=== PATIENT | male | born 1960 | race Caucasian/White ===

== ENCOUNTER 2020-04-22 16:09 | Outpatient (CLI) | payer MEDICAID, SELFPAY | END 2020-04-22 16:10 | disposition home or self-care (01) | LOC: LAB 03-06 10:17 | PROVIDERS: PCP Internal Medicine; Visit Provider Internal Medicine | DX: R63.4 Abnormal weight loss (principal) | CPT/HCPCS: 80053; 83036; 83550; 84443; 85025; 87635; G0103 ==

== ENCOUNTER 2020-04-26 07:43 | Day surgery (SDC) | payer MEDICAID, SELFPAY ==
[2020-04-26 08:06] VITALS: BP 145/94; PULSE 100; RESP 18; TEMP 36.4; O2SAT 100
[2020-04-26] MEDS: sodium chloride 0.9% 1,000 ML 30 ML IV (08:19)
--- NOTE | 2020-04-26 08:23 | P.ANESASSM_ITS ---
Pre-Anesthetic Assessment Pre-Anesthetic Assessment: Height/Weight: Height 1.7 m Weight 62.142 kg Temp Pulse Resp BP Pulse Ox 97.6 F 100 18 145/94 100 04/26/20 08:06 04/26/20 08:06 04/26/20 08:06 04/26/20 08:06 04/26/20 08:06 Preop Diagnosis: weight loss Proposed Procedure: Operation Date: 04/26/20 09:00 Proposed Procedures p EGD/Colon 82410 [id number] R63.4(Not Applicable) - Jesus Gonzalez MD s Colonoscopy(Not Applicable) - Jesus Gonzalez MD Familial anesthetic complications: None Was Beta Sabrina taken within 24 hours: N/A Last intake: Intake Last Liquid Date 04/25/20 Last Liquid Time 22:00 Last Solid Date 04/24/20 Last Solid Time 22:00 Social: Social History: No alcohol and No tobacco Exam: Pre-Anes Outpt Exam: alert, oriented x 3, clear to auscultation bilate rally and regular rate & rhythm Airway: Cervical ROM: WNL MP: 2 Dentition: Other (two lower teeth) Metabolic: Comments: rapid weight loss (40 lbs) patient appears thin, almost cachectic Anesthetic Plan: ASA status: 2 Anesthesia: MAC Risk of > 500 ml blood loss (7ml/kg in children): No Meds/Allergies Current Medications: Current Medications Generic Name Dose Route Start Last Admin Trade Name Freq PRN Reason Stop Dose Admin Sodium Chloride 1,000 mls @ 30 ml s/hr 04/26/20 08:15 04/26/20 08:19 Sodium Chloride 0.9% IV 04/27/20 08:14 30 mls/hr .Q24H GORGE Administration PFSH Anesthesia PFSH: Family History (Updated 04/22/20 @ 14:09 by HORTENSIA Iraheta) Father Cancer Grandfather Cancer Grandmother Cancer Social History (Updated 04/22/20 @ 14:09 by HORTENSIA Iraheta) Smoking and tobacco status: former smoker Alcohol intake: former History of recent travel: No Data Anesthesia Cardiac Studies: No Data to Display
--- NOTE | 2020-04-26 08:48 | W.PM.OPSUD ---
Surgery/Procedure H&P Update DATE OF PROCEDURE: April 26, 2020 DATE H&P PERFORMED: 04/22/20 PREOP DIAGNOSIS: weight loss PLANNED PROCEDURE: Operation Date: 04/26/20 09:00 Proposed Procedures p EGD/Colon 86223 [id number] R63.4(Not Applicable) - Jesus Gonzalez MD s Colonoscopy(Not Applicable) - Jesus Gonzalez MD
--- NOTE | 2020-04-26 08:56 | PC.NURSE ---
Angel Loo administered tap water enema as ordered by Dr. Gonzalez. About 500 mL was administered but patient was unable to hold the water in. Water ran out of patient seconds after administration. Dr. Gonzalez notified of poor results.
[2020-04-26 09:18] VITALS: BP 120/79; PULSE 90; RESP 18; TEMP 36.1; O2SAT 98
--- NOTE | 2020-04-26 09:20 | ANE.PACU2 ---
Inpatient post-anesthesia follow up: Airway intact: Yes Vital signs: Temperature 97 F Pulse Rate 64 Respiratory Rate 18 Blood Pressure 154/97 Pulse Oximetry 100 Oxygen Delivery Me thod Room Air Oxygen Flow Rate Fraction of Inspir ed Oxygen Hydration adequate: Yes Nausea and vomiting: No Pain level: 2 Mental status: Baseline
[2020-04-26 09:50] VITALS: BP 154/97; PULSE 64; RESP 18; O2SAT 100
--- NOTE | 2020-04-26 10:10 | PC.NURSE ---
Contrast given to patient at 1010. Instructed to drink slowly over the next hour. CT said the patient would probably be taken back for CT around 1200.;
--- NOTE | 2020-04-26 10:13 | CT_ITS ---
WS: [id number] CT CHEST, ABDOMEN, AND PELVIS TECHNIQUE: Contrast-enhanced CT of the chest, abdomen, and pelvis with coronal and sagittal reformatt ed images. CLINICAL INFORMATION: weight loss COMPARISON: None. DLP: 1096.[address] scans at [facility] use at least one of these dose optimization techniques: automat ed exposure control; mA and/or kV adjustment per patient size (includes targeted exams where dose is matched to clinical indication); or iterative reconstruction. CT CHEST: Lungs are well aerated. No acute pulmonary infiltrates. Hazy groundglass nodule in the right upper lo be measuring 9 mm. Additional noncalcified nodule right upper lobe measuring 3 mm. A few calcified gr anulomas. A few slightly prominent pretracheal lymph nodes largest measuring 8 mm nonspecific. No hil ar lymphadenopathy. A few small thyroid nodules bilaterally with the largest in the left measuring 14 mm. Normal caliber thoracic aorta. Proximal main pulmonary arteries are normal caliber. Normal GE ju nction. Normal thoracic spine. CT ABDOMEN AND PELVIS: Diffuse circumferential thickening involving the sigmoid colon extending to the rectosigmoid junction . Masslike polypoid thickening measures approximately 4.0 x 2.4 cm eccentric to the right. Additional lobulated soft tissue mass measuring 4.2 x 3.2 cm. Findings compatible with neoplasm. This extends o mukul a length of approximately 10 cm. Sigmoid thickening abuts the adjacent bladder with loss of fat p alfonso in a few locations although no abnormal bladder wall thickening. Additional lobulated sigmoid ou tpouching with low-attenuation measuring 17 mm. Multiple enlarged perirectal lymph nodes. Urine distended bladder. No inguinal lymphadenopathy. Mild left greater than right pelvocaliectasis with mild to moderate ureterectasis bilaterally left gr eater than right. Mild left hydronephrosis. Urine distended bladder may be due to bladder outlet obst ruction versus sequelae from sigmoid neoplasm. Slightly enlarged prostate measuring 4.7 CM. Recommend correlation PSA. Mild diffuse fatty infiltration the liver. No enhancing hepatic lesions. Normal gallbladder. Normal s pleen. Normal pancreas. Adrenal glands are normal. Slightly ectatic infrarenal abdominal aorta measur ing 1.8 x 1.9 CM. Aortic calcification. No periaortic lymphadenopathy. Moderate constipation with air -fluid levels in the colon. This is presumably due to partial obstruction at the rectosigmoid. Normal lumbar spine. IMPRESSION: 1. Diffuse long segment circumferential wall thickening involving the sigmoid colon extending to the rectosigmoid junction consistent with neoplasm described above. 2. Multiple prominent perirectal lymph nodes suspicious for metastatic disease 3. No periaortic or inguinal lymphadenopathy. 4. Urine distended bladder with left greater than right pelvocaliectasis and ureterectasis. Mild lef t hydronephrosis This may be due to bladder outlet obstruction versus sequelae from sigmoid neoplasm. 5. Prominent prostate measuring 4.7 cm.Correlation PSA. 6. Hazy ground glass opacity in right upper lobe nonspecific measuring 9 mm. Metastatic disease not excluded. Additional 3 mm noncalcified nodule right upper lobe. 7. A few prominent pretracheal lymph nodes largest measuring 8 mm. 8. Small bilateral thyroid nodules. This can be followed up with ultrasound.
[2020-04-26] MEDS: iohexol 300 mg/mL 50 mL Btl PO (10:39)
[2020-04-26 10:56] LABS: Carcinoembryonic Antigen 79.7 ng/mL (0.0-4.7)
[2020-04-26] MEDS: diphenhydrAMINE 50 mg/mL SDV 1mL IVP (11:50)
[2020-04-26] MEDS: hydrocortisone 100 mg/2 mL SDV IVP (11:50)
[2020-04-26] MEDS: iohexol 300 mg/mL 100 mL Btl IV (12:05)
--- NOTE | 2020-04-26 13:39 | PC.NURSE ---
Due to urine retention, Dr. Gonzalez asked for moeller to be placed, drained, and switched to leg bag for home discharge. Nurse successfully inserted moeller to patient with 1200mL immediate return. Once urine stopped draining, nurse switched normal moeller bag to leg bag, as requested by Dr. Gonzalez. Pt was given verbal and written instructions on how to care for moeller and how to switch between larger bag/leg bag -namely to sanitize the port with alcohol to prevent infections. Pt still needs to make appointment with Dr. Gaffney and Dr. Lopez. Nurse attempted to make appointments before patient left for home the day of procedure but was unable to do so by scheduling. Pt was given phone numbers to both offices and was instructed to follow up with both doctors' offices tomorrow AM if the offices do not contact him today.
== END 2020-04-26 13:29 | disposition home or self-care (01) ==
PROVIDERS: Family Provider Internal Medicine Endocrinology, Diabetes & Metabolism; Visit Provider Internal Medicine
PROC: 0DJ08ZZ Inspection of Upper Intestinal Tract, Via Natural or Artificial Opening Endoscopic (ICD-10-PCS; CPT 43235; principal; 2020-04-26 09:00)
PROC: 0DJD8ZZ Inspection of Lower Intestinal Tract, Via Natural or Artificial Opening Endoscopic (ICD-10-PCS; CPT 45378; 2020-04-26 09:00)
DX: R63.4 Abnormal weight loss (principal); Z68.21 Body mass index [BMI] 21.0-21.9, adult; D50.9 Iron deficiency anemia, unspecified; C20 Malignant neoplasm of rectum; Z87.891 Personal history of nicotine dependence
CPT/HCPCS: 12345; 36415; 43235; 45380; 51702; 71260; 74177; 82378; 88305; 96374; 96375; J1200; J1720; J2704; J3490; J7030; Q9967

== ENCOUNTER 2020-04-27 08:23 | Outpatient (CLI) | payer MEDICAID, SELFPAY ==
--- NOTE | 2020-04-28 09:56 | ONC CON_ITS ---
Dr. Singleton New Patient Note Patient: Larry Louis Unit #: [id number]: 1960 Dicatated By: Goldy Singleton M.D.Date of Visit: Apr 27, 2020 Onc MED New Patient/Consult Referring Physician: Dr. Naga Gonzalez M.D. History of Present Illness: Mr. Larry Louis, is a 59-year-old gentleman with a history of progressive constipation, and then eventually developed nausea vomiting with eating and has lost more than 40 pounds over the period of 6 months due to fear of nausea and abdominal discomfort/pain due to progressive constipation. Patient has history of off and on bleeding per rectum since childhood but recently became more regular. Patient has not seen any medical professional in the last 20 years eventually evaluated by Dr. Gonzalez and patient underwent EGD and colonoscopy on April 26, 2020 EGD was unremarkable but colonoscopy showed in the rectum a completely obstructed, large sized, fungating, friable, infiltrative and malignant appearing, circumferential mass and mass was actively bleeding, biopsy was obtained and which is pending patient underwent CT scan of chest abdomen pelvis on April 26, 2020 which showed diffuse circumferential thickening involving sigmoid colon extending to the rectosigmoid junction. Masslike polypoid thickening measuring approximately 4 x 2.4 cm eccentric to the right. Additional lobulated soft tissue mass measuring 4.2 x 3.2 cm and this extends over the length of approximately 10 cm. Sigmoid thickening abuts the adjacent bladder and with loss of fat plane in a few locations although no abnormal bladder wall thickening. Additional lobulated sigmoid outpouching with a low attenuation measuring 17 mm. Multiple enlarged perirectal lymph nodes. Urinary distended bladder. No inguinal lymphadenopathy. Mild diffuse fatty infiltration of the liver. No enhancing hepatic lesions seen. Hazy groundglass opacity in the right upper lobe nonspecific measuring 9 mm. Additional 3 mm noncalcified nodule right upper lobe. A few prominent pretracheal lymph nodes largest measuring 8 mm., Small bilateral thyroid nodules. Patient is a former smoker, and used to take moderate amount of alcohol. Patient denies any fever chills, denies any nausea or vomiting, denies any jaundice, denies any hemoptysis or hematemesis denies any shortness of breath or chest pain. Past Medical History: There is no documented medical history. Past Surgical History: Mr. Louis's surgical history is unremarkable. Medications: Tylenol 2 Tablet (of 325 mg) Oral q 8 hours PRN Allergies: Iodine Social History: Mr. Louis is single and he has no occupation specified. Mr. Louis has never smoked. He has no history of drinking. Family History: Mr. Louis's mother is alive. Mr. Louis's father at age 84: liver cancer. Mr. Louis has 3 brothers: 3 alive. He has 1 sister who is alive. Review Of Symptoms: Review of Systems is not available for this patient. Vital Signs: Performed on Apr 27, 2020 10:15: 8, 21.18, 1.71 sq.m, 67.00 in, 100 %, 83 /min, 20 /min, 148/91 mm(hg) (HIGH), 98.3 F (LOW), and 135.2 lbs (HIGH). Performance Status: 1 - No physically strenuous activity, but ambulatory and able to carry out light or sedentary work (e.g. office work, light house work). (ECOG) Physical Examination: ENMT - No mouth sores, no thrush, no jaundice, Respiratory - Lungs are clear to auscultation, Cardiovascular - Regular rate and rhythm of heart, Abdomen - Soft, bowel sounds present, Extremities - No visible edema. Lab/Imaging: Most recent lab results are not available for this patient. Impression: Near obstructive colorectal mass per colonoscopy done on April 26, 2020, biopsy pending CT scan of chest abdomen pelvis done on April 26, 2020 showed diffuse circumferential thickening involving sigmoid colon extending to the rectosigmoid junction. Masslike polypoid thickening measuring approximately 4 x 2.4 cm eccentric to the right. Additional lobulated soft tissue mass measuring 4.2 x 3.2 cm. Multiple enlarged perirectal lymph nodes. No enhancing lesion seen in the liver. Sigmoid thickening abuts adjacent bladder with loss of fat plane in a few location although no abnormal bladder wall thickening. Hazy groundglass opacity in the right upper lobe nonspecific measuring 9 mm. Additional 3 mmcalcified nodule right upper lobe. Small bilateral thyroid nodules. 40+ pound weight loss due to nausea and abdominal discomfort with eating due to near obstructive colorectal mass Plan: Discussed with patient regarding his colonoscopy report as well as CT scan of chest abdomen pelvis report, patient has large polypoid colorectal mass seen on the CT scan causing progressive constipation due to obstruction, at this point his biopsy report is pending but it would be appropriate if patient see surgeon immediately for evaluation regarding either resection of these masses or divergent colostomy and if biopsy confirms malignancy and tumor is not resectable upfront then may consider neoadjuvant therapy. Case was discussed with Dr. Reed, surgery and he suggested patient should see colorectal surgeon, then case was discussed with Dr. Hodge, in [place], who would see patient as soon as possible for evaluation. We will see him back after surgical evaluation with CBC CMP and plan accordingly. Patient was advised while he is waiting for evaluation by Dr. Hodge, in case he develops any severe abdominal pain or excessive rectal bleeding, he need to go to hospital immediately and also advised to avoid solid food. And maintain good hydration. Signed By: Goldy Singleton M.D. <<Signature on File>>
--- NOTE | 2020-04-29 11:30 | N.ONRAD NP_ITS ---
Radiation Oncology New Patient Visit Patient: Larry Louis MR#: [id number] : 1960> Age: 59> Sex: Male> Dictated by: Dr. Jay Brooke Date of Service: 04/27/2020 Referring Physician(s) : Dr. Naga Gonzalez Primary Site: Rectum Diagnosis: Adenocarcinoma of the proximal rectum. Staging work-up is pending. Purpose of Visit: Discuss the role of radiotherapy with curative intent. History of Present Illness: The patient is a 59-year-old male who presented with a history of hematochezia, a 43 pound unintended weight loss over the past 3 months, rectal incontinence for 1 year, constipation, nausea/vomiting, and bladder outlet obstruction requiring catheterization. The patient reports a chronic history of blood per rectum which began in childhood. On 04/26/[address] Gonzalez revealed a completely obstructing, large size, fungating, friable, infiltrative, malignant appearing, circumferential rectal mass. This mass was biopsied and pathology revealed moderately differentiated invasive adenocarcinoma (MMR studies pending). On 04/26/[address] of the chest abdomen and pelvis revealed: A 4 x 2.4 cm lesion in the sigmoid colon eccentric to the right and an additional lobulated soft tissue mass measuring 4.2 x 3.2 cm extending over a length of approximately 10 cm. Sigmoid thickening abuts the adjacent bladder with loss of fat plane and there was an additional lobulated sigmoid outpouching with low attenuation measuring 1.7 cm; Multiple enlarged perirectal lymph nodes; Enlarged prostate measuring 4.7 cm; Mild left hydronephrosis likely secondary to bladder outlet obstruction versus sequela from sigmoid neoplasm; a 9 mm nonspecific groundglass opacity in the right upper lobe of lung, and an additional 3 mm noncalcified nodule in the right upper lobe of lung; and, A few prominent pretracheal lymph nodes (largest measuring 8 mm). In consultation today, the patient reports bloody stools, weight loss, and bladder outlet obstruction symptoms. He reports that he has not seen a physician in over 20 years. The patient was also seen by Dr. Singleton today, who urgently facilitated the patient to be seen by Dr Olsen, a colorectal surgeon in [place], for a possible diverting colostomy. Current Medications: Tylenol. Allergies: Iodine. Medical History: No history of collagen vascular disease. No previous radiation therapy. Surgical History: Unremarkable Family History: The patient reports a positive family history of colon cancer in his grandfather, and liver cancer in his father Social History: The patient is seen today with his uncle, he reports that he is never smoked, and he has no history of illicit drug use or alcohol dependence. Review of Systems A thorough review of symptoms was completed which targeted constitutional, heme/lymph, HEENT, DRAFTING ENGINEER, pulmonary, cardiac, genitourinary, gastrointestinal, musculoskeletal, psychiatric and skin. Aside from that listed in the HPI, all others were negative. Vital Signs: Performed on 04/27/2020 10:15 AM Height - 67.00 in, Weight - 135.2 lbs (high), BSA - 1.71 sq.m, BMI - 21.18, Temperature - 98.3 f (low), Pulse - 83 /min, Respiration - 20 /min, O2 Sat - 100 %, Pain - 8 and BP - 148/ 91 mm(hg)(high). Physical Exam: GENERAL:??? The patient is alert, and in no acute distress. HEENT:??? Head is normocephalic. Face is symmetric. External ocular movements are intact. Sclera and conjunctivae are non erythematous. NECK:??? Trachea is midline.??? Thyroid is not enlarged by palpation.??? LYMPH NODES:??? There is no cervical or supraclavicular adenopathy bilaterally. LUNGS:??? Clear to auscultation bilaterally. Respiratory movement is unlabored. HEART:??? Regular rate and rhythm. EXTREMITIES:??? No deformities. NEUROLOGIC:??? Gait and station are normal.??? The patient is well coordinated and strength is equal bilaterally. DRAFTING ENGINEER:??? Cranial nerves II-XII are intact and without focal deficits.??? Psych: Affect is normal. Skin: Cursory review of the skin reveals no obvious lesions concerning for malignancy. Performance Status: 1 - No physically strenuous activity, but ambulatory and able to carry out light or sedentary work (e.g. office work, light house work). (ECOG) Imaging Review: I reviewed the radiographic images discussed above. 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 The mass is radiographically reported to span a distance of 10 cm and per colonoscopy, it was completely obstructing. Although staging is pending (i.e., MRI of the pelvis-rectal protocol, and PET/CT), I have personally have a high clinical suspicion for metastatic disease. Radiographic work-up completed thus far consisting of a CT of the chest abdomen pelvis (04/26/2020) reveals two contiguous colorectal masses likely originating in the sigmoid colon along with concern for invasion into the bladder, left hydronephrosis secondary to bladder outlet obstruction versus sequela from sigmoid neoplasm, a 9 mm nonspecific groundglass opacity in the right upper lobe of lung, an additional 3 mm noncalcified nodule in the right upper lobe of lung, and mediastinal adenopathy (largest measuring 8 mm). The patient is scheduled to see Dr. Olsen tomorrow, who is evaluating the patient for a possible diverting colostomy. Dr. Olsen will also make treatment recommendations pending further work-up/staging. Formal recommendations for radiation treatment will come after a consensus agreement has been reached between medical oncology, the colorectal surgeon, and radiation oncology. Plan: Follow-up in radiation oncology after seeing Dr. Olsen. Signed by Jay Brooke MD: 04/29/2020 11:28:44 AM <<Signature on File>> Time spent with patient: CPT Code: CPT Code:
== END 2020-04-27 08:24 | disposition home or self-care (01) ==
LOC: ONCMED 08:26
PROVIDERS: Absent Provider Radiology Radiation Oncology; Family Provider Internal Medicine Endocrinology, Diabetes & Metabolism; PCP Internal Medicine; Visit Provider Internal Medicine Hematology & Oncology
DX: C19 Malignant neoplasm of rectosigmoid junction (principal); C79.11 Secondary malignant neoplasm of bladder; K92.1 Melena; R63.4 Abnormal weight loss; N32.0 Bladder-neck obstruction; N13.30 Unspecified hydronephrosis; R91.1 Solitary pulmonary nodule; R59.1 Generalized enlarged lymph nodes
CPT/HCPCS: 99203; 99215

== ENCOUNTER → 2020-05-21 10:09 | Outpatient (BNVA) | payer MEDICAID, SELFPAY | PROVIDERS: Family Provider Internal Medicine Endocrinology, Diabetes & Metabolism; PCP Internal Medicine; Visit Provider Internal Medicine | DX: Z01.812 Encounter for preprocedural laboratory examination (principal); Z20.828 Contact with and (suspected) exposure to other viral communicable diseases | CPT/HCPCS: 87635 ==

== ENCOUNTER 2020-06-09 15:21 | Outpatient (CLI) | payer MEDICAID, SELFPAY ==
[2020-06-09 15:49] LABS: Basophils # 0.1 10^3/uL (0.0-0.1); Basophils % 0.8 %; Hemoglobin 8.4 g/dL (11.7-16.6); Lymphocytes # 1.5 10^3/uL (0.8-4.8); Lymphocytes % 20.1 %; Mean Corpuscular HGB Conc 26.3 g/dL (30.0-36.0); Mean Corpuscular Volume 68.7 fL (80-94); Mean Platelet Volume 8.5 fL (7.4-10.4); Monocytes # 0.5 10^3/uL (0.2-0.9); Monocytes % 7.2 %; Neutrophils # 5.39 10^3/uL (1.8-7.7); Neutrophils % 71.6 %; Nucleated Red Blood Cells % 0 %; Platelet Count 341 10^3/cmm (130-400); Red Blood Count 4.66 10^6/uL (4.1-5.3); Red Cell Distribution Width 19.5 % (12.1-15.1); White Blood Count 7.5 10^3/uL (4.0-10.0)
[2020-06-09 16:19] LABS: Alanine Aminotransferase 10 U/L (0-41); Albumin Level 4.2 g/dL (3.5-5.2); Alkaline Phosphatase 84 IU/L (40-130); Anion Gap 14.2 (5-19); Aspartate Amino Transferase 15 U/L (0-40); Blood Urea Nitrogen 8 mg/dL (8-23); Calcium 9.5 mg/dL (8.5-10.5); Carbon Dioxide 28 mmol/L (22-29); Chloride 100 mmol/L (98-107); Globulin 3.2 g/dL (1.3-4.6); Glomerular Filtration Rate 86.1 mL/min (90-130); Glucose 91 mg/dL (65-115); Osmolality Calculated 284 mOsm/kg (285-295); Potassium 4.2 mmol/L (3.5-5.1); Sodium 138 mmol/L (136-145); Total Bilirubin 0.2 mg/dL (0.15-1.2); Total Protein 7.4 g/dL (6.6-8.7)
== END 2020-06-09 15:22 | disposition home or self-care (01) ==
LOC: ONCMED 15:23
PROVIDERS: Family Provider Internal Medicine Endocrinology, Diabetes & Metabolism; PCP Internal Medicine; Visit Provider Internal Medicine Hematology & Oncology
DX: C20 Malignant neoplasm of rectum (principal); K62.89 Other specified diseases of anus and rectum; K63.89 Other specified diseases of intestine
CPT/HCPCS: 36415; 80053; 85025

== ENCOUNTER 2020-06-10 08:04 | Outpatient (CLI) | payer MEDICAID, SELFPAY ==
--- NOTE | 2020-06-10 09:16 | ONC FU_ITS ---
Dr. Singleton follow up note Patient: Larry Louis Unit #: [id number]: 1960 Dicatated By: Goldy Singleton M.D.Date of Visit:Jun 10, 2020 Onc Med Follow-up/Prog Note History of Present Illness: Mr. Larry Louis, is a 59-year-old gentleman with a history of progressive constipation, and then eventually developed nausea vomiting with eating and has lost more than 40 pounds over the period of 6 months due to fear of nausea and abdominal discomfort/pain due to progressive constipation. Patient has history of off and on bleeding per rectum since childhood but recently became more regular. Patient has not seen any medical professional in the last 20 years eventually evaluated by Dr. Gonzalez and patient underwent EGD and colonoscopy on April 26, 2020 EGD was unremarkable but colonoscopy showed in the rectum a completely obstructed, large sized, fungating, friable, infiltrative and malignant appearing, circumferential mass and mass was actively bleeding, biopsy was obtained and which is pending patient underwent CT scan of chest abdomen pelvis on April 26, 2020 which showed diffuse circumferential thickening involving sigmoid colon extending to the rectosigmoid junction. Masslike polypoid thickening measuring approximately 4 x 2.4 cm eccentric to the right. Additional lobulated soft tissue mass measuring 4.2 x 3.2 cm and this extends over the length of approximately 10 cm. Sigmoid thickening abuts the adjacent bladder and with loss of fat plane in a few locations although no abnormal bladder wall thickening. Additional lobulated sigmoid outpouching with a low attenuation measuring 17 mm. Multiple enlarged perirectal lymph nodes. Urinary distended bladder. No inguinal lymphadenopathy. Mild diffuse fatty infiltration of the liver. No enhancing hepatic lesions seen. Hazy groundglass opacity in the right upper lobe nonspecific measuring 9 mm. Additional 3 mm noncalcified nodule right upper lobe. A few prominent pretracheal lymph nodes largest measuring 8 mm., Small bilateral thyroid nodules. Patient was referred to Dr. Olsne because of progressive intestinal obstruction and on April 29, 2020 patient underwent lap loop sigmoid colostomy and Port-A-Cath placement followed by MRI scan of pelvis on May 06, 2020 which showed mid upper rectal tumor is noted in a circumferential appearance extending above the level of peritoneal reflection with prominent extension through muscularis into adjacent medial fat. There is also a large soft tissue nodular component extending superiorly into base of sigmoid mesentery above the peritoneal reflection. These findings are associated with enlarged presacral lymph node as well as obstructive uropathy with a moderate degree of left-sided hydronephrosis due to obstruction of distal left ureter Patient is a former smoker, and used to take moderate amount of alcohol. Patient denies any fever chills, denies any nausea or vomiting, denies any jaundice, denies any hemoptysis or hematemesis denies any shortness of breath or chest pain. Came for follow-up, denies any specific complaints, feeling much better with divergent colostomy no more abdominal pain no more frequent trips to the restroom. No nausea or vomiting. Appetite is good. Medications: Colace 1 Capsule Oral daily PRN, HYDROcodone-Acetaminophen 1 Tablet (of 5-325 mg) Oral q 6 hours PRN, Tylenol 2 Tablet (of 325 mg) Tablet Oral q 8 hours PRN Allergies: Iodine Review of Systems: Constitutional - Appetite is fair and weight is stable. No fever, night sweats, or hot flashes. Energy is poor, Allergic/Immunologic - , ENMT - No sinus congestion/drainage. No mouth sores. No sore throat or difficulty swallowing, Endocrine - , Hematologic/Lymphatic - No abnormal bruising, bleeding, Respiratory - No shortness of breath. No cough. No pleuritic pain or hemoptysis, Cardiovascular - No angina pain. No palpitations, Gastrointestinal - No nausea or vomiting. No heartburn or acid reflux. No diarrhea or constipation. Positive for bleeding from rectum, Genitourinary (M) - No dysuria or hematuria. No urinary frequency. No urgency or incontinence, Musculoskeletal - No joint or bone pain, Neurologic - No headache or dizziness. No numbness or tingling. No other focal neurologic symptoms, Psychiatric - No anxiety or depression. No insomnia. Vital Signs: Performed on Jun 10, 2020 08:09 Height - 67.00 in Weight - 138.6 lbs (HIGH) BSA - 1.73 sq.m BMI - 21.71 Temperature - 98.2 F (LOW) Pulse - 75 /min Respiration - 16 /min BP - 148/85 mm(hg) (HIGH) O2 Sat - 100 % Pain - 0 Performance Status: 1 - No physically strenuous activity, but ambulatory and able to carry out light or sedentary work (e.g. office work, light house work). (ECOG) Physical Examination: ENMT - No mouth sores, no thrush, no jaundice, Respiratory - Lungs are clear to auscultation, Cardiovascular - Regular rate and rhythm of heart, Abdomen - Soft, bowel sounds present ,colostomy bag functioning well with no discharge, Extremities - No edema or rash. Lab/Imaging: Most recent lab results are not available for this patient. Impression: Near obstructive colorectal mass per colonoscopy done on April 26, 2020, biopsy Confirmed invasive adenocarcinoma, moderately differentiated CT scan of chest abdomen pelvis done on April 26, 2020 showed diffuse circumferential thickening involving sigmoid colon extending to the rectosigmoid junction. Masslike polypoid thickening measuring approximately 4 x 2.4 cm eccentric to the right. Additional lobulated soft tissue mass measuring 4.2 x 3.2 cm. Multiple enlarged perirectal lymph nodes. No enhancing lesion seen in the liver. Sigmoid thickening abuts adjacent bladder with loss of fat plane in a few location although no abnormal bladder wall thickening. Hazy groundglass opacity in the right upper lobe nonspecific measuring 9 mm. Additional 3 mmcalcified nodule right upper lobe. Small bilateral thyroid nodules. Status post lap loop sigmoid colostomy done on April 29, 2020 MRI scan of the pelvis done on May 06, 2020 showed mid-upper rectal tumor is noted with a circumferential appearance extending above the level of the peritoneal reflection with a prominent extension to the muscularis into adjacent mesorectal fat. There is also a large soft tissue nodular component extending superiorly into the base of the sigmoid mesentery above the peritoneal reflection. These findings are associated with enlarged presacral lymph nodes as well as obstructive uropathy with a moderate degree of left-sided hydronephrosis due to obstruction of distal left ureter Clinical stage IIIb versus IV 40+ pound weight loss due to nausea and abdominal discomfort with eating due to near obstructive colorectal mass Microcytic hypochromic anemia due to iron deficiency anemia probably due to chronic GI bleeding Plan: Discussed with patient regarding his labs white blood count 7.5 hemoglobin 8.4 hematocrit 32 platelets 341,000 CMP within normal limits Clinically, patient is doing reasonably well, recently underwent urgent lap loop 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 Discussed with patient regarding further planning, his CT scan of chest abdomen pelvis done on April 26, 2020 showed locally advanced disease as well as hazy groundglass opacity in the right upper lobe of lung measuring 9 mm and 3 additional noncalcified nodule in the right upper lobe, inflammatory versus metastatic. We will consider staging CT PET scan to assess extent of the disease e.g. whether pulmonary mets and decide whether to proceed with systemic chemotherapy upfront followed by combined chemoradiation or upfront combined chemoradiation followed by surgical evaluation Microcytic/hypochromic anemia probably due to iron deficiency due to chronic GI bleeding, will check his iron stores and also start him on oral iron supplement. And monitoring his hemoglobin We will refer him to radiation oncology for evaluation and patient will return to clinic after CT PET scan for further discussion. Signed By: Goldy Singlteon M.D. <<Signature on File>>
[2020-06-10 15:47] LABS: Ferritin 11 ng/mL (30-400); Iron 10 ug/dL (59-158); Percent Saturation 2.6 % (20-50); Total Iron Binding Capacity 374 mcg/dl; Unsaturated Iron Binding 364 ug/dL (112-347)
== END 2020-06-10 08:05 | disposition home or self-care (01) ==
LOC: ONCMED 08:05
PROVIDERS: Family Provider Internal Medicine Endocrinology, Diabetes & Metabolism; PCP Internal Medicine; Visit Provider Internal Medicine Hematology & Oncology
DX: C20 Malignant neoplasm of rectum (principal); D50.0 Iron deficiency anemia secondary to blood loss (chronic); K62.89 Other specified diseases of anus and rectum; K63.89 Other specified diseases of intestine; E04.2 Nontoxic multinodular goiter; R63.4 Abnormal weight loss
CPT/HCPCS: 82728; 83540; 83550; 99215

== ENCOUNTER 2020-06-17 11:55 | Inpatient (IN) | payer MEDICAID, SELFPAY ==
[2020-06-17] VITALS (10 sets, daily range): BP systolic 89–112; BP diastolic 61–71; PULSE 83–123; RESP 16–18; TEMP 36.1–36.6; O2SAT 95–99; BMI 21.7
--- NOTE | 2020-06-17 12:57 | CT_ITS ---
WS: [id number] CT ABDOMEN AND PELVIS WITH CONTRAST HISTORY: abd pain TECHNIQUE: Imaging performed of the abdomen and pelvis with IV contrast. Single phase imaging of the abdomen. Coronal and sagittal reformats are submitted. All CT scans at [facility] use at least one of these dose optimization techniques: automated exposure control; mA and/or kV adjustment per patient size (includes targeted exams where dose is matched to clinical indication); or iterativ e reconstruction. IV CONTRAST: Visipaque 320; 95 mL IV. Oral contrast: No DLP: 292.64 mGy.cm COMPARISON: 04/26/2020 Lower thorax: 8 mm nodule in the anterior RIGHT lower lobe is unchanged. Benign granuloma at the RIGH T lung base. Heart is normal size. No hiatal hernia. Liver/biliary system: Normal size with no intrahepatic dilatation. Gallbladder: Normal. No gallstones or wall thickening. No pericholecystic fluid. Pancreas: Normal. Spleen: Normal. Adrenal glands: Normal size RIGHT adrenal gland. Mild thickening of the LEFT adrenal gland similar to the prior study. No discrete nodule. Right kidney: Normal. Left kidney: New perinephric stranding around the LEFT kidney. Abnormal enhancement throughout the ki dney. Areas of decreased attenuation involving the cortex in the parenchyma of the kidney involves th e upper and lower lobes. No residual hydronephrosis. LEFT double pigtail ureteral stent has been plac ed since the prior study. Hydronephrosis has resolved. Aorta: Ectasia and atherosclerosis aorta. Lymphadenopathy: Small lymph nodes in the presacral space are unchanged. The largest measures 10 mm. Free fluid: None. GI tract: Since the prior examination there is a colostomy in the LEFT lower quadrant. Again noted is the large infiltrating neoplasm involving the sigmoid colon with extension to the rectum. No signifi cant improvement in the infiltrate neoplastic process with diffuse wall thickening. Colon proximal to the colostomy site is dilated from constipation. No free air is appreciated. Abdominal wall: No hernia. Pelvis: Normal. Bones: Well-distended urinary bladder. Pigtails from the LEFT ureteral stent is coiled in the bladder . Prostate gland is slightly enlarged. CT/CT abdomen pelvis w con* [id number] IMPRESSION: 1. Status post LEFT lower quadrant colostomy since 04/26/2020. 2. Again noted is the large infiltrating neoplasm involving the sigmoid to the level of the rectum with a few presacral lymph nodes. 3. LEFT ureteral double pigtail stent catheter has been placed since the prior study. 4. New areas of abnormal enhancement involving the upper and lower poles of th e LEFT kidney, likely pyelonephritis. Additional perinephric stranding around t he LEFT kidney. 5. Ectatic thoracic aorta. Notified Dinesh Akhtar DO at 06/17/2020 1:54 PM.
--- NOTE | 2020-06-17 13:03 | W.ED.GENADLT ---
HPI - General Adult General: Chief complaint: General Medical Stated complaint: 102.5 fever, 140+HR Time Seen by Provider: 06/17/20 12:36 History of Present Illness: HPI narrative: 59-year-old male presents to the emergency room complaint of a temp of 102 this morning. He was tachycardic with a low blood pressure this morning. His temp has improved pretty much resolved. He has a history of recent diagnosis of colon cancer as well as needing a right ureteral stent due to impingement from his colon cancer. He has had an colostomy.. He is not noticed any change in output in his colostomy. Onset (ago): hour(s) Severity: moderate Pain Consistency: intermittent Relieving factors: rest Exacerbating factors: eating and movement Associated symptoms: Reports weakness; Deny chest pain, confusion, cough, diaphoresis, decreased appetite, dyspnea, fevers/chills, headache(s), malaise, nausea, rash, palpitations, seizures, short of breath, syncope or vomiting Treatments prior to arrival: none Review of Systems Const: Denies: malaise or diaphoresis ENMT: Denies: throat pain, ear or mastoid pain, nasal discharge or nasal congestion Card: Denies: chest pain, palpitations or syncope Resp: Denies: dyspnea GI: Denies: nausea or vomiting : Denies: flank pain, dysuria, urinary frequency or urinary urgency Skin/Breast: Denies: rash Neuro: Denies: headache(s) or confusion PFS ED PFSH: Surgical History History of colostomy Family History Father Cancer Grandfather Cancer Grandmother Cancer Social History Smoking and tobacco status: former smoker Alcohol intake: former History of recent travel: No Physical Exam Const: COMMON NORMALS: no acute distress GENERAL APPEARANCE: cooperative and comfortable NUTRITIONAL APPEARANCE: cachectic ORIENTATION/CONSCIOUSNESS: Yes awake, Yes oriented to person, Yes oriented to place and Yes oriented to time HENMT: COMMON NORMALS: normocephalic, atraumatic and hearing grossly normal bilaterally HEAD & SCALP: normocephalic and atraumatic Eye: COMMON NORMALS: Equal, round and reactive pupils present, EOMs intact bilaterally, conjunctivae normal and no scleral icterus CONJUNCTIVA: Yes conjunctivae normal PUPIL: Yes Equal, round and reactive pupils present Neck/C-Spine: COMMON NORMALS: full ROM, no lymphadenopathy, supple and no JVD Lymph: LYMPHATIC: no lymphadenopathy noted and no lymphedema noted Resp: COMMON NORMALS: normal respiratory effort, No retractions, No use of accessory muscles and clear to auscultation bilaterally AUSCULTATION: clear to auscultation bilaterally Cardio: COMMON NORMALS: no JVD, regular rate, regular rhythm and No murmurs present (Cardio) RATE: regular rate RHYTHM: regular rhythm GI: COMMON NORMALS: Soft to palpation and No hepatosplenomegaly present AUSCULTATION: Yes normoactive bowel sounds PALPATION: Yes Soft to palpation, No Tenderness to palpation present (GI), No Guarding due to palpation present (GI) and Yes No hepatosplenomegaly present OTHER: Colostomy left lower quadrant no melena. Moderate bilateral CVA tenderness Extremity: COMMON NORMALS: normal to inspection, capillary refill normal, no clubbing, cyanosis or edema, no calf tenderness and no pedal edema Neuro: SENSORIUM/ORIENTATION: Yes oriented to person, Yes oriented to place and Yes oriented to time Skin: COMMON NORMALS: no rashes or lesions noted GENERAL SKIN EXAM: no rashes or lesions noted Course Vital Signs: Vital signs: Vital Signs Temperature 97.9 F 06/17/20 11:57 Pulse Rate 98 06/17/20 15:14 Respiratory Rate 17 06/17/20 15:14 Blood Pressure 91/65 06/17/20 15:14 Pulse Oximetry 98 06/17/20 15:14 MDM - General Adult MDM Narrative: Medical decision making narrative: Reviewed findings with the patient including CT findings will admit for pyelonephritis discussed Dr. Valente Lab Data: Labs: Lab Results 06/17/20 06/17/20 06/17/20 Range/Units 12:10 12:10 12:10 WBC 29.5 H (4.0-10.0) 10^3/ uL RBC 5.09 (4.1-5.3) 10^6/u L Hgb 9.3 L (11.7-16.6) g/dL Hct 35.0 L (42.0-52.0) % MCV 68.8 L (80-94) fL MCH 18.3 L (28.0-34.0) pg MCHC 26.6 L (30.0-36.0) g/dL RDW 18.9 H (12.1-15.1) % Plt Count 319 (130-400) 10^3/c mm MPV 9.5 (7.4-10.4) fL Neut % (Auto) 85.8 % Lymph % (Auto) 4.0 % Merrick % (Auto) 9.2 % Eos % (Auto) 0.0 % Baso % (Auto) 0.3 % Neut # (Auto) 25.31 H (1.8-7.7) 10^3/u L Lymph # (Auto) 1.2 (0.8-4.8) 10^3/u L Merrick # (Auto) 2.7 H (0.2-0.9) 10^3/u L Eos # (Auto) 0.0 (0.0-0.8) 10^3/u L Baso # (Auto) 0.1 (0.0-0.1) 10^3/u L Nucleated RBC % (a uto) 0 % Nucleated RBCs # 0.0 /100WBC Sodium 134 L (136-145) mmol/L Potassium 3.7 (3.5-5.1) mmol/L Chloride 94 L (98-107) mmol/L Carbon Dioxide 25 (22-29) mmol/L Anion Gap 18.7 (5-19) BUN 29 H (8-23) mg/dL Creatinine 1.6 H (0.7-1.2) mg/dL GFR Calculation 44.3 L (90-130) mL/min Glucose 177 H (65-115) mg/dL Calculated Osmolal ity 288 (285-295) mOsm/k g Lactic Acid 3.7 H (0.5-2.2) mmol/L Calcium 9.7 (8.5-10.5) mg/dL Total Bilirubin 0.7 (0.15-1.2) mg/dL AST 19 (0-40) U/L ALT 14 (0-41) U/L Alkaline Phosphata se 97 (40-130) IU/L Total Protein 7.6 (6.6-8.7) g/dL Albumin 3.7 (3.5-5.2) g/dL Globulin 3.9 (1.3-4.6) g/dL Lipase 10 L (13-60) U/L Urine Color (Yellow) Urine Appearance (CLEAR) Urine pH (5-7) Ur Specific Gravit y (1.005-1.030) Urine Protein (Negative) Urine Glucose (UA) (Normal) Urine Ketones (Negative) Urine Blood (Negative) Urine Nitrate (Negative) Urine Bilirubin (Negative) Urine Urobilinogen (Negative) mg/dL Ur Leukocyte Peace ase (Negative) Urine RBC (0-2) /hpf Urine WBC (0-5) /hpf Ur Squamous Epith Cells (0-5) /hpf Amorphous Sediment /hpf Urine Bacteria (NONE) /hpf 06/17/20 Range/Units 14:28 WBC (4.0-10.0) 10^3/ uL RBC (4.1-5.3) 10^6/u L Hgb (11.7-16.6) g/dL Hct (42.0-52.0) % MCV (80-94) fL MCH (28.0-34.0) pg MCHC (30.0-36.0) g/dL RDW (12.1-15.1) % Plt Count (130-400) 10^3/c mm MPV (7.4-10.4) fL Neut % (Auto) % Lymph % (Auto) % Merrick % (Auto) % Eos % (Auto) % Baso % (Auto) % Neut # (Auto) (1.8-7.7) 10^3/u L Lymph # (Auto) (0.8-4.8) 10^3/u L Merrick # (Auto) (0.2-0.9) 10^3/u L Eos # (Auto) (0.0-0.8) 10^3/u L Baso # (Auto) (0.0-0.1) 10^3/u L Nucleated RBC % (a uto) % Nucleated RBCs # /100WBC Sodium (136-145) mmol/L Potassium (3.5-5.1) mmol/L Chloride (98-107) mmol/L Carbon Dioxide (22-29) mmol/L Anion Gap (5-19) BUN (8-23) mg/dL Creatinine (0.7-1.2) mg/dL GFR Calculation (90-130) mL/min Glucose (65-115) mg/dL Calculated Osmolal ity (285-295) mOsm/k g Lactic Acid (0.5-2.2) mmol/L Calcium (8.5-10.5) mg/dL Total Bilirubin (0.15-1.2) mg/dL AST (0-40) U/L ALT (0-41) U/L Alkaline Phosphata se (40-130) IU/L Total Protein (6.6-8.7) g/dL Albumin (3.5-5.2) g/dL Globulin (1.3-4.6) g/dL Lipase (13-60) U/L Urine Color Yellow (Yellow) Urine Appearance Hazy A (CLEAR) Urine pH 5 (5-7) Ur Specific Gravit y 1.025 (1.005-1.030) Urine Protein 2+ H (Negative) Urine Glucose (UA) Norm (Normal) Urine Ketones Negative (Negative) Urine Blood 2+ H (Negative) Urine Nitrate Positive H (Negative) Urine Bilirubin Neg (Negative) Urine Urobilinogen Norm (Negative) mg/dL Ur Leukocyte Peace ase Trace H (Negative) Urine RBC 0-4 H (0-2) /hpf Urine WBC 80-100 H (0-5) /hpf Ur Squamous Epith Cells 0-4 H (0-5) /hpf Amorphous Sediment 2+ /hpf Urine Bacteria 3+ H (NONE) /hpf Discharge Plan Discharge Patient Disposition: Admitted As Inpatient Clinical Impression: Pyelonephritis, Colon cancer Condition: Stable Coding Level of Care Code ED Behavioral Intervention Specialist for Yuriy Campo
[2020-06-17 13:15] LABS: Basophils # 0.1 10^3/uL (0.0-0.1); Basophils % 0.3 %; Hemoglobin 9.3 g/dL (11.7-16.6); Lymphocytes # 1.2 10^3/uL (0.8-4.8); Mean Corpuscular HGB Conc 26.6 g/dL (30.0-36.0); Mean Corpuscular Hemoglobin 18.3 pg (28.0-34.0); Mean Corpuscular Volume 68.8 fL (80-94); Mean Platelet Volume 9.5 fL (7.4-10.4); Monocytes # 2.7 10^3/uL (0.2-0.9); Monocytes % 9.2 %; Neutrophils # 25.31 10^3/uL (1.8-7.7); Neutrophils % 85.8 %; Nucleated Red Blood Cells % 0 %; Platelet Count 319 10^3/cmm (130-400); Red Blood Count 5.09 10^6/uL (4.1-5.3); Red Cell Distribution Width 18.9 % (12.1-15.1); White Blood Count 29.5 10^3/uL (4.0-10.0)
[2020-06-17 13:24] LABS: Alanine Aminotransferase 14 U/L (0-41); Albumin Level 3.7 g/dL (3.5-5.2); Alkaline Phosphatase 97 IU/L (40-130); Anion Gap 18.7 (5-19); Aspartate Amino Transferase 19 U/L (0-40); Blood Urea Nitrogen 29 mg/dL (8-23); Calcium 9.7 mg/dL (8.5-10.5); Carbon Dioxide 25 mmol/L (22-29); Chloride 94 mmol/L (98-107); Globulin 3.9 g/dL (1.3-4.6); Glomerular Filtration Rate 44.3 mL/min (90-130); Glucose 177 mg/dL (65-115); Lipase 10 U/L (13-60); Osmolality Calculated 288 mOsm/kg (285-295); Potassium 3.7 mmol/L (3.5-5.1); Sodium 134 mmol/L (136-145); Total Bilirubin 0.7 mg/dL (0.15-1.2); Total Protein 7.6 g/dL (6.6-8.7)
[2020-06-17] MEDS: ondansetron 2 mg/ML SDV 2 mL 4 MG IVP (13:25)
[2020-06-17] MEDS: diphenhydrAMINE 50 mg/mL SDV 1mL 25 MG IVP (13:25)
[2020-06-17] MEDS: hydrocortisone 100 mg/2 mL SDV IVP (13:25)
[2020-06-17] MEDS: sodium chloride 0.9% 1,000 ML 999 ML IV ×2 (13:28→15:09)
[2020-06-17 13:40] LABS: Lactic Sepsis W/Reflex 3.7 mmol/L (0.5-2.2)
[2020-06-17] MEDS: iodixanol 320 mg/mL 100mL Btl IV (13:45)
[2020-06-17 14:55] LABS: Specific Gravity, Urine 1.025 (1.005-1.030); Urine Appearance Hazy (CLEAR); Urine Color Yellow (Yellow); pH Urine 5 (5-7)
[2020-06-17 14:56] LABS: Add Urine Microscopic? YES; Bilirubin Urine Neg (Negative); Blood Urine 2+ (Negative); Glucose Urine UA Norm (Normal); Ketones Urine Negative (Negative); Leukocyte Esterase Urine Trace (Negative); Nitrate Urine Positive (Negative); Protein Urine 2+ (Negative); RBC Urine 0-4 /hpf (0-2); Squamous Epithelial Cell Urine 0-4 /hpf (0-5); Urobilinogen Urine Norm (Negative)
[2020-06-17 14:57] LABS: Add Urine Culture? Yes; Amorphous Sediment Urine 2+ /hpf; Bacteria Urine 3+ /hpf; WBC Urine 80-100 /hpf (0-5)
[2020-06-17 15:10] LABS: Reflex Lactate Order REFLEX LACTIC ORDERD
[2020-06-17] MEDS: cefTRIAXone 2,000 MG in sodium chloride 0.9% (plus) 50 ML 100 MG IV (15:10)
[2020-06-17] MEDS: morphine 4 mg/mL SDV 1 mL IVP (15:11)
--- NOTE | 2020-06-17 15:56 | PM.HP ---
Providers/Chief Complaint Primary Care Provider: Jesus Gonzalez MD Chief Complaint: 102.5 fever, 140+HR History of Present Illness Larry Louis JR is a 59 year old male with PMH of Ca colon ( EGD and colonoscopy on April 26, 2020 EGD was unremarkable but colonoscopy showed in the rectum a completely obstructed, large sized, fungating, friable, infiltrative and malignant appearing, circumferential mass and mass was actively bleeding, biopsy was obtained and which is pending patient underwent CT scan of chest abdomen pelvis on April 26, 2020 which showed diffuse circumferential thickening involving sigmoid colon extending to the rectosigmoid junction. Masslike polypoid thickening measuring approximately 4 x 2.4 cm eccentric to the right. Additional lobulated soft tissue mass measuring 4.2 x 3.2 cm and this extends over the length of approximately 10 cm. Sigmoid thickening abuts the adjacent bladder and with loss of fat plane in a few locations although no abnormal bladder wall thickening. Additional lobulated sigmoid outpouching with a low attenuation measuring 17 mm. Multiple enlarged perirectal lymph nodes. Urinary distended bladder ) s/p lap loop sigmoid colostomy and Port-A-Cath placement followed by MRI scan of pelvis on May 06, 2020 which showed mid upper rectal tumor is noted in a circumferential appearance extending above the level of peritoneal reflection with prominent extension through muscularis into adjacent medial fat. There is also a large soft tissue nodular component extending superiorly into base of sigmoid mesentery above the peritoneal reflection. These findings are associated with enlarged presacral lymph node as well as obstructive uropathy with a moderate degree of left-sided hydronephrosis due to obstruction of distal left ureter s/p lt uretreal stent placement. Due for CT PET scan to assess extent of the disease e.g. whether pulmonary mets and decide whether to proceed with systemic chemotherapy upfront followed by combined chemoradiation or upfront combined chemoradiation followed by surgical evaluation. Came in with c/o fever as well as palpitation and dizziness started this morning. Upon arrival in the ER he was worked up for fever as well as palpitation and dizziness. Imaging Study : CT abdomen pelvis w con: 1. Status post LEFT lower quadrant colostomy since 04/26/2020. 2. Again noted is the large infiltrating neoplasm involving the sigmoid to the level of the rectum with a few presacral lymph nodes. 3. LEFT ureteral double pigtail stent catheter has been placed since the prior study. 4. New areas of abnormal enhancement involving the upper and lower poles of the LEFT kidney, likely pyelonephritis. Additional perinephric stranding around the LEFT kidney. 5. Ectatic thoracic aorta. WBC: 29.5 ,Lactic acid: 3.5 , BUN/SCR: 29/1.6 , H/H: 9.3/35 U/A:Dirty. Medications: Cef 2 gm along with I.V Hydration. Review of Systems Const: Denies: body aches or change in appetite Card: Denies: edema, swelling of feet/ankles, dyspnea on exertion, orthopnea or leg pain with exertion Resp: Denies: dyspnea, productive cough, wheezing or pain on inspiration GI: Denies: abdominal pain, nausea, vomiting, diarrhea or constipation : Denies: difficulty urinating Musc: Denies: extremity pain or extremity swelling Neuro: Denies: headache(s), difficulty walking or confusion Medications/Allergies Home Medications Medication Instructions Recorded Confirmed Last Taken Type acetaminophen 650 mg 650 - 1,300 mg PO PRN tab 04/22/20 06/17/20 2 Days Ago History tablet,extended release ~04/24/20 magnesium hydroxide 400 mg/5 mL 5 ml PO DAILY@08 05/18/20 06/17/20 Unknown History oral suspension hydrocodone 5 mg-acetaminophen 325 2 tab PO Q6H PRN 30 Days #60 tab 06/14/20 06/17/20 06/17/20 08:00 Rx mg tablet 2 tabs docusate sodium [Colace] 100 mg PO DAILY 06/17/20 06/17/20 Unknown History iron 325 mg PO DAILY 06/17/20 06/17/20 06/15/20 History see pharmacy comment multivitamin 1 tab PO DAILY@06/17/20 06/17/20 Unknown History Allergies Allergy/AdvReac Type Severity Reaction Status Date / Time iodine Allergy Severe hives Verified 06/17/20 13:18 PFSH Acute PFSH: Surgical History History of colostomy Family History Father Cancer Grandfather Cancer Grandmother Cancer Social History Smoking and tobacco status: former smoker Alcohol intake: former History of recent travel: No Vitals/I&O/Wt Last Vital Signs Temp 97.9 F 06/17/20 11:57 Pulse 98 06/17/20 15:14 Resp 17 06/17/20 15:14 BP 91/65 06/17/20 15:14 Pulse Ox 98 06/17/20 15:14 Weight last 48 hrs Weight 63.049 kg Physical Exam Const: COMMON NORMALS: patient oriented x3 HENMT: COMMON NORMALS: normocephalic, atraumatic and external ears normal HEAD & SCALP: normocephalic and atraumatic EXTERNAL EAR: Yes external ears normal Eye: COMMON NORMALS: no scleral icterus GENERAL EYE: appearance normal, both eyes and all related structures Chest: COMMONS NORMALS: normal inspection of the chest and normal palpation of entire chest wall CHEST: Yes Symmetrical chest wall rise Resp: COMMON NORMALS: normal respiratory effort, No retractions, No use of accessory muscles and clear to auscultation bilaterally EFFORT & INSPECTION: Yes symmetric chest movement AUSCULTATION: clear to auscultation bilaterally Cardio: COMMON NORMALS: regular rate, regular rhythm, S1 normal heart sound present, S2 normal heart sound present, No gallops present (Cardio), No murmurs present (Cardio), No rub (Cardio) and Peripheral pulses 2+ throughout RATE: regular rate RHYTHM: regular rhythm HEART SOUNDS: S1 normal heart sound present and S2 normal heart sound present PERIPHERAL PULSES: Peripheral pulses 2+ throughout GI: COMMON NORMALS: Normal to inspection, nondistended, normoactive bowel sounds present, Soft to palpation, non-tender, No hepatosplenomegaly present and no masses AUSCULTATION: Yes normoactive bowel sounds PALPATION: Yes Soft to palpation and Yes No hepatosplenomegaly present RECTAL EXAM: Yes deferred : COMMON NORMALS: Yes no CVA tenderness BLADDER/KIDNEY EXAM: Yes no CVA tenderness Back/Pelvis: COMMON NORMALS: no CVA tenderness Extremity: COMMON NORMALS: no clubbing, cyanosis or edema and no pedal edema Neuro: COMMON NORMALS: patient oriented x3 Data : 06/17/20 12:10 06/17/20 12:10 Micro: Microbiology 06/17/20 12:10 Blood Culture - Preliminary Blood SPECIMEN COLLECTED 06/17/20 12:10 Blood Culture - Preliminary Blood SPECIMEN COLLECTED A&P Assessment and plan (1) Sepsis: Sepsis 2/2 UTI/Pyleonephritis. Continue Ceftriaxone for now. Repeat Lactic acid follow cultures Continue I.V Hydration Status: Acute (2) UTI (urinary tract infection): Plan #1 Status: Acute (3) Pyelonephritis: Status: Acute (4) Colon cancer: Status: Acute Attestations Medical Necessity Statement*: Patient needs to be in hospital for the managment of sepsis 2/2 to UTI/Pyleonephritis. 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
[2020-06-17] MEDS: enoxaparin 40 mg/0.4 mL Syringe SUBCUT (16:25)
[2020-06-17] MEDS: sodium chloride 0.9% 1,000 ML 75 ML IV (17:29)
[2020-06-17 20:58] LABS: Lactic Acid level (Lactate) 1.9 mmol/L (0.5-2.2)
[2020-06-17] MEDS: D5-NS 0.45% + KCL 20 mEq 20 MEQ/1,000 ML BAG 100 MEQ IV (23:07)
[2020-06-18] VITALS (9 sets, daily range): BP systolic 104–116; BP diastolic 60–71; PULSE 110–123; RESP 16–20; TEMP 36.6–37.7; O2SAT 93–98
[2020-06-18 01:57] LABS: Alanine Aminotransferase 12 U/L (0-41); Alkaline Phosphatase 77 IU/L (40-130); Anion Gap 13.2 (5-19); Aspartate Amino Transferase 20 U/L (0-40); Blood Urea Nitrogen 34 mg/dL (8-23); Calcium 8.5 mg/dL (8.5-10.5); Carbon Dioxide 25 mmol/L (22-29); Chloride 101 mmol/L (98-107); Globulin 3.2 g/dL (1.3-4.6); Glomerular Filtration Rate 47.7 mL/min (90-130); Glucose 132 mg/dL (65-115); Osmolality Calculated 289 mOsm/kg (285-295); Potassium 4.2 mmol/L (3.5-5.1); Sodium 135 mmol/L (136-145); Total Bilirubin 0.2 mg/dL (0.15-1.2); Total Protein 6.2 g/dL (6.6-8.7)
[2020-06-18 05:18] LABS: Basophils # 0.1 10^3/uL (0.0-0.1); Basophils % 0.3 %; Eosinophils % 0.1 %; Hematocrit 26.5 % (42.0-52.0); Hemoglobin 7.1 g/dL (11.7-16.6); Lymphocytes % 4.8 %; Mean Corpuscular HGB Conc 26.8 g/dL (30.0-36.0); Mean Corpuscular Hemoglobin 18.2 pg (28.0-34.0); Mean Corpuscular Volume 67.9 fL (80-94); Mean Platelet Volume 9.1 fL (7.4-10.4); Monocytes # 1.5 10^3/uL (0.2-0.9); Monocytes % 7.8 %; Neutrophils # 17.11 10^3/uL (1.8-7.7); Neutrophils % 86.3 %; Nucleated Red Blood Cells % 0 %; Platelet Count 258 10^3/cmm (130-400); Red Cell Distribution Width 18.8 % (12.1-15.1); White Blood Count 19.8 10^3/uL (4.0-10.0)
[2020-06-18 05:39] LABS: Lactic Sepsis W/Reflex 1.3 mmol/L (0.5-2.2)
[2020-06-18 05:53] LABS: Procalcitonin 14.45 ng/mL (0-0.5)
[2020-06-18 06:05] LABS: Alanine Aminotransferase 15 U/L (0-41); Albumin Level 2.8 g/dL (3.5-5.2); Alkaline Phosphatase 111 IU/L (40-130); Anion Gap 11.9 (5-19); Aspartate Amino Transferase 21 U/L (0-40); Blood Urea Nitrogen 33 mg/dL (8-23); Calcium 8.4 mg/dL (8.5-10.5); Carbon Dioxide 25 mmol/L (22-29); Chloride 101 mmol/L (98-107); Globulin 3.2 g/dL (1.3-4.6); Glomerular Filtration Rate 56.3 mL/min (90-130); Glucose 124 mg/dL (65-115); Osmolality Calculated 287 mOsm/kg (285-295); Potassium 3.9 mmol/L (3.5-5.1); Sodium 134 mmol/L (136-145); Total Bilirubin 0.2 mg/dL (0.15-1.2)
[2020-06-18] MEDS: docusate sodium 100 mg Capsule PO (09:12)
[2020-06-18] MEDS: cefTRIAXone 1,000 MG in sodium chloride 0.9% (plus) 50 ML 100 MG IV (09:12)
--- NOTE | 2020-06-18 09:32 | PC.CHAP ---
Pastoral Care Encounter/Spiritual Assessment Type of Contact [] Declined stock feeder visit [] Patient/Family/Request visit [] Outpatient visit [] Follow-up visit [] Physician referral [] Code/Alert [] Routine visit [] Staff referral [] Actively dying [] Patient sleeping [] Family support [] [] Out of room [] Palliative care [] [] Receiving care in room [] Pre-surgical visit [] Trauma [] Long length of stay [] ICU visit [] Other: Relational/Emotional Strength [] Patient feels connected with others/family/visitors/staff [] Distress [] Loneliness/isolation [] Abandonment Spirituality of Patient [] Person of Nancy [] Attends Mormon of their Nancy [] Believes in Prayer [] Reads Bible or Uatsdin materials [] There are Spiritual issues to be addressed Financial Services Technician Interventions [x] Prayer [x] Active listening [] Non-anxious presence [] Spiritual/emotional support [] Crisis/trauma care [] Spiritual counseling [] Bereavement support [] Provided bereavement packet [] Provided Bible/devotional materials [] Provided toy/stuffed animal, coloring book to patient or family member [] Provided Communion [] Anointing/[place] [] Salvation [] Completed spiritual assessment [] Other: Impact on Illness or Injury [] Angry [] Fearful [] Anxious [] Often cries [] Exhaustion [] Unable to work [] Unable to attend congregation [] Unable to walk/stand [] Unable to read [] Unable to drive [] Unable to eat/drink [] Unable to sleep [] Unable to be with family [] Patient intubated [] Other Time spent with patient 10 min
[2020-06-18] MEDS: D5-NS 0.45% + KCL 20 mEq 20 MEQ/1,000 ML BAG 100 MEQ IV (10:50)
--- NOTE | 2020-06-18 12:36 | P.PN_ITS ---
Subjective Subjective: Interval history: is doing fine. Had remained afebrile, deny any any shortness of breath chest pain nausea vomiting diarrhea. He is tolerating diet well. Other vitals and labs have been reviewed. Medications: Reviewed: Yes Vitals/I&O/Wt Last Vital Signs Temp 97.9 F 06/18/20 12:00 Pulse 110 H 06/18/20 12:00 Resp 18 06/18/20 12:00 BP 106/62 06/18/20 12:00 Pulse Ox 96 06/18/20 12:00 06/17/20 06/18/20 06/18/20 22:59 06:59 14:59 Intake Total 105 / 0 1240 / 1240 Balance [id number] 1240 / 1240 Weight last 48 hrs Weight 63.049 kg Physical Exam Const: COMMON NORMALS: patient oriented x3 HENMT: COMMON NORMALS: normocephalic, atraumatic, hearing grossly normal bilaterally and external ears normal HEAD & SCALP: normocephalic and atraumatic EXTERNAL EAR: Yes external ears normal Eye: COMMON NORMALS: no scleral icterus GENERAL EYE: appearance normal, both eyes and all related structures Chest: COMMONS NORMALS: normal inspection of the chest and normal palpation of entire chest wall CHEST: Yes Symmetrical chest wall rise Resp: COMMON NORMALS: normal respiratory effort, No retractions, No use of accessory muscles and clear to auscultation bilaterally EFFORT & INSPECTION: Yes symmetric chest movement AUSCULTATION: clear to auscultation bilaterally Cardio: COMMON NORMALS: regular rate, regular rhythm, S1 normal heart sound present, S2 normal heart sound present, No gallops present (Cardio), No murmurs present (Cardio), No rub (Cardio) and Peripheral pulses 2+ throughout RATE: regular rate RHYTHM: regular rhythm HEART SOUNDS: S1 normal heart sound present and S2 normal heart sound present PERIPHERAL PULSES: Peripheral pulses 2+ throughout GI: COMMON NORMALS: Normal to inspection, nondistended, normoactive bowel sounds present, Soft to palpation, non-tender, No hepatosplenomegaly present and no masses AUSCULTATION: Yes normoactive bowel sounds PALPATION: Yes Soft to palpation and Yes No hepatosplenomegaly present RECTAL EXAM: Yes deferred Extremity: COMMON NORMALS: no clubbing, cyanosis or edema and no pedal edema Neuro: COMMON NORMALS: patient oriented x3 Data : 06/18/20 04:54 06/18/20 04:54 Micro: Microbiology 06/17/20 14:28 Urine Culture - Preliminary Urine,Clean Catch Gram Negative Rods 06/17/20 12:10 Blood Culture - Preliminary Blood SPECIMEN COLLECTED 06/17/20 12:10 Blood Culture - Preliminary Blood SPECIMEN COLLECTED A&P Assessment and plan (1) Sepsis: Sepsis 2/2 UTI/Pyleonephritis. Continue Ceftriaxone for now. Repeat Lactic acid follow cultures Continue I.V Hydration Status: Acute (2) UTI (urinary tract infection): Plan #1 Status: Acute (3) Pyelonephritis: Status: Acute (4) Colon cancer: Status: Acute Attestations Medical Necessity Statement*: Patient needs to be in hospital for management of sepsis secondary to UTI. 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
[2020-06-18] MEDS: enoxaparin 40 mg/0.4 mL Syringe SUBCUT (15:06)
--- NOTE | 2020-06-18 18:28 | PC.NURSE ---
SHIFT SUMMARY Patient has been incredibly calm and cooperative during this shift. Patient does request to have his hydromorphone around the clock per oncologist's recommendations in order to keep pain under control. Otherwise, patient ambulates and provides care for himself.
--- NOTE | 2020-06-18 19:41 | PC.NURSE ---
PAIN MED Pt takes his po Dilaudid on schedule even if having no pain and this works very well for him.
[2020-06-19] VITALS (10 sets, daily range): BP systolic 104–129; BP diastolic 65–84; PULSE 114–130; RESP 16–23; TEMP 36.5–37.7; O2SAT 92–100
[2020-06-19 05:37] LABS: Basophils % 0.3 %; Hematocrit 27.1 % (42.0-52.0); Hemoglobin 7.2 g/dL (11.7-16.6); Lymphocytes # 0.8 10^3/uL (0.8-4.8); Lymphocytes % 5.5 %; Mean Corpuscular HGB Conc 26.6 g/dL (30.0-36.0); Mean Corpuscular Hemoglobin 17.9 pg (28.0-34.0); Mean Corpuscular Volume 67.2 fL (80-94); Mean Platelet Volume 9.7 fL (7.4-10.4); Monocytes # 1.2 10^3/uL (0.2-0.9); Monocytes % 8.5 %; Neutrophils # 11.78 10^3/uL (1.8-7.7); Neutrophils % 84.5 %; Nucleated Red Blood Cells % 0 %; Platelet Count 289 10^3/cmm (130-400); Red Blood Count 4.03 10^6/uL (4.1-5.3); Red Cell Distribution Width 18.7 % (12.1-15.1); White Blood Count 13.9 10^3/uL (4.0-10.0)
--- NOTE | 2020-06-19 05:37 | PC.NURSE ---
SHIFT SUMMARY Has not slept tonight but says this is not unusual for him. Has received po Dilaudid X2 per pts request. Denies pain and says is good as long as he keeps med on board. Has had good urine output per urinal and taking po well. Low grade fever with max 99.9. HR remains tachycardic in 120's most of the time. Very pleasant and says ready to get started with chemo
[2020-06-19 06:13] LABS: Alanine Aminotransferase 36 U/L (0-41); Albumin Level 2.8 g/dL (3.5-5.2); Alkaline Phosphatase 246 IU/L (40-130); Anion Gap 13.8 (5-19); Aspartate Amino Transferase 49 U/L (0-40); Blood Urea Nitrogen 23 mg/dL (8-23); Calcium 8.3 mg/dL (8.5-10.5); Carbon Dioxide 24 mmol/L (22-29); Chloride 101 mmol/L (98-107); Globulin 3.1 g/dL (1.3-4.6); Glomerular Filtration Rate 76.2 mL/min (90-130); Glucose 115 mg/dL (65-115); Osmolality Calculated 285 mOsm/kg (285-295); Potassium 3.8 mmol/L (3.5-5.1); Sodium 135 mmol/L (136-145); Total Bilirubin 0.2 mg/dL (0.15-1.2); Total Protein 5.9 g/dL (6.6-8.7)
[2020-06-19] MEDS: cefTRIAXone 1,000 MG in sodium chloride 0.9% (plus) 50 ML 100 MG IV (09:25)
[2020-06-19] MEDS: docusate sodium 100 mg Capsule PO (09:25)
--- NOTE | 2020-06-19 14:17 | P.PN_ITS ---
Subjective Subjective: Interval history: is felling good.No acute event overnight.Has remained afebrile.Other vitals have been reviewed. Labs have been reviewed. Medications: Reviewed: Yes Vitals/I&O/Wt Last Vital Signs Temp 98.8 F 06/19/20 12:00 Pulse 120 H 06/19/20 12:00 Resp 18 06/19/20 13:38 BP 129/80 06/19/20 12:00 Pulse Ox 97 06/19/20 12:00 06/18/20 06/19/20 06/19/20 22:59 06:59 14:59 Intake Total 360 / 1890 300 / 2190 Output Total 700 / 700 900 / 1600 905 / 905 Balance -340 / 1190 -600 / 590 -905 / -905 Physical Exam 2 Const: COMMON NORMALS: patient oriented x3 HENMT: COMMON NORMALS: normocephalic, atraumatic, hearing grossly normal bilaterally and external ears normal HEAD & SCALP: normocephalic and atraumatic EXTERNAL EAR: Yes external ears normal Eye: COMMON NORMALS: no scleral icterus GENERAL EYE: appearance normal, both eyes and all related structures Chest: COMMONS NORMALS: normal inspection of the chest and normal palpation of entire chest wall CHEST: Yes Symmetrical chest wall rise Resp: COMMON NORMALS: normal respiratory effort, No retractions, No use of accessory muscles and clear to auscultation bilaterally EFFORT & INSPECTION: Yes symmetric chest movement AUSCULTATION: clear to auscultation bilaterally Cardio: COMMON NORMALS: regular rate, regular rhythm, S1 normal heart sound present, S2 normal heart sound present, No gallops present (Cardio), No murmurs present (Cardio), No rub (Cardio) and Peripheral pulses 2+ throughout RATE: regular rate RHYTHM: regular rhythm HEART SOUNDS: S1 normal heart sound present and S2 normal heart sound present PERIPHERAL PULSES: Peripheral pulses 2+ throughout GI: COMMON NORMALS: Normal to inspection, nondistended, normoactive bowel s ounds present, Soft to palpation, non-tender, No hepatosplenomegaly present and no masses AUSCULTATION: Yes normoactive bowel sounds PALPATION: Yes Soft to palpation and Yes No hepatosplenomegaly present RECTAL EXAM: Yes deferred : COMMON NORMALS: Yes no CVA tenderness BLADDER/KIDNEY EXAM: Yes no CVA tenderness Back/Pelvis: COMMON NORMALS: no CVA tenderness Extremity: COMMON NORMALS: no clubbing, cyanosis or edema and no pedal edema Neuro: COMMON NORMALS: patient oriented x3 Data : 06/19/20 04:25 06/19/20 04:25 Micro: Microbiology 06/17/20 14:28 Urine Culture - Final Urine,Clean Catch Escherichia coli 06/17/20 12:10 Blood Culture - Preliminary Blood NEGATIVE TO DATE 06/17/20 12:10 Blood Culture - Preliminary Blood NEGATIVE TO DATE A&P Assessment and plan (1) Sepsis: Sepsis 2/2 UTI/Pyleonephritis. Continue Ceftriaxone for now. Urine Culture E.Coli :Sensitive to Cef Blood Cultures : Negative Repeat Procal in am follow cultures Continue I.V Hydration Status: Acute (2) UTI (urinary tract infection): Plan #1 Status: Acute (3) Pyelonephritis: Plan as #1 Status: Acute (4) Colon cancer: Status: Acute (5) Anemia: Status: Acute Additional A&P Information DVT PPX : lovenox 40 mg sc daily Code Status :Full code Disposition :Home Anticipated DC in 2 days Attestations Medical Necessity Statement*: Patient needs to be in hospital for the management of sepsis 2/2 UTI Coding Level of Care Code Acute Assistant Corporate Controller for [facility] Fwd Diagnoses Sepsis A41.9 UTI (urinary tract infection) N39.0 Pyelonephritis N12 Colon cancer C18.9 Anemia D64.9
[2020-06-19] MEDS: enoxaparin 40 mg/0.4 mL Syringe SUBCUT (16:27)
--- NOTE | 2020-06-19 18:20 | PC.NURSE ---
SHIFT SUMMARY Patient has been very calm and cooperative during this shift. Patient ambulates to and from the restroom and has very few requests other than for him to have his dilaudid at regular intervals in order to prevent pain per his oncologist's directions.
[2020-06-20] VITALS (8 sets, daily range): BP systolic 116–128; BP diastolic 73–79; PULSE 100–111; RESP 16–22; TEMP 36.8–37.4; O2SAT 94–97
[2020-06-20 04:46] LABS: Basophils # 0.1 10^3/uL (0.0-0.1); Basophils % 0.6 %; Hematocrit 26.4 % (42.0-52.0); Hemoglobin 7.2 g/dL (11.7-16.6); Lymphocytes # 0.9 10^3/uL (0.8-4.8); Lymphocytes % 8.6 %; Mean Corpuscular HGB Conc 27.3 g/dL (30.0-36.0); Mean Corpuscular Hemoglobin 18.4 pg (28.0-34.0); Mean Corpuscular Volume 67.3 fL (80-94); Mean Platelet Volume 9.7 fL (7.4-10.4); Monocytes # 0.9 10^3/uL (0.2-0.9); Monocytes % 7.9 %; Neutrophils # 8.91 10^3/uL (1.8-7.7); Neutrophils % 82.4 %; Nucleated Red Blood Cells % 0 %; Platelet Count 304 10^3/cmm (130-400); Red Blood Count 3.92 10^6/uL (4.1-5.3); Red Cell Distribution Width 18.6 % (12.1-15.1); White Blood Count 10.8 10^3/uL (4.0-10.0)
[2020-06-20 05:15] LABS: Procalcitonin 2.61 ng/mL (0-0.5)
[2020-06-20 05:26] LABS: Alanine Aminotransferase 29 U/L (0-41); Albumin Level 2.9 g/dL (3.5-5.2); Alkaline Phosphatase 162 IU/L (40-130); Anion Gap 12.6 (5-19); Aspartate Amino Transferase 29 U/L (0-40); Blood Urea Nitrogen 19 mg/dL (8-23); Calcium 8.4 mg/dL (8.5-10.5); Carbon Dioxide 27 mmol/L (22-29); Chloride 100 mmol/L (98-107); Globulin 3.4 g/dL (1.3-4.6); Glomerular Filtration Rate 76.2 mL/min (90-130); Glucose 89 mg/dL (65-115); Osmolality Calculated 284 mOsm/kg (285-295); Potassium 3.6 mmol/L (3.5-5.1); Sodium 136 mmol/L (136-145); Total Bilirubin 0.2 mg/dL (0.15-1.2); Total Protein 6.3 g/dL (6.6-8.7)
[2020-06-20] MEDS: cefTRIAXone 1,000 MG in sodium chloride 0.9% (plus) 50 ML 100 MG IV (08:33)
[2020-06-20] MEDS: docusate sodium 100 mg Capsule PO (08:34)
--- NOTE | 2020-06-20 13:11 | PM.PN ---
Subjective Subjective: Interval history: has improved a lot. Vitals have remained stable. Labs Reviewed. Medications: Reviewed: Yes Vitals/I&O/Wt Last Vital Signs Temp 98.2 F 06/20/20 07:29 Pulse 100 06/20/20 07:29 Resp 17 06/20/20 07:29 BP 118/74 06/20/20 07:29 Pulse Ox 96 06/20/20 07:29 06/19/20 06/20/20 06/20/20 22:59 06:59 14:59 Intake Total 740 / 790 240 / 240 Output Total 1099 / 2004 700 / 2705 Balance -1100 / -1955 40 / -1915 240 / 240 Physical Exam Const: COMMON NORMALS: patient oriented x3 HENMT: COMMON NORMALS: normocephalic and atraumatic HEAD & SCALP: normocephalic and atraumatic Chest: COMMONS NORMALS: normal inspection of the chest CHEST: Yes Symmetrical chest wall rise Resp: COMMON NORMALS: normal respiratory effort, No retractions, No use of accessory muscles and clear to auscultation bilaterally EFFORT & INSPECTION: Yes symmetric chest movement AUSCULTATION: clear to auscultation bilaterally Cardio: COMMON NORMALS: regular rate, regular rhythm, S1 normal heart sound present, S2 normal heart sound present, No gallops present (Cardio), No murmurs present (Cardio), No rub (Cardio) and Peripheral pulses 2+ throughout RATE: regular rate RHYTHM: regular rhythm HEART SOUNDS: S1 normal heart sound present and S2 normal heart sound present PERIPHERAL PULSES: Peripheral pulses 2+ throughout GI: COMMON NORMALS: Normal to inspection, nondistended, normoactive bowel sounds present, Soft to palpation, non-tender, No hepatosplenomegaly present and no masses AUSCULTATION: Yes normoactive bowel sounds PALPATION: Yes Soft to palpation and Yes No hepatosplenomegaly present RECTAL EXAM: Yes deferred Extremity: COMMON NORMALS: no clubbing, cyanosis or edema and no pedal edema Neuro: COMMON NORMALS: patient oriented x3 Data : 06/20/20 04:14 06/20/20 04:14 Micro: Microbiology 06/17/20 14:28 Urine Culture - Final Urine,Clean Catch Escherichia coli A&P Assessment and plan (1) Sepsis: Sepsis 2/2 UTI/Pyleonephritis. Urine Culture E.Coli :Sensitive to Cef Blood Cultures : Negative Repeat Procal : 2.61, Initial procal :14.45 Lactic acid : 1.3 Continue Ceftriaxone for now. Status: Acute (2) UTI (urinary tract infection): Plan #1 Status: Acute (3) Pyelonephritis: Plan as #1 Status: Acute (4) Colon cancer: Status: Acute (5) Anemia: Microcytic Anemia liley 2/2 to Anemia of inflammatory disease. Transfuse 1 U PRBC Today Status: Acute Additional A&P Information DVT PPX : lovenox 40 mg sc daily Code Status :Full code Disposition :Home Anticipated DC in am Attestations Medical Necessity Statement*: Patient needs to be in hospital for the management of Sepsis 2/2 to UTI Coding Level of Care Code Acute Corporate Safety Director for [facility] Fwd Diagnoses Sepsis A41.9 UTI (urinary tract infection) N39.0 Pyelonephritis N12 Colon cancer C18.9 Anemia D64.9
[2020-06-20] MEDS: enoxaparin 40 mg/0.4 mL Syringe SUBCUT (15:07)
--- NOTE | 2020-06-20 18:56 | PC.NURSE ---
SHIFT SUMMARY PT PAIN HAS BEEN UNDER CONTROL, APPETITE HAS BEEN GOOD, NO OTHER CHANGES THIS SHIFT.
[2020-06-21] VITALS (12 sets, daily range): BP systolic 122–139; BP diastolic 72–84; PULSE 87–106; RESP 16–20; TEMP 36.6–37.2; O2SAT 96–99
[2020-06-21] MEDS: sodium chloride 0.9% (100 ml) 100 ML (00:16)
[2020-06-21] MEDS: docusate sodium 100 mg Capsule PO (09:00)
[2020-06-21] MEDS: cefTRIAXone 1,000 MG in sodium chloride 0.9% (plus) 50 ML 100 MG IV (09:00)
[2020-06-21 10:24] LABS: Basophils # 0.1 10^3/uL (0.0-0.1); Basophils % 0.5 %; Hematocrit 31.8 % (42.0-52.0); Hemoglobin 8.9 g/dL (11.7-16.6); Lymphocytes # 0.7 10^3/uL (0.8-4.8); Lymphocytes % 6.6 %; Mean Corpuscular Hemoglobin 19.2 pg (28.0-34.0); Mean Corpuscular Volume 68.5 fL (80-94); Mean Platelet Volume 9.4 fL (7.4-10.4); Monocytes # 0.6 10^3/uL (0.2-0.9); Monocytes % 6.4 %; Neutrophils # 8.65 10^3/uL (1.8-7.7); Neutrophils % 85.8 %; Nucleated Red Blood Cells % 0 %; Platelet Count 356 10^3/cmm (130-400); Red Blood Count 4.64 10^6/uL (4.1-5.3); White Blood Count 10.1 10^3/uL (4.0-10.0)
[2020-06-21 10:54] LABS: Anion Gap 14.1 (5-19); Blood Urea Nitrogen 13 mg/dL (8-23); Calcium 8.7 mg/dL (8.5-10.5); Carbon Dioxide 29 mmol/L (22-29); Chloride 101 mmol/L (98-107); Glomerular Filtration Rate 86.1 mL/min (90-130); Glucose 144 mg/dL (65-115); Osmolality Calculated 295 mOsm/kg (285-295); Potassium 3.1 mmol/L (3.5-5.1); Sodium 141 mmol/L (136-145)
--- NOTE | 2020-06-21 12:46 | P.DS_ITS ---
Discharge Providers Date of Admission: 06/17/20 15:14 Date of Discharge: June 21, 2020 Attending Provider at Admission: Dharmesh Valente MD Attending Provider at Discharge: Dharmesh Valente MD Primary Care Provider: Jesus Gonzalez MD Diagnoses at Discharge Discharge Diagnosis (1) Sepsis: Permanent problem details: Resolved (2) UTI (urinary tract infection): Permanent problem details: Resolved (3) Pyelonephritis: Permanent problem details: Resolved (4) Colon cancer: (5) Anemia: Reason for Visit Reason for Visit: 102.5 fever, 140+HR Hospital Course Hospital Course Larry Louis JR is a 59 year old male with PMH of Ca colon ( EGD and colonoscopy on April 26, 2020 EGD was unremarkable but colonoscopy showed in the rectum a completely obstructed, large sized, fungating, friable, infiltrative and malignant appearing, circumferential mass and mass was actively bleeding, biopsy was obtained and which is pending patient underwent CT scan of chest abdomen pelvis on April 26, 2020 which showed diffuse circumferential thickening involving sigmoid colon extending to the rectosigmoid junction. Masslike polypoid thickening measuring approximately 4 x 2.4 cm eccentric to the right. Additional lobulated soft tissue mass measuring 4.2 x 3.2 cm and this extends over the length of approximately 10 cm. Sigmoid thickening abuts the adjacent bladder and with loss of fat plane in a few locations although no abnormal bladder wall thickening. Additional lobulated sigmoid outpouching with a low attenuation measuring 17 mm. Multiple enlarged perirectal lymph nodes. Urinary distended bladder ) s/p lap loop sigmoid colostomy and Port-A-Cath placement followed by MRI scan of pelvis on May 06, 2020 which showed mid upper rectal tumor is noted in a circumferential appearance extending above the level of peritoneal reflection with prominent extension through muscularis into adjacent medial fat. There is also a large soft tissue nodular component extending superiorly into base of sigmoid mesentery above the peritoneal reflection. These findings are associated with enlarged presacral lymph node as well as obstructive uropathy with a moderate degree of left-sided hydronephrosis due to obstruction of distal left ureter s/p lt uretreal stent placement. Due for CT PET scan to assess extent of the disease e.g. whether pulmonary mets and decide whether to proceed with systemic chemotherapy upfront followed by combined chemoradiation or upfront combined chemoradiation followed by surgical evaluation. Came in with c/o fever as well as palpitation and dizziness started this morning. Upon arrival in the ER he was worked up for fever as well as palpitation and dizziness. Imaging Study : CT abdomen pelvis w con: 1. Status post LEFT lower quadrant colostomy since 04/26/2020. 2. Again noted is the large infiltrating neoplasm involving the sigmoid to the level of the rectum with a few presacral lymph nodes. 3. LEFT ureteral double pigtail stent catheter has been placed since the prior study. 4. New areas of abnormal enhancement involving the upper and lower poles of the LEFT kidney, likely pyelonephritis. Additional perinephric stranding around the LEFT kidney. 5. Ectatic thoracic aorta. WBC: 29.5 ,Lactic acid: 3.5 , BUN/SCR: 29/1.6 , H/H: 9.3/35 U/A:Dirty. He was started on ceftriaxone on admission for Sepsis 2/2 UTI/ Pyleonephritis as Urine Culture grew E.Coli :Sensitive to Cef. Blood Cultures : Negative Repeat Procal : 2.61, Initial procal :14.45 Lactic acid : 1.3. He responded well to the medical management and was discahrged in stable condition on Po Levofloxacin 500 mg q daily for additional 10 days course. As well as on macrobid suppressive regimen 100 mg oral daily due to presence of ur eteral stent in place after completing the levofloxacin course.He will continue to follow his oncologist, urologist as well as his pcp as outpatient. Patient was discharged in stable condition. Physical Exam Const: COMMON NORMALS: patient oriented x3 HENMT: COMMON NORMALS: normocephalic and atraumatic HEAD & SCALP: normocephalic and atraumatic Resp: COMMON NORMALS: clear to auscultation bilaterally AUSCULTATION: clear to auscultation bilaterally Cardio: COMMON NORMALS: regular rate, regular rhythm, S1 normal heart sound present, S2 normal heart sound present, No gallops present (Cardio), No murmurs present (Cardio), No rub (Cardio) and Peripheral pulses 2+ throughout RATE: regular rate RHYTHM: regular rhythm HEART SOUNDS: S1 normal heart sound present and S2 normal heart sound present PERIPHERAL PULSES: Peripheral pulses 2+ throughout GI: COMMON NORMALS: Normal to inspection, nondistended, normoactive bowel sounds present, Soft to palpation, non-tender, No hepatosplenomegaly present and no masses AUSCULTATION: Yes normoactive bowel sounds PALPATION: Yes Soft to palpation and Yes No hepatosplenomegaly present RECTAL EXAM: Yes deferred : COMMON NORMALS: Yes no CVA tenderness BLADDER/KIDNEY EXAM: Yes no CVA tenderness Back/Pelvis: COMMON NORMALS: no CVA tenderness Extremity: COMMON NORMALS: no clubbing, cyanosis or edema and no pedal edema Neuro: COMMON NORMALS: patient oriented x3 Discharge Data Data Completed and Pending: Completed Studies During Hospitalization Category Date Time Status CT abdomen pelvis w con* [id number] Stat Cat Scan 06/17/20 12:57 Completed Pending at discharge Category Date Time Status Blood Culture Sta t Lab 06/17/20 12:10 Results Labs from last 24 hours 06/21/20 06/21/20 06/20/20 09:41 09:41 19:01 WBC 10.1 H RBC 4.64 Hgb 8.9 L Hct 31.8 L MCV 68.5 L MCH 19.2 L MCHC 28.0 L RDW 19.0 H Plt Count 356 MPV 9.4 Neut % (Auto) 85.8 Lymph % (Auto) 6.6 King % (Auto) 6.4 Eos % (Auto) 0.0 Baso % (Auto) 0.5 Neut # (Auto) 8.65 H Lymph # (Auto) 0.7 L King # (Auto) 0.6 Eos # (Auto) 0.0 Baso # (Auto) 0.1 Nucleated RBC % (a uto) 0 Nucleated RBCs # 0.0 Sodium 141 Potassium 3.1 L Chloride 101 Carbon Dioxide 29 Anion Gap 14.1 BUN 13 Creatinine 0.9 GFR Calculation 86.1 L Glucose 144 H Calculated Osmolal ity 295 Calcium 8.7 Blood Type O Positive Rho(D) Type Positive Antibody Screen Negative Crossmatch See Detail Vitals: Last Vital Signs Temp 98.1 F 06/21/20 12:00 Pulse 106 H 06/21/20 12:00 Resp 16 06/21/20 12:00 BP 134/82 06/21/20 12:00 Pulse Ox 97 06/21/20 12:00 Discharge Plan Discharge Patient Disposition: Home Condition: Stable Prescriptions: New levofloxacin 500 mg tablet 500 mg PO DAILY 10 Days RF: 0 Macrobid 100 mg capsule 100 mg PO DAILY Qty: 30 RF: 1 Continued acetaminophen [Tylenol Arthritis Pain] 650 mg tablet extended release 650 - 1,300 mg PO PRN RF: 0 magnesium hydroxide [Milk of Magnesia] 400 mg/5 mL suspension 5 ml PO DAILY@08 RF: 0 hydrocodone-acetaminophen [[place]] 5-325 mg tablet 2 tab PO Q6H PRN (Reason: pain) 30 Days Qty: 60 RF: 0 multivitamin Tablet 1 tab PO DAILY@08 RF: 0 iron 325 mg (65 mg iron) Tablet 325 mg PO DAILY RF: 0 Colace 100 mg Capsule 100 mg PO DAILY RF: 0 Discharge Orders: Discharge Order (Routine); Ordered 06/21/20 Ordered By: Dharmesh Valente Referrals: Jesus Gonzalez MD [Primary Care Provider] - 07/22/20 10:15 am Jose Miguel Gaffney MD [Physician] - 07/20/20 7:30 am Discharge Diet: Usual diet Discharge Activity: Resume usual activity Patient Instructions: Levofloxacin (By mouth), Nitrofurantoin Combination (By mouth), Urinary Tract Infection in Men (DC), Colorectal Cancer (DC), Acute Pyelonephritis (DC), Sepsis (DC), Anemia (DC) Activity Restrictions/Additional Instructions: Patient will continue to follow oncology as outpatient ( Has recent appointment in Jun 2020, he will also follow as outpatient ) Discharge Attestations Time Spent in Discharge Care*: less than 30 min Specific Discharge Activities: educating patient, educating and/or supporting family/caregiver, discussing with pcp/other providers, discussing with shelter case manager/social workers/dc planners, documenting/other paperwork and evaluating patient/reviewing data Status at Discharge: Cognitive status at discharge: cognitively intact , Behavioral status at discharge: cooperative , Functional status at discharge: independent ambulation Overall status at discharge: patient is back to baseline Quality Metrics Clinical Quality Measures During this hospital stay, did patient experience: None Coding Level of Care Code Acute Product Line Manager for g Fwd Diagnoses Sepsis A41.9 UTI (urinary tract infection) N39.0 Pyelonephritis N12 Colon cancer C18.9 Anemia D64.9
== END 2020-06-21 15:00 | disposition home or self-care (01) | DRG 872 ==
LOC: ER 18:50 → MEDSURG 18:54 → CSU 06-19 22:02 → MEDSURG 06-19 22:02
PROVIDERS: Admitting Provider Internal Medicine; Emergency Provider Family Medicine; PCP Internal Medicine; Visit Provider Internal Medicine
DX: A41.9 Sepsis, unspecified organism (principal); C19 Malignant neoplasm of rectosigmoid junction; N12 Tubulo-interstitial nephritis, not specified as acute or chronic; N39.0 Urinary tract infection, site not specified; Z90.49 Acquired absence of other specified parts of digestive tract; Z93.3 Colostomy status; Z96.0 Presence of urogenital implants; Z87.891 Personal history of nicotine dependence; B96.20 Unspecified Escherichia coli [E. coli] as the cause of diseases classified elsewhere; D64.9 Anemia, unspecified
CPT/HCPCS: 12345; 36415; 36430; 51701; 74177; 80048; 80053; 81001; 83605; 83690; 84145; 85025; 86850; 86900; 86920; 87040; 87077; 87086; 87186; 96372; 99282; J0696; J1200; J1650; J1720; J2270; J2405; J7030; P9016; Q9967

== ENCOUNTER 2020-07-19 05:38 | Outpatient (RCR) | payer MEDICAID, SELFPAY ==
[2020-06-29 14:50] LABS: Basophils # 0.1 10^3/uL (0.0-0.1); Hematocrit 34.3 % (42.0-52.0); Hemoglobin 9.4 g/dL (11.7-16.6); Lymphocytes # 1.4 10^3/uL (0.8-4.8); Lymphocytes % 14.4 %; Mean Corpuscular HGB Conc 27.4 g/dL (30.0-36.0); Mean Corpuscular Hemoglobin 19.6 pg (28.0-34.0); Mean Corpuscular Volume 71.6 fL (80-94); Mean Platelet Volume 8.8 fL (7.4-10.4); Monocytes # 0.5 10^3/uL (0.2-0.9); Monocytes % 5.1 %; Neutrophils # 7.69 10^3/uL (1.8-7.7); Nucleated Red Blood Cells % 0 %; Platelet Count 595 10^3/cmm (130-400); Red Blood Count 4.79 10^6/uL (4.1-5.3); Red Cell Distribution Width 20.8 % (12.1-15.1); White Blood Count 9.7 10^3/uL (4.0-10.0)
[2020-06-29 15:47] LABS: Carcinoembryonic Antigen 114.9 ng/mL (0.0-4.7)
[2020-06-29 15:58] LABS: Alanine Aminotransferase 11 U/L (0-41); Albumin Level 3.6 g/dL (3.5-5.2); Alkaline Phosphatase 97 IU/L (40-130); Anion Gap 13.3 (5-19); Aspartate Amino Transferase 16 U/L (0-40); Blood Urea Nitrogen 11 mg/dL (8-23); Calcium 9.5 mg/dL (8.5-10.5); Carbon Dioxide 28 mmol/L (22-29); Chloride 97 mmol/L (98-107); Globulin 3.9 g/dL (1.3-4.6); Glomerular Filtration Rate 98.6 mL/min (90-130); Glucose 100 mg/dL (65-115); Osmolality Calculated 277 mOsm/kg (285-295); Potassium 4.3 mmol/L (3.5-5.1); Sodium 134 mmol/L (136-145); Total Bilirubin 0.2 mg/dL (0.15-1.2); Total Protein 7.5 g/dL (6.6-8.7)
--- NOTE | 2020-06-29 16:22 | ONC FU_ITS ---
Dr. Singleton follow up note Patient: Larry Louis Unit #: [id number]: 1960 Dicatated By: Goldy Singleton M.D.Date of Visit:Jun 29, 2020 Onc Med Follow-up/Prog Note History of Present Illness: Mr. Larry Louis, is a 59-year-old gentleman with a history of progressive constipation, and then eventually developed nausea vomiting with eating and has lost more than 40 pounds over the period of 6 months due to fear of nausea and abdominal discomfort/pain due to progressive constipation. Patient has history of off and on bleeding per rectum since childhood but recently became more regular. Patient has not seen any medical professional in the last 20 years eventually evaluated by Dr. Gonzalez and patient underwent EGD and colonoscopy on April 26, 2020 EGD was unremarkable but colonoscopy showed in the rectum a completely obstructed, large sized, fungating, friable, infiltrative and malignant appearing, circumferential mass and mass was actively bleeding, biopsy was obtained and which is pending patient underwent CT scan of chest abdomen pelvis on April 26, 2020 which showed diffuse circumferential thickening involving sigmoid colon extending to the rectosigmoid junction. Masslike polypoid thickening measuring approximately 4 x 2.4 cm eccentric to the right. Additional lobulated soft tissue mass measuring 4.2 x 3.2 cm and this extends over the length of approximately 10 cm. Sigmoid thickening abuts the adjacent bladder and with loss of fat plane in a few locations although no abnormal bladder wall thickening. Additional lobulated sigmoid outpouching with a low attenuation measuring 17 mm. Multiple enlarged perirectal lymph nodes. Urinary distended bladder. No inguinal lymphadenopathy. Mild diffuse fatty infiltration of the liver. No enhancing hepatic lesions seen. Hazy groundglass opacity in the right upper lobe nonspecific measuring 9 mm. Additional 3 mm noncalcified nodule right upper lobe. A few prominent pretracheal lymph nodes largest measuring 8 mm., Small bilateral thyroid nodules. Patient was referred to Dr. Olsen because of progressive intestinal obstruction and on April 29, 2020 patient underwent lap loop sigmoid colostomy and Port-A-Cath placement followed by MRI scan of pelvis on May 06, 2020 which showed mid upper rectal tumor is noted in a circumferential appearance extending above the level of peritoneal reflection with prominent extension through muscularis into adjacent medial fat. There is also a large soft tissue nodular component extending superiorly into base of sigmoid mesentery above the peritoneal reflection. These findings are associated with enlarged presacral lymph node as well as obstructive uropathy with a moderate degree of left-sided hydronephrosis due to obstruction of distal left ureter, Underwent divergent colostomy Follow-up CT PET scan done on June 26, 2020 showed hypermetabolic rectal mass, perirectal nodes and fascial thickening consistent with local metastatic disease. Negative for metastatic disease outside the pelvis. An 8 mm right middle lobe nodule consistent with granuloma Came for follow-up, denies any specific complaint except generalized weakness and fatigue, patient has iron deficiency anemia for which he was given oral iron as per patient he could not tolerate as it was causing excessive gas abdominal pain and nausea vomiting so he quit taking it. also complaining of lower pelvic pain in the rectal area but being controlled with current pain medication. Colostomy bag is functioning fine, no fever chills, no nausea or vomiting, no melena or hematochezia. Medications: Colace 1 Capsule Oral daily PRN, HYDROcodone-Acetaminophen 1 Tablet (of 5-325 mg) Oral q 6 hours PRN, Nitrofurantoin Monohyd Macro 1 Capsule (of 100 mg) Oral daily, Tylenol 2 Tablet (of 325 mg) Tablet Oral q 8 hours PRN Allergies: Iodine Review of Systems: Review of Systems is not available for this patient. Vital Signs: Performed on Jun 29, 2020 15:48 Height - 67.00 in Weight - 134.2 lbs (LOW) BSA - 1.71 sq.m BMI - 21.02 Temperature - 99.3 F (HIGH) Pulse - 91 /min Respiration - 16 /min BP - 141/80 mm(hg) (HIGH) O2 Sat - 99 % Pain - 8 Performance Status: 1 - No physically strenuous activity, but ambulatory and able to carry out light or sedentary work (e.g. office work, light house work). (ECOG) Physical Examination: ENMT - No mouth sores, no thrush, no jaundice, Respiratory - Lungs are clear to auscultation, Cardiovascular - Regular rate and rhythm of heart, Abdomen - Soft, bowel sounds present, divergent colostomy site is clean, Extremities - No visible edema. Lab/Imaging: Test performed on Jun 09, 2020 15:40 Ferritin 11 ng/mL Iron 10 mcg/dL Sodium 138 mmol/L Iron Binding Capacity (TIBC) 374 mcg/dl Potassium 4.2 mmol/L % Iron Saturation 2.6 % Chloride 100 mmol/L CO2 28 mmol/L UIBC 364 mcg/dL Anion Gap 14.2 BUN 8 mg/dL Creatinine 0.9 mg/dL Cr Clearance (Est) 77.62 mL/min eGFR 86.1 mL/min Glucose 91 mg/dL Osmolality - Calculated 284 mOsm/kg Calcium 9.5 mg/dL Protein, Total 7.4 g/dL Albumin 4.2 g/dL Globulin 3.2 g/dL Bilirubin, Total 0.2 mg/dL ALT (SGPT) 10 U/L AST (SGOT) 15 U/L Alkaline Phosphatase 84 IU/L WBC 7.5 10 3/uL RBC 4.66 10 6/uL HGB 8.4 g/dL HCT 32.0 % MCV 68.7 fL MCH 18.0 pg MCHC 26.3 g/dL RDW 19.5 % Platelet Count 341 10 3/cmm MPV 8.5 fL Neutrophils 5.39 10 3/uL Lymphocytes 1.5 10 3/uL Monocytes 0.5 10 3/uL Eosinophils 0.0 10 3/uL Basophils 0.1 10 3/uL Neutrophil % 71.6 % Lymphocyte % 20.1 % Monocyte % 7.2 % Eosinophil % 0.0 % Basophils % 0.8 % NRBC % 0 % Impression: Near obstructive colorectal mass per colonoscopy done on April 26, 2020, biopsy Confirmed invasive adenocarcinoma, moderately differentiated CT scan of chest abdomen pelvis done on April 26, 2020 showed diffuse circumferential thickening involving sigmoid colon extending to the rectosigmoid junction. Masslike polypoid thickening measuring approximately 4 x 2.4 cm eccentric to the right. Additional lobulated soft tissue mass measuring 4.2 x 3.2 cm. Multiple enlarged perirectal lymph nodes. No enhancing lesion seen in the liver. Sigmoid thickening abuts adjacent bladder with loss of fat plane in a few location although no abnormal bladder wall thickening. Hazy groundglass opacity in the right upper lobe nonspecific measuring 9 mm. Additional 3 mmcalcified nodule right upper lobe. Small bilateral thyroid nodules. Status post lap loop sigmoid colostomy done on April 29, 2020 MRI scan of the pelvis done on May 06, 2020 showed mid-upper rectal tumor is noted with a circumferential appearance extending above the level of the peritoneal reflection with a prominent extension to the muscularis into adjacent mesorectal fat. There is also a large soft tissue nodular component extending superiorly into the base of the sigmoid mesentery above the peritoneal reflection. These findings are associated with enlarged presacral lymph nodes as well as obstructive uropathy with a moderate degree of left-sided hydronephrosis due to obstruction of distal left ureter CT PET scan done on June 26, 2020 showed 2.6 x 1.9 cm left rectal mass with SUV of 11.8 and multiple perirectal lymph nodes with a minimum FDG uptake thickening of perirectal fascia consistent with involvement with malignancy. No other abnormality seen and 8 mm right middle lobe lung nodule is FDG negative probably benign, granuloma. Clinical stage T3, N2a 40+ pound weight loss due to nausea and abdominal discomfort with eating due to near obstructive colorectal mass Microcytic hypochromic anemia due to iron deficiency anemia probably due to chronic GI bleeding Plan: Discussed with patient regarding his labs white blood count 9.7 hemoglobin 9.4 hematocrit 34.3 platelets 595,000 MCV 71.6 and anemia work-up done recently showed iron saturation 2.6%, ferritin 11, iron 10, TIBC [address] PET scan showed no evidence of pulmonary metastatic disease but hypermetabolic rectal mass with perirectal nodes and fascial thickening. Discussed with patient regarding his CT PET scan finding which showed local regional disease no evidence of pulmonary mets which was a concern based on previous CT scan and case was discussed with radiation oncology Dr. Pepe and now decided to proceed with neoadjuvant combined chemoradiation therapy with oral Xeloda 825 mg per metered square twice daily concurrent with radiation therapy. All the side effects possible benefits associated with Xeloda including but not limited to, nausea vomiting diarrhea, mouth sores, jaundice, hepatic toxicity, hand-foot syndrome, bone marrow suppression, hair loss were mentioned, further teaching will be done by chemotherapy nurse. We will obtain approval from his insurance prior to the treatment in the meantime we will arrange follow-up with radiation oncology. As far as iron deficiency anemia is concerned patient was started on oral iron but due to intolerance he discontinued so we will consider parenteral iron Injectafer 750 mg IV weekly x2 followed by CBC and iron studies. As far as low rectal/pelvic pain is concerned, patient was advised to continue with pain medication as directed and use stool softener to avoid narcotic related constipation. Patient will return to clinic 1 week after combined chemotherapy radiation is initiated with CBC and CMP. Signed By: Goldy Singleton M.D. <<Signature on File>>
--- NOTE | 2020-06-30 | CT_ITS ---
Radiation Therapy Planning CT images; total exam DLP: 486.76 mGy-cm MTDD
--- NOTE | 2020-07-01 16:26 | ONC FU_ITS ---
Dr. Singleton follow up note Patient: Larry Louis Unit #: [id number]: [id number] Dicatated By: Goldy Singleton M.D.Date of Visit:Jul 01, 2020 Onc Med Follow-up/Prog Note History of Present Illness: Mr. Larry Louis, is a 59-year-old gentleman with a history of progressive constipation, and then eventually developed nausea vomiting with eating and has lost more than 40 pounds over the period of 6 months due to fear of nausea and abdominal discomfort/pain due to progressive constipation. Patient has history of off and on bleeding per rectum since childhood but recently became more regular. Patient has not seen any medical professional in the last 20 years eventually evaluated by Dr. Gonzalez and patient underwent EGD and colonoscopy on April 26, 2020 EGD was unremarkable but colonoscopy showed in the rectum a completely obstructed, large sized, fungating, friable, infiltrative and malignant appearing, circumferential mass and mass was actively bleeding, biopsy was obtained and which is pending patient underwent CT scan of chest abdomen pelvis on April 26, 2020 which showed diffuse circumferential thickening involving sigmoid colon extending to the rectosigmoid junction. Masslike polypoid thickening measuring approximately 4 x 2.4 cm eccentric to the right. Additional lobulated soft tissue mass measuring 4.2 x 3.2 cm and this extends over the length of approximately 10 cm. Sigmoid thickening abuts the adjacent bladder and with loss of fat plane in a few locations although no abnormal bladder wall thickening. Additional lobulated sigmoid outpouching with a low attenuation measuring 17 mm. Multiple enlarged perirectal lymph nodes. Urinary distended bladder. No inguinal lymphadenopathy. Mild diffuse fatty infiltration of the liver. No enhancing hepatic lesions seen. Hazy groundglass opacity in the right upper lobe nonspecific measuring 9 mm. Additional 3 mm noncalcified nodule right upper lobe. A few prominent pretracheal lymph nodes largest measuring 8 mm., Small bilateral thyroid nodules. Patient was referred to Dr. Olsen because of progressive intestinal obstruction and on April 29, 2020 patient underwent lap loop sigmoid colostomy and Port-A-Cath placement followed by MRI scan of pelvis on May 06, 2020 which showed mid upper rectal tumor is noted in a circumferential appearance extending above the level of peritoneal reflection with prominent extension through muscularis into adjacent medial fat. There is also a large soft tissue nodular component extending superiorly into base of sigmoid mesentery above the peritoneal reflection. These findings are associated with enlarged presacral lymph node as well as obstructive uropathy with a moderate degree of left-sided hydronephrosis due to obstruction of distal left ureter, Underwent divergent colostomy Follow-up CT PET scan done on June 26, 2020 showed hypermetabolic rectal mass, perirectal nodes and fascial thickening consistent with local metastatic disease. Negative for metastatic disease outside the pelvis. An 8 mm right middle lobe nodule consistent with granuloma Came for follow-up, denies any specific complaint except generalized weakness and fatigue and patient is not taking oral iron because of intolerance due to GI disturbance and abdominal pain and we are awaiting his insurance approval for parenteral iron for iron deficiency anemia. His case was discussed with radiation oncology yesterday and reviewed his CT scan which shows bulky disease and at that time it was decided to consider neoadjuvant systemic chemotherapy upfront rather than combined chemoradiation, patient was called in for discussion . Medications: Colace 1 Capsule Oral daily PRN, HYDROcodone-Acetaminophen 1 Tablet (of 5-325 mg) Oral q 6 hours PRN, Nitrofurantoin Monohyd Macro 1 Capsule (of 100 mg) Oral daily, Tylenol 2 Tablet (of 325 mg) Tablet Oral q 8 hours PRN Allergies: Iodine Review of Systems: Constitutional - Appetite is fair and weight is stable. No fever, night sweats, or hot flashes. Energy is poor, ENMT - No sinus congestion/drainage. No mouth sores. No sore throat or difficulty swallowing, Hematologic/Lymphatic - No abnormal bruising, bleeding, Respiratory - No shortness of breath. No cough. No pleuritic pain or hemoptysis, Cardiovascular - No angina pain. No palpitations, Gastrointestinal - No nausea or vomiting. No heartburn or acid reflux. No diarrhea or constipation. Positive for bleeding from rectum, Genitourinary (M) - No dysuria or hematuria. No urinary frequency. No urgency or incontinence, Musculoskeletal - No joint or bone pain, Neurologic - No headache or dizziness. No numbness or tingling. No other focal neurologic symptoms, Psychiatric - No anxiety or depression. No insomnia. Vital Signs: Performed on Jul 01, 2020 15:04 Height - 67.00 in Weight - 134.0 lbs (LOW) BSA - 1.71 sq.m BMI - 20.99 Temperature - 99.8 F (HIGH) Pulse - 84 /min Respiration - 16 /min BP - 128/77 mm(hg) O2 Sat - 99 % Pain - 0 Performance Status: 1 - No physically strenuous activity, but ambulatory and able to carry out light or sedentary work (e.g. office work, light house work). (ECOG) Physical Examination: ENMT - No mouth sores, no thrush, no jaundice, Respiratory - Lungs are clear to auscultation, Cardiovascular - Regular rate and rhythm of heart, Abdomen - Soft, bowel sounds present, colostomy bag working fine, Extremities - No visible edema. Lab/Imaging: Test performed on Jun 09, 2020 15:40 Ferritin 11 ng/mL Iron 10 mcg/dL Sodium 138 mmol/L Iron Binding Capacity (TIBC) 374 mcg/dl Potassium 4.2 mmol/L % Iron Saturation 2.6 % Chloride 100 mmol/L CO2 28 mmol/L UIBC 364 mcg/dL Anion Gap 14.2 BUN 8 mg/dL Creatinine 0.9 mg/dL Cr Clearance (Est) 77.62 mL/min eGFR 86.1 mL/min Glucose 91 mg/dL Osmolality - Calculated 284 mOsm/kg Calcium 9.5 mg/dL Protein, Total 7.4 g/dL Albumin 4.2 g/dL Globulin 3.2 g/dL Bilirubin, Total 0.2 mg/dL ALT (SGPT) 10 U/L AST (SGOT) 15 U/L Alkaline Phosphatase 84 IU/L WBC 7.5 10 3/uL RBC 4.66 10 6/uL HGB 8.4 g/dL HCT 32.0 % MCV 68.7 fL MCH 18.0 pg MCHC 26.3 g/dL RDW 19.5 % Platelet Count 341 10 3/cmm MPV 8.5 fL Neutrophils 5.39 10 3/uL Lymphocytes 1.5 10 3/uL Monocytes 0.5 10 3/uL Eosinophils 0.0 10 3/uL Basophils 0.1 10 3/uL Neutrophil % 71.6 % Lymphocyte % 20.1 % Monocyte % 7.2 % Eosinophil % 0.0 % Basophils % 0.8 % NRBC % 0 % Impression: Near obstructive colorectal mass per colonoscopy done on April 26, 2020, biopsy Confirmed invasive adenocarcinoma, moderately differentiated CT scan of chest abdomen pelvis done on April 26, 2020 showed diffuse circumferential thickening involving sigmoid colon extending to the rectosigmoid junction. Masslike polypoid thickening measuring approximately 4 x 2.4 cm eccentric to the right. Additional lobulated soft tissue mass measuring 4.2 x 3.2 cm. Multiple enlarged perirectal lymph nodes. No enhancing lesion seen in the liver. Sigmoid thickening abuts adjacent bladder with loss of fat plane in a few location although no abnormal bladder wall thickening. Hazy groundglass opacity in the right upper lobe nonspecific measuring 9 mm. Additional 3 mmcalcified nodule right upper lobe. Small bilateral thyroid nodules. Status post lap loop sigmoid colostomy done on April 29, 2020 MRI scan of the pelvis done on May 06, 2020 showed mid-upper rectal tumor is noted with a circumferential appearance extending above the level of the peritoneal reflection with a prominent extension to the muscularis into adjacent mesorectal fat. There is also a large soft tissue nodular component extending superiorly into the base of the sigmoid mesentery above the peritoneal reflection. These findings are associated with enlarged presacral lymph nodes as well as obstructive uropathy with a moderate degree of left-sided hydronephrosis due to obstruction of distal left ureter CT PET scan done on June 26, 2020 showed 2.6 x 1.9 cm left rectal mass with SUV of 11.8 and multiple perirectal lymph nodes with a minimum FDG uptake thickening of perirectal fascia consistent with involvement with malignancy. No other abnormality seen and 8 mm right middle lobe lung nodule is FDG negative probably benign, granuloma. Clinical stage T3, N2a 40+ pound weight loss due to nausea and abdominal discomfort with eating due to near obstructive colorectal mass Microcytic hypochromic anemia due to iron deficiency anemia probably due to chronic GI bleeding Plan: Discussed with patient regarding his disease status and case was discussed with radiation oncology Dr. Pepe yesterday and pelvic scans were reviewed and it was concluded as patient has bulky disease and it was decided to proceed with neoadjuvant chemotherapy with FOLFOX and start of combined chemoradiation and repeat MRI scan of the pelvis after 6 doses to assess the response and then plan accordingly. The purpose of considering neoadjuvant chemotherapy with FOLFOX was to downsize the tumor which may improve radiation field and also may clear up the microscopic metastatic disease although CT PET scan was normal but earlier concern was lung mets which did not light up on CT PET scan and also systemic chemotherapy may sensitize tumor for radiation therapy in case considered, and if patient has excellent response to systemic chemotherapy, it may improve chances of not having permanent colostomy. All the side effects possible benefits associate with FOLFOX including but not limited to bone marrow suppression, nausea vomiting, diarrhea, peripheral neuropathy, intolerance to ice beverages, skin rash, jaundice, hepatic toxicity, mouth sores, hand-foot syndrome. Patient expressed full understanding and accepted treatment, we will obtain approval from his insurance prior to treatment and then he will return to clinic 1 week after chemotherapy is initiated with CBC CMP Signed By: Goldy Singleton M.D. <<Signature on File>>
[2020-07-12] MEDS: ferric carboxy (IVPB) 750 MG in sodium chloride 0.9% (100 ml) 100 ML 345 MG IV (09:05)
[2020-07-12] MEDS: sodium chloride 0.9% 250 ML IV (09:05)
[2020-07-12 09:18] LABS: Basophils # 0.1 10^3/uL (0.0-0.1); Eosinophils % 0.1 %; Hematocrit 33.6 % (42.0-52.0); Hemoglobin 9.1 g/dL (11.7-16.6); Lymphocytes # 1.5 10^3/uL (0.8-4.8); Lymphocytes % 20.4 %; Mean Corpuscular HGB Conc 27.1 g/dL (30.0-36.0); Mean Corpuscular Hemoglobin 19.7 pg (28.0-34.0); Mean Corpuscular Volume 72.9 fL (80-94); Mean Platelet Volume 9.1 fL (7.4-10.4); Monocytes # 0.6 10^3/uL (0.2-0.9); Monocytes % 8.2 %; Neutrophils # 5.08 10^3/uL (1.8-7.7); Neutrophils % 69.6 %; Nucleated Red Blood Cells % 0 %; Platelet Count 228 10^3/cmm (130-400); Red Blood Count 4.61 10^6/uL (4.1-5.3); Red Cell Distribution Width 21.2 % (12.1-15.1); White Blood Count 7.3 10^3/uL (4.0-10.0)
[2020-07-12 10:07] LABS: Alanine Aminotransferase 6 U/L (0-41); Albumin Level 3.6 g/dL (3.5-5.2); Alkaline Phosphatase 87 IU/L (40-130); Aspartate Amino Transferase 12 U/L (0-40); Blood Urea Nitrogen 12 mg/dL (8-23); Calcium 9.3 mg/dL (8.5-10.5); Carbon Dioxide 29 mmol/L (22-29); Chloride 100 mmol/L (98-107); Globulin 3.7 g/dL (1.3-4.6); Glomerular Filtration Rate 86.1 mL/min (90-130); Glucose 105 mg/dL (65-115); Osmolality Calculated 286 mOsm/kg (285-295); Sodium 138 mmol/L (136-145); Total Bilirubin 0.2 mg/dL (0.15-1.2); Total Protein 7.3 g/dL (6.6-8.7)
[2020-07-12] MEDS: dextrose 5% 250 ML 75 ML IV (11:20)
[2020-07-12] MEDS: famotidine 20 mg/2 mL INJ IVP (11:20)
[2020-07-12] MEDS: dextrose 5% 250 ML 75 ML (11:20)
[2020-07-12] MEDS: palonosetron 0.25 mg/5 mL SDV IVP (11:23)
--- NOTE | 2020-07-13 20:07 | ONC FU_ITS ---
[facility] Patient Note Patient: Larry Louis Unit #: [id number]: 1960 Dictated By: Ghassan BeasleyDate of Visit: Jul 12, 2020 Onc MED Follow-Up/Prog Note Chief Complaint: Sigmoid colon cancer History of Present Illness: Mr. Louis is a 59-year-old gentleman who presented to his primary care with a history of hematochezia, 45+ pound unintended weight loss over a period of 3 to 4 months, rectal incontinence for over a year, constipation, nausea vomiting, and bladder outlet obstruction requiring catheterization. He states he has had a chronic history of blood per rectum which began in childhood. He had not followed regularly with primary care. He was seen by Dr. Gonzalez at [facility]. He underwent colonoscopy on 04/26/2020. This revealed a completely obstructing, large size, fungating, friable, infiltrative, malignant appearing, circumferential rectal mass. The mass was biopsied and pathology revealed moderately differentiated invasive adenocarcinoma. His mismatch repair proteins???IHC were all intact to include MLH1, MSH2, MSH6, and PMS2. A CT of the chest abdomen pelvis from 04/26/2020 reported a 4 x 2.4 cm lesion in the sigmoid colon extending to the right and an additional lobulated soft tissue mass measuring 4.2 x 3.2 cm extending over a length of approximately 10 cm. Sigmoid thickening abuts the adjacent bladder with loss of fat plane in a few locations although no abnormal bladder wall thickening. There was an additional lobulated sigmoid outpouching with low attenuation measuring 1.7 cm. There were multiple enlarged perirectal lymph nodes; enlarged prostate measuring 4.7 cm; mild left hydronephrosis likely secondary to bladder outlet obstruction versus sequela from sigmoid neoplasm; a 9 mm nonspecific groundglass opacity in the right upper lobe of the lung and additional 3 mm noncalcified nodule in the right upper lobe and a few prominent pretracheal lymph nodes largest measuring 8 mm; small bilateral thyroid nodules. There was mild diffuse fatty infiltration of the liver but no enhancing hepatic lesions were noted. Mr. Louis was seen by Dr. Olsen in [place] because of the progressive intestinal obstruction. On April 29, 2020 he underwent lap loop sigmoid colonoscopy and Port-A-Cath placement. He then had follow-up MRI of the pelvis on 05/06/2020 which showed mild upper rectal tumor is noted in a circumferential appearance extending above the level of the peritoneal reflection with prominent extension through the muscularis into adjacent mesorectal fat. There was also a large soft tissue nodular component extending superiorly into the base of the sigmoid mesentery above the peritoneal reflection. These findings are associated with enlarged presacral lymph nodes as well as obstructive uropathy with a mild degree of left-sided hydronephrosis due to obstruction of the distal left ureter. Mr. Louis was admitted to [facility] on 06/17/2020 with sepsis secondary to UTI/polynephritis. Follow-up PET/CT from June 26, 2019 showed hypermetabolic rectal mass, perirectal nodes in fascial thickening consistent with local metastatic disease. There was no report of metastatic disease outside the pelvis. An 8 mm right middle lobe nodule consistent with granuloma. Mr. Louis was seen by medical and radiation oncology and offered treatment with neoadjuvant systemic chemotherapy rather than chemoradiation due to CT follow-up indicating bulky disease. He was also found to be iron deficient and was approved for parenteral iron replacement. Mr. Louis is here today for his first dose of Injectafer for his iron replacement as well as his first cycle of chemotherapy with FOLFOX. He has no new concerns today. He states overall he feels good. He is lost a total of 51 pounds in total since prior to diagnosis. He does have some anal drainage but states this has been normal for him. He denies any new pain. He states he is eating good. His remains as active as he can. He states he does not lay around or sit around very much. He denies any fever or chills. He has had no mouth sores, sore throat or difficulty swallowing. He denies any nausea or vomiting. He states his bowels for his colostomy are normal for him. He does admit to having some anxiety off and on but thinks that that is much better at the time of our visit. He has no new concerns today ECOG is 1. Past Medical History: Past Surgical History: Lap loop sigmoid colostomy???Dr. Olsen in 2019 Right internal jugular Port-A-Cath placement???Dr. Olsen in 2019 Allergies: Iodine Medications: Colace 1 Capsule Oral daily PRN Daily Vitamin 1 Tablet Oral daily HYDROcodone-Acetaminophen 1 Tablet (of 5-325 mg) Oral q 6 hours PRN Nitrofurantoin Monohyd Macro 1 Capsule (of 100 mg) Oral daily Tylenol 2 Tablet (of 325 mg) Tablet Oral q 8 hours PRN Family History: Mr. Louis's mother is alive. Mr. Louis's father at age 84: liver cancer. Mr. Louis has 3 brothers: 3 alive. He has 1 sister who is alive. Social History: Mr. Louis is single and he has no occupation specified. Mr. Louis has never smoked. He has no history of drinking. Review Of Symptoms: Constitutional Denies fevers, chills, night sweats, excessive fatigue or weight loss. Allergic/Immunologic No reactions. Eyes Denies significant visual changes. No diplopia. No amaurosis. ENMT Denies changes in hearing, sore throat, mouth sores, difficulty or changes in swallowing ability, and/or sinus drainage. Endocrine No diabetes, thyroid disease or hormone replacement. Denies hot flashes or night sweats. Hematologic/Lymphatic Denies easy bruising or bleeding. The patient denies any tender or palpable lymph nodes. Respiratory Denies dyspnea on exertion, chest pain, cough or hemoptysis. Denies orthopnea. Cardiovascular Denies anginal chest pain, palpitations or orthopnea. Gastrointestinal Denies nausea, vomiting, diarrhea, GI bleeding, or constipation. Denies change in bowel habits and/or stool color, no heartburn or early satiety. Genitourinary (M) Denies hematuria, dysuria, increased frequency, urgency, hesitancy or incontinence. Musculoskeletal Denies joint pain, swelling or redness. No decreased range of motion. Integumentary Denies chronic rashes, inflammation, ulcerations or skin changes. Neurologic Denies headache, blurred vision, and no areas of focal weakness or numbness. Normal gait. No sensory problems. Psychiatric Denies insomnia, depression, pawan or mood swings. Vital Signs: Performed on Jul 12, 2020 09:57 Height - 67.00 in Weight - 137.8 lbs (HIGH) BSA - 1.73 sq.m BMI - 21.58 Temperature - 96.7 F (LOW) Pulse - 72 /min Respiration - 18 /min BP - 150/86 mm(hg) (HIGH) O2 Sat - 96 % Pain - 0,1 - No physically strenuous activity, but ambulatory and able to carry out light or sedentary work (e.g. office work, light house work). (ECOG) Physical Examination: Constitutional Alert, oriented, no acute distress. Skin pink, warm and dry. Head Normocephalic; atraumatic. Eyes Conjunctivae and sclerae are clear and without icterus. Pupils are reactive and equal. ENMT No oral exudates, ulcers, masses, thrush or mucositis. Oropharynx clear. Tongue normal. Poor dentation. Neck Supple without masses or thyromegaly. No jugular venous distension. Hematologic/Lymphatic No petechiae or purpura. No tender or palpable lymph nodes in the cervical or supraclavicular areas. Respiratory Lungs are clear to auscultation without rhonchi or wheezing. Cardiovascular Regular rate and rhythm of heart without murmurs,clicks, gallops or rubs. Chest Chest is symmetric without chest wall deformities. Port a cath insertion site is unremarkable. Breasts Abdomen Non-tender, non-distended, no masses or ascites. Good bowel sounds noted in all quads. No guarding or rebound tenderness. Back/Spine Non-tender to palpation. Musculoskeletal No tenderness or swelling, normal range of motion without obvious weakness. Integumentary No rashes or lesions. Neurologic No sensory or motor deficits, normal cerebellar function, normal gait. Psychiatric Alert and oriented times three. Coherent speech. Verbalizes understanding of our discussions today. Laboratory:Test performed on Jul 12, 2020 09:00 Sodium 138 mmol/L Potassium 4.0 mmol/L Chloride 100 mmol/L CO2 29 mmol/L Anion Gap 13.0 BUN 12 mg/dL Creatinine 0.9 mg/dL Cr Clearance (Est) 75.0400 mL/min eGFR 86.1 mL/min Glucose 105 mg/dL Osmolality - Calculated 286 mOsm/kg Calcium 9.3 mg/dL Protein, Total 7.3 g/dL Albumin 3.6 g/dL Globulin 3.7 g/dL Bilirubin, Total 0.2 mg/dL ALT (SGPT) 6 U/L AST (SGOT) 12 U/L Alkaline Phosphatase 87 IU/L WBC 7.3 10 3/uL RBC 4.61 10 6/uL HGB 9.1 g/dL HCT 33.6 % MCV 72.9 fL MCH 19.7 pg MCHC 27.1 g/dL RDW 21.2 % Platelet Count 228 10 3/cmm MPV 9.1 fL Neutrophils 5.08 10 3/uL Lymphocytes 1.5 10 3/uL Monocytes 0.6 10 3/uL Eosinophils 0.0 10 3/uL Basophils 0.1 10 3/uL Neutrophil % 69.6 % Lymphocyte % 20.4 % Monocyte % 8.2 % Eosinophil % 0.1 % Basophils % 1.0 % NRBC % 0 % Test performed on Jun 29, 2020 14:35 CEA 114.9 ng/mL Test performed on Jun 09, 2020 15:40 Ferritin 11 ng/mL Iron 10 mcg/dL Iron Binding Capacity (TIBC) 374 mcg/dl % Iron Saturation 2.6 % UIBC 364 mcg/dL Impression: Near obstructive colorectal mass per colonoscopy done on April 26, 2020, biopsy Confirmed invasive adenocarcinoma, moderately differentiated CT scan of chest abdomen pelvis done on April 26, 2020 showed diffuse circumferential thickening involving sigmoid colon extending to the rectosigmoid junction. Masslike polypoid thickening measuring approximately 4 x 2.4 cm eccentric to the right. Additional lobulated soft tissue mass measuring 4.2 x 3.2 cm. Multiple enlarged perirectal lymph nodes. No enhancing lesion seen in the liver. Sigmoid thickening abuts adjacent bladder with loss of fat plane in a few location although no abnormal bladder wall thickening. Hazy groundglass opacity in the right upper lobe nonspecific measuring 9 mm. Additional 3 mm calcified nodule right upper lobe. Small bilateral thyroid nodules. Status post lap loop sigmoid colostomy done on April 29, 2020 MRI scan of the pelvis done on May 06, 2020 showed mid-upper rectal tumor is noted with a circumferential appearance extending above the level of the peritoneal reflection with a prominent extension to the muscularis into adjacent mesorectal fat. There is also a large soft tissue nodular component extending superiorly into the base of the sigmoid mesentery above the peritoneal reflection. These findings are associated with enlarged presacral lymph nodes as well as obstructive uropathy with a moderate degree of left-sided hydronephrosis due to obstruction of distal left ureter CT PET scan done on June 26, 2020 showed 2.6 x 1.9 cm left rectal mass with SUV of 11.8 and multiple perirectal lymph nodes with a minimum FDG uptake thickening of perirectal fascia consistent with involvement with malignancy. No other abnormality seen and 8 mm right middle lobe lung nodule is FDG negative probably benign, granuloma. Clinical stage T3, N2a 40+ pound weight loss due to nausea and abdominal discomfort with eating due to near obstructive colorectal mass Microcytic hypochromic anemia due to iron deficiency anemia probably due to chronic GI bleeding Plan: PROBLEMS ADDRESSED TODAY: 1. Colon cancer: A. Proceed with cycle 1 FOLFOX at normal dosing. B. He will have aggressive antiemetics due to moderate to high risk nausea. C. Today's labs reviewed in detail and discussed with Mr. Louis and a copy was given to him. WBC 7.3, hemoglobin 9.1, platelets 228,000. Potassium 4.0, creatinine 0.9 LFTs are normal it is noted that his CEA on June 29, 2020 was 115. D. We will have weekly interim counts for monitoring of the chemotherapy; he will also need port maintenance with his lab draws. E. The patient was informed of chemotherapy plan and specific drugs were discussed. We also discussed how chemotherapy works and identified common side effects including alopecia; myelosuppression-including neutropenia, anemia, thrombocytopenia; peripheral neuropathy; fatigue; nausea; diarrhea; constipation; bleeding or bruising; skin changes; mouth sores; drug hypersensitivity/allergic reactions or anaphylaxis and extravasation. They have also been informed how to contact the clinic with side effects or symptoms, including but not limited to fever greater than 100.4???, chills, sore throat, bleeding or bruising that is not explained or mouth sores, cough, nasal discharge, diarrhea, constipation, nausea and/or vomiting not relieved with medications on hand at home, as well as any other concern or question they may have. Our hours are 8:00 a. m. to 4:30 p. m. on Sunday through and 8-12:00 on Sunday. 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 We have also discussed potential long-term side effects of chemotherapy including secondary cancers, infertility, pulmonary complications, cardiac complications, and again peripheral neuropathy. We have discussed that they certainly need to let us know before taking any antioxidants or herbal or further dietary supplements, as we are unsure of how these agents react with chemotherapy and we request that they avoid these products for now. They were informed that it is okay to take multivitamins at normal doses. They verbally state that they understand to take all medications as directed by their healthcare provider unless otherwise indicated. They also verbalized understanding to leave the pressure dressing on the intravenous administration site for at least two hours after treatment. Instructions for oral care with baking soda and salt water rinses as well as a guide for use of [id number] medication were provided with the treatment plan. They have been given a written patient treatment plan, of which a copy is in the chart, as well as specific drug information. They have no questions and verbalized understanding and are willing to proceed with chemotherapy at this time. The majority of this visit was spent in face to face communication with this patient in regards to the plan of care, side effect identification and management. 2. Iron deficiency anemia. A. Hemoglobin today on July 12, 2020 is 9.1. His iron saturation on 06/09/2020 was 2.6% ferritin was 11 and total iron was 10. His TIBC was 374. We did obtain insurance approval for parenteral iron replacement with Injectafer. He will begin his first dose today. We will plan for his second dose next week. B. We reviewed Injectafer specific teaching including but not limited to hypersensitivity reactions, including anaphylactic-type reactions, including life threatening and fatal reactions have been reported in patients receiving Injectafer. Rash, urticaria, wheezing, pruritus, hypotension amongst others have been reported. Nausea, hypertension, hot flushes, dizziness and decreased blood phosphorus levels have been reported. Most common adverse reactions reported include urticaria, dyspnea, pruritus, tachycardia, erythema, pyrexia, chest discomfort, chills, angioedema, back pain, arthralgia, and syncope. They have also been informed how to contact the clinic with side effects or symptoms, including but not limited to those discussed above, as well as any other concern or question they may have. Our hours are 8:00 a.m. to 4:30 p.m. on Sunday through and 8-12:00 on Sunday. 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 3. Follow-up plan A. We will plan to see him back in 1 week with CBC CMP. At that time he will be due for his second dose of Injectafer???parenteral iron replacement. B. He will be due back for cycle 2 FOLFOX in 2 weeks at which time we will plan to recheck his labs as well. C. Mr. Louis was instructed to contact us in interim should questions or problems arise. D. Greater than 60 minutes was dedicated to this patient for review of chart prior to visit; review of plan of care, side effect identification and management; lab review, answering questions and post visit documentation. Signed By: Ghassan Beasley-, CNDiane Singleton MD <<Signature on File>>
[2020-07-19 09:49] LABS: Basophils % 0.5 %; Hematocrit 33.7 % (42.0-52.0); Hemoglobin 9.4 g/dL (11.7-16.6); Lymphocytes # 1.4 10^3/uL (0.8-4.8); Lymphocytes % 16.8 %; Mean Corpuscular HGB Conc 27.9 g/dL (30.0-36.0); Mean Corpuscular Hemoglobin 20.5 pg (28.0-34.0); Mean Corpuscular Volume 73.6 fL (80-94); Mean Platelet Volume 8.6 fL (7.4-10.4); Monocytes # 0.3 10^3/uL (0.2-0.9); Monocytes % 3.9 %; Neutrophils # 6.29 10^3/uL (1.8-7.7); Neutrophils % 78.4 %; Nucleated Red Blood Cells % 0 %; Platelet Count 280 10^3/cmm (130-400); Red Blood Count 4.58 10^6/uL (4.1-5.3); Red Cell Distribution Width 21.4 % (12.1-15.1)
[2020-07-19 10:16] LABS: Alanine Aminotransferase 7 U/L (0-41); Albumin Level 3.8 g/dL (3.5-5.2); Alkaline Phosphatase 80 IU/L (40-130); Anion Gap 12.7 (5-19); Aspartate Amino Transferase 14 U/L (0-40); Blood Urea Nitrogen 12 mg/dL (8-23); Carbon Dioxide 29 mmol/L (22-29); Chloride 102 mmol/L (98-107); Globulin 5.9 g/dL (1.3-4.6); Glomerular Filtration Rate 98.6 mL/min (90-130); Glucose 92 mg/dL (65-115); Osmolality Calculated 289 mOsm/kg (285-295); Potassium 3.7 mmol/L (3.5-5.1); Sodium 140 mmol/L (136-145); Total Bilirubin 0.2 mg/dL (0.15-1.2); Total Protein 9.7 g/dL (6.6-8.7)
[2020-07-19] MEDS: ferric carboxy (IVPB) 750 MG in sodium chloride 0.9% (100 ml) 100 ML 460 MG IV (10:30)
--- NOTE | 2020-07-20 12:52 | ONC FU_ITS ---
[facility] Patient Note Patient: Larry Louis Unit #: [id number]: 1960 Dictated By: Ghassan BeasleyDate of Visit: Jul 19, 2020 Onc MED Follow-Up/Prog Note Chief Complaint: Sigmoid colon cancer History of Present Illness: Mr. Louis is a 59-year-old gentleman who presented to his primary care with a history of hematochezia, 45+ pound unintended weight loss over a period of 3 to 4 months, rectal incontinence for over a year, constipation, nausea vomiting, and bladder outlet obstruction requiring catheterization. He states he has had a chronic history of blood per rectum which began in childhood. He had not followed regularly with primary care. He was seen by Dr. Gonzalez at [facility]. He underwent colonoscopy on 04/26/2020. This revealed a completely obstructing, large size, fungating, friable, infiltrative, malignant appearing, circumferential rectal mass. The mass was biopsied and pathology revealed moderately differentiated invasive adenocarcinoma. His mismatch repair proteins???IHC were all intact to include MLH1, MSH2, MSH6, and PMS2. A CT of the chest abdomen pelvis from 04/26/2020 reported a 4 x 2.4 cm lesion in the sigmoid colon extending to the right and an additional lobulated soft tissue mass measuring 4.2 x 3.2 cm extending over a length of approximately 10 cm. Sigmoid thickening abuts the adjacent bladder with loss of fat plane in a few locations although no abnormal bladder wall thickening. There was an additional lobulated sigmoid outpouching with low attenuation measuring 1.7 cm. There were multiple enlarged perirectal lymph nodes; enlarged prostate measuring 4.7 cm; mild left hydronephrosis likely secondary to bladder outlet obstruction versus sequela from sigmoid neoplasm; a 9 mm nonspecific groundglass opacity in the right upper lobe of the lung and additional 3 mm noncalcified nodule in the right upper lobe and a few prominent pretracheal lymph nodes largest measuring 8 mm; small bilateral thyroid nodules. There was mild diffuse fatty infiltration of the liver but no enhancing hepatic lesions were noted. Mr. Louis was seen by Dr. Olsen in [place] because of the progressive intestinal obstruction. On April 29, 2020 he underwent lap loop sigmoid colonoscopy and Port-A-Cath placement. He then had follow-up MRI of the pelvis on 05/06/2020 which showed mild upper rectal tumor is noted in a circumferential appearance extending above the level of the peritoneal reflection with prominent extension through the muscularis into adjacent mesorectal fat. There was also a large soft tissue nodular component extending superiorly into the base of the sigmoid mesentery above the peritoneal reflection. These findings are associated with enlarged presacral lymph nodes as well as obstructive uropathy with a mild degree of left-sided hydronephrosis due to obstruction of the distal left ureter. Mr. Louis was admitted to [facility] on 06/17/2020 with sepsis secondary to UTI/polynephritis. Follow-up PET/CT from June 26, 2019 showed hypermetabolic rectal mass, perirectal nodes in fascial thickening consistent with local metastatic disease. There was no report of metastatic disease outside the pelvis. An 8 mm right middle lobe nodule consistent with granuloma. Mr. Louis was seen by medical and radiation oncology and offered treatment with neoadjuvant systemic chemotherapy rather than chemoradiation due to CT follow-up indicating bulky disease. He was also found to be iron deficient and was approved for parenteral iron replacement. Mr. Louis is here today for followup after his first dose of FOLOX and his second dose of Injectafter is due today as well. He tolerated his first cycle of FOLFOX with some mild nausea on the day his 5 FU pump was removed but that resolved with 1 or 2 doses of Compazine . He has had no further nausea and denies any emesis. He states his rectal drainage color has improved and maybe the drainage has gotten a little less over the last week. He denies any fever or chills. He is eating good and his energy is ok . He is able to do his ADLs without assistance and tolerates this well. He does get tired but states he recovers well with rest. He denies any changes with his bowel or bladder function. He denies any neuropathy at this time. His ECOG is 1. Past Medical History: Past Surgical History: Lap loop sigmoid colostomy???Dr. Olsen in 2019 Right internal jugular Port-A-Cath placement???Dr. Olsen in 2019 Allergies: Iodine Medications: Colace 1 Capsule Oral daily PRN Daily Vitamin 1 Tablet Oral daily HYDROcodone-Acetaminophen 1 Tablet (of 5-325 mg) Oral q 6 hours PRN Nitrofurantoin Monohyd Macro 1 Capsule (of 100 mg) Oral daily Tylenol 2 Tablet (of 325 mg) Tablet Oral q 8 hours PRN Family History: Mr. Louis's mother is alive. Mr. Louis's father at age 84: liver cancer. Mr. Louis has 3 brothers: 3 alive. He has 1 sister who is alive. Social History: Mr. Louis is single and he has no occupation specified. Mr. Louis has never smoked. He has no history of drinking. Review Of Symptoms: Constitutional Denies fevers, chills, night sweats, excessive fatigue or weight loss. Allergic/Immunologic No reactions. Eyes Denies significant visual changes. No diplopia. No amaurosis. ENMT Denies changes in hearing, sore throat, mouth sores, difficulty or changes in swallowing ability, and/or sinus drainage. Endocrine No diabetes, thyroid disease or hormone replacement. Denies hot flashes or night sweats. Hematologic/Lymphatic Denies easy bruising or bleeding. The patient denies any tender or palpable lymph nodes. Respiratory Denies dyspnea on exertion, chest pain, cough or hemoptysis. Denies orthopnea. Cardiovascular Denies anginal chest pain, palpitations or orthopnea. Gastrointestinal Denies nausea, vomiting, diarrhea, GI bleeding, or constipation. Denies change in bowel habits and/or stool color, no heartburn or early satiety. Genitourinary (M) Denies hematuria, dysuria, increased frequency, urgency, hesitancy or incontinence. Musculoskeletal Denies joint pain, swelling or redness. No decreased range of motion. Integumentary Denies chronic rashes, inflammation, ulcerations or skin changes. Neurologic Denies headache, blurred vision, and no areas of focal weakness or numbness. Normal gait. No sensory problems. Psychiatric Denies insomnia, depression, pawan or mood swings. Vital Signs: Performed on Jul 19, 2020 11:42 Height - 67.00 in Weight - 130.2 lbs (LOW) BSA - 1.68 sq.m BMI - 20.39 Temperature - 98.3 F (LOW) Pulse - 87 /min Respiration - 18 /min BP - 128/76 mm(hg) O2 Sat - 99 % Pain - 0,1 - No physically strenuous activity, but ambulatory and able to carry out light or sedentary work (e.g. office work, light house work). (ECOG) Physical Examination: Constitutional Alert, oriented, no acute distress. Skin pink, warm and dry. Head Normocephalic; atraumatic. Eyes Conjunctivae and sclerae are clear and without icterus. Pupils are reactive and equal. Neck Supple without masses or thyromegaly. No jugular venous distension. Hematologic/Lymphatic No petechiae or purpura. No tender or palpable lymph nodes in the cervical or supraclavicular areas. Respiratory Lungs are clear to auscultation without rhonchi or wheezing. Cardiovascular Regular rate and rhythm of heart without murmurs,clicks, gallops or rubs. Chest Chest is symmetric without chest wall deformities. Port a cath insertion site is unremarkable. Breasts Abdomen Non-tender, non-distended, no masses or ascites. Good bowel sounds noted in all quads. No guarding or rebound tenderness. Back/Spine Non-tender to palpation. Musculoskeletal No tenderness or swelling, normal range of motion without obvious weakness. Integumentary No rashes or lesions. Neurologic No sensory or motor deficits, normal cerebellar function, normal gait. Psychiatric Alert and oriented times three. Coherent speech. Verbalizes understanding of our discussions today. Laboratory:Test performed on Jul 19, 2020 09:35 Sodium 140 mmol/L Potassium 3.7 mmol/L Chloride 102 mmol/L CO2 29 mmol/L Anion Gap 12.7 BUN 12 mg/dL Creatinine 0.8 mg/dL Cr Clearance (Est) 84.4200 mL/min eGFR 98.6 mL/min Glucose 92 mg/dL Osmolality - Calculated 289 mOsm/kg Calcium 9.0 mg/dL Protein, Total 9.7 g/dL Albumin 3.8 g/dL Globulin 5.9 g/dL Bilirubin, Total 0.2 mg/dL ALT (SGPT) 7 U/L AST (SGOT) 14 U/L Alkaline Phosphatase 80 IU/L WBC 8.0 10 3/uL RBC 4.58 10 6/uL HGB 9.4 g/dL HCT 33.7 % MCV 73.6 fL MCH 20.5 pg MCHC 27.9 g/dL RDW 21.4 % Platelet Count 280 10 3/cmm MPV 8.6 fL Neutrophils 6.29 10 3/uL Lymphocytes 1.4 10 3/uL Monocytes 0.3 10 3/uL Eosinophils 0.0 10 3/uL Basophils 0.0 10 3/uL Neutrophil % 78.4 % Lymphocyte % 16.8 % Monocyte % 3.9 % Eosinophil % 0.0 % Basophils % 0.5 % NRBC % 0 % Test performed on Jun 29, 2020 14:35 CEA 114.9 ng/mL Test performed on Jun 09, 2020 15:40 Ferritin 11 ng/mL Iron 10 mcg/dL Iron Binding Capacity (TIBC) 374 mcg/dl % Iron Saturation 2.6 % UIBC 364 mcg/dL Impression: Near obstructive colorectal mass per colonoscopy done on April 26, 2020, biopsy Confirmed invasive adenocarcinoma, moderately differentiated CT scan of chest abdomen pelvis done on April 26, 2020 showed diffuse circumferential thickening involving sigmoid colon extending to the rectosigmoid junction. Masslike polypoid thickening measuring approximately 4 x 2.4 cm eccentric to the right. Additional lobulated soft tissue mass measuring 4.2 x 3.2 cm. Multiple enlarged perirectal lymph nodes. No enhancing lesion seen in the liver. Sigmoid thickening abuts adjacent bladder with loss of fat plane in a few location although no abnormal bladder wall thickening. Hazy groundglass opacity in the right upper lobe nonspecific measuring 9 mm. Additional 3 mm calcified nodule right upper lobe. Small bilateral thyroid nodules. Status post lap loop sigmoid colostomy done on April 29, 2020 MRI scan of the pelvis done on May 06, 2020 showed mid-upper rectal tumor is noted with a circumferential appearance extending above the level of the peritoneal reflection with a prominent extension to the muscularis into adjacent mesorectal fat. There is also a large soft tissue nodular component extending superiorly into the base of the sigmoid mesentery above the peritoneal reflection. These findings are associated with enlarged presacral lymph nodes as well as obstructive uropathy with a moderate degree of left-sided hydronephrosis due to obstruction of distal left ureter CT PET scan done on June 26, 2020 showed 2.6 x 1.9 cm left rectal mass with SUV of 11.8 and multiple perirectal lymph nodes with a minimum FDG uptake thickening of perirectal fascia consistent with involvement with malignancy. No other abnormality seen and 8 mm right middle lobe lung nodule is FDG negative probably benign, granuloma. Clinical stage T3, N2a 40+ pound weight loss due to nausea and abdominal discomfort with eating due to near obstructive colorectal mass Microcytic hypochromic anemia due to iron deficiency anemia probably due to chronic GI bleeding Plan: PROBLEMS ADDRESSED TODAY: 1. Colon cancer: A. Proceed with cycle 1 FOLFOX-this is day 8. B. He will have aggressive antiemetics due to moderate to high risk nausea. If he has nausea with cycle 2 pump removal, he may have supportive care with hydration and antiemetics while he is here for the pump removal. C. Today's labs reviewed in detail and discussed with Mr. Louis and a copy was given to him. WBC 8.0, hemoglobin 9.4, platelets 1 80,000 ANC is 6300. Potassium 3.7, creatinine 0.8 random glucose is 92 and LFTs are normal. D. We will have weekly interim counts for monitoring of the chemotherapy; he will also need port maintenance with his lab draws. 2. Iron deficiency anemia. A. Hemoglobin on July 12, 2020 was 9.1. The Hgb is 9.4 today. His iron saturation on 06/09/2020 was 2.6%, ferritin was 11 and total iron was 10. His TIBC was 374. We did obtain insurance approval for parenteral iron replacement with Injectafer and he began his first dose on 07/12/2020. He is due for his second dose today. 3. Followup plan: A. He will be due back for cycle 2 FOLFOX in 1 week at which time we will plan to recheck his labs as well. B. Mr. Louis was instructed to contact us in interim should questions or problems arise. Signed By: Ghassan Beasley-, AOMEGAN Singleton MD <<Signature on File>>
== END 2020-07-25 23:59 | disposition home or self-care (01) ==
LOC: ONCMED 05:38
PROVIDERS: Internal Medicine Hematology & Oncology; PCP Internal Medicine; Visit Provider Nurse Practitioner
DX: Z51.11 Encounter for antineoplastic chemotherapy (principal); C20 Malignant neoplasm of rectum; D50.9 Iron deficiency anemia, unspecified; K62.89 Other specified diseases of anus and rectum; K63.89 Other specified diseases of intestine; E04.2 Nontoxic multinodular goiter; R91.1 Solitary pulmonary nodule; Z79.899 Other long term (current) drug therapy
CPT/HCPCS: 36591; 80053; 82378; 85025; 96365; 96367; 96368; 96375; 96411; 96413; 96415; 96416; 96523; 99214; 99215; J0640; J1100; J1439; J2469; J3490; J7050; J9190; J9263

== ENCOUNTER → 2020-07-20 07:53 | Outpatient (BNVA) | payer MEDICAID, SELFPAY | PROVIDERS: PCP Internal Medicine; Visit Provider Urology | DX: N39.0 Urinary tract infection, site not specified (principal); N20.1 Calculus of ureter; R33.9 Retention of urine, unspecified; N40.1 Benign prostatic hyperplasia with lower urinary tract symptoms; N13.5 Crossing vessel and stricture of ureter without hydronephrosis | CPT/HCPCS: 81003 ==

== ENCOUNTER 2020-08-18 05:29 | Outpatient (RCR) | payer MEDICAID, SELFPAY ==
[2020-07-26 09:08] LABS: Basophils % 0.9 %; Hematocrit 34.5 % (42.0-52.0); Hemoglobin 9.9 g/dL (11.7-16.6); Lymphocytes # 0.8 10^3/uL (0.8-4.8); Lymphocytes % 17.9 %; Mean Corpuscular HGB Conc 28.7 g/dL (30.0-36.0); Mean Corpuscular Hemoglobin 21.5 pg (28.0-34.0); Mean Platelet Volume 8.6 fL (7.4-10.4); Monocytes # 0.5 10^3/uL (0.2-0.9); Monocytes % 10.2 %; Neutrophils # 3.33 10^3/uL (1.8-7.7); Neutrophils % 70.8 %; Nucleated Red Blood Cells % 0 %; Platelet Count 303 10^3/cmm (130-400); Red Cell Distribution Width 25.2 % (12.1-15.1); White Blood Count 4.7 10^3/uL (4.0-10.0)
[2020-07-26 09:33] LABS: Alanine Aminotransferase 7 U/L (0-41); Albumin Level 3.8 g/dL (3.5-5.2); Alkaline Phosphatase 88 IU/L (40-130); Anion Gap 10.5 (5-19); Aspartate Amino Transferase 13 U/L (0-40); Blood Urea Nitrogen 7 mg/dL (8-23); Carbon Dioxide 27 mmol/L (22-29); Chloride 105 mmol/L (98-107); Globulin 3.5 g/dL (1.3-4.6); Glucose 88 mg/dL (65-115); Osmolality Calculated 285 mOsm/kg (285-295); Potassium 3.5 mmol/L (3.5-5.1); Sodium 139 mmol/L (136-145); Total Bilirubin 0.2 mg/dL (0.15-1.2); Total Protein 7.3 g/dL (6.6-8.7)
--- NOTE | 2020-07-26 10:58 | ONC FU_ITS ---
Dr. Singleton follow up note Patient: Larry Louis Unit #: [id number]: [id number] Dicatated By: Goldy Singleton M.D.Date of Visit:Jul 26, 2020 Onc Med Follow-up/Prog Note History of Present Illness: Mr. Louis is a 59-year-old gentleman who presented to his primary care with a history of hematochezia, 45+ pound unintended weight loss over a period of 3 to 4 months, rectal incontinence for over a year, constipation, nausea vomiting, and bladder outlet obstruction requiring catheterization. He states he has had a chronic history of blood per rectum which began in childhood. He had not followed regularly with primary care. He was seen by Dr. Gonzalez at [facility]. He underwent colonoscopy on 04/26/2020. This revealed a completely obstructing, large size, fungating, friable, infiltrative, malignant appearing, circumferential rectal mass. The mass was biopsied and pathology revealed moderately differentiated invasive adenocarcinoma. His mismatch repair proteins???IHC were all intact to include MLH1, MSH2, MSH6, and PMS2. A CT of the chest abdomen pelvis from 04/26/2020 reported a 4 x 2.4 cm lesion in the sigmoid colon extending to the right and an additional lobulated soft tissue mass measuring 4.2 x 3.2 cm extending over a length of approximately 10 cm. Sigmoid thickening abuts the adjacent bladder with loss of fat plane in a few locations although no abnormal bladder wall thickening. There was an additional lobulated sigmoid outpouching with low attenuation measuring 1.7 cm. There were multiple enlarged perirectal lymph nodes; enlarged prostate measuring 4.7 cm; mild left hydronephrosis likely secondary to bladder outlet obstruction versus sequela from sigmoid neoplasm; a 9 mm nonspecific groundglass opacity in the right upper lobe of the lung and additional 3 mm noncalcified nodule in the right upper lobe and a few prominent pretracheal lymph nodes largest measuring 8 mm; small bilateral thyroid nodules. There was mild diffuse fatty infiltration of the liver but no enhancing hepatic lesions were noted. Mr. Louis was seen by Dr. Olsen in [place] because of the progressive intestinal obstruction. On April 29, 2020 he underwent lap loop sigmoid colonoscopy and Port-A-Cath placement. He then had follow-up MRI of the pelvis on 05/06/2020 which showed mild upper rectal tumor is noted in a circumferential appearance extending above the level of the peritoneal reflection with prominent extension through the muscularis into adjacent mesorectal fat. There was also a large soft tissue nodular component extending superiorly into the base of the sigmoid mesentery above the peritoneal reflection. These findings are associated with enlarged presacral lymph nodes as well as obstructive uropathy with a mild degree of left-sided hydronephrosis due to obstruction of the distal left ureter. Mr. Louis was admitted to [facility] on 06/17/2020 with sepsis secondary to UTI/polynephritis. Follow-up PET/CT from June 26, 2019 showed hypermetabolic rectal mass, perirectal nodes in fascial thickening consistent with local metastatic disease. There was no report of metastatic disease outside the pelvis. An 8 mm right middle lobe nodule consistent with granuloma. Mr. Louis was seen by medical and radiation oncology and offered treatment with neoadjuvant systemic chemotherapy rather than chemoradiation due to CT follow-up indicating bulky disease. started on neoadjuvant chemotherapy with FOLFOX on July 12, 2020 For iron deficiency anemia Injectafer 750 mg IV x2 done on July 12, 2020 and July 19, 2020 Came for follow-up, denies any specific complaints, tolerated first cycle of chemotherapy with FOLFOX well except mild nausea which improved with antiemetics. No fever chills, no nausea or vomiting, no diarrhea constipation, no mouth sores, no abdominal pain, pelvic pain is under control with current pain medication. Tolerated parenteral iron well, now more energetic. Medications: Colace 1 Capsule Oral daily PRN, Daily Vitamin 1 Tablet Oral daily, HYDROcodone-Acetaminophen 1 Tablet (of 5-325 mg) Oral q 6 hours PRN, Nitrofurantoin Monohyd Macro 1 Capsule (of 100 mg) Oral daily, Tamsulosin HCl 1 Tablet (of 0.4 mg) Capsule Oral daily, Tylenol 2 Tablet (of 325 mg) Tablet Oral q 8 hours PRN Allergies: Iodine Review of Systems: Constitutional - Appetite is fair and weight is stable. No fever, night sweats, or hot flashes. Energy is poor, ENMT - No sinus congestion/drainage. No mouth sores. No sore throat or difficulty swallowing, Hematologic/Lymphatic - No abnormal bruising, bleeding, Respiratory - No shortness of breath. No cough. No pleuritic pain or hemoptysis, Cardiovascular - No angina pain. No palpitations, Gastrointestinal - No nausea or vomiting. No heartburn or acid reflux. No diarrhea or constipation. Positive for bleeding from rectum, Genitourinary (M) - No dysuria or hematuria. No urinary frequency. No urgency or incontinence, Musculoskeletal - No joint or bone pain, Neurologic - No headache or dizziness. No numbness or tingling. No other focal neurologic symptoms, Psychiatric - No anxiety or depression. No insomnia. Vital Signs: Performed on Jul 26, 2020 10:23 Height - 67.00 in Weight - 131 lbs (HIGH) BSA - 1.69 sq.m BMI - 20.52 Temperature - 98.5 F Pulse - 99 /min Respiration - 18 /min BP - 121/73 mm(hg) O2 Sat - 97 % Pain - 0 Fatigue - 8 Performance Status: 1 - No physically strenuous activity, but ambulatory and able to carry out light or sedentary work (e.g. office work, light house work). (ECOG) Physical Examination: ENMT - No mouth sores, no thrush, no jaundice, Respiratory - Lungs are clear to auscultation, Cardiovascular - Regular rate and rhythm of heart, Abdomen - Soft, bowel sounds present, Colostomy bag functioning fine, Extremities - No visible edema. Lab/Imaging: Test performed on Jul 19, 2020 09:35 Sodium 140 mmol/L Potassium 3.7 mmol/L Chloride 102 mmol/L CO2 29 mmol/L Anion Gap 12.7 BUN 12 mg/dL Creatinine 0.8 mg/dL Cr Clearance (Est) 84.4200 mL/min eGFR 98.6 mL/min Glucose 92 mg/dL Osmolality - Calculated 289 mOsm/kg Calcium 9.0 mg/dL Protein, Total 9.7 g/dL Albumin 3.8 g/dL Globulin 5.9 g/dL Bilirubin, Total 0.2 mg/dL ALT (SGPT) 7 U/L AST (SGOT) 14 U/L Alkaline Phosphatase 80 IU/L WBC 8.0 10 3/uL RBC 4.58 10 6/uL HGB 9.4 g/dL HCT 33.7 % MCV 73.6 fL MCH 20.5 pg MCHC 27.9 g/dL RDW 21.4 % Platelet Count 280 10 3/cmm MPV 8.6 fL Neutrophils 6.29 10 3/uL Lymphocytes 1.4 10 3/uL Monocytes 0.3 10 3/uL Eosinophils 0.0 10 3/uL Basophils 0.0 10 3/uL Neutrophil % 78.4 % Lymphocyte % 16.8 % Monocyte % 3.9 % Eosinophil % 0.0 % Basophils % 0.5 % NRBC % 0 % Test performed on Jun 29, 2020 14:35 CEA 114.9 ng/mL Test performed on Jun 09, 2020 15:40 Ferritin 11 ng/mL Iron 10 mcg/dL Iron Binding Capacity (TIBC) 374 mcg/dl % Iron Saturation 2.6 % UIBC 364 mcg/dL Impression: Near obstructive colorectal mass per colonoscopy done on April 26, 2020, biopsy Confirmed invasive adenocarcinoma, moderately differentiated CT scan of chest abdomen pelvis done on April 26, 2020 showed diffuse circumferential thickening involving sigmoid colon extending to the rectosigmoid junction. Masslike polypoid thickening measuring approximately 4 x 2.4 cm eccentric to the right. Additional lobulated soft tissue mass measuring 4.2 x 3.2 cm. Multiple enlarged perirectal lymph nodes. No enhancing lesion seen in the liver. Sigmoid thickening abuts adjacent bladder with loss of fat plane in a few location although no abnormal bladder wall thickening. Hazy groundglass opacity in the right upper lobe nonspecific measuring 9 mm. Additional 3 mm calcified nodule right upper lobe. Small bilateral thyroid nodules. Status post lap loop sigmoid colostomy done on April 29, 2020 MRI scan of the pelvis done on May 06, 2020 showed mid-upper rectal tumor is noted with a circumferential appearance extending above the level of the peritoneal reflection with a prominent extension to the muscularis into adjacent mesorectal fat. There is also a large soft tissue nodular component extending superiorly into the base of the sigmoid mesentery above the peritoneal reflection. These findings are associated with enlarged presacral lymph nodes as well as obstructive uropathy with a moderate degree of left-sided hydronephrosis due to obstruction of distal left ureter CT PET scan done on June 26, 2020 showed 2.6 x 1.9 cm left rectal mass with SUV of 11.8 and multiple perirectal lymph nodes with a minimum FDG uptake thickening of perirectal fascia consistent with involvement with malignancy. No other abnormality seen and 8 mm right middle lobe lung nodule is FDG negative probably benign, granuloma. Clinical stage T3, N2a Started on neoadjuvant chemotherapy with FOLFOX on July 12, 2020 40+ pound weight loss due to nausea and abdominal discomfort with eating due to near obstructive colorectal mass Microcytic hypochromic anemia due to iron deficiency anemia probably due to chronic GI bleeding Status post Injectafer x2 in June 2020 Plan: Discussed with patient regarding his labs white blood count 4.7 hemoglobin 9.9 compared to 9.1 on July 12, 2020, hematocrit 34.5 MCV 75, platelets 303,000 CMP within normal limits Clinically, patient doing well with no new complaints, tolerated first cycle of chemotherapy with FOLFOX well, will proceed with next cycle today and then he will return to clinic in 2 weeks with CBC CMP As far as iron deficiency anemia is concerned, patient was given 2 doses of parenteral iron, now responding well, hemoglobin has improved to 9.9 g compared to 9.1 g prior to iron infusion., Will continue to follow hemoglobin and also repeat iron studies on next visit in 2 weeks Signed By: Goldy Singleton M.D. <<Signature on File>>
[2020-07-26] MEDS: dextrose 5% 250 ML 75 ML IV (11:10)
[2020-07-26] MEDS: famotidine 20 mg/2 mL INJ IVP (11:10)
[2020-07-26] MEDS: palonosetron 0.25 mg/5 mL SDV IVP (11:15)
[2020-08-18 09:01] LABS: Basophils # 0.1 10^3/uL (0.0-0.1); Basophils % 0.3 %; Hematocrit 39.5 % (42.0-52.0); Hemoglobin 11.6 g/dL (11.7-16.6); Lymphocytes # 1.8 10^3/uL (0.8-4.8); Lymphocytes % 6.7 %; Mean Corpuscular HGB Conc 29.4 g/dL (30.0-36.0); Mean Corpuscular Hemoglobin 23.2 pg (28.0-34.0); Mean Corpuscular Volume 78.8 fL (80-94); Mean Platelet Volume 8.2 fL (7.4-10.4); Monocytes # 1.6 10^3/uL (0.2-0.9); Monocytes % 5.9 %; Neutrophils # 23.08 10^3/uL (1.8-7.7); Neutrophils % 85.6 %; Nucleated Red Blood Cells % 0 %; Platelet Count 449 10^3/cmm (130-400); Red Blood Count 5.01 10^6/uL (4.1-5.3)
[2020-08-18 09:19] LABS: Alanine Aminotransferase < 5 U/L (0-41); Albumin Level 3.3 g/dL (3.5-5.2); Alkaline Phosphatase 117 IU/L (40-130); Anion Gap 15.1 (5-19); Aspartate Amino Transferase 9 U/L (0-40); Blood Urea Nitrogen 18 mg/dL (8-23); Calcium 9.2 mg/dL (8.5-10.5); Carbon Dioxide 29 mmol/L (22-29); Chloride 96 mmol/L (98-107); Glomerular Filtration Rate 61.8 mL/min (90-130); Glucose 105 mg/dL (65-115); Iron 12 ug/dL (59-158); Osmolality Calculated 284 mOsm/kg (285-295); Percent Saturation 8.8 % (20-50); Potassium 4.1 mmol/L (3.5-5.1); Sodium 136 mmol/L (136-145); Total Bilirubin 0.3 mg/dL (0.15-1.2); Total Iron Binding Capacity 135 mcg/dl; Total Protein 8.3 g/dL (6.6-8.7); Unsaturated Iron Binding 123 ug/dL (112-347)
[2020-08-18 09:48] LABS: Ferritin 1540 ng/mL (30-400)
[2020-08-18] MEDS: sodium chloride 0.9% 500 ML 999 ML IV (12:20)
[2020-08-18 12:23] LABS: Glucose Urine UA Norm (Normal); Protein Urine 1+ (Negative); Specific Gravity, Urine 1.025 (1.005-1.030); Urine Appearance Cloudy (CLEAR); Urine Color Brown (Yellow); pH Urine 5 (5-7)
[2020-08-18 12:24] LABS: Add Urine Microscopic? YES; Bilirubin Urine 1+ (Negative); Blood Urine 3+ (Negative); Ketones Urine 1+ (Negative); Leukocyte Esterase Urine 2+ (Negative); Nitrate Urine Positive (Negative); Urobilinogen Urine 1 mg/dL (Negative)
[2020-08-18 12:26] LABS: Add Urine Culture? Yes; Bacteria Urine 2+ /hpf; Squamous Epithelial Cell Urine 0-4 /hpf (0-5); WBC Urine 25-40 /hpf (0-5)
--- NOTE | 2020-08-18 16:51 | ONC FU_ITS ---
Dr. Singleton follow up note Patient: Larry Louis Unit #: [id number]: 1960 Dicatated By: Goldy Singleton M.D.Date of Visit:Aug 18, 2020 Onc Med Follow-up/Prog Note History of Present Illness: Mr. Louis is a 59-year-old gentleman who presented to his primary care with a history of hematochezia, 45+ pound unintended weight loss over a period of 3 to 4 months, rectal incontinence for over a year, constipation, nausea vomiting, and bladder outlet obstruction requiring catheterization. He states he has had a chronic history of blood per rectum which began in childhood. He had not followed regularly with primary care. He was seen by Dr. Gonzalez at [facility]. He underwent colonoscopy on 04/26/2020. This revealed a completely obstructing, large size, fungating, friable, infiltrative, malignant appearing, circumferential rectal mass. The mass was biopsied and pathology revealed moderately differentiated invasive adenocarcinoma. His mismatch repair proteins???IHC were all intact to include MLH1, MSH2, MSH6, and PMS2. A CT of the chest abdomen pelvis from 04/26/2020 reported a 4 x 2.4 cm lesion in the sigmoid colon extending to the right and an additional lobulated soft tissue mass measuring 4.2 x 3.2 cm extending over a length of approximately 10 cm. Sigmoid thickening abuts the adjacent bladder with loss of fat plane in a few locations although no abnormal bladder wall thickening. There was an additional lobulated sigmoid outpouching with low attenuation measuring 1.7 cm. There were multiple enlarged perirectal lymph nodes; enlarged prostate measuring 4.7 cm; mild left hydronephrosis likely secondary to bladder outlet obstruction versus sequela from sigmoid neoplasm; a 9 mm nonspecific groundglass opacity in the right upper lobe of the lung and additional 3 mm noncalcified nodule in the right upper lobe and a few prominent pretracheal lymph nodes largest measuring 8 mm; small bilateral thyroid nodules. There was mild diffuse fatty infiltration of the liver but no enhancing hepatic lesions were noted. Mr. Louis was seen by Dr. Olsen in [place] because of the progressive intestinal obstruction. On April 29, 2020 he underwent lap loop sigmoid colonoscopy and Port-A-Cath placement. He then had follow-up MRI of the pelvis on 05/06/2020 which showed mild upper rectal tumor is noted in a circumferential appearance extending above the level of the peritoneal reflection with prominent extension through the muscularis into adjacent mesorectal fat. There was also a large soft tissue nodular component extending superiorly into the base of the sigmoid mesentery above the peritoneal reflection. These findings are associated with enlarged presacral lymph nodes as well as obstructive uropathy with a mild degree of left-sided hydronephrosis due to obstruction of the distal left ureter. Mr. Louis was admitted to [facility] on 06/17/2020 with sepsis secondary to UTI/polynephritis. Follow-up PET/CT from June 26, 2019 showed hypermetabolic rectal mass, perirectal nodes in fascial thickening consistent with local metastatic disease. There was no report of metastatic disease outside the pelvis. An 8 mm right middle lobe nodule consistent with granuloma. Mr. Louis was seen by medical and radiation oncology and offered treatment with neoadjuvant systemic chemotherapy rather than chemoradiation due to CT follow-up indicating bulky disease. started on neoadjuvant chemotherapy with FOLFOX on July 12, 2020 For iron deficiency anemia Injectafer 750 mg IV x2 done on July 12, 2020 and July 19, 2020 Came for follow-up, complaining of generalized weakness and fatigue, patient missed his appointment earlier because of snow. Denies any fever chills denies any hematuria, as per patient he was started on new medication by Dr. Gaffney and is helping his urine flow or dysuria denies any cough or sore throat denies any abdominal pain denies any sinus tenderness denies any chest pain. Denies any mouth sores denies any jaundice denies any skin rash. Tolerating neoadjuvant chemotherapy with FOLFOX well otherwise. Medications: Colace 1 Capsule Oral daily PRN, Daily Vitamin 1 Tablet Oral daily, HYDROcodone-Acetaminophen 1 Tablet (of 5-325 mg) Oral q 6 hours PRN, Nitrofurantoin Monohyd Macro 1 Capsule (of 100 mg) Oral daily, Tamsulosin HCl 1 Tablet (of 0.4 mg) Capsule Oral daily, Tylenol 2 Tablet (of 325 mg) Tablet Oral q 8 hours PRN Allergies: Iodine Review of Systems: Review of Systems is not available for this patient. Vital Signs: Performed on Aug 18, 2020 11:11 Height - 67.00 in Weight - 121.2 lbs (LOW) BSA - 1.63 sq.m BMI - 18.98 Temperature - 95.6 F (LOW) Pulse - 127 /min (HIGH) Respiration - 19 /min BP - 113/79 mm(hg) O2 Sat - 97 % Pain - 0 Performance Status: 2 - Ambulatory/capable of all self-care, unable to perform any work activities. Up and about more than 50% of waking hours. (ECOG) Physical Examination: ENMT - No mouth sores, no thrush, no jaundice, Respiratory - Lungs are clear to auscultation, Cardiovascular - Regular rate and rhythm of heart, Abdomen - Soft, bowel sounds present, Extremities - No visible edema. Lab/Imaging: Test performed on Jul 26, 2020 08:45 Sodium 139 mmol/L Potassium 3.5 mmol/L Chloride 105 mmol/L CO2 27 mmol/L Anion Gap 10.5 BUN 7 mg/dL Creatinine 0.7 mg/dL Cr Clearance (Est) 96.4800 mL/min eGFR 115.0 mL/min Glucose 88 mg/dL Osmolality - Calculated 285 mOsm/kg Calcium 9.0 mg/dL Protein, Total 7.3 g/dL Albumin 3.8 g/dL Globulin 3.5 g/dL Bilirubin, Total 0.2 mg/dL ALT (SGPT) 7 U/L AST (SGOT) 13 U/L Alkaline Phosphatase 88 IU/L WBC 4.7 10 3/uL RBC 4.60 10 6/uL HGB 9.9 g/dL HCT 34.5 % MCV 75.0 fL MCH 21.5 pg MCHC 28.7 g/dL RDW 25.2 % Platelet Count 303 10 3/cmm MPV 8.6 fL Neutrophils 3.33 10 3/uL Lymphocytes 0.8 10 3/uL Monocytes 0.5 10 3/uL Eosinophils 0.0 10 3/uL Basophils 0.0 10 3/uL Neutrophil % 70.8 % Lymphocyte % 17.9 % Monocyte % 10.2 % Eosinophil % 0.0 % Basophils % 0.9 % NRBC % 0 % Test performed on Jun 29, 2020 14:35 CEA 114.9 ng/mL Test performed on Jun 09, 2020 15:40 Ferritin 11 ng/mL Iron 10 mcg/dL Iron Binding Capacity (TIBC) 374 mcg/dl % Iron Saturation 2.6 % UIBC 364 mcg/dL Impression: Near obstructive colorectal mass per colonoscopy done on April 26, 2020, biopsy Confirmed invasive adenocarcinoma, moderately differentiated CT scan of chest abdomen pelvis done on April 26, 2020 showed diffuse circumferential thickening involving sigmoid colon extending to the rectosigmoid junction. Masslike polypoid thickening measuring approximately 4 x 2.4 cm eccentric to the right. Additional lobulated soft tissue mass measuring 4.2 x 3.2 cm. Multiple enlarged perirectal lymph nodes. No enhancing lesion seen in the liver. Sigmoid thickening abuts adjacent bladder with loss of fat plane in a few location although no abnormal bladder wall thickening. Hazy groundglass opacity in the right upper lobe nonspecific measuring 9 mm. Additional 3 mm calcified nodule right upper lobe. Small bilateral thyroid nodules. Status post lap loop sigmoid colostomy done on April 29, 2020 MRI scan of the pelvis done on May 06, 2020 showed mid-upper rectal tumor is noted with a circumferential appearance extending above the level of the peritoneal reflection with a prominent extension to the muscularis into adjacent mesorectal fat. There is also a large soft tissue nodular component extending superiorly into the base of the sigmoid mesentery above the peritoneal reflection. These findings are associated with enlarged presacral lymph nodes as well as obstructive uropathy with a moderate degree of left-sided hydronephrosis due to obstruction of distal left ureter CT PET scan done on June 26, 2020 showed 2.6 x 1.9 cm left rectal mass with SUV of 11.8 and multiple perirectal lymph nodes with a minimum FDG uptake thickening of perirectal fascia consistent with involvement with malignancy. No other abnormality seen and 8 mm right middle lobe lung nodule is FDG negative probably benign, granuloma. Clinical stage T3, N2a Started on neoadjuvant chemotherapy with FOLFOX on July 12, 2020 40+ pound weight loss due to nausea and abdominal discomfort with eating due to near obstructive colorectal mass Microcytic hypochromic anemia due to iron deficiency anemia probably due to chronic GI bleeding Status post Injectafer x2 in June 2020 Plan: Discussed with patient regarding his labs white blood count 27 hemoglobin 11.6 hematocrit 39.5 platelets 449,000 CMP within normal limits except creatinine 1.2 Clinically, patient is doing reasonably well, tolerating systemic chemotherapy with FOLFOX well but with expected side effects but today complaining of generalized weakness and fatigue and his labs shows leukocytosis with a concern for occult infection, will check a urinalysis as on exam chest sounds clear, and we will hold his chemotherapy Urinalysis shows evidence of UTI, will start him on Macrobid twice a day for 1 week and also send urine for culture and sensitivity and adjust antibiotics if needed Patient was advised in case there is a worsening of symptoms he need to go to hospital otherwise return to clinic in 1 week with CBC CMP and urinalysis if UTI resolves and patient feels better, will consider resuming his neoadjuvant chemotherapy with modified dose FOLFOX Signed By: Goldy Singleton M.D. <<Signature on File>>
== END 2020-08-22 23:59 | disposition home or self-care (01) ==
LOC: ONCMED 05:29
PROVIDERS: PCP Internal Medicine; Visit Provider Internal Medicine Hematology & Oncology
DX: Z51.11 Encounter for antineoplastic chemotherapy (principal); C20 Malignant neoplasm of rectum; K62.89 Other specified diseases of anus and rectum; K63.89 Other specified diseases of intestine; E04.2 Nontoxic multinodular goiter; R63.4 Abnormal weight loss; D50.9 Iron deficiency anemia, unspecified; Z79.899 Other long term (current) drug therapy
CPT/HCPCS: 80053; 81001; 82728; 83540; 83550; 85025; 87077; 87086; 87186; 96360; 96367; 96368; 96375; 96411; 96413; 96415; 96416; 96523; 99214; 99215; J0640; J1100; J2469; J3490; J7040; J9190; J9263

== ENCOUNTER 2020-08-24 05:44 | Outpatient (RCR) | payer MEDICAID, SELFPAY ==
[2020-08-24] MEDS: alteplase 1 mg/mL SDV 2 mL 2 MG IV (09:18)
[2020-08-24 09:33] LABS: Basophils # 0.1 10^3/uL (0.0-0.1); Basophils % 0.3 %; Eosinophils % 0.1 %; Hematocrit 36.8 % (42.0-52.0); Hemoglobin 10.6 g/dL (11.7-16.6); Lymphocytes # 1.2 10^3/uL (0.8-4.8); Lymphocytes % 7.2 %; Mean Corpuscular HGB Conc 28.8 g/dL (30.0-36.0); Mean Corpuscular Hemoglobin 22.8 pg (28.0-34.0); Mean Corpuscular Volume 79.1 fL (80-94); Mean Platelet Volume 8.5 fL (7.4-10.4); Monocytes # 1.3 10^3/uL (0.2-0.9); Monocytes % 7.4 %; Neutrophils # 14.36 10^3/uL (1.8-7.7); Neutrophils % 84.4 %; Nucleated Red Blood Cells % 0 %; Platelet Count 485 10^3/cmm (130-400); Red Blood Count 4.65 10^6/uL (4.1-5.3); Red Cell Distribution Width 26.2 % (12.1-15.1)
[2020-08-24 09:47] LABS: Add Urine Microscopic? NO
[2020-08-24 10:09] LABS: Bilirubin Urine Neg (Negative); Blood Urine Neg (Negative); Glucose Urine UA Norm (Normal); Ketones Urine 1+ (Negative); Leukocyte Esterase Urine Negative (Negative); Nitrate Urine Negative (Negative); Protein Urine Neg (Negative); Urine Appearance Clear (CLEAR); Urine Color Yellow (Yellow); Urobilinogen Urine Norm (Negative)
[2020-08-24 10:11] LABS: Alanine Aminotransferase < 5 U/L (0-41); Alkaline Phosphatase 93 IU/L (40-130); Anion Gap 15.9 (5-19); Aspartate Amino Transferase 10 U/L (0-40); Blood Urea Nitrogen 12 mg/dL (8-23); Calcium 9.3 mg/dL (8.5-10.5); Carbon Dioxide 25 mmol/L (22-29); Chloride 95 mmol/L (98-107); Globulin 4.8 g/dL (1.3-4.6); Glomerular Filtration Rate 76.2 mL/min (90-130); Glucose 119 mg/dL (65-115); Osmolality Calculated 275 mOsm/kg (285-295); Potassium 3.9 mmol/L (3.5-5.1); Sodium 132 mmol/L (136-145); Total Bilirubin 0.4 mg/dL (0.15-1.2); Total Protein 7.8 g/dL (6.6-8.7)
[2020-08-24] MEDS: famotidine 20 mg/2 mL INJ IVP (11:58)
[2020-08-24] MEDS: palonosetron 0.25 mg/5 mL SDV IVP (12:00)
[2020-08-24] MEDS: dextrose 5% 250 ML 75 ML IV (12:00)
[2020-08-24 15:04] LABS: Carcinoembryonic Antigen 17.9 ng/mL (0.0-4.7)
--- NOTE | 2020-08-30 13:23 | ONC FU_ITS ---
[facility] Patient Note Patient: Larry Louis Unit #: [id number]: 1960 Dictated By: Ghassan BeasleyDate of Visit: Aug 24, 2020 Onc MED Follow-Up/Prog Note Chief Complaint: Sigmoid colon cancer History of Present Illness: Mr. Luois is a 59-year-old gentleman who presented to his primary care with a history of hematochezia, 45+ pound unintended weight loss over a period of 3 to 4 months, rectal incontinence for over a year, constipation, nausea vomiting, and bladder outlet obstruction requiring catheterization. He states he has had a chronic history of blood per rectum which began in childhood. He had not followed regularly with primary care. He was seen by Dr. Gonzalez at [facility]. He underwent colonoscopy on 04/26/2020. This revealed a completely obstructing, large size, fungating, friable, infiltrative, malignant appearing, circumferential rectal mass. The mass was biopsied and pathology revealed moderately differentiated invasive adenocarcinoma. His mismatch repair proteins???IHC were all intact to include MLH1, MSH2, MSH6, and PMS2. A CT of the chest abdomen pelvis from 04/26/2020 reported a 4 x 2.4 cm lesion in the sigmoid colon extending to the right and an additional lobulated soft tissue mass measuring 4.2 x 3.2 cm extending over a length of approximately 10 cm. Sigmoid thickening abuts the adjacent bladder with loss of fat plane in a few locations although no abnormal bladder wall thickening. There was an additional lobulated sigmoid outpouching with low attenuation measuring 1.7 cm. There were multiple enlarged perirectal lymph nodes; enlarged prostate measuring 4.7 cm; mild left hydronephrosis likely secondary to bladder outlet obstruction versus sequela from sigmoid neoplasm; a 9 mm nonspecific groundglass opacity in the right upper lobe of the lung and additional 3 mm noncalcified nodule in the right upper lobe and a few prominent pretracheal lymph nodes largest measuring 8 mm; small bilateral thyroid nodules. There was mild diffuse fatty infiltration of the liver but no enhancing hepatic lesions were noted. Mr. Louis was seen by Dr. Olsen in [place] because of the progressive intestinal obstruction. On April 29, 2020 he underwent lap loop sigmoid colonoscopy and Port-A-Cath placement. He then had follow-up MRI of the pelvis on 05/06/2020 which showed mild upper rectal tumor is noted in a circumferential appearance extending above the level of the peritoneal reflection with prominent extension through the muscularis into adjacent mesorectal fat. There was also a large soft tissue nodular component extending superiorly into the base of the sigmoid mesentery above the peritoneal reflection. These findings are associated with enlarged presacral lymph nodes as well as obstructive uropathy with a mild degree of left-sided hydronephrosis due to obstruction of the distal left ureter. Mr. Louis was admitted to [facility] on 06/17/2020 with sepsis secondary to UTI/polynephritis. Follow-up PET/CT from June 26, 2019 showed hypermetabolic rectal mass, perirectal nodes in fascial thickening consistent with local metastatic disease. There was no report of metastatic disease outside the pelvis. An 8 mm right middle lobe nodule consistent with granuloma. Mr. Louis was seen by medical and radiation oncology and offered treatment with neoadjuvant systemic chemotherapy rather than chemoradiation due to CT follow-up indicating bulky disease. He started on neoadjuvant chemotherapy with FOLFOX on July 12, 2020. For the iron deficiency anemia, he was given Injectafer 750 mg IV x2 done on July 12, 2020 and July 19, 2020. Mr. Louis is here today for follow-up. He is due for cycle 3 FOLFOX. He states overall he is doing well. He states he is still struggling with his appetite but is trying to eat. He states that he is due for a new stent this with Dr. Gaffney. He denies any new concerns. He has had no fever or chills. He denies any mouth sores, sore throat or difficulty swallowing. He denies any cold-induced neuropathy at this time. He states he noticed a little after last treatment but it was not anything significant and is completely resolved. He states he had a loose stools a little bit here and there but is controlled with Imodium. He denies any lower extremity edema. He denies any shortness of breath orthopnea. He denies any hemoptysis. He tries remain active around the house. He denies any nausea or vomiting at present. He denies headaches or vision changes. His ECOG is 1. Past Medical History: Past Surgical History: Lap loop sigmoid colostomy???Dr. Olsen in 2019 Right internal jugular Port-A-Cath placement???Dr. Olsen in 2019 Allergies: Iodine Medications: Colace 1 Capsule Oral daily PRN Daily Vitamin 1 Tablet Oral daily HYDROcodone-Acetaminophen 1 Tablet (of 5-325 mg) Oral q 6 hours PRN Nitrofurantoin Monohyd Macro 1 Capsule (of 100 mg) Oral daily Tamsulosin HCl 1 Tablet (of 0.4 mg) Capsule Oral daily Tylenol 2 Tablet (of 325 mg) Tablet Oral q 8 hours PRN Family History: Mr. Louis's mother is alive. Mr. Louis's father at age 84: liver cancer. Mr. Louis has 3 brothers: 3 alive. He has 1 sister who is alive. Social History: Mr. Louis is single and he has no occupation specified. Mr. Louis has never smoked. He has no history of drinking. Review Of Symptoms: Constitutional Denies fevers, chills, night sweats. He has fatigue and persistent weight loss. Allergic/Immunologic No reactions. Eyes Denies significant visual changes. No diplopia. No amaurosis. ENMT Denies changes in hearing, sore throat, mouth sores, difficulty or changes in swallowing ability, and/or sinus drainage. Hematologic/Lymphatic Denies easy bruising or bleeding. The patient denies any tender or palpable lymph nodes. Respiratory Denies dyspnea on exertion, chest pain, cough or hemoptysis. Denies orthopnea. Cardiovascular Denies anginal chest pain, palpitations or orthopnea. Gastrointestinal Denies nausea, vomiting, diarrhea, GI bleeding, or constipation. Denies change in bowel habits and/or stool color, no heartburn or early satiety. Genitourinary (M) Denies hematuria, dysuria, increased frequency, urgency, hesitancy or incontinence. Musculoskeletal Denies joint pain, swelling or redness. No decreased range of motion. Integumentary Denies chronic rashes, inflammation, ulcerations or skin changes. Neurologic Denies headache, blurred vision, and no areas of focal weakness or numbness. Normal gait. No sensory problems. Psychiatric Denies insomnia, depression, pawan or mood swings. Vital Signs: Performed on Aug 24, 2020 11:17 Height - 67.00 in Weight - 121.4 lbs (HIGH) BSA - 1.64 sq.m BMI - 19.01 Temperature - 97.8 F (LOW) Pulse - 102 /min (HIGH) Respiration - 18 /min BP - 123/83 mm(hg) O2 Sat - 96 % Pain - 0 Fatigue - 8,1 - No physically strenuous activity, but ambulatory and able to carry out light or sedentary work (e.g. office work, light house work). (ECOG) Physical Examination: Constitutional Alert, oriented, no acute distress. Skin pink, warm and dry. Head Normocephalic; atraumatic. Eyes Conjunctivae and sclerae are clear and without icterus. Pupils are reactive and equal. ENMT No oral exudates, ulcers, masses, thrush or mucositis. Oropharynx clear. Tongue normal. Poor dentation. Neck Supple without masses or thyromegaly. No jugular venous distension. Hematologic/Lymphatic No petechiae or purpura. No tender or palpable lymph nodes in the cervical or supraclavicular areas. Respiratory Lungs are clear to auscultation without rhonchi or wheezing. Cardiovascular Regular rate and rhythm of heart without murmurs,clicks, gallops or rubs. Chest Chest is symmetric without chest wall deformities. Port a cath insertion site is unremarkable. Abdomen Non-tender, non-distended, no masses or ascites. Good bowel sounds noted in all quads. No guarding or rebound tenderness. Back/Spine Non-tender to palpation. Musculoskeletal No tenderness or swelling, normal range of motion without obvious weakness. Integumentary No rashes or lesions. Neurologic No sensory or motor deficits, normal cerebellar function, normal gait. Psychiatric Alert and oriented times three. Coherent speech. Verbalizes understanding of our discussions today. Laboratory:Test performed on Aug 24, 2020 09:23 Ua Color Yellow Ua Appearance Clear Ua Glucose Norm Ua Bilirubin Neg Ua Ketones 1+ Ua Specific [place] 1.020 Ua Blood Neg Ua pH 5.0 Ua Protein Neg Ua Nitrites Negative Ua Leukocyte Esterase Negative Test performed on Aug 24, 2020 09:13 Sodium 132 mmol/L Potassium 3.9 mmol/L Chloride 95 mmol/L CO2 25 mmol/L Anion Gap 15.9 BUN 12 mg/dL Creatinine 1.0 mg/dL Cr Clearance (Est) 67.5400 mL/min eGFR 76.2 mL/min Glucose 119 mg/dL Osmolality - Calculated 275 mOsm/kg Calcium 9.3 mg/dL Protein, Total 7.8 g/dL Albumin 3.0 g/dL Globulin 4.8 g/dL Bilirubin, Total 0.4 mg/dL ALT (SGPT) < 5 U/L AST (SGOT) 10 U/L Alkaline Phosphatase 93 IU/L WBC 17.0 10 3/uL RBC 4.65 10 6/uL HGB 10.6 g/dL HCT 36.8 % MCV 79.1 fL MCH 22.8 pg MCHC 28.8 g/dL RDW 26.2 % Platelet Count 485 10 3/cmm MPV 8.5 fL Neutrophils 14.36 10 3/uL Lymphocytes 1.2 10 3/uL Monocytes 1.3 10 3/uL Eosinophils 0.0 10 3/uL Basophils 0.1 10 3/uL Neutrophil % 84.4 % Lymphocyte % 7.2 % Monocyte % 7.4 % Eosinophil % 0.1 % Basophils % 0.3 % NRBC % 0 % CEA 17.9 ng/mL Impression: Near obstructive colorectal mass per colonoscopy done on April 26, 2020, biopsy Confirmed invasive adenocarcinoma, moderately differentiated CT scan of chest abdomen pelvis done on April 26, 2020 showed diffuse circumferential thickening involving sigmoid colon extending to the rectosigmoid junction. Masslike polypoid thickening measuring approximately 4 x 2.4 cm eccentric to the right. Additional lobulated soft tissue mass measuring 4.2 x 3.2 cm. Multiple enlarged perirectal lymph nodes. No enhancing lesion seen in the liver. Sigmoid thickening abuts adjacent bladder with loss of fat plane in a few location although no abnormal bladder wall thickening. Hazy groundglass opacity in the right upper lobe nonspecific measuring 9 mm. Additional 3 mm calcified nodule right upper lobe. Small bilateral thyroid nodules. Status post lap loop sigmoid colostomy done on April 29, 2020 MRI scan of the pelvis done on May 06, 2020 showed mid-upper rectal tumor is noted with a circumferential appearance extending above the level of the peritoneal reflection with a prominent extension to the muscularis into adjacent mesorectal fat. There is also a large soft tissue nodular component extending superiorly into the base of the sigmoid mesentery above the peritoneal reflection. These findings are associated with enlarged presacral lymph nodes as well as obstructive uropathy with a moderate degree of left-sided hydronephrosis due to obstruction of distal left ureter CT PET scan done on June 26, 2020 showed 2.6 x 1.9 cm left rectal mass with SUV of 11.8 and multiple perirectal lymph nodes with a minimum FDG uptake thickening of perirectal fascia consistent with involvement with malignancy. No other abnormality seen and 8 mm right middle lobe lung nodule is FDG negative probably benign, granuloma. Clinical stage T3, N2a Started on neoadjuvant chemotherapy with FOLFOX on July 12, 2020 40+ pound weight loss due to nausea and abdominal discomfort with eating due to near obstructive colorectal mass Microcytic hypochromic anemia due to iron deficiency anemia probably due to chronic GI bleeding Status post Injectafer x2 in June 2020 Plan: PROBLEMS ADDRESSED TODAY: 1. Colon cancer: A. Proceed with cycle 3 FOLFOX-this is day 1 . Delayed last week due to UTI. B. He will have aggressive antiemetics due to moderate to high risk nausea. He may have supportive care with hydration and antiemetics while he is here for the pump removal and as needed in the interim between treatments. C. Today's labs reviewed in detail and discussed with Mr. Louis and a copy was given to him. WBC 17,000, hemoglobin 10.6 platelets 4 96,000 ANC is 14,360. Potassium 3.9 random glucose 119 creatinine 1.0 LFTs are normal. His iron saturation on August 18 was 8.8 and iron level was 12. This is improved as his iron saturation on June 09, 2020 was 2.6% and his iron level was 10. I have asked to repeat his iron studies today for further assessment. He may need repeat Injectafer. It is noted that his hemoglobin did drop from 11.6 on August 18, 2020 210.6 today. His CEA is down from 114.9 on 06/29/2020 to 17.9 today. D. We will have weekly interim counts for monitoring of the chemotherapy; he will also need port maintenance with his lab draws. 2. Iron deficiency anemia. A. Hemoglobin on July 12, 2020 was 9.1. The Hgb is 10.6today. His iron saturation on 06/09/2020 was 2.6%, ferritin was 11 and total iron was 10. His TIBC was 374. We did obtain insurance approval for parenteral iron replacement with Injectafer and he completed on 07/19/2020. His hemoglobin is 10.6 as noted above. His iron saturation from August 18, 2020 was 8.8 and his iron level was 12. His ferritin was 1540. B. We will recheck his iron studies with his next follow-up to determine if he needs further Injectafer at that time. 3. Weight loss/poor appetite A. His weight today is 121.4 which is down 10 pounds from his weight on July 26, 2020 and 17 pounds since June 05, 2020. B. Requested authorization for Marinol 2.5 mg 1 or 2 twice daily with meals for chemo induced nausea/anorexia and persistent weight loss/poor nutrition. This was sent to [facility]. C. Mr. Louis was encouraged that there on about restrictions at this point and we wanting him eating what ever sounds good to him at this time. 4. Followup plan: A. He will be due back for cycle 4 FOLFOX in 2 week at which time we will plan to recheck his CBC, CMP, iron studies and CEA. B. Mr. Louis was instructed to contact us in interim should questions or problems arise. C. He does plan to proceed with his Covid vaccine between visits. Signed By: Ghassan Beasley-, [facility] Goldy Singleton MD <<Signature on File>>
== END 2020-08-26 06:00 | disposition home or self-care (01) ==
LOC: ONCMED 05:44
PROVIDERS: Internal Medicine Hematology & Oncology; PCP Internal Medicine; Visit Provider Nurse Practitioner
DX: Z51.11 Encounter for antineoplastic chemotherapy (principal); C19 Malignant neoplasm of rectosigmoid junction; D50.9 Iron deficiency anemia, unspecified; R11.0 Nausea; R63.4 Abnormal weight loss; R63.0 Anorexia; T45.1X5A Adverse effect of antineoplastic and immunosuppressive drugs, initial encounter; Z68.1 Body mass index [BMI] 19.9 or less, adult; Z51.81 Encounter for therapeutic drug level monitoring; Z79.899 Other long term (current) drug therapy
CPT/HCPCS: 36593; 80053; 81003; 82378; 85025; 87086; 87635; 96367; 96368; 96375; 96411; 96413; 96415; 96416; 99215; J0640; J1100; J2469; J2997; J3490; J9190; J9263

== ENCOUNTER 2020-08-26 12:03 | Day surgery (SDC) | payer MEDICAID, SELFPAY ==
[2020-08-25 15:07] VITALS: BMI 20.3
--- NOTE | 2020-08-26 | SCC_ITS ---
Procedure Done: Cystoscopy, left ureteral stent change (7 Japanese by 26 cm double-pigtail without string) 26.5 seconds of fluoroscopic guidance, for a cumulative dose of 3.13 mGy, was provided to Dr. Gaffney by the radiology department. C-arm images of the abdomen were saved for the patient's permanent record. [facility]
--- NOTE | 2020-08-26 12:07 | SC_ITS ---
WS: [id number] C-arm fluoroscopy of the left abdomen for ureteral stent, 08/26/2020 Clinical Data: Ureteral stent Comparison: None. Findings: There is a ureteral stent which appears to curve within the left renal pelvis. SC/C-arm FL for Urology Impression: Satisfactory placement of left ureteral stent.
[2020-08-26 12:28] VITALS: BP 130/97; PULSE 123; RESP 16; TEMP 36.8; O2SAT 97
[2020-08-26] MEDS: sodium chloride 0.9% 1,000 ML 30 ML IV (12:37)
--- NOTE | 2020-08-26 12:54 | ANES.PREANE2 ---
Pre-Anesthetic Assessment Pre-Anesthetic Assessment: Height/Weight: Height 1.7 m Weight 58.967 kg Temp Pulse Resp BP Pulse Ox 98.3 F 123 H 16 130/97 97 08/26/20 12:28 08/26/20 12:28 08/26/20 12:28 08/26/20 12:28 08/26/20 12:28 Preop Diagnosis: Ureteral obstruction Proposed Procedure: Operation Date: 08/26/20 13:50 Proposed Procedures p Cystoscopy 06028 N13.5(Not Applicable) - Jose Miguel Gaffney MD s Ureteral Stent Exchange(Left) - Jose Miguel Gaffney MD Familial anesthetic complications: None Was Beta Sabrina taken within 24 hours: N/A Last intake: Intake Last Liquid Date 08/26/20 Last Liquid Time 09:00 Last Solid Date 08/24/20 Last Solid Time 17:00 Social: Social History: No alcohol and No tobacco Exam: Pre-Anes Outpt Exam: alert, oriented x 3, clear to auscultation bilaterally and regular rate & rhythm Airway: Cervical ROM: WNL MP: 2 Dentition: Other (two lower teeth) GI: Comments: colon cancer Anesthetic Plan: ASA status: 3 Anesthesia: General Risk of > 500 ml blood loss (7ml/kg in children): No Meds/Allergies Current Medications: Current Medications Generic Name Dose Route Start Last Admin Trade Name Freq PRN Reason Stop Dose Admin Sodium Chloride 1,000 mls @ 30 ml s/hr 08/26/20 12:15 08/26/20 12:37 Sodium Chloride 0.9% IV 08/27/20 12:14 30 mls/hr .Q24H GORGE Administration PFSH Anesthesia PFSH: Medical History Anemia BPH loc w urin obs/LUTS Colon cancer Pyelonephritis Pyelonephritis Resolved Sepsis Resolved Urinary retention UTI (urinary tract infection) Resolved Surgical History History of colostomy Family History Father Cancer Grandfather Cancer Grandmother Cancer Social History Smoking and tobacco status: former smoker Alcohol intake: former History of recent travel: No Data Anesthesia Cardiac Studies: No Data to Display
[2020-08-26 13:51] VITALS: RESP 16; O2SAT 97
[2020-08-26] MEDS: fentaNYL 50 mcg/mL INJ 2mL IVP (13:51)
--- NOTE | 2020-08-26 13:58 | SUR.PREOP ---
1350 Dilcia oncology nurse here and port to right chest wall flushed and chemo removed per DilciaRN
--- NOTE | 2020-08-26 14:33 | W.PM.OPSUD ---
Surgery/Procedure H&P Update DATE OF PROCEDURE: August 26, 2020 DATE H&P PERFORMED: 08/23/20 H&P UPDATE INFORMATION: I have reviewed H&P completed within last 30 days, I have examined patient prior to procedure, No changes to prior documentation and H&P is in [facility] EMR on date indicated PREOP DIAGNOSIS: Ureteral obstruction, extrinsic PLANNED PROCEDURE: Operation Date: 08/26/20 13:50 Proposed Procedures p Cystoscopy 38471 N13.5(Not Applicable) - Jose Miguel Gafnfey MD s Ureteral Stent Exchange(Left) - Jose Miguel Gaffney MD
--- NOTE | 2020-08-26 14:33 | PM.OP ---
Operative Report Date of procedure: August 26, 2020 Pre-op Diagnosis: Ureteral obstruction, extrinsic Post-op diagnosis: same Procedure Done: Cystoscopy, left ureteral stent change (7 [place] by 26 cm double-pigtail without string) Pathology: none sent Surgeon: Yeimy Estimated blood loss: Minimal Complications: None Findings: Stent change without difficulty. Condition: stable Disposition: PACU Brief History: 59-year-old white male with metastatic colon cancer pelvic lymphadenopathy and left ureteral obstruction and status post stent placement by Dr. Hayden in [place] 05/24/2020. He is back now for stent exchange. Imaging since that time showed a CT scan without any evidence of encrustation and will late May 2020. Plan is to change the stent today under anesthesia. If there is evidence of significant encrustation then abort procedure and schedule for ESWL to the proximal aspect of the stent all of the above is reviewed with the patient and his [id number]. Procedure: After routine preoperative evaluation examination and obtaining of informed consent he was taken to the operating suite on 08/26/2020 where general anesthesia was administered without difficulty after appropriate timeout was performed, SCDs confirmed to be functioning, preoperative antibiotics administered, beta-humera protocol confirmed. Prepped and draped in usual sterile fashion in dorsolithotomy position paying careful attention to avoiding pressure points. 21 [place] cystoscope with 30 degree lens was introduced into the urethral meatus and advanced into the bladder under videoscopy. Bladder was systematically examined. Stent was in the expected position. Fluoroscopy was utilized to assess for any obvious encrustation and none was seen. State of encrustation: Guidewire was advanced next to the stent of the left ureter curling in the area of the upper pole calyx. Grasping forceps were then utilized to secure the stent and slowly remove it under fluoroscopic guidance with good uncurling of the proximal end. The stent was removed without difficulty. The cystoscope was then backloaded over the guidewire into appropriate position as confirmed via fluoroscopy and cystoscopy. Stent was replaced as above. Good function was noted. Bladder was drained and the procedure completed. He tolerated procedure well without complications and was awakened in the operating room and returned to recovery in stable condition. PLANS: 1. Follow-up in 3 -3.5 months with KUB and scheduling for next stent change in roughly 4 months
[2020-08-26] MEDS: levofloxacin-dextrose 5 % 500 MG/100 ML PREMIX 100 MG IV (14:36)
[2020-08-26 15:13] VITALS: BP 112/76; PULSE 80; RESP 16; TEMP 37.6; O2SAT 99
[2020-08-26 15:15] VITALS: BP 115/76; PULSE 82; RESP 18; O2SAT 99
[2020-08-26 15:29] VITALS: BP 128/88; PULSE 76; RESP 18; TEMP 36.6; O2SAT 97
[2020-08-26 15:44] VITALS: BP 140/95; PULSE 80; RESP 18; TEMP 36.6; O2SAT 98
--- NOTE | 2020-08-26 16:45 | ANE.PACU2 ---
Inpatient post-anesthesia follow up: Airway intact: Yes Vital signs: Temperature 98 F Pulse Rate 80 Respiratory Rate 18 Blood Pressure 140/95 Pulse Oximetry 98 Oxygen Delivery Me thod Room Air Oxygen Flow Rate Fraction of Inspir ed Oxygen Hydration adequate: Yes Nausea and vomiting: No Pain level: 2 Mental status: Baseline
== END 2020-08-26 16:05 | disposition home or self-care (01) ==
PROVIDERS: PCP Internal Medicine; Visit Provider Urology
PROC: 0TJB8ZZ Inspection of Bladder, Via Natural or Artificial Opening Endoscopic (ICD-10-PCS; CPT 52000; principal; 2020-08-26 13:30)
PROC: (CPT 52332; 2020-08-26 13:30)
DX: N40.1 Benign prostatic hyperplasia with lower urinary tract symptoms (principal); N13.8 Other obstructive and reflux uropathy; Z87.891 Personal history of nicotine dependence
CPT/HCPCS: 52332; 76000; 96374; C2625; J1956; J2704; J3010; J7030

== ENCOUNTER 2020-09-20 11:20 | Outpatient (CLI) | payer MEDICAID, SELFPAY ==
[2020-09-20 11:34] LABS: Basophils # 0.1 10^3/uL (0.0-0.1); Basophils % 1.1 %; Eosinophils % 0.4 %; Hemoglobin 11.4 g/dL (11.7-16.6); Lymphocytes # 1.4 10^3/uL (0.8-4.8); Lymphocytes % 15.2 %; Mean Corpuscular Volume 86.8 fL (80-94); Mean Platelet Volume 9.2 fL (7.4-10.4); Monocytes # 0.6 10^3/uL (0.2-0.9); Monocytes % 6.8 %; Neutrophils # 7.05 10^3/uL (1.8-7.7); Neutrophils % 75.7 %; Nucleated Red Blood Cells % 0 %; Platelet Count 300 10^3/cmm (130-400); Red Blood Count 4.38 10^6/uL (4.1-5.3); Red Cell Distribution Width 25.7 % (12.1-15.1); White Blood Count 9.3 10^3/uL (4.0-10.0)
== END 2020-09-20 11:21 | disposition home or self-care (01) ==
LOC: LAB 11:24
PROVIDERS: Nurse Practitioner; PCP Internal Medicine; Visit Provider Internal Medicine Hematology & Oncology
DX: C20 Malignant neoplasm of rectum (principal); D50.9 Iron deficiency anemia, unspecified
CPT/HCPCS: 85025

== ENCOUNTER 2020-09-21 05:33 | Outpatient (RCR) | payer MEDICAID, SELFPAY ==
[2020-09-07 10:41] LABS: Basophils % 1.3 %; Eosinophils # 0.1 10^3/uL (0.0-0.8); Eosinophils % 2.6 %; Hemoglobin 10.8 g/dL (11.7-16.6); Lymphocytes # 1.3 10^3/uL (0.8-4.8); Lymphocytes % 40.2 %; Mean Corpuscular HGB Conc 29.2 g/dL (30.0-36.0); Mean Corpuscular Hemoglobin 24.1 pg (28.0-34.0); Mean Corpuscular Volume 82.4 fL (80-94); Monocytes # 0.3 10^3/uL (0.2-0.9); Monocytes % 10.3 %; Neutrophils # 1.42 10^3/uL (1.8-7.7); Neutrophils % 45.6 %; Nucleated Red Blood Cells % 0 %; Platelet Count 186 10^3/cmm (130-400); Red Blood Count 4.49 10^6/uL (4.1-5.3); White Blood Count 3.1 10^3/uL (4.0-10.0)
[2020-09-07 11:20] LABS: Alanine Aminotransferase 9 U/L (0-41); Albumin Level 3.3 g/dL (3.5-5.2); Alkaline Phosphatase 87 IU/L (40-130); Anion Gap 14.7 (5-19); Aspartate Amino Transferase 19 U/L (0-40); Blood Urea Nitrogen 10 mg/dL (8-23); Calcium 9.3 mg/dL (8.5-10.5); Carbon Dioxide 27 mmol/L (22-29); Chloride 100 mmol/L (98-107); Glomerular Filtration Rate 85.8 mL/min (90-130); Glucose 87 mg/dL (65-115); Iron 55 ug/dL (59-158); Osmolality Calculated 284 mOsm/kg (285-295); Percent Saturation 22.5 % (20-50); Potassium 3.7 mmol/L (3.5-5.1); Sodium 138 mmol/L (136-145); Total Bilirubin 0.2 mg/dL (0.15-1.2); Total Iron Binding Capacity 244 mcg/dl; Total Protein 7.3 g/dL (6.6-8.7); Unsaturated Iron Binding 189 ug/dL (112-347)
[2020-09-07 11:35] LABS: Carcinoembryonic Antigen 33.8 ng/mL (0.0-4.7); Ferritin 1572 ng/mL (30-400)
--- NOTE | 2020-09-07 16:31 | ONC FU_ITS ---
Dr. Singleton follow up note Patient: Larry Louis Unit #: [id number]: 1960 Dicatated By: Goldy Singleton M.D.Date of Visit:Sep 07, 2020 Onc Med Follow-up/Prog Note History of Present Illness: Mr. Louis is a 59-year-old gentleman who presented to his primary care with a history of hematochezia, 45+ pound unintended weight loss over a period of 3 to 4 months, rectal incontinence for over a year, constipation, nausea vomiting, and bladder outlet obstruction requiring catheterization. He states he has had a chronic history of blood per rectum which began in childhood. He had not followed regularly with primary care. He was seen by Dr. Gonzalez at [facility]. He underwent colonoscopy on 04/26/2020. This revealed a completely obstructing, large size, fungating, friable, infiltrative, malignant appearing, circumferential rectal mass. The mass was biopsied and pathology revealed moderately differentiated invasive adenocarcinoma. His mismatch repair proteins???IHC were all intact to include MLH1, MSH2, MSH6, and PMS2. A CT of the chest abdomen pelvis from 04/26/2020 reported a 4 x 2.4 cm lesion in the sigmoid colon extending to the right and an additional lobulated soft tissue mass measuring 4.2 x 3.2 cm extending over a length of approximately 10 cm. Sigmoid thickening abuts the adjacent bladder with loss of fat plane in a few locations although no abnormal bladder wall thickening. There was an additional lobulated sigmoid outpouching with low attenuation measuring 1.7 cm. There were multiple enlarged perirectal lymph nodes; enlarged prostate measuring 4.7 cm; mild left hydronephrosis likely secondary to bladder outlet obstruction versus sequela from sigmoid neoplasm; a 9 mm nonspecific groundglass opacity in the right upper lobe of the lung and additional 3 mm noncalcified nodule in the right upper lobe and a few prominent pretracheal lymph nodes largest measuring 8 mm; small bilateral thyroid nodules. There was mild diffuse fatty infiltration of the liver but no enhancing hepatic lesions were noted. Mr. Louis was seen by Dr. Olsne in [place] because of the progressive intestinal obstruction. On April 29, 2020 he underwent lap loop sigmoid colonoscopy and Port-A-Cath placement. He then had follow-up MRI of the pelvis on 05/06/2020 which showed mild upper rectal tumor is noted in a circumferential appearance extending above the level of the peritoneal reflection with prominent extension through the muscularis into adjacent mesorectal fat. There was also a large soft tissue nodular component extending superiorly into the base of the sigmoid mesentery above the peritoneal reflection. These findings are associated with enlarged presacral lymph nodes as well as obstructive uropathy with a mild degree of left-sided hydronephrosis due to obstruction of the distal left ureter. Mr. Louis was admitted to [facility] on 06/17/2020 with sepsis secondary to UTI/polynephritis. Follow-up PET/CT from June 26, 2019 showed hypermetabolic rectal mass, perirectal nodes in fascial thickening consistent with local metastatic disease. There was no report of metastatic disease outside the pelvis. An 8 mm right middle lobe nodule consistent with granuloma. Mr. Louis was seen by medical and radiation oncology and offered treatment with neoadjuvant systemic chemotherapy rather than chemoradiation due to CT follow-up indicating bulky disease. He started on neoadjuvant chemotherapy with FOLFOX on July 12, 2020. For the iron deficiency anemia, he was given Injectafer 750 mg IV x2 done on July 12, 2020 and July 19, 2020. Came for follow-up, denies any specific complaints except generalized weakness and fatigue but no nausea or vomiting, no diarrhea or constipation, no dysuria, no melena or hematochezia, no hemoptysis hematemesis, no jaundice, no peripheral neuropathy. Tolerating neoadjuvant chemotherapy with FOLFOX well. Medications: Colace 1 Capsule Oral daily PRN, Daily Vitamin 1 Tablet Oral daily, HYDROcodone-Acetaminophen 1 Tablet (of 5-325 mg) Oral q 6 hours PRN, Nitrofurantoin Monohyd Macro 1 Capsule (of 100 mg) Oral daily, Tamsulosin HCl 1 Tablet (of 0.4 mg) Capsule Oral daily, Tylenol 2 Tablet (of 325 mg) Tablet Oral q 8 hours PRN Allergies: Iodine Review of Systems: Review of Systems is not available for this patient. Vital Signs: Performed on Sep 07, 2020 10:30 Height - 67.00 in Temperature - 98.9 F (HIGH) Pulse - 64 /min Respiration - 16 /min BP - 109/73 mm(hg) O2 Sat - 98 % Pain - 0 Fatigue - 0 Performance Status: 2 - Ambulatory/capable of all self-care, unable to perform any work activities. Up and about more than 50% of waking hours. (ECOG) Physical Examination: ENMT - No mouth sores, no thrush, no jaundice, Respiratory - Lungs are clear to auscultation, Cardiovascular - Regular rate and rhythm of heart, Abdomen - Soft, bowel sounds present, Extremities - No visible edema. Lab/Imaging: Test performed on Aug 24, 2020 09:23 Ua Color Yellow Ua Appearance Clear Ua Glucose Norm Ua Bilirubin Neg Ua Ketones 1+ Ua Specific [place] 1.020 Ua Blood Neg Ua pH 5.0 Ua Protein Neg Ua Nitrites Negative Ua Leukocyte Esterase Negative Test performed on Aug 24, 2020 09:13 Sodium 132 mmol/L Potassium 3.9 mmol/L Chloride 95 mmol/L CO2 25 mmol/L Anion Gap 15.9 BUN 12 mg/dL Creatinine 1.0 mg/dL Cr Clearance (Est) 67.5400 mL/min eGFR 76.2 mL/min Glucose 119 mg/dL Osmolality - Calculated 275 mOsm/kg Calcium 9.3 mg/dL Protein, Total 7.8 g/dL Albumin 3.0 g/dL Globulin 4.8 g/dL Bilirubin, Total 0.4 mg/dL ALT (SGPT) < 5 U/L AST (SGOT) 10 U/L Alkaline Phosphatase 93 IU/L WBC 17.0 10 3/uL RBC 4.65 10 6/uL HGB 10.6 g/dL HCT 36.8 % MCV 79.1 fL MCH 22.8 pg MCHC 28.8 g/dL RDW 26.2 % Platelet Count 485 10 3/cmm MPV 8.5 fL Neutrophils 14.36 10 3/uL Lymphocytes 1.2 10 3/uL Monocytes 1.3 10 3/uL Eosinophils 0.0 10 3/uL Basophils 0.1 10 3/uL Neutrophil % 84.4 % Lymphocyte % 7.2 % Monocyte % 7.4 % Eosinophil % 0.1 % Basophils % 0.3 % NRBC % 0 % CEA 17.9 ng/mL Test performed on Jun 09, 2020 15:40 Ferritin 11 ng/mL Iron 10 mcg/dL Iron Binding Capacity (TIBC) 374 mcg/dl % Iron Saturation 2.6 % UIBC 364 mcg/dL Impression: Near obstructive colorectal mass per colonoscopy done on April 26, 2020, biopsy Confirmed invasive adenocarcinoma, moderately differentiated CT scan of chest abdomen pelvis done on April 26, 2020 showed diffuse circumferential thickening involving sigmoid colon extending to the rectosigmoid junction. Masslike polypoid thickening measuring approximately 4 x 2.4 cm eccentric to the right. Additional lobulated soft tissue mass measuring 4.2 x 3.2 cm. Multiple enlarged perirectal lymph nodes. No enhancing lesion seen in the liver. Sigmoid thickening abuts adjacent bladder with loss of fat plane in a few location although no abnormal bladder wall thickening. Hazy groundglass opacity in the right upper lobe nonspecific measuring 9 mm. Additional 3 mm calcified nodule right upper lobe. Small bilateral thyroid nodules. Status post lap loop sigmoid colostomy done on April 29, 2020 MRI scan of the pelvis done on May 06, 2020 showed mid-upper rectal tumor is noted with a circumferential appearance extending above the level of the peritoneal reflection with a prominent extension to the muscularis into adjacent mesorectal fat. There is also a large soft tissue nodular component extending superiorly into the base of the sigmoid mesentery above the peritoneal reflection. These findings are associated with enlarged presacral lymph nodes as well as obstructive uropathy with a moderate degree of left-sided hydronephrosis due to obstruction of distal left ureter CT PET scan done on June 26, 2020 showed 2.6 x 1.9 cm left rectal mass with SUV of 11.8 and multiple perirectal lymph nodes with a minimum FDG uptake thickening of perirectal fascia consistent with involvement with malignancy. No other abnormality seen and 8 mm right middle lobe lung nodule is FDG negative probably benign, granuloma. Clinical stage T3, N2a Started on neoadjuvant chemotherapy with FOLFOX on July 12, 2020 40+ pound weight loss due to nausea and abdominal discomfort with eating due to near obstructive colorectal mass Microcytic hypochromic anemia due to iron deficiency anemia probably due to chronic GI bleeding Status post Injectafer x2 in June 2020 Plan: Discussed with patient regarding his labs white blood count 3.1 hemoglobin 10.8 hematocrit 37 platelets 186,000 ANC 1420, CMP within normal limits iron saturation 22.5% Clinically, patient is doing well, tolerating neoadjuvant chemotherapy with modified dose FOLFOX well, his tumor marker checked on August 24, 2020 shows CEA is down to 17.9 compared to 114.9 on June 29, 2020, patient is due for next cycle of chemotherapy today but his CBC shows neutropenia/leukopenia, will hold his chemotherapy for 1 week, he will return to clinic in 1 week with CBC if it shows recovery, will proceed with cycle #4 with modified dose FOLFOX and also consider Neupogen 300 mcg subcu daily for 3 days after next cycle of chemotherapy to prevent chemotherapy-induced neutropenia and to maintain chemotherapy schedule. Signed By: Goldy Singleton M.D. <<Signature on File>>
[2020-09-14 09:12] LABS: Basophils # 0.1 10^3/uL (0.0-0.1); Basophils % 1.8 %; Eosinophils # 0.1 10^3/uL (0.0-0.8); Eosinophils % 3.1 %; Hematocrit 39.7 % (42.0-52.0); Hemoglobin 11.8 g/dL (11.7-16.6); Lymphocytes # 1.7 10^3/uL (0.8-4.8); Lymphocytes % 36.3 %; Mean Corpuscular HGB Conc 29.7 g/dL (30.0-36.0); Mean Corpuscular Hemoglobin 25.1 pg (28.0-34.0); Mean Corpuscular Volume 84.5 fL (80-94); Mean Platelet Volume 8.9 fL (7.4-10.4); Monocytes # 1.2 10^3/uL (0.2-0.9); Monocytes % 25.3 %; Neutrophils # 1.49 10^3/uL (1.8-7.7); Neutrophils % 32.6 %; Nucleated Red Blood Cells % 0 %; Platelet Count 298 10^3/cmm (130-400); Red Cell Distribution Width 26.4 % (12.1-15.1); White Blood Count 4.6 10^3/uL (4.0-10.0)
[2020-09-14 09:37] LABS: Alanine Aminotransferase 8 U/L (0-41); Albumin Level 3.3 g/dL (3.5-5.2); Alkaline Phosphatase 99 IU/L (40-130); Anion Gap 13.1 (5-19); Aspartate Amino Transferase 15 U/L (0-40); Blood Urea Nitrogen 12 mg/dL (8-23); Calcium 8.9 mg/dL (8.5-10.5); Carbon Dioxide 27 mmol/L (22-29); Chloride 100 mmol/L (98-107); Globulin 3.9 g/dL (1.3-4.6); Glomerular Filtration Rate 85.8 mL/min (90-130); Glucose 80 mg/dL (65-115); Osmolality Calculated 281 mOsm/kg (285-295); Potassium 4.1 mmol/L (3.5-5.1); Sodium 136 mmol/L (136-145); Total Bilirubin 0.2 mg/dL (0.15-1.2); Total Protein 7.2 g/dL (6.6-8.7)
[2020-09-21] MEDS: alteplase 1 mg/mL SDV 2 mL 2 MG INTRACATH (12:10)
[2020-09-21] MEDS: famotidine 20 mg/2 mL INJ IVP (12:20)
[2020-09-21] MEDS: dextrose 5% 250 ML 75 ML IV (12:23)
[2020-09-21] MEDS: palonosetron 0.25 mg/5 mL SDV IVP (12:23)
--- NOTE | 2020-10-03 18:05 | ONC FU_ITS ---
[facility] Patient Note Patient: Larry Louis Unit #: [id number]: 1960 Dictated By: Ghassan BeasleyDate of Visit: Sep 21, 2020 Onc MED Follow-Up/Prog Note Chief Complaint: Sigmoid colon cancer History of Present Illness: Mr. Louis is a 59-year-old gentleman who presented to his primary care with a history of hematochezia, 45+ pound unintended weight loss over a period of 3 to 4 months, rectal incontinence for over a year, constipation, nausea vomiting, and bladder outlet obstruction requiring catheterization. He states he has had a chronic history of blood per rectum which began in childhood. He had not followed regularly with primary care. He was seen by Dr. Gonzalez at [facility]. He underwent colonoscopy on 04/26/2020. This revealed a completely obstructing, large size, fungating, friable, infiltrative, malignant appearing, circumferential rectal mass. The mass was biopsied and pathology revealed moderately differentiated invasive adenocarcinoma. His mismatch repair proteins???IHC were all intact to include MLH1, MSH2, MSH6, and PMS2. A CT of the chest abdomen pelvis from 04/26/2020 reported a 4 x 2.4 cm lesion in the sigmoid colon extending to the right and an additional lobulated soft tissue mass measuring 4.2 x 3.2 cm extending over a length of approximately 10 cm. Sigmoid thickening abuts the adjacent bladder with loss of fat plane in a few locations although no abnormal bladder wall thickening. There was an additional lobulated sigmoid outpouching with low attenuation measuring 1.7 cm. There were multiple enlarged perirectal lymph nodes; enlarged prostate measuring 4.7 cm; mild left hydronephrosis likely secondary to bladder outlet obstruction versus sequela from sigmoid neoplasm; a 9 mm nonspecific groundglass opacity in the right upper lobe of the lung and additional 3 mm noncalcified nodule in the right upper lobe and a few prominent pretracheal lymph nodes largest measuring 8 mm; small bilateral thyroid nodules. There was mild diffuse fatty infiltration of the liver but no enhancing hepatic lesions were noted. Mr. Louis was seen by Dr. Olsen in [place] because of the progressive intestinal obstruction. On April 29, 2020 he underwent lap loop sigmoid colonoscopy and Port-A-Cath placement. He then had follow-up MRI of the pelvis on 05/06/2020 which showed mild upper rectal tumor is noted in a circumferential appearance extending above the level of the peritoneal reflection with prominent extension through the muscularis into adjacent mesorectal fat. There was also a large soft tissue nodular component extending superiorly into the base of the sigmoid mesentery above the peritoneal reflection. These findings are associated with enlarged presacral lymph nodes as well as obstructive uropathy with a mild degree of left-sided hydronephrosis due to obstruction of the distal left ureter. Mr. Louis was admitted to [facility] on 06/17/2020 with sepsis secondary to UTI/polynephritis. Follow-up PET/CT from June 26, 2019 showed hypermetabolic rectal mass, perirectal nodes in fascial thickening consistent with local metastatic disease. There was no report of metastatic disease outside the pelvis. An 8 mm right middle lobe nodule consistent with granuloma. Mr. Louis was seen by medical and radiation oncology and offered treatment with neoadjuvant systemic chemotherapy rather than chemoradiation due to CT follow-up indicating bulky disease. He started on neoadjuvant chemotherapy with FOLFOX on July 12, 2020. For the iron deficiency anemia, he was given Injectafer 750 mg IV x2 done on July 12, 2020 and July 19, 2020. Mr. Louis is here today for follow-up. He was seen last week for possible FOLFOX chemotherapy that would have been his fourth cycle. However he was held due to neutropenia ANC of 1490. He had no fever or chills. He had no signs of infection. He denied any nausea or vomiting. He states overall he felt good. He was just a little tired but overall that is normal for him. He states he is eating better. He states he can eat [place] food really well right now because that is what he can taste. He states it does not bother his stomach and he eats it 4 to 5 days a week. He has no new concerns. He denies any new pain. He states overall he is doing well in his opinion. His ECOG is 1. Past Medical History: Past Surgical History: Lap loop sigmoid colostomy???Dr. Olsen in 2019 Right internal jugular Port-A-Cath placement???Dr. Olsen in 2019 Allergies: Iodine Medications: Colace 1 Capsule Oral daily PRN Daily Vitamin 1 Tablet Oral daily HYDROcodone-Acetaminophen 1 Tablet (of 5-325 mg) Oral q 6 hours PRN Nitrofurantoin Monohyd Macro 1 Capsule (of 100 mg) Oral daily Tamsulosin HCl 1 Tablet (of 0.4 mg) Capsule Oral daily Tylenol 2 Tablet (of 325 mg) Tablet Oral q 8 hours PRN Family History: Mr. Louis's mother is alive. Mr. Louis's father at age 84: liver cancer. Mr. Louis has 3 brothers: 3 alive. He has 1 sister who is alive. Social History: Mr. Louis is single and he has no occupation specified. Mr. Louis has never smoked. He has no history of drinking. Review Of Symptoms: Vital Signs: Performed on Sep 21, 2020 11:13 Height - 67.00 in Weight - 121.4 lbs BSA - 1.64 sq.m BMI - 19.01 Temperature - 98.1 F (LOW) Pulse - 102 /min (HIGH) Respiration - 17 /min BP - 118/75 mm(hg) O2 Sat - 97 % Pain - 0,1 - No physically strenuous activity, but ambulatory and able to carry out light or sedentary work (e.g. office work, light house work). (ECOG) Physical Examination: Constitutional Alert, oriented, no acute distress. Skin pink, warm and dry. Head Normocephalic; atraumatic. Eyes Conjunctivae and sclerae are clear and without icterus. Pupils are reactive and equal. ENMT No oral exudates, ulcers, masses, thrush or mucositis. Oropharynx clear. Tongue normal. Poor dentation. Neck Supple without masses or thyromegaly. No jugular venous distension. Hematologic/Lymphatic No petechiae or purpura. No tender or palpable lymph nodes in the cervical or supraclavicular areas. Respiratory Lungs are clear to auscultation without rhonchi or wheezing. Cardiovascular Regular rate and rhythm of heart without murmurs,clicks, gallops or rubs. Chest Chest is symmetric without chest wall deformities. Port a cath insertion site is unremarkable. Abdomen Non-tender, non-distended, no masses or ascites. Good bowel sounds noted in all quads. No guarding or rebound tenderness. Back/Spine Non-tender to palpation. Musculoskeletal No tenderness or swelling, normal range of motion without obvious weakness. Integumentary No rashes or lesions. Neurologic No sensory or motor deficits, normal cerebellar function, normal gait. Psychiatric Alert and oriented times three. Coherent speech. Verbalizes understanding of our discussions today. Laboratory:Test performed on Sep 29, 2020 12:25 Sodium 141 mmol/L Potassium 3.8 mmol/L Chloride 102 mmol/L CO2 28 mmol/L Anion Gap 14.8 BUN 10 mg/dL Creatinine 1.0 mg/dL Cr Clearance (Est) 58.33 mL/min eGFR 76.0 mL/min Glucose 89 mg/dL Osmolality - Calculated 291 mOsm/kg Calcium 9.9 mg/dL Protein, Total 7.3 g/dL Albumin 3.9 g/dL Globulin 3.4 g/dL Bilirubin, Total 0.4 mg/dL ALT (SGPT) 7 U/L AST (SGOT) 16 U/L Alkaline Phosphatase 145 IU/L WBC 10.7 10 3/uL RBC 4.56 10 6/uL HGB 11.9 g/dL HCT 39.5 % MCV 86.6 fL MCH 26.1 pg MCHC 30.1 g/dL RDW 22.7 % Platelet Count 159 10 3/cmm MPV 9.1 fL Neutrophils 8.04 10 3/uL Lymphocytes 1.3 10 3/uL Monocytes 1.1 10 3/uL Eosinophils 0.1 10 3/uL Basophils 0.0 10 3/uL Neutrophil % 74.8 % Lymphocyte % 11.9 % Monocyte % 10.1 % Eosinophil % 0.5 % Basophils % 0.3 % NRBC % 0 % CBC Slide Review Slide Review Perform SLIDE REVIEW AGREES WITH AUTOMATED RESULTS Test performed on Sep 20, 2020 11:16 Manual Lymphocytes 15.2 % Manual Monocytes 6.8 % Manual Eosinophils 0.4 % Manual Basophils 1.1 % Test performed on Aug 24, 2020 09:23 Ua Color Yellow Ua Appearance Clear Ua Glucose Norm Ua Bilirubin Neg Ua Ketones 1+ Ua Specific Provencal 1.020 Ua Blood Neg Ua pH 5.0 Ua Protein Neg Ua Nitrites Negative Ua Leukocyte Esterase Negative Test performed on Aug 24, 2020 09:13 CEA 17.9 ng/mL Test performed on Jun 09, 2020 15:40 Ferritin 11 ng/mL Iron 10 mcg/dL Iron Binding Capacity (TIBC) 374 mcg/dl % Iron Saturation 2.6 % UIBC 364 mcg/dL Impression: Near obstructive colorectal mass per colonoscopy done on April 26, 2020, biopsy Confirmed invasive adenocarcinoma, moderately differentiated CT scan of chest abdomen pelvis done on April 26, 2020 showed diffuse circumferential thickening involving sigmoid colon extending to the rectosigmoid junction. Masslike polypoid thickening measuring approximately 4 x 2.4 cm eccentric to the right. Additional lobulated soft tissue mass measuring 4.2 x 3.2 cm. Multiple enlarged perirectal lymph nodes. No enhancing lesion seen in the liver. Sigmoid thickening abuts adjacent bladder with loss of fat plane in a few location although no abnormal bladder wall thickening. Hazy groundglass opacity in the right upper lobe nonspecific measuring 9 mm. Additional 3 mm calcified nodule right upper lobe. Small bilateral thyroid nodules. Status post lap loop sigmoid colostomy done on April 29, 2020 MRI scan of the pelvis done on May 06, 2020 showed mid-upper rectal tumor is noted with a circumferential appearance extending above the level of the peritoneal reflection with a prominent extension to the muscularis into adjacent mesorectal fat. There is also a large soft tissue nodular component extending superiorly into the base of the sigmoid mesentery above the peritoneal reflection. These findings are associated with enlarged presacral lymph nodes as well as obstructive uropathy with a moderate degree of left-sided hydronephrosis due to obstruction of distal left ureter CT PET scan done on June 26, 2020 showed 2.6 x 1.9 cm left rectal mass with SUV of 11.8 and multiple perirectal lymph nodes with a minimum FDG uptake thickening of perirectal fascia consistent with involvement with malignancy. No other abnormality seen and 8 mm right middle lobe lung nodule is FDG negative probably benign, granuloma. Clinical stage T3, N2a Started on neoadjuvant chemotherapy with FOLFOX on July 12, 2020 40+ pound weight loss due to nausea and abdominal discomfort with eating due to near obstructive colorectal mass Microcytic hypochromic anemia due to iron deficiency anemia probably due to chronic GI bleeding Status post Injectafer x2 in June 2020 Plan: PROBLEMS ADDRESSED TODAY: 1. Colon cancer: A. Proceed with cycle FOLFOX-this is day 1 . Delayed last week due to neutropenia-ANC 1490. B. He will have aggressive antiemetics due to moderate to high risk nausea. He may have supportive care with hydration and antiemetics while he is here for the pump removal and as needed in the interim between treatments. C. Today's labs reviewed in detail and discussed with Mr. Louis and a copy was given to him. WBC 9.3, hemoglobin 11.4, platelets 300,000, ANC 7050. D. We will have weekly interim counts for monitoring of the chemotherapy; he will also need port maintenance with his lab draws. 2. Iron deficiency anemia. A. Hemoglobin on July 12, 2020 was 9.1. The Hgb is 11.4 today. His iron saturation on 06/09/2020 was 2.6%, ferritin was 11 and total iron was 10. His TIBC was 374. We did obtain insurance approval for parenteral iron replacement with Injectafer and he completed on 07/19/2020. B. We will recheck his iron studies with his next follow-up. 3. Weight loss/poor appetite A. His weight today is 121.4 which is stable. B. Continue Marinol 2.5 mg 1 or 2 twice daily with meals for chemo induced nausea/anorexia and persistent weight loss/poor nutrition. C. Mr. Louis was encouraged that there on about restrictions at this point and we wanting him eating what ever sounds good to him at this time. 4. Followup plan: A. He will be due back for cycle 5 FOLFOX in 2 weeks at which time we will plan to recheck his CBC, CMP, iron studies and CEA. He will return in 1 week for CBC, CMP and followup. B. Mr. Louis was instructed to contact us in interim should questions or problems arise. C. He does plan to proceed with his Covid vaccine between visits. Signed By: Ghassan Beasley-, AOMEGAN Singleton MD <<Signature on File>>
== END 2020-09-22 23:59 | disposition home or self-care (01) ==
LOC: ONCMED 05:33
PROVIDERS: Internal Medicine Hematology & Oncology; PCP Internal Medicine; Visit Provider Nurse Practitioner
DX: Z51.11 Encounter for antineoplastic chemotherapy (principal); C20 Malignant neoplasm of rectum; D50.0 Iron deficiency anemia secondary to blood loss (chronic); K62.89 Other specified diseases of anus and rectum; K63.89 Other specified diseases of intestine; E04.2 Nontoxic multinodular goiter; R63.4 Abnormal weight loss; Z79.899 Other long term (current) drug therapy
CPT/HCPCS: 36591; 80053; 82378; 82728; 83540; 83550; 85025; 96367; 96368; 96375; 96411; 96413; 96415; 96416; 99214; 99215; J0640; J1100; J2469; J2997; J3490; J9190; J9263

== ENCOUNTER 2020-09-27 10:31 | Outpatient (CLI) | payer MEDICAID, SELFPAY ==
[2020-09-27 10:57] LABS: Basophils # 0.1 10^3/uL (0.0-0.1); Basophils % 0.3 %; Eosinophils # 0.1 10^3/uL (0.0-0.8); Eosinophils % 0.7 %; Hematocrit 39.5 % (42.0-52.0); Hemoglobin 11.7 g/dL (11.7-16.6); Lymphocytes # 1.8 10^3/uL (0.8-4.8); Lymphocytes % 12.4 %; Mean Corpuscular HGB Conc 29.6 g/dL (30.0-36.0); Mean Corpuscular Hemoglobin 26.6 pg (28.0-34.0); Mean Corpuscular Volume 89.8 fL (80-94); Mean Platelet Volume 9.7 fL (7.4-10.4); Monocytes # 0.5 10^3/uL (0.2-0.9); Monocytes % 3.2 %; Neutrophils # 12.27 10^3/uL (1.8-7.7); Neutrophils % 82.9 %; Nucleated Red Blood Cells % 0 %; Platelet Count 217 10^3/cmm (130-400); Red Cell Distribution Width 24.4 % (12.1-15.1); White Blood Count 14.8 10^3/uL (4.0-10.0)
[2020-09-27 12:22] LABS: Slide Review Slide Review Perform
== END 2020-09-27 10:32 | disposition home or self-care (01) ==
PROVIDERS: PCP Internal Medicine; Visit Provider Internal Medicine Hematology & Oncology
DX: C80.1 Malignant (primary) neoplasm, unspecified (principal)
CPT/HCPCS: 85025

== ENCOUNTER 2020-10-04 10:46 | Outpatient (CLI) | payer MEDICAID, SELFPAY ==
[2020-10-04 11:31] LABS: Basophils # 0.2 10^3/uL (0.0-0.1); Eosinophils # 0.1 10^3/uL (0.0-0.8); Eosinophils % 0.9 %; Hematocrit 39.4 % (42.0-52.0); Lymphocytes # 2.5 10^3/uL (0.8-4.8); Mean Corpuscular HGB Conc 30.5 g/dL (30.0-36.0); Mean Corpuscular Hemoglobin 26.9 pg (28.0-34.0); Mean Corpuscular Volume 88.3 fL (80-94); Mean Platelet Volume 9.8 fL (7.4-10.4); Monocytes # 0.9 10^3/uL (0.2-0.9); Monocytes % 5.5 %; Neutrophils # 10.71 10^3/uL (1.8-7.7); Nucleated Red Blood Cells % 0.3 %; Platelet Count 166 10^3/cmm (130-400); Red Blood Count 4.46 10^6/uL (4.1-5.3); Red Cell Distribution Width 22.8 % (12.1-15.1); White Blood Count 15.9 10^3/uL (4.0-10.0)
[2020-10-04 11:34] LABS: Alanine Aminotransferase 7 U/L (0-41); Albumin Level 3.3 g/dL (3.5-5.2); Alkaline Phosphatase 155 IU/L (40-130); Anion Gap 13.6 (5-19); Aspartate Amino Transferase 19 U/L (0-40); Blood Urea Nitrogen 10 mg/dL (8-23); Calcium 8.5 mg/dL (8.5-10.5); Carbon Dioxide 26 mmol/L (22-29); Chloride 103 mmol/L (98-107); Globulin 3.1 g/dL (1.3-4.6); Glomerular Filtration Rate 85.8 mL/min (90-130); Glucose 98 mg/dL (65-115); Osmolality Calculated 287 mOsm/kg (285-295); Potassium 3.6 mmol/L (3.5-5.1); Sodium 139 mmol/L (136-145); Total Bilirubin 0.2 mg/dL (0.15-1.2); Total Protein 6.4 g/dL (6.6-8.7)
[2020-10-04 12:13] LABS: Neutrophils % 76.6 %; Slide Review Slide Review Perform
== END 2020-10-04 10:47 | disposition home or self-care (01) ==
LOC: LAB 10:51
PROVIDERS: PCP Internal Medicine; Visit Provider Internal Medicine Hematology & Oncology
DX: C80.1 Malignant (primary) neoplasm, unspecified (principal)
CPT/HCPCS: 80053; 85025

== ENCOUNTER 2020-10-07 05:48 | Outpatient (RCR) | payer MEDICAID, SELFPAY ==
[2020-09-29 12:51] LABS: Basophils % 0.3 %; Eosinophils # 0.1 10^3/uL (0.0-0.8); Eosinophils % 0.5 %; Hematocrit 39.5 % (42.0-52.0); Hemoglobin 11.9 g/dL (11.7-16.6); Lymphocytes # 1.3 10^3/uL (0.8-4.8); Lymphocytes % 11.9 %; Mean Corpuscular HGB Conc 30.1 g/dL (30.0-36.0); Mean Corpuscular Hemoglobin 26.1 pg (28.0-34.0); Mean Corpuscular Volume 86.6 fL (80-94); Mean Platelet Volume 9.1 fL (7.4-10.4); Monocytes # 1.1 10^3/uL (0.2-0.9); Monocytes % 10.1 %; Neutrophils # 8.04 10^3/uL (1.8-7.7); Neutrophils % 74.8 %; Nucleated Red Blood Cells % 0 %; Platelet Count 159 10^3/cmm (130-400); Red Blood Count 4.56 10^6/uL (4.1-5.3); Red Cell Distribution Width 22.7 % (12.1-15.1); White Blood Count 10.7 10^3/uL (4.0-10.0)
[2020-09-29 13:04] LABS: Alanine Aminotransferase 7 U/L (0-41); Albumin Level 3.9 g/dL (3.5-5.2); Alkaline Phosphatase 145 IU/L (40-130); Anion Gap 14.8 (5-19); Aspartate Amino Transferase 16 U/L (0-40); Blood Urea Nitrogen 10 mg/dL (8-23); Calcium 9.9 mg/dL (8.5-10.5); Carbon Dioxide 28 mmol/L (22-29); Chloride 102 mmol/L (98-107); Globulin 3.4 g/dL (1.3-4.6); Glucose 89 mg/dL (65-115); Osmolality Calculated 291 mOsm/kg (285-295); Potassium 3.8 mmol/L (3.5-5.1); Sodium 141 mmol/L (136-145); Total Bilirubin 0.4 mg/dL (0.15-1.2); Total Protein 7.3 g/dL (6.6-8.7)
[2020-09-29 14:15] LABS: Slide Review Slide Review Perform
[2020-10-05 09:41] LABS: Carcinoembryonic Antigen 53.9 ng/mL (0.0-4.7)
[2020-10-05] MEDS: famotidine 20 mg/2 mL INJ IVP (11:50)
[2020-10-05] MEDS: dextrose 5% 250 ML 75 ML IV (11:50)
[2020-10-05] MEDS: palonosetron 0.25 mg/5 mL SDV IVP (11:53)
--- NOTE | 2020-10-05 13:29 | ONC FU_ITS ---
[facility] Patient Note Patient: Larry Louis Unit #: [id number]: 1960 Dictated By: Ghassan BeasleyDate of Visit: Sep 29, 2020 Onc MED Follow-Up/Prog Note Chief Complaint: Sigmoid colon cancer History of Present Illness: Mr. Louis is a 59-year-old gentleman who presented to his primary care with a history of hematochezia, 45+ pound unintended weight loss over a period of 3 to 4 months, rectal incontinence for over a year, constipation, nausea vomiting, and bladder outlet obstruction requiring catheterization. He states he has had a chronic history of blood per rectum which began in childhood. He had not followed regularly with primary care. He was seen by Dr. Gonzalez at [facility]. He underwent colonoscopy on 04/26/2020. This revealed a completely obstructing, large size, fungating, friable, infiltrative, malignant appearing, circumferential rectal mass. The mass was biopsied and pathology revealed moderately differentiated invasive adenocarcinoma. His mismatch repair proteins???IHC were all intact to include MLH1, MSH2, MSH6, and PMS2. A CT of the chest abdomen pelvis from 04/26/2020 reported a 4 x 2.4 cm lesion in the sigmoid colon extending to the right and an additional lobulated soft tissue mass measuring 4.2 x 3.2 cm extending over a length of approximately 10 cm. Sigmoid thickening abuts the adjacent bladder with loss of fat plane in a few locations although no abnormal bladder wall thickening. There was an additional lobulated sigmoid outpouching with low attenuation measuring 1.7 cm. There were multiple enlarged perirectal lymph nodes; enlarged prostate measuring 4.7 cm; mild left hydronephrosis likely secondary to bladder outlet obstruction versus sequela from sigmoid neoplasm; a 9 mm nonspecific groundglass opacity in the right upper lobe of the lung and additional 3 mm noncalcified nodule in the right upper lobe and a few prominent pretracheal lymph nodes largest measuring 8 mm; small bilateral thyroid nodules. There was mild diffuse fatty infiltration of the liver but no enhancing hepatic lesions were noted. Mr. Louis was seen by Dr. Olsen in [place] because of the progressive intestinal obstruction. On April 29, 2020 he underwent lap loop sigmoid colonoscopy and Port-A-Cath placement. He then had follow-up MRI of the pelvis on 05/06/2020 which showed mild upper rectal tumor is noted in a circumferential appearance extending above the level of the peritoneal reflection with prominent extension through the muscularis into adjacent mesorectal fat. There was also a large soft tissue nodular component extending superiorly into the base of the sigmoid mesentery above the peritoneal reflection. These findings are associated with enlarged presacral lymph nodes as well as obstructive uropathy with a mild degree of left-sided hydronephrosis due to obstruction of the distal left ureter. Mr. Louis was admitted to [facility] on 06/17/2020 with sepsis secondary to UTI/polynephritis. Follow-up PET/CT from June 26, 2019 showed hypermetabolic rectal mass, perirectal nodes in fascial thickening consistent with local metastatic disease. There was no report of metastatic disease outside the pelvis. An 8 mm right middle lobe nodule consistent with granuloma. Mr. Louis was seen by medical and radiation oncology and offered treatment with neoadjuvant systemic chemotherapy rather than chemoradiation due to CT follow-up indicating bulky disease. He started on neoadjuvant chemotherapy with FOLFOX on July 12, 2020. For the iron deficiency anemia, he was given Injectafer 750 mg IV x2 done on July 12, 2020 and July 19, 2020. Mr. Louis is here today for follow-up. His last chemotherapy with FOLFOX was on September 21, 2020. He was received Neulasta for growth factor support on September 23, 2020. He is here today for 1 week follow-up. He states overall he is doing well. He has had some fatigue but states is no worse than what has been his normal. He has had no sickness . He states that after the chemotherapy he did have some evans red drainage in his ostomy bag but that has now cleared . He is having a hard time finding supplies of his ostomy bag and adhesive squares. He is trying to obtain these to [facility]. We will call and check with them to see what is the delay. If he needs orders will be happy to help with that. He states that his appetite has been marginal but he plans on doing some medicinal marijuana drops and candy bars. To see if his appetite is better. He denies any current neuropathy. He states that he has had the cold-induced but that is better already. He states it is no worse. He denies any constipation. He has had increased stool output but that has resolved at this point. He denies any urinary symptoms. He denies any fever or chills. He denies mouth sores, sore throat or difficulty swallowing. He denies any skin changes. He denies any bone pain with the Neulasta but states he does take the Claritin. His ECOG is 1. Past Medical History: Past Surgical History: Lap loop sigmoid colostomy???Dr. Olsen in 2019 Right internal jugular Port-A-Cath placement???Dr. Olsen in 2019 Allergies: Iodine Medications: Colace 1 Capsule Oral daily PRN Daily Vitamin 1 Tablet Oral daily HYDROcodone-Acetaminophen 1 Tablet (of 5-325 mg) Oral q 6 hours PRN Nitrofurantoin Monohyd Macro 1 Capsule (of 100 mg) Oral daily Tamsulosin HCl 1 Tablet (of 0.4 mg) Capsule Oral daily Tylenol 2 Tablet (of 325 mg) Tablet Oral q 8 hours PRN Family History: Mr. Louis's mother is alive. Mr. Louis's father at age 84: liver cancer. Mr. Louis has 3 brothers: 3 alive. He has 1 sister who is alive. Social History: Mr. Louis is single and he has no occupation specified. Mr. Louis has never smoked. He has no history of drinking. Review Of Symptoms: Vital Signs: Performed on Sep 29, 2020 13:50 Height - 67.00 in Weight - 117.2 lbs (LOW) BSA - 1.61 sq.m BMI - 18.36 Temperature - 99.9 F (HIGH) Pulse - 110 /min (HIGH) Respiration - 18 /min BP - 109/72 mm(hg) O2 Sat - 98 % Pain - 8 Fatigue - 8,1 - No physically strenuous activity, but ambulatory and able to carry out light or sedentary work (e.g. office work, light house work). (ECOG) Physical Examination: Constitutional Alert, oriented, no acute distress. Skin pink, warm and dry. Head Normocephalic; atraumatic. Eyes Conjunctivae and sclerae are clear and without icterus. Pupils are reactive and equal. ENMT No oral exudates, ulcers, masses, thrush or mucositis. Oropharynx clear. Tongue normal. Poor dentation. Neck Supple without masses or thyromegaly. No jugular venous distension. Hematologic/Lymphatic No petechiae or purpura. No tender or palpable lymph nodes in the cervical or supraclavicular areas. Respiratory Lungs are clear to auscultation without rhonchi or wheezing. Cardiovascular Regular rate and rhythm of heart without murmurs,clicks, gallops or rubs. Chest Chest is symmetric without chest wall deformities. Port a cath insertion site is unremarkable. Abdomen Non-tender, non-distended, no masses or ascites. Good bowel sounds noted in all quads. No guarding or rebound tenderness. Back/Spine Non-tender to palpation. Musculoskeletal No tenderness or swelling, normal range of motion without obvious weakness. Integumentary No rashes or lesions. Neurologic No sensory or motor deficits, normal cerebellar function, normal gait. Psychiatric Alert and oriented times three. Coherent speech. Verbalizes understanding of our discussions today. Laboratory:Test performed on Oct 04, 2020 08:20 Sodium 139 mmol/L Potassium 3.6 mmol/L Chloride 103 mmol/L CO2 26 mmol/L Anion Gap 13.6 BUN 10 mg/dL Creatinine 0.9 mg/dL Cr Clearance (Est) 66.03 mL/min eGFR 85.8 mL/min Glucose 98 mg/dL Osmolality - Calculated 287 mOsm/kg Calcium 8.5 mg/dL Protein, Total 6.4 g/dL Albumin 3.3 g/dL Globulin 3.1 g/dL Bilirubin, Total 0.2 mg/dL ALT (SGPT) 17 Units/L AST (SGOT) 19 Units/L Alkaline Phosphatase 155 IU/L WBC 15.9 10^3/uL RBC 4.46 10^6/uL HGB 12.0 g/dL HCT 39.4 % MCV 88.3 fl MCH 26.9 pg MCHC 30.5 g/dL RDW 22.8 % Platelet Count 166 10^3/uL MPV 9.8 fl Neutrophils 10.71 10^3/uL Lymphocytes 2.5 10^3/uL Monocytes 0.9 10^3/uL Eosinophils 0.1 10^3/uL Basophils 0.2 10^3/uL Neutrophil % 76.6 % Lymphocyte % 16.0 % Monocyte % 5.5 % Eosinophil % 0.9 % Basophils % 1.0 % NRBC 0.0 /100 WBC NRBC % 0.3 % CEA 53.9 ng/mL Test performed on Sep 29, 2020 12:25 CBC Slide Review Slide Review Perform SLIDE REVIEW AGREES WITH AUTOMATED RESULTS Test performed on Sep 20, 2020 11:16 Manual Lymphocytes 15.2 % Manual Monocytes 6.8 % Manual Eosinophils 0.4 % Manual Basophils 1.1 % Test performed on Aug 24, 2020 09:23 Ua Color Yellow Ua Appearance Clear Ua Glucose Norm Ua Bilirubin Neg Ua Ketones 1+ Ua Specific [place] 1.020 Ua Blood Neg Ua pH 5.0 Ua Protein Neg Ua Nitrites Negative Ua Leukocyte Esterase Negative Test performed on Jun 09, 2020 15:40 Ferritin 11 ng/mL Iron 10 mcg/dL Iron Binding Capacity (TIBC) 374 mcg/dl % Iron Saturation 2.6 % UIBC 364 mcg/dL Impression: Near obstructive colorectal mass per colonoscopy done on April 26, 2020, biopsy Confirmed invasive adenocarcinoma, moderately differentiated CT scan of chest abdomen pelvis done on April 26, 2020 showed diffuse circumferential thickening involving sigmoid colon extending to the rectosigmoid junction. Masslike polypoid thickening measuring approximately 4 x 2.4 cm eccentric to the right. Additional lobulated soft tissue mass measuring 4.2 x 3.2 cm. Multiple enlarged perirectal lymph nodes. No enhancing lesion seen in the liver. Sigmoid thickening abuts adjacent bladder with loss of fat plane in a few location although no abnormal bladder wall thickening. Hazy groundglass opacity in the right upper lobe nonspecific measuring 9 mm. Additional 3 mm calcified nodule right upper lobe. Small bilateral thyroid nodules. Status post lap loop sigmoid colostomy done on April 29, 2020 MRI scan of the pelvis done on May 06, 2020 showed mid-upper rectal tumor is noted with a circumferential appearance extending above the level of the peritoneal reflection with a prominent extension to the muscularis into adjacent mesorectal fat. There is also a large soft tissue nodular component extending superiorly into the base of the sigmoid mesentery above the peritoneal reflection. These findings are associated with enlarged presacral lymph nodes as well as obstructive uropathy with a moderate degree of left-sided hydronephrosis due to obstruction of distal left ureter CT PET scan done on June 26, 2020 showed 2.6 x 1.9 cm left rectal mass with SUV of 11.8 and multiple perirectal lymph nodes with a minimum FDG uptake thickening of perirectal fascia consistent with involvement with malignancy. No other abnormality seen and 8 mm right middle lobe lung nodule is FDG negative probably benign, granuloma. Clinical stage T3, N2a Started on neoadjuvant chemotherapy with FOLFOX on July 12, 2020 40+ pound weight loss due to nausea and abdominal discomfort with eating due to near obstructive colorectal mass Microcytic hypochromic anemia due to iron deficiency anemia probably due to chronic GI bleeding Status post Injectafer x2 in June 2020 Plan: PROBLEMS ADDRESSED TODAY: 1. Colon cancer: A. Proceed with cycle 4 FOLFOX-this is day 8. He was treated with cycle 4 last week. B. He will have aggressive antiemetics due to moderate to high risk nausea. He may have supportive care with hydration and antiemetics while he is here for the pump removal and as needed in the interim between treatments. C. Today's labs reviewed in detail and discussed with Mr. Louis and a copy was given to him. CBC 10.7, hemoglobin 11.9, platelets 159,000 ANC with Neulasta support is 8000. Potassium 3.8 random glucose 89 creatinine 1.0 LFTs are normal. His last CEA was 33.8 on 09/07/2020. D. We will have weekly interim counts for monitoring of the chemotherapy; he will also need port maintenance with his lab draws. 2. Iron deficiency anemia. A. Hemoglobin on July 12, 2020 was 9.1. The Hgb is 11.9 today. His iron saturation on 06/09/2020 was 2.6%, ferritin was 11 and total iron was 10. His TIBC was 374. We did obtain insurance approval for parenteral iron replacement with Injectafer and he completed on 07/19/2020. His iron saturation on September 07, 2020 was 22.5%, ferritin was 1572 and iron was 55. 3. Weight loss/poor appetite A. His weight today is 117.2 which is down 4 pounds from his weight on September 21, 2020 and 21.4 pounds since June 10 (138.6 LBS). B. Requested authorization for Marinol 2.5 mg 1 or 2 twice daily with meals for chemo induced nausea/anorexia and persistent weight loss/poor nutrition. This was sent to [facility]. C. Mr. Louis was encouraged that there NO DIETARY restrictions at this point and we wanting him eating what ever sounds good to him at this time. D. He does plan to proceed with medicinal marijuana as he is able to obtain it. He states that he thinks he will be able to get a candy bar and possibly a drops . He will attempt a trial of small doses of these options and let us know how that works for him. 4. Followup plan: A. He will be due back for cycle 5 FOLFOX in 1 week at which time we will plan to recheck his CBC, CMP and CEA. B. Mr. Louis was instructed to contact us in interim should questions or problems arise. C. It is noted that his CEA on August 24, 2020 was 17.9, September 07, 2020 it was 33.8. D. His last restaging imaging was a CT of the chest abdomen pelvis with contrast on 04/26/2020 at [facility]. His last PET CT imaging was June 26, 2020 with [facility] radiology. He did have pelvic MRI with Dr. Olsen's office at [facility] on 05/04/2020. Signed By: Ghassan Beasley-, AOCNP Goldy Singleton MD <<Signature on File>>
--- NOTE | 2020-10-11 22:18 | ONC FU_ITS ---
[facility] Patient Note Patient: Larry Louis Unit #: [id number]: 1960 Dictated By: Ghassan BeasleyDate of Visit: Oct 05, 2020 Onc MED Follow-Up/Prog Note Chief Complaint: Sigmoid colon cancer History of Present Illness: Mr. Louis is a 59-year-old gentleman who presented to his primary care with a history of hematochezia, 45+ pound unintended weight loss over a period of 3 to 4 months, rectal incontinence for over a year, constipation, nausea vomiting, and bladder outlet obstruction requiring catheterization. He states he has had a chronic history of blood per rectum which began in childhood. He had not followed regularly with primary care. He was seen by Dr. Gonzalez at [facility]. He underwent colonoscopy on 04/26/2020. This revealed a completely obstructing, large size, fungating, friable, infiltrative, malignant appearing, circumferential rectal mass. The mass was biopsied and pathology revealed moderately differentiated invasive adenocarcinoma. His mismatch repair proteins???IHC were all intact to include MLH1, MSH2, MSH6, and PMS2. A CT of the chest abdomen pelvis from 04/26/2020 reported a 4 x 2.4 cm lesion in the sigmoid colon extending to the right and an additional lobulated soft tissue mass measuring 4.2 x 3.2 cm extending over a length of approximately 10 cm. Sigmoid thickening abuts the adjacent bladder with loss of fat plane in a few locations although no abnormal bladder wall thickening. There was an additional lobulated sigmoid outpouching with low attenuation measuring 1.7 cm. There were multiple enlarged perirectal lymph nodes; enlarged prostate measuring 4.7 cm; mild left hydronephrosis likely secondary to bladder outlet obstruction versus sequela from sigmoid neoplasm; a 9 mm nonspecific groundglass opacity in the right upper lobe of the lung and additional 3 mm noncalcified nodule in the right upper lobe and a few prominent pretracheal lymph nodes largest measuring 8 mm; small bilateral thyroid nodules. There was mild diffuse fatty infiltration of the liver but no enhancing hepatic lesions were noted. Mr. Louis was seen by Dr. Olsen in [place] because of the progressive intestinal obstruction. On April 29, 2020 he underwent lap loop sigmoid colonoscopy and Port-A-Cath placement. He then had follow-up MRI of the pelvis on 05/06/2020 which showed mild upper rectal tumor is noted in a circumferential appearance extending above the level of the peritoneal reflection with prominent extension through the muscularis into adjacent mesorectal fat. There was also a large soft tissue nodular component extending superiorly into the base of the sigmoid mesentery above the peritoneal reflection. These findings are associated with enlarged presacral lymph nodes as well as obstructive uropathy with a mild degree of left-sided hydronephrosis due to obstruction of the distal left ureter. Mr. Louis was admitted to [facility] on 06/17/2020 with sepsis secondary to UTI/polynephritis. Follow-up PET/CT from June 26, 2019 showed hypermetabolic rectal mass, perirectal nodes in fascial thickening consistent with local metastatic disease. There was no report of metastatic disease outside the pelvis. An 8 mm right middle lobe nodule consistent with granuloma. Mr. Louis was seen by medical and radiation oncology and offered treatment with neoadjuvant systemic chemotherapy rather than chemoradiation due to CT follow-up indicating bulky disease. He started on neoadjuvant chemotherapy with FOLFOX on July 12, 2020. For the iron deficiency anemia, he was given Injectafer 750 mg IV x2 done on July 12, 2020 and July 19, 2020. Mr. Louis is here today for follow-up. His last chemotherapy with FOLFOX was on September 21, 2020. He was received Neulasta for growth factor support on September 23, 2020. He is here today for follow-up for consideration of cycle 5 FOLFOX. He reports that overall he is feeling some better. He did start taking some medicinal marijuana via drops and a candy bar . He has also refilled my stomach medicine and he states he is eating better overall and feels much better. 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 He states he notices it after each treatment but is not getting any worse. He states he has been having some difficulty money but has noticed that that has actually gotten easier. He states his nausea is much better. He states that he has had no cold-induced problems with his mouth or throat. He denies any mouth sores. He states overall his stools are better. He states now they are grayish-black and not just bloody black/red . He has ostomy and states that right after chemo he does have increased output but that has resolved. He states that he actually has gained a couple pounds because he is eating much better. He is able to tolerate [place] food and anything that I want . It is noted that his CEA is elevated and we did discuss that today. He states he feels better overall. He states that his abdominal and rectal area is not as tight as it has been before. He states I can sit up now without having pain. He states that can lay down without having the pain in the rectal area that he was having previously. He denies any nausea or vomiting. He has had no fever or chills. His ECOG is 1. Past Medical History: Past Surgical History: Lap loop sigmoid colostomy???Dr. Olsen in 2019 Right internal jugular Port-A-Cath placement???Dr. Olsen in 2019 Allergies: Iodine Medications: Colace 1 Capsule Oral daily PRN Daily Vitamin 1 Tablet Oral daily HYDROcodone-Acetaminophen 1 Tablet (of 5-325 mg) Oral q 6 hours PRN Nitrofurantoin Monohyd Macro 1 Capsule (of 100 mg) Oral daily Tamsulosin HCl 1 Tablet (of 0.4 mg) Capsule Oral daily Tylenol 2 Tablet (of 325 mg) Tablet Oral q 8 hours PRN Family History: Mr. Louis's mother is alive. Mr. Louis's father at age 84: liver cancer. Mr. Louis has 3 brothers: 3 alive. He has 1 sister who is alive. Social History: Mr. Louis is single and he has no occupation specified. Mr. Louis has never smoked. He has no history of drinking. Review Of Symptoms: see above Vital Signs: Performed on Oct 05, 2020 15:30 Height - 67.00 in Temperature - 98.5 F Pulse - 80 /min Respiration - 18 /min BP - 136/68 mm(hg) O2 Sat - 95 % (LOW) Performed on Oct 05, 2020 10:32 Height - 67.00 in Weight - 119.4 lbs (HIGH) BSA - 1.62 sq.m BMI - 18.70 Temperature - 98.3 F (LOW) Pulse - 77 /min Respiration - 18 /min BP - 110/70 mm(hg) O2 Sat - 97 % Pain - 0,1 - No physically strenuous activity, but ambulatory and able to carry out light or sedentary work (e.g. office work, light house work). (ECOG) Physical Examination: Constitutional Alert, oriented, no acute distress. Skin pink, warm and dry. Head Normocephalic; atraumatic. Eyes Conjunctivae and sclerae are clear and without icterus. Pupils are reactive and equal. ENMT No oral exudates, ulcers, masses, thrush or mucositis. Oropharynx clear. Tongue normal. Poor dentation. Neck Supple without masses or thyromegaly. No jugular venous distension. Hematologic/Lymphatic No petechiae or purpura. No tender or palpable lymph nodes in the cervical or supraclavicular areas. Respiratory Lungs are clear to auscultation without rhonchi or wheezing. Cardiovascular Regular rate and rhythm of heart without murmurs,clicks, gallops or rubs. Chest Chest is symmetric without chest wall deformities. Port a cath insertion site is unremarkable. Abdomen Non-tender, non-distended, no masses or ascites. Good bowel sounds noted in all quads. No guarding or rebound tenderness. Back/Spine Non-tender to palpation. Musculoskeletal No tenderness or swelling, normal range of motion without obvious weakness. Integumentary No rashes or lesions. Neurologic No sensory or motor deficits, normal cerebellar function, normal gait. Psychiatric Alert and oriented times three. Coherent speech. Verbalizes understanding of our discussions today. Laboratory:Test performed on Oct 04, 2020 08:20 Sodium 139 mmol/L Potassium 3.6 mmol/L Chloride 103 mmol/L CO2 26 mmol/L Anion Gap 13.6 BUN 10 mg/dL Creatinine 0.9 mg/dL Cr Clearance (Est) 66.03 mL/min eGFR 85.8 mL/min Glucose 98 mg/dL Osmolality - Calculated 287 mOsm/kg Calcium 8.5 mg/dL Protein, Total 6.4 g/dL Albumin 3.3 g/dL Globulin 3.1 g/dL Bilirubin, Total 0.2 mg/dL ALT (SGPT) 17 Units/L AST (SGOT) 19 Units/L Alkaline Phosphatase 155 IU/L WBC 15.9 10^3/uL RBC 4.46 10^6/uL HGB 12.0 g/dL HCT 39.4 % MCV 88.3 fl MCH 26.9 pg MCHC 30.5 g/dL RDW 22.8 % Platelet Count 166 10^3/uL MPV 9.8 fl Neutrophils 10.71 10^3/uL Lymphocytes 2.5 10^3/uL Monocytes 0.9 10^3/uL Eosinophils 0.1 10^3/uL Basophils 0.2 10^3/uL Neutrophil % 76.6 % Lymphocyte % 16.0 % Monocyte % 5.5 % Eosinophil % 0.9 % Basophils % 1.0 % NRBC 0.0 /100 WBC NRBC % 0.3 % CEA 53.9 ng/mL Impression: Near obstructive colorectal mass per colonoscopy done on April 26, 2020, biopsy Confirmed invasive adenocarcinoma, moderately differentiated CT scan of chest abdomen pelvis done on April 26, 2020 showed diffuse circumferential thickening involving sigmoid colon extending to the rectosigmoid junction. Masslike polypoid thickening measuring approximately 4 x 2.4 cm eccentric to the right. Additional lobulated soft tissue mass measuring 4.2 x 3.2 cm. Multiple enlarged perirectal lymph nodes. No enhancing lesion seen in the liver. Sigmoid thickening abuts adjacent bladder with loss of fat plane in a few location although no abnormal bladder wall thickening. Hazy groundglass opacity in the right upper lobe nonspecific measuring 9 mm. Additional 3 mm calcified nodule right upper lobe. Small bilateral thyroid nodules. Status post lap loop sigmoid colostomy done on April 29, 2020 MRI scan of the pelvis done on May 06, 2020 showed mid-upper rectal tumor is noted with a circumferential appearance extending above the level of the peritoneal reflection with a prominent extension to the muscularis into adjacent mesorectal fat. There is also a large soft tissue nodular component extending superiorly into the base of the sigmoid mesentery above the peritoneal reflection. These findings are associated with enlarged presacral lymph nodes as well as obstructive uropathy with a moderate degree of left-sided hydronephrosis due to obstruction of distal left ureter CT PET scan done on June 26, 2020 showed 2.6 x 1.9 cm left rectal mass with SUV of 11.8 and multiple perirectal lymph nodes with a minimum FDG uptake thickening of perirectal fascia consistent with involvement with malignancy. No other abnormality seen and 8 mm right middle lobe lung nodule is FDG negative probably benign, granuloma. Clinical stage T3, N2a Started on neoadjuvant chemotherapy with FOLFOX on July 12, 2020 40+ pound weight loss due to nausea and abdominal discomfort with eating due to near obstructive colorectal mass Microcytic hypochromic anemia due to iron deficiency anemia probably due to chronic GI bleeding Status post Injectafer x2 in June 2020 Plan: PROBLEMS ADDRESSED TODAY: 1. Colon cancer: A. Proceed with cycle 4 FOLFOX-this is day 1 . B. He will have aggressive antiemetics due to moderate to high risk nausea. He may have supportive care with hydration and antiemetics while he is here for the pump removal and as needed in the interim between treatments. C. Yesterday's labs were reviewed in detail and discussed with Mr. Louis and a copy was given to him. CBC 15.9 (due to Neulasta), hemoglobin 12.0, platelets 266,000, ANC is 10,710. Potassium 3.6, random glucose 98, creatinine 0.9 LFTs are normal. CEA is 53.9. It was 33.8 on September 07, 2020 and 17.9 on August 24, 2020. D. We will have weekly interim counts for monitoring of the chemotherapy; he will also need port maintenance with his lab draws. 2. Iron deficiency anemia. A. Hemoglobin on July 12, 2020 was 9.1. The Hgb is 12.0 today. His iron saturation on September 07, 2020 was 22.5, ferritin was 1572 and iron was 55. 3. Weight loss/poor appetite A. His weight today is 119.4 which is up 2 pounds from last week. B. He has elected to use medicinal marijuana and is eating much better. 4. Followup plan: A. He will be due back for cycle 5 FOLFOX in 2 week at which time we will plan to recheck his CBC, CMP and CEA. B. I am planning on requesting followup PET/CT due to his rapidly rising CEA and his last PET/CT was on 06/26/2020. C. I am also planning to order next generation sequencing for him. His pathology from 04/26/2020 reports that his mismatch repair proteins, MLH1, MSH2, MSH6 and PMS2 were all intact. I do not find any evidence that we done [employer] ration sequencing on him at this point. His last CT imaging of the chest abdomen pelvis with contrast was on 04/26/2020. He did have MRI of the pelvis with and without contrast per Dr. Olsen on 05/06/2020. D. Mr. Louis was instructed to contact us in interim should questions or problems arise. We will plan to obtain his follow-up imaging prior to his next appointment. If you are unable to obtain it within the 2-week treatment window, we will delay his treatment until the imaging is obtained. Signed By: Ghassan Beasley-, AOCNP Martinez Lopez MD <<Signature on File>>
== END 2020-10-11 10:00 | disposition home or self-care (01) ==
LOC: ONCMED 05:48
PROVIDERS: Nurse Practitioner; PCP Internal Medicine; Visit Provider Internal Medicine Hematology & Oncology
DX: Z51.11 Encounter for antineoplastic chemotherapy (principal); C20 Malignant neoplasm of rectum; D50.9 Iron deficiency anemia, unspecified; E04.2 Nontoxic multinodular goiter; K92.1 Melena; Z79.899 Other long term (current) drug therapy
CPT/HCPCS: 36415; 80053; 82378; 85025; 96367; 96368; 96372; 96375; 96411; 96413; 96415; 96523; 99214; J0640; J1100; J2469; J2505; J3490; J9190; J9263

== ENCOUNTER 2020-10-11 10:26 | Outpatient (CLI) | payer MEDICAID, SELFPAY ==
[2020-10-11 10:55] LABS: Basophils % 0.3 %; Eosinophils # 0.1 10^3/uL (0.0-0.8); Hematocrit 37.8 % (42.0-52.0); Hemoglobin 11.5 g/dL (11.7-16.6); Lymphocytes # 1.6 10^3/uL (0.8-4.8); Lymphocytes % 11.6 %; Mean Corpuscular HGB Conc 30.4 g/dL (30.0-36.0); Mean Corpuscular Hemoglobin 27.5 pg (28.0-34.0); Mean Corpuscular Volume 90.4 fL (80-94); Mean Platelet Volume 9.6 fL (7.4-10.4); Monocytes # 0.4 10^3/uL (0.2-0.9); Monocytes % 2.6 %; Neutrophils # 11.81 10^3/uL (1.8-7.7); Neutrophils % 83.3 %; Nucleated Red Blood Cells % 0.2 %; Platelet Count 106 10^3/cmm (130-400); Red Blood Count 4.18 10^6/uL (4.1-5.3); Red Cell Distribution Width 21.7 % (12.1-15.1); White Blood Count 14.2 10^3/uL (4.0-10.0)
[2020-10-11 11:01] LABS: Alanine Aminotransferase 8 U/L (0-41); Albumin Level 3.5 g/dL (3.5-5.2); Alkaline Phosphatase 231 IU/L (40-130); Anion Gap 13.5 (5-19); Aspartate Amino Transferase 21 U/L (0-40); Blood Urea Nitrogen 16 mg/dL (8-23); Calcium 8.5 mg/dL (8.5-10.5); Carbon Dioxide 28 mmol/L (22-29); Chloride 102 mmol/L (98-107); Globulin 2.9 g/dL (1.3-4.6); Glomerular Filtration Rate 114.6 mL/min (90-130); Glucose 105 mg/dL (65-115); Osmolality Calculated 290 mOsm/kg (285-295); Potassium 4.5 mmol/L (3.5-5.1); Sodium 139 mmol/L (136-145); Total Bilirubin 0.2 mg/dL (0.15-1.2); Total Protein 6.4 g/dL (6.6-8.7)
[2020-10-11 12:58] LABS: Slide Review Slide Review Perform
== END 2020-10-11 10:27 | disposition home or self-care (01) ==
LOC: LAB 10:27
PROVIDERS: PCP Internal Medicine; Visit Provider Internal Medicine Hematology & Oncology
DX: C80.1 Malignant (primary) neoplasm, unspecified (principal)
CPT/HCPCS: 80053; 85025

== ENCOUNTER 2020-10-18 10:56 | Outpatient (CLI) | payer MEDICAID, SELFPAY ==
[2020-10-18 12:03] LABS: Basophils # 0.2 10^3/uL (0.0-0.1); Basophils % 1.3 %; Eosinophils # 0.1 10^3/uL (0.0-0.8); Eosinophils % 0.5 %; Hematocrit 38.8 % (42.0-52.0); Hemoglobin 11.5 g/dL (11.7-16.6); Lymphocytes # 2.9 10^3/uL (0.8-4.8); Lymphocytes % 15.4 %; Mean Corpuscular HGB Conc 29.6 g/dL (30.0-36.0); Mean Corpuscular Hemoglobin 27.8 pg (28.0-34.0); Mean Corpuscular Volume 93.7 fL (80-94); Mean Platelet Volume 9.8 fL (7.4-10.4); Monocytes # 1.3 10^3/uL (0.2-0.9); Neutrophils # 12.14 10^3/uL (1.8-7.7); Nucleated Red Blood Cells # 0.1 /100WBC; Nucleated Red Blood Cells % 0.3 %; Platelet Count 149 10^3/cmm (130-400); Red Blood Count 4.14 10^6/uL (4.1-5.3); Red Cell Distribution Width 21.3 % (12.1-15.1); White Blood Count 19.1 10^3/uL (4.0-10.0)
[2020-10-18 12:25] LABS: Alanine Aminotransferase 11 U/L (0-41); Albumin Level 3.7 g/dL (3.5-5.2); Alkaline Phosphatase 192 IU/L (40-130); Anion Gap 15.9 (5-19); Aspartate Amino Transferase 25 U/L (0-40); Blood Urea Nitrogen 12 mg/dL (8-23); Calcium 8.9 mg/dL (8.5-10.5); Carbon Dioxide 27 mmol/L (22-29); Chloride 103 mmol/L (98-107); Globulin 3.1 g/dL (1.3-4.6); Glomerular Filtration Rate 85.8 mL/min (90-130); Glucose 56 mg/dL (65-115); Osmolality Calculated 291 mOsm/kg (285-295); Potassium 3.9 mmol/L (3.5-5.1); Sodium 142 mmol/L (136-145); Total Bilirubin 0.2 mg/dL (0.15-1.2); Total Protein 6.8 g/dL (6.6-8.7)
[2020-10-18 13:20] LABS: Slide Review Slide Review Perform
[2020-10-18 13:21] LABS: Neutrophils % 76.7 %
== END 2020-10-18 10:57 | disposition home or self-care (01) ==
PROVIDERS: PCP Internal Medicine; Visit Provider Internal Medicine Hematology & Oncology
DX: C80.1 Malignant (primary) neoplasm, unspecified (principal)
CPT/HCPCS: 80053; 85025

== ENCOUNTER 2020-10-21 05:41 | Outpatient (RCR) | payer MEDICAID, SELFPAY ==
[2020-10-19] MEDS: famotidine 20 mg/2 mL INJ IVP (10:20)
[2020-10-19] MEDS: dextrose 5% 250 ML 75 ML IV (10:20)
[2020-10-19] MEDS: palonosetron 0.25 mg/5 mL SDV IV (10:23)
--- NOTE | 2020-10-19 17:28 | ONC FU_ITS ---
Dr. Singleton follow up note Patient: Larry Louis Unit #: [id number]: [id number] Dicatated By: Goldy Singleton M.D.Date of Visit:Oct 19, 2020 Onc Med Follow-up/Prog Note History of Present Illness: Mr. Louis is a 59-year-old gentleman who presented to his primary care with a history of hematochezia, 45+ pound unintended weight loss over a period of 3 to 4 months, rectal incontinence for over a year, constipation, nausea vomiting, and bladder outlet obstruction requiring catheterization. He states he has had a chronic history of blood per rectum which began in childhood. He had not followed regularly with primary care. He was seen by Dr. Gonzalez at [facility]. He underwent colonoscopy on 04/26/2020. This revealed a completely obstructing, large size, fungating, friable, infiltrative, malignant appearing, circumferential rectal mass. The mass was biopsied and pathology revealed moderately differentiated invasive adenocarcinoma. His mismatch repair proteins???IHC were all intact to include MLH1, MSH2, MSH6, and PMS2. A CT of the chest abdomen pelvis from 04/26/2020 reported a 4 x 2.4 cm lesion in the sigmoid colon extending to the right and an additional lobulated soft tissue mass measuring 4.2 x 3.2 cm extending over a length of approximately 10 cm. Sigmoid thickening abuts the adjacent bladder with loss of fat plane in a few locations although no abnormal bladder wall thickening. There was an additional lobulated sigmoid outpouching with low attenuation measuring 1.7 cm. There were multiple enlarged perirectal lymph nodes; enlarged prostate measuring 4.7 cm; mild left hydronephrosis likely secondary to bladder outlet obstruction versus sequela from sigmoid neoplasm; a 9 mm nonspecific groundglass opacity in the right upper lobe of the lung and additional 3 mm noncalcified nodule in the right upper lobe and a few prominent pretracheal lymph nodes largest measuring 8 mm; small bilateral thyroid nodules. There was mild diffuse fatty infiltration of the liver but no enhancing hepatic lesions were noted. Mr. Louis was seen by Dr. Olsen in [place] because of the progressive intestinal obstruction. On April 29, 2020 he underwent lap loop sigmoid colonoscopy and Port-A-Cath placement. He then had follow-up MRI of the pelvis on 05/06/2020 which showed mild upper rectal tumor is noted in a circumferential appearance extending above the level of the peritoneal reflection with prominent extension through the muscularis into adjacent mesorectal fat. There was also a large soft tissue nodular component extending superiorly into the base of the sigmoid mesentery above the peritoneal reflection. These findings are associated with enlarged presacral lymph nodes as well as obstructive uropathy with a mild degree of left-sided hydronephrosis due to obstruction of the distal left ureter. Mr. Louis was admitted to [facility] on 06/17/2020 with sepsis secondary to UTI/polynephritis. Follow-up PET/CT from June 26, 2019 showed hypermetabolic rectal mass, perirectal nodes in fascial thickening consistent with local metastatic disease. There was no report of metastatic disease outside the pelvis. An 8 mm right middle lobe nodule consistent with granuloma. Mr. Louis was seen by medical and radiation oncology and offered treatment with neoadjuvant systemic chemotherapy rather than chemoradiation due to CT follow-up indicating bulky disease. He started on neoadjuvant chemotherapy with FOLFOX on July 12, 2020. PET scan done after 5 doses of FOLFOX on October 09, 2020 showed interval improvement in the rectal primary mass which has SUV 12.8 compared to 21.8 previously representing partial response to therapy. Left-sided soft tissue lesion has no SUV of 6.3 again partial response to therapy. Perirectal stranding and perirectal lymph nodes are unchanged and do not demonstrate significant FDG activity, no other abnormality seen For the iron deficiency anemia, he was given Injectafer 750 mg IV x2 done on July 12, 2020 and July 19, 2020. Came for follow-up, denies any specific complaints, no fever chills, no nausea or vomiting, no diarrhea or constipation, overall feeling much better more energetic, tolerating systemic neoadjuvant chemotherapy with FOLFOX, well and his follow-up CT PET scan shows good response Medications: Colace 1 Capsule Oral daily PRN, Daily Vitamin 1 Tablet Oral daily, HYDROcodone-Acetaminophen 1 Tablet (of 5-325 mg) Oral q 6 hours PRN, Nitrofurantoin Monohyd Macro 1 Capsule (of 100 mg) Oral daily, Tamsulosin HCl 1 Tablet (of 0.4 mg) Capsule Oral daily, Tylenol 2 Tablet (of 325 mg) Tablet Oral q 8 hours PRN Allergies: Iodine Review of Systems: Review of Systems is not available for this patient. Vital Signs: Performed on Oct 19, 2020 14:20 Height - 67.00 in Temperature - 98.9 F (HIGH) Pulse - 62 /min Respiration - 18 /min BP - 110/62 mm(hg) O2 Sat - 98 % Performed on Oct 19, 2020 09:08 Height - 67.00 in Weight - 125.8 lbs (HIGH) BSA - 1.66 sq.m BMI - 19.70 Temperature - 98.09 F (LOW) Pulse - 74 /min Respiration - 18 /min BP - 113/64 mm(hg) O2 Sat - 97 % Pain - 0 Fatigue - 8 Performance Status: 1 - No physically strenuous activity, but ambulatory and able to carry out light or sedentary work (e.g. office work, light house work). (ECOG) Physical Examination: ENMT - No mouth Sores, no thrush, no jaundice, Respiratory - Lungs are clear to auscultation, Cardiovascular - Regular rate and rhythm of heart, Abdomen - Soft, bowel sounds present, Extremities - No visible edema. Lab/Imaging: Test performed on Oct 18, 2020 08:45 Sodium 142 mmol/L Potassium 3.9 mmol/L Chloride 103 mmol/L CO2 27 mmol/L Anion Gap 15.9 BUN 12 mg/dL Creatinine 0.9 mg/dL Cr Clearance (Est) 66.03 mL/min eGFR 85.8 mL/min Glucose 56 mg/dL Osmolality - Calculated 291 mOsm/kg Calcium 8.9 mg/dL Protein, Total 6.8 g/dL Albumin 3.7 g/dL Globulin 3.1 g/dL Bilirubin, Total 0.2 mg/dL ALT (SGPT) 11 Units/L AST (SGOT) 25 Units/L Alkaline Phosphatase 192 IU/L WBC 19.1 10^3/uL RBC 4.14 10^6/uL HGB 11.5 g/dL HCT 38.8 % MCV 93.7 fl MCH 27.8 pg MCHC 29.6 g/dL RDW 21.3 % Platelet Count 149 10^3/uL MPV 9.8 fl Neutrophils 12.14 10^3/uL Lymphocytes 2.9 10^3/uL Monocytes 1.3 10^3/uL Eosinophils 0.1 10^3/uL Basophils 0.2 10^3/uL Neutrophil % 76.7 % Lymphocyte % 15.4 % Monocyte % 7.0 % Eosinophil % 0.5 % Basophils % 1.3 % NRBC 0.1 /100 WBC NRBC % 0.3 % Test performed on Oct 04, 2020 08:20 CEA 53.9 ng/mL Test performed on Sep 29, 2020 12:25 CBC Slide Review Slide Review Perform SLIDE REVIEW AGREES WITH AUTOMATED RESULTS Test performed on Sep 20, 2020 11:16 Manual Lymphocytes 15.2 % Manual Monocytes 6.8 % Manual Eosinophils 0.4 % Manual Basophils 1.1 % Test performed on Aug 24, 2020 09:23 Ua Color Yellow Ua Appearance Clear Ua Glucose Norm Ua Bilirubin Neg Ua Ketones 1+ Ua Specific [place] 1.020 Ua Blood Neg Ua pH 5.0 Ua Protein Neg Ua Nitrites Negative Ua Leukocyte Esterase Negative Test performed on Jun 09, 2020 15:40 Ferritin 11 ng/mL Iron 10 mcg/dL Iron Binding Capacity (TIBC) 374 mcg/dl % Iron Saturation 2.6 % UIBC 364 mcg/dL Impression: Near obstructive colorectal mass per colonoscopy done on April 26, 2020, biopsy Confirmed invasive adenocarcinoma, moderately differentiated CT scan of chest abdomen pelvis done on April 26, 2020 showed diffuse circumferential thickening involving sigmoid colon extending to the rectosigmoid junction. Masslike polypoid thickening measuring approximately 4 x 2.4 cm eccentric to the right. Additional lobulated soft tissue mass measuring 4.2 x 3.2 cm. Multiple enlarged perirectal lymph nodes. No enhancing lesion seen in the liver. Sigmoid thickening abuts adjacent bladder with loss of fat plane in a few location although no abnormal bladder wall thickening. Hazy groundglass opacity in the right upper lobe nonspecific measuring 9 mm. Additional 3 mm calcified nodule right upper lobe. Small bilateral thyroid nodules. Status post lap loop sigmoid colostomy done on April 29, 2020 MRI scan of the pelvis done on May 06, 2020 showed mid-upper rectal tumor is noted with a circumferential appearance extending above the level of the peritoneal reflection with a prominent extension to the muscularis into adjacent mesorectal fat. There is also a large soft tissue nodular component extending superiorly into the base of the sigmoid mesentery above the peritoneal reflection. These findings are associated with enlarged presacral lymph nodes as well as obstructive uropathy with a moderate degree of left-sided hydronephrosis due to obstruction of distal left ureter CT PET scan done on June 26, 2020 showed 2.6 x 1.9 cm left rectal mass with SUV of 11.8 and multiple perirectal lymph nodes with a minimum FDG uptake thickening of perirectal fascia consistent with involvement with malignancy. No other abnormality seen and 8 mm right middle lobe lung nodule is FDG negative probably benign, granuloma. Clinical stage T3, N2a Started on neoadjuvant chemotherapy with FOLFOX on July 12, 2020 40+ pound weight loss due to nausea and abdominal discomfort with eating due to near obstructive colorectal mass Microcytic hypochromic anemia due to iron deficiency anemia probably due to chronic GI bleeding Status post Injectafer x2 in June 2020 Plan: Discussed with patient regarding his labs white blood count 19.1 hemoglobin 11.5 hematocrit 38.8 platelets 149,000 CMP within normal limits and CT PET scan findings which showed partial response to therapy of rectal primary carcinoma and left pelvic lesion and no disease seen outside the pelvis Clinically, patient is doing well with no new signs symptoms suggestive of disease progression, tolerating neoadjuvant chemotherapy with FOLFOX well, his follow-up CT PET scan done after 5 doses showed good response, will proceed with final dose of FOLFOX and then will refer him to radiation oncology for combined chemoradiation with oral Xeloda, patient will return to clinic in 1 week with CBC CMP and to discuss regarding Xeloda as well as combined chemoradiation. Signed By: Goldy Singleton M.D. <<Signature on File>>
== END 2020-10-22 23:59 | disposition home or self-care (01) ==
LOC: ONCMED 05:41
PROVIDERS: PCP Internal Medicine; Visit Provider Radiology Radiation Oncology
DX: Z51.11 Encounter for antineoplastic chemotherapy (principal); C20 Malignant neoplasm of rectum; D50.9 Iron deficiency anemia, unspecified; E04.2 Nontoxic multinodular goiter; R63.4 Abnormal weight loss; Z79.899 Other long term (current) drug therapy
CPT/HCPCS: 96367; 96375; 96411; 96413; 96415; 96416; 96417; 96523; 99215; J0640; J1100; J2469; J3490; J9190; J9263

== ENCOUNTER 2020-10-25 10:49 | Outpatient (CLI) | payer MEDICAID, SELFPAY ==
[2020-10-25 11:18] LABS: Basophils % 0.6 %; Eosinophils # 0.1 10^3/uL (0.0-0.8); Hematocrit 36.9 % (42.0-52.0); Hemoglobin 11.4 g/dL (11.7-16.6); Lymphocytes # 1.3 10^3/uL (0.8-4.8); Lymphocytes % 24.6 %; Mean Corpuscular HGB Conc 30.9 g/dL (30.0-36.0); Mean Corpuscular Hemoglobin 29.1 pg (28.0-34.0); Mean Corpuscular Volume 94.1 fL (80-94); Monocytes # 0.1 10^3/uL (0.2-0.9); Monocytes % 1.7 %; Neutrophils # 3.76 10^3/uL (1.8-7.7); Neutrophils % 71.7 %; Nucleated Red Blood Cells % 0 %; Platelet Count 90 10^3/cmm (130-400); Red Blood Count 3.92 10^6/uL (4.1-5.3); White Blood Count 5.2 10^3/uL (4.0-10.0)
[2020-10-25 11:37] LABS: Alanine Aminotransferase 12 U/L (0-41); Albumin Level 3.6 g/dL (3.5-5.2); Alkaline Phosphatase 109 IU/L (40-130); Anion Gap 13.3 (5-19); Aspartate Amino Transferase 22 U/L (0-40); Blood Urea Nitrogen 21 mg/dL (8-23); Calcium 8.7 mg/dL (8.5-10.5); Carbon Dioxide 27 mmol/L (22-29); Chloride 103 mmol/L (98-107); Globulin 2.7 g/dL (1.3-4.6); Glomerular Filtration Rate 68.1 mL/min (90-130); Glucose 97 mg/dL (65-115); Osmolality Calculated 291 mOsm/kg (285-295); Potassium 4.3 mmol/L (3.5-5.1); Sodium 139 mmol/L (136-145); Total Bilirubin 0.2 mg/dL (0.15-1.2); Total Protein 6.3 g/dL (6.6-8.7)
== END 2020-10-25 10:50 | disposition home or self-care (01) ==
LOC: LAB 10:53
PROVIDERS: PCP Internal Medicine; Visit Provider Internal Medicine Hematology & Oncology
DX: C80.1 Malignant (primary) neoplasm, unspecified (principal)
CPT/HCPCS: 80053; 85025

== ENCOUNTER 2020-10-28 06:43 | Outpatient (RCR) | payer MEDICAID, SELFPAY ==
--- NOTE | 2020-10-28 | CT_ITS ---
Radiation Therapy Planning CT images; total exam DLP: 690.96 mGy-cm MTDD
== END 2020-10-31 17:00 | disposition home or self-care (01) ==
LOC: ONCMED 06:43
PROVIDERS: PCP Internal Medicine; Visit Provider Radiology Radiation Oncology
DX: Z51.0 Encounter for antineoplastic radiation therapy (principal); C20 Malignant neoplasm of rectum; D50.9 Iron deficiency anemia, unspecified
CPT/HCPCS: 77334; 77470

== ENCOUNTER 2020-10-31 17:54 | Outpatient (CLI) | payer MEDICAID, SELFPAY ==
[2020-10-31 18:10] LABS: Basophils % 1.1 %; Eosinophils % 0.5 %; Hematocrit 34.9 % (42.0-52.0); Lymphocytes # 1.1 10^3/uL (0.8-4.8); Mean Corpuscular HGB Conc 31.5 g/dL (30.0-36.0); Mean Corpuscular Hemoglobin 30.1 pg (28.0-34.0); Mean Corpuscular Volume 95.4 fL (80-94); Mean Platelet Volume 10.4 fL (7.4-10.4); Monocytes # 0.5 10^3/uL (0.2-0.9); Monocytes % 13.2 %; Neutrophils # 1.96 10^3/uL (1.8-7.7); Neutrophils % 53.9 %; Nucleated Red Blood Cells % 0 %; Platelet Count 121 10^3/cmm (130-400); Red Blood Count 3.66 10^6/uL (4.1-5.3); Red Cell Distribution Width 18.5 % (12.1-15.1); White Blood Count 3.6 10^3/uL (4.0-10.0)
[2020-10-31 18:33] LABS: Alanine Aminotransferase 12 U/L (0-41); Albumin Level 3.7 g/dL (3.5-5.2); Alkaline Phosphatase 123 IU/L (40-130); Anion Gap 13.8 (5-19); Aspartate Amino Transferase 25 U/L (0-40); Blood Urea Nitrogen 9 mg/dL (8-23); Carbon Dioxide 27 mmol/L (22-29); Chloride 106 mmol/L (98-107); Glomerular Filtration Rate 98.3 mL/min (90-130); Glucose 94 mg/dL (65-115); Osmolality Calculated 294 mOsm/kg (285-295); Potassium 3.8 mmol/L (3.5-5.1); Sodium 143 mmol/L (136-145); Total Bilirubin 0.2 mg/dL (0.15-1.2); Total Protein 6.7 g/dL (6.6-8.7)
== END 2020-10-31 17:55 | disposition home or self-care (01) ==
LOC: LAB 18:00
PROVIDERS: PCP Internal Medicine; Visit Provider Internal Medicine Hematology & Oncology
DX: C80.1 Malignant (primary) neoplasm, unspecified (principal)
CPT/HCPCS: 80053; 85025

== ENCOUNTER 2020-11-05 05:49 | Outpatient (RCR) | payer MEDICAID, SELFPAY ==
--- NOTE | 2020-11-02 13:53 | ONCRAD TMN_ITS ---
Radiation Oncology Treatment Management Note Patient Name: Larry Louis Date of : 1960 Date of Service: 11/02/2020 Attending Physician: Genaro Pepe M.D. 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 He was prescribed 5 cycles of FOLFOX (July 12 through October 09, 2020). The patient has received 2 Gy of a prescribed 50 Valverde with an intensity modulated radiotherapy plan utilizing a step and shoot treatment technique. He has been prescribed daily oral chemotherapy consisting of Capecitabine (850 mg/m2). Upon review of systems, he denied any gastrointestinal complaints related to radiotherapy. On physical examination, the patient weighed 130 lbs. His temperature was 96.7 ???F with a blood pressure of 116/74 mmHg. His pulse was 84 bpm and the respiratory rate was 18. No erythema within the treatment cagle. Continue pelvic radiotherapy as planned. Signed by: Dr. Genaro Pepe 11/02/2020 1:53:09 PM
== END 2020-11-07 06:00 | disposition home or self-care (01) ==
LOC: ONCMED 05:49
PROVIDERS: Absent Provider Radiology Radiation Oncology; PCP Internal Medicine; Visit Provider Radiology Radiation Oncology
DX: Z51.0 Encounter for antineoplastic radiation therapy (principal); C20 Malignant neoplasm of rectum; D50.9 Iron deficiency anemia, unspecified; Z79.899 Other long term (current) drug therapy
CPT/HCPCS: 77300; 77301; 77338; 77386

== ENCOUNTER 2020-11-07 12:29 | Outpatient (CLI) | payer MEDICAID, SELFPAY ==
[2020-11-07 12:45] LABS: Basophils % 0.8 %; Eosinophils # 0.1 10^3/uL (0.0-0.8); Eosinophils % 2.4 %; Hematocrit 41.3 % (42.0-52.0); Hemoglobin 12.8 g/dL (11.7-16.6); Lymphocytes # 0.9 10^3/uL (0.8-4.8); Lymphocytes % 38.1 %; Mean Corpuscular Volume 96.9 fL (80-94); Mean Platelet Volume 9.7 fL (7.4-10.4); Monocytes # 0.4 10^3/uL (0.2-0.9); Monocytes % 14.2 %; Neutrophils # 1.09 10^3/uL (1.8-7.7); Neutrophils % 44.1 %; Nucleated Red Blood Cells % 0 %; Platelet Count 207 10^3/cmm (130-400); Red Blood Count 4.26 10^6/uL (4.1-5.3); Red Cell Distribution Width 17.8 % (12.1-15.1); White Blood Count 2.5 10^3/uL (4.0-10.0)
[2020-11-07 13:06] LABS: Alanine Aminotransferase 12 U/L (0-41); Albumin Level 3.7 g/dL (3.5-5.2); Alkaline Phosphatase 95 IU/L (40-130); Anion Gap 14.1 (5-19); Aspartate Amino Transferase 25 U/L (0-40); Blood Urea Nitrogen 11 mg/dL (8-23); Calcium 9.1 mg/dL (8.5-10.5); Carbon Dioxide 25 mmol/L (22-29); Chloride 106 mmol/L (98-107); Globulin 3.1 g/dL (1.3-4.6); Glomerular Filtration Rate 98.3 mL/min (90-130); Glucose 84 mg/dL (65-115); Osmolality Calculated 291 mOsm/kg (285-295); Potassium 4.1 mmol/L (3.5-5.1); Sodium 141 mmol/L (136-145); Total Bilirubin 0.4 mg/dL (0.15-1.2); Total Protein 6.8 g/dL (6.6-8.7)
== END 2020-11-07 12:30 | disposition home or self-care (01) ==
LOC: LAB 12:30
PROVIDERS: PCP Internal Medicine; Visit Provider Internal Medicine Hematology & Oncology
DX: C80.1 Malignant (primary) neoplasm, unspecified (principal)
CPT/HCPCS: 80053; 85025

== ENCOUNTER 2020-11-22 12:10 | Outpatient (RCR) | payer MEDICAID, SELFPAY ==
--- NOTE | 2020-11-08 13:09 | ONCRAD TMN_ITS ---
Radiation Oncology Treatment Management Note Patient Name: Larry Louis Date of : 1960 Date of Service: 11/08/2020 Attending Physician: Genaro Pepe M.D. 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 He was prescribed 5 cycles of FOLFOX (July 12 through October 09, 2020). The patient has received 10 Gy of a prescribed 50 Valverde with an intensity modulated radiotherapy plan utilizing a step and shoot treatment technique. He has been prescribed daily oral chemotherapy consisting of Capecitabine (825 mg/m2). Upon review of systems, he denied any gastrointestinal complaints related to radiotherapy. On physical examination, the patient weighed 134 lbs. His temperature was 97.9 ???F with a blood pressure of 113/74 mmHg. His pulse was 71 bpm and the respiratory rate was 18. No erythema within the treatment cagle. Continue pelvic radiotherapy as prescribed. Labs were reviewed. ANC 1100. Signed by: Dr. Genaro Pepe 11/08/2020 1:07:36 PM
[2020-11-15 11:03] LABS: Basophils % 0.9 %; Eosinophils # 0.2 10^3/uL (0.0-0.8); Eosinophils % 3.6 %; Hematocrit 38.1 % (42.0-52.0); Lymphocytes # 0.6 10^3/uL (0.8-4.8); Lymphocytes % 13.9 %; Mean Corpuscular HGB Conc 31.5 g/dL (30.0-36.0); Mean Corpuscular Hemoglobin 30.8 pg (28.0-34.0); Mean Corpuscular Volume 97.9 fL (80-94); Mean Platelet Volume 9.2 fL (7.4-10.4); Monocytes # 0.4 10^3/uL (0.2-0.9); Monocytes % 8.9 %; Neutrophils # 3.16 10^3/uL (1.8-7.7); Neutrophils % 71.8 %; Nucleated Red Blood Cells % 0 %; Platelet Count 150 10^3/cmm (130-400); Red Blood Count 3.89 10^6/uL (4.1-5.3); Red Cell Distribution Width 17.2 % (12.1-15.1); White Blood Count 4.4 10^3/uL (4.0-10.0)
[2020-11-15 11:20] LABS: Alanine Aminotransferase 8 U/L (0-41); Albumin Level 3.6 g/dL (3.5-5.2); Alkaline Phosphatase 84 IU/L (40-130); Anion Gap 15.7 (5-19); Aspartate Amino Transferase 21 U/L (0-40); Blood Urea Nitrogen 10 mg/dL (8-23); Calcium 8.5 mg/dL (8.5-10.5); Carbon Dioxide 24 mmol/L (22-29); Chloride 104 mmol/L (98-107); Glomerular Filtration Rate 98.3 mL/min (90-130); Glucose 85 mg/dL (65-115); Osmolality Calculated 288 mOsm/kg (285-295); Potassium 3.7 mmol/L (3.5-5.1); Sodium 140 mmol/L (136-145); Total Bilirubin 0.3 mg/dL (0.15-1.2); Total Protein 6.6 g/dL (6.6-8.7)
--- NOTE | 2020-11-15 13:23 | ONCRAD TMN_ITS ---
Radiation Oncology Weekly Treatment Management Patient: Heriberto Juarez> MR#: [id number] : 1960> Attending Physician: Dr. Raoul Milner Date of Service: 11/15/2020 Referring Physician(s) : Dr. Naga Gonzalez Diagnosis: C20 - Malignant neoplasm of rectum, Diagnosed 06/10/2020 (Active) Stage IIIB, T3, N2a, M0 K62.89 - Other specified diseases of anus and rectum, Diagnosed 04/27/2020 (Active) K63.89 - Other specified diseases of intestine, Diagnosed 04/27/2020 (Active) Radiotherapy to date: Course: Rectal 2020, Treatment Site: Rectal Ca, Ref. ID: [id number], Energy: 6X, Dose/Fx (cGy): 200, #Fx: , Dose Correction (cGy): 0, Total Dose (cGy): 2,000, Start Date: 11/02/2020, Elapsed Days: 13 Reason for visit: The patient is being seen today as part of their regularly scheduled weekly on treatment visits to assess for acute toxicities from radiotherapy. Review of Systems: Eating well and gaining some weight. No diarrhea via colostomy. Some rectal mucous discharge. Moderate fatigue. Minimal nausea. Active outside. Vital Signs: Performed on 11/15/2020 12:11 PM BMI - 21.395 kg/m2, Height - 67.00 in, Weight - 136.6 lbs, Temperature - 98.2 f, Pulse - 74, Respiration - 18, O2 Sat - 98 %, Pain - 0 and BP - 118/ 73 mm(hg). Physical Exam: omitted Imaging: Radiation therapy imaging related to accurate target localization (i.e. KV, MV and CBCT) was reviewed. Appropriate changes, if any, were made to ensure treatment accuracy. Plan: Good tolerance of RT. Continue as planned. Signed by: Dr. Raoul Milner 11/15/2020 1:21:49 PM
[2020-11-22 13:18] LABS: Basophils % 0.9 %; Eosinophils # 0.1 10^3/uL (0.0-0.8); Hematocrit 39.6 % (42.0-52.0); Hemoglobin 12.3 g/dL (11.7-16.6); Lymphocytes # 0.5 10^3/uL (0.8-4.8); Lymphocytes % 12.9 %; Mean Corpuscular HGB Conc 31.1 g/dL (30.0-36.0); Mean Corpuscular Hemoglobin 31.6 pg (28.0-34.0); Mean Corpuscular Volume 101.8 fL (80-94); Mean Platelet Volume 9.6 fL (7.4-10.4); Monocytes # 0.3 10^3/uL (0.2-0.9); Monocytes % 8.9 %; Neutrophils # 2.55 10^3/uL (1.8-7.7); Nucleated Red Blood Cells % 0 %; Platelet Count 135 10^3/cmm (130-400); Red Blood Count 3.89 10^6/uL (4.1-5.3); Red Cell Distribution Width 17.2 % (12.1-15.1); White Blood Count 3.5 10^3/uL (4.0-10.0)
[2020-11-22 13:37] LABS: Alanine Aminotransferase 8 U/L (0-41); Albumin Level 3.7 g/dL (3.5-5.2); Alkaline Phosphatase 84 IU/L (40-130); Anion Gap 12.8 (5-19); Aspartate Amino Transferase 17 U/L (0-40); Blood Urea Nitrogen 12 mg/dL (8-23); Carbon Dioxide 28 mmol/L (22-29); Chloride 104 mmol/L (98-107); Globulin 2.8 g/dL (1.3-4.6); Glucose 90 mg/dL (65-115); Osmolality Calculated 291 mOsm/kg (285-295); Potassium 3.8 mmol/L (3.5-5.1); Sodium 141 mmol/L (136-145); Total Bilirubin 0.3 mg/dL (0.15-1.2); Total Protein 6.5 g/dL (6.6-8.7)
== END 2020-11-22 23:59 | disposition home or self-care (01) ==
LOC: ONCMED 12:10
PROVIDERS: Absent Provider Radiology Radiation Oncology; PCP Internal Medicine; Visit Provider Internal Medicine Hematology & Oncology
DX: Z51.0 Encounter for antineoplastic radiation therapy (principal); C20 Malignant neoplasm of rectum; D50.9 Iron deficiency anemia, unspecified; Z79.899 Other long term (current) drug therapy
CPT/HCPCS: 77336; 77386; 80053; 85025

== ENCOUNTER 2020-12-07 05:52 | Outpatient (RCR) | payer MEDICAID, SELFPAY ==
--- NOTE | 2020-11-23 12:01 | ONCRAD TMN_ITS ---
Radiation Oncology Treatment Management Note Patient Name: Larry Louis Date of : 1960 Date of Service: 11/23/2020 Attending Physician: Genaro Pepe M.D. 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 He was prescribed 5 cycles of FOLFOX (July 12 through October 09, 2020). The patient has received 30 Gy of a prescribed 50 Valverde with an intensity modulated radiotherapy plan utilizing a step and shoot treatment technique. He has been prescribed daily oral chemotherapy consisting of Capecitabine (825 mg/m2). Upon review of systems, he denied any gastrointestinal complaints related to radiotherapy. On physical examination, the patient weighed 137 lbs. His temperature was 98.5 ???F with a blood pressure of 125/82 mmHg. His pulse was 76 bpm and the respiratory rate was 18. No erythema within the treatment cagle. Continue pelvic radiotherapy as planned. Labs were reviewed. Signed by: Dr. Genaro Pepe 11/23/2020 11:59:01 AM
--- NOTE | 2020-11-29 12:50 | ONCRAD TMN_ITS ---
Radiation Oncology Treatment Management Note Patient Name: Larry Louis Date of : 1960 Date of Service: 11/29/2020 Attending Physician: Genaro Pepe M.D. 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 He was prescribed 5 cycles of FOLFOX (July 12 through October 09, 2020). The patient has received 38 Gy of a prescribed 50 Valverde with an intensity modulated radiotherapy plan utilizing a step and shoot treatment technique. He has been prescribed daily oral chemotherapy consisting of Capecitabine (825 mg/m2). Upon review of systems, he denied any gastrointestinal complaints related to radiotherapy. On physical examination, the patient weighed 139 lbs. His temperature was 97.1 ???F with a blood pressure of 119/74 mmHg. His pulse was 75 bpm and the respiratory rate was 18. No erythema within the treatment cagle. Continue pelvic radiotherapy as prescribed. Signed by: Dr. Genaro Pepe 11/29/2020 12:48:38 PM
[2020-11-30 11:51] LABS: Basophils # 0.1 10^3/uL (0.0-0.1); Basophils % 1.2 %; Eosinophils # 0.2 10^3/uL (0.0-0.8); Eosinophils % 5.3 %; Hematocrit 38.2 % (42.0-52.0); Hemoglobin 12.4 g/dL (11.7-16.6); Lymphocytes # 0.5 10^3/uL (0.8-4.8); Lymphocytes % 11.9 %; Mean Corpuscular HGB Conc 32.5 g/dL (30.0-36.0); Mean Corpuscular Hemoglobin 32.5 pg (28.0-34.0); Mean Platelet Volume 8.5 fL (7.4-10.4); Monocytes # 0.5 10^3/uL (0.2-0.9); Monocytes % 11.2 %; Neutrophils # 2.89 10^3/uL (1.8-7.7); Neutrophils % 70.2 %; Nucleated Red Blood Cells % 0 %; Platelet Count 151 10^3/cmm (130-400); Red Blood Count 3.82 10^6/uL (4.1-5.3); Red Cell Distribution Width 16.6 % (12.1-15.1); White Blood Count 4.1 10^3/uL (4.0-10.0)
[2020-11-30 12:42] LABS: Alanine Aminotransferase 6 U/L (0-41); Albumin Level 4.1 g/dL (3.5-5.2); Alkaline Phosphatase 84 IU/L (40-130); Anion Gap 16.1 (5-19); Aspartate Amino Transferase 16 U/L (0-40); Blood Urea Nitrogen 10 mg/dL (8-23); Calcium 8.6 mg/dL (8.5-10.5); Carbon Dioxide 24 mmol/L (22-29); Chloride 102 mmol/L (98-107); Globulin 2.6 g/dL (1.3-4.6); Glomerular Filtration Rate 98.3 mL/min (90-130); Glucose 85 mg/dL (65-115); Osmolality Calculated 284 mOsm/kg (285-295); Potassium 4.1 mmol/L (3.5-5.1); Sodium 138 mmol/L (136-145); Total Bilirubin 0.3 mg/dL (0.15-1.2); Total Protein 6.7 g/dL (6.6-8.7)
--- NOTE | 2020-12-23 13:26 | ONC FU_ITS ---
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 Louis is a 59-year-old gentleman who presented to his primary care with a history of hematochezia, 45+ pound unintended weight loss over a period of 3 to 4 months, rectal incontinence for over a year, constipation, nausea vomiting, and bladder outlet obstruction requiring catheterization. He states he has had a chronic history of blood per rectum which began in childhood. He had not followed regularly with primary care. He was seen by Dr. Gonzalez at [facility]. He underwent colonoscopy on 04/26/2020. This revealed a completely obstructing, large size, fungating, friable, infiltrative, malignant appearing, circumferential rectal mass. The mass was biopsied and pathology revealed moderately differentiated invasive adenocarcinoma. His mismatch repair proteins???IHC were all intact to include MLH1, MSH2, MSH6, and PMS2. A CT of the chest abdomen pelvis from 04/26/2020 reported a 4 x 2.4 cm lesion in the sigmoid colon extending to the right and an additional lobulated soft tissue mass measuring 4.2 x 3.2 cm extending over a length of approximately 10 cm. Sigmoid thickening abuts the adjacent bladder with loss of fat plane in a few locations although no abnormal bladder wall thickening. There was an additional lobulated sigmoid outpouching with low attenuation measuring 1.7 cm. There were multiple enlarged perirectal lymph nodes; enlarged prostate measuring 4.7 cm; mild left hydronephrosis likely secondary to bladder outlet obstruction versus sequela from sigmoid neoplasm; a 9 mm nonspecific groundglass opacity in the right upper lobe of the lung and additional 3 mm noncalcified nodule in the right upper lobe and a few prominent pretracheal lymph nodes largest measuring 8 mm; small bilateral thyroid nodules. There was mild diffuse fatty infiltration of the liver but no enhancing hepatic lesions were noted. Mr. Louis was seen by Dr. Olsen in [place] because of the progressive intestinal obstruction. On April 29, 2020 he underwent lap loop sigmoid colonoscopy and Port-A-Cath placement. He then had follow-up MRI of the pelvis on 05/06/2020 which showed mild upper rectal tumor is noted in a circumferential appearance extending above the level of the peritoneal reflection with prominent extension through the muscularis into adjacent mesorectal fat. There was also a large soft tissue nodular component extending superiorly into the base of the sigmoid mesentery above the peritoneal reflection. These findings are associated with enlarged presacral lymph nodes as well as obstructive uropathy with a mild degree of left-sided hydronephrosis due to obstruction of the distal left ureter. Mr. Louis was admitted to [facility] on 06/17/2020 with sepsis secondary to UTI/polynephritis. Follow-up PET/CT from June 26, 2019 showed hypermetabolic rectal mass, perirectal nodes in fascial thickening consistent with local metastatic disease. There was no report of metastatic disease outside the pelvis. An 8 mm right middle lobe nodule consistent with granuloma. Mr. Louis was seen by medical and radiation oncology and offered treatment with neoadjuvant systemic chemotherapy rather than chemoradiation due to CT follow-up indicating bulky disease. He started on neoadjuvant chemotherapy with FOLFOX on July 12, 2020. PET scan done after 5 doses of FOLFOX on October 09, 2020 showed interval improvement in the rectal primary mass which has SUV 12.8 compared to 21.8 previously representing partial response to therapy. Left-sided soft tissue lesion has no SUV of 6.3 again partial response to therapy. Perirectal stranding and perirectal lymph nodes are unchanged and do not demonstrate significant FDG activity, no other abnormality seen. Mr Louis continued treatment with the FOLFOX with his 6th cycle completed on 10/19/2020. For the iron deficiency anemia, he was given Injectafer 750 mg IV x2 done on July 12, 2020 and July 19, 2020. His hemoglobin has corrected and was noted to be 12.4 on November 30, 2020. Mr. Louis began chemoradiation with chemo sensitizing agent capecitabine 825 mg/m2 on November 02, 2020. His Xeloda dosing is 1300 mg twice daily on the days of radiation only. Mr. Louis is here today for follow-up. He is tolerating the capecitabine well overall. He denies any fever or chills. He denies any mouth sores, sore throat or difficulty swallowing. He denies any skin changes. He has had no evidence of hand-foot syndrome. He states he is eating good. He denies any diarrhea or constipation. His activity is good he states he is tired overall but for the most part feels good. He is able to do all his ADLs without any assistance. His ECOG is 1. He denies any residual neuropathy. Past Medical History: Past Surgical History: Lap loop sigmoid colostomy???Dr. Olsen in 2019 Right internal jugular Port-A-Cath placement???Dr. Olsen in 2019 Allergies: Iodine Medications: Colace 1 Capsule Oral daily PRN Daily Vitamin 1 Tablet Oral daily HYDROcodone-Acetaminophen 1 Tablet (of 5-325 mg) Oral q 6 hours PRN Nitrofurantoin Monohyd Macro 1 Capsule (of 100 mg) Oral daily Tamsulosin HCl 1 Tablet (of 0.4 mg) Capsule Oral daily Tylenol 2 Tablet (of 325 mg) Tablet Oral q 8 hours PRN Family History: Mr. Louis's mother is alive. Mr. Louis's father at age 84: liver cancer. Mr. Louis has 3 brothers: 3 alive. He has 1 sister who is alive. Social History: Mr. Louis is single and he has no occupation specified. Mr. Louis has never smoked. He has no history of drinking. Review Of Symptoms: <See Above> Vital Signs: Performed on Dec 02, 2020 09:04 Height - 67.00 in Weight - 139.2 lbs (HIGH) BSA - 1.73 sq.m BMI - 21.80 Temperature - 97.4 F (LOW) Pulse - 81 /min Respiration - 18 /min BP - 125/73 mm(hg) O2 Sat - 98 % Pain - 0 Fatigue - 6,1 - No physically strenuous activity, but ambulatory and able to carry out light or sedentary work (e.g. office work, light house work). (ECOG) Physical Examination: Constitutional Alert, oriented, no acute distress. Skin pink, warm and dry. Head Normocephalic; atraumatic. Eyes Conjunctivae and sclerae are clear and without icterus. Pupils are reactive and equal. ENMT No oral exudates, ulcers, masses, thrush or mucositis. Oropharynx clear. Tongue normal. Poor dentation. Neck Supple without masses or thyromegaly. No jugular venous distension. Hematologic/Lymphatic No petechiae or purpura. No tender or palpable lymph nodes in the cervical or supraclavicular areas. Respiratory Lungs are clear to auscultation without rhonchi or wheezing. Cardiovascular Regular rate and rhythm of heart without murmurs,clicks, gallops or rubs. Back/Spine Non-tender to palpation. Musculoskeletal No tenderness or swelling, normal range of motion without obvious weakness. Integumentary No rashes or lesions. Neurologic No sensory or motor deficits, normal cerebellar function, normal gait. Psychiatric Alert and oriented times three. Coherent speech. Verbalizes understanding of our discussions today. Laboratory:Test performed on Oct 18, 2020 08:45 Sodium 142 mmol/L Potassium 3.9 mmol/L Chloride 103 mmol/L CO2 27 mmol/L Anion Gap 15.9 BUN 12 mg/dL Creatinine 0.9 mg/dL Cr Clearance (Est) 66.03 mL/min eGFR 85.8 mL/min Glucose 56 mg/dL Osmolality - Calculated 291 mOsm/kg Calcium 8.9 mg/dL Protein, Total 6.8 g/dL Albumin 3.7 g/dL Globulin 3.1 g/dL Bilirubin, Total 0.2 mg/dL ALT (SGPT) 11 Units/L AST (SGOT) 25 Units/L Alkaline Phosphatase 192 IU/L WBC 19.1 10^3/uL RBC 4.14 10^6/uL HGB 11.5 g/dL HCT 38.8 % MCV 93.7 fl MCH 27.8 pg MCHC 29.6 g/dL RDW 21.3 % Platelet Count 149 10^3/uL MPV 9.8 fl Neutrophils 12.14 10^3/uL Lymphocytes 2.9 10^3/uL Monocytes 1.3 10^3/uL Eosinophils 0.1 10^3/uL Basophils 0.2 10^3/uL Neutrophil % 76.7 % Lymphocyte % 15.4 % Monocyte % 7.0 % Eosinophil % 0.5 % Basophils % 1.3 % NRBC 0.1 /100 WBC NRBC % 0.3 % Test performed on Oct 04, 2020 08:20 CEA 53.9 ng/mL Test performed on Sep 29, 2020 12:25 CBC Slide Review Slide Review Perform SLIDE REVIEW AGREES WITH AUTOMATED RESULTS Test performed on Sep 20, 2020 11:16 Manual Lymphocytes 15.2 % Manual Monocytes 6.8 % Manual Eosinophils 0.4 % Manual Basophils 1.1 % Test performed on Aug 24, 2020 09:23 Ua Color Yellow Ua Appearance Clear Ua Glucose Norm Ua Bilirubin Neg Ua Ketones 1+ Ua Specific [place] 1.020 Ua Blood Neg Ua pH 5.0 Ua Protein Neg Ua Nitrites Negative Ua Leukocyte Esterase Negative Test performed on Jun 09, 2020 15:40 Ferritin 11 ng/mL Iron 10 mcg/dL Iron Binding Capacity (TIBC) 374 mcg/dl % Iron Saturation 2.6 % UIBC 364 mcg/dL Impression: Near obstructive colorectal mass per colonoscopy done on April 26, 2020, biopsy Confirmed invasive adenocarcinoma, moderately differentiated CT scan of chest abdomen pelvis done on April 26, 2020 showed diffuse circumferential thickening involving sigmoid colon extending to the rectosigmoid junction. Masslike polypoid thickening measuring approximately 4 x 2.4 cm eccentric to the right. Additional lobulated soft tissue mass measuring 4.2 x 3.2 cm. Multiple enlarged perirectal lymph nodes. No enhancing lesion seen in the liver. Sigmoid thickening abuts adjacent bladder with loss of fat plane in a few location although no abnormal bladder wall thickening. Hazy groundglass opacity in the right upper lobe nonspecific measuring 9 mm. Additional 3 mm calcified nodule right upper lobe. Small bilateral thyroid nodules. Status post lap loop sigmoid colostomy done on April 29, 2020 MRI scan of the pelvis done on May 06, 2020 showed mid-upper rectal tumor is noted with a circumferential appearance extending above the level of the peritoneal reflection with a prominent extension to the muscularis into adjacent mesorectal fat. There is also a large soft tissue nodular component extending superiorly into the base of the sigmoid mesentery above the peritoneal reflection. These findings are associated with enlarged presacral lymph nodes as well as obstructive uropathy with a moderate degree of left-sided hydronephrosis due to obstruction of distal left ureter CT PET scan done on June 26, 2020 showed 2.6 x 1.9 cm left rectal mass with SUV of 11.8 and multiple perirectal lymph nodes with a minimum FDG uptake thickening of perirectal fascia consistent with involvement with malignancy. No other abnormality seen and 8 mm right middle lobe lung nodule is FDG negative probably benign, granuloma. Clinical stage T3, N2a Started on neoadjuvant chemotherapy with FOLFOX on July 12, 2020 40+ pound weight loss due to nausea and abdominal discomfort with eating due to near obstructive colorectal mass. He has started to regain his weight after completing the FOLFOX chemotherapy regimen. Microcytic hypochromic anemia due to iron deficiency anemia probably due to chronic GI bleeding. Status post Injectafer x2 in June 2020. As of August 2020 his iron studies have corrected. Plan/Problems Addressed at this Visit: PROBLEMS ADDRESSED TODAY: 1. Colon cancer: He has completed 6 cycle of FOLFOX as of 10/19/2020. He began chemoradiation with capecitabine on 11/02/2020. A. Proceed capecitabine 1300 mg twice daily on the days of radiation only. B. He may utilize Compazine, Zofran and lorazepam as needed at home. He has also been reminded that he could utilize Imodium or prescription Lomotil as needed for diarrhea if he has problems with that. C. Labs from November 30, 2020 were reviewed in detail and discussed with Mr. Louis and a copy was given to him. WBC 4.1, hemoglobin 12.4, platelets 1 51,000 ANC is 2890. Potassium 4.1 creatinine 0.8 random glucose 85 LFTs are normal. His CEA is 9.0. It is noted that on June 29, 2020 it was 114.9. D. We will have weekly interim counts for monitoring of the chemotherapy; he will also need port maintenance with his lab draws. 2. Iron deficiency anemia. A. Hemoglobin on July 12, 2020 was 9.1. The Hgb is 12.4 on November 30, 2020. His iron saturation on September 07, 2020 was 22.5, ferritin was 1572 and iron was 55. 3. Weight loss/poor appetite A. His weight today is 139.2 which is improved overall from his weight with his FOLFOX regimen. His weight on October 19, 2020 was 125.8. That was his last cycle of FOLFOX B. He has elected to use medicinal marijuana and is eating much better. 4. Followup plan: A. He will be due back for followuo in 2-3 weeks at which time we will plan to recheck his CBC, CMP. B. He has completed 38 Valverde of prescribed 50 Valverde as of November 30, 2019 one of his IMRT. C Mr. Louis was instructed to contact us in interim should questions or problems arise. Signed By: Ghassan Beasley-, [facility] Goldy Singleton MD <<Signature on File>>
== END 2020-12-22 23:59 | disposition home or self-care (01) ==
LOC: ONCMED 05:52
PROVIDERS: Internal Medicine Hematology & Oncology; Absent Provider Radiology Radiation Oncology; PCP Internal Medicine; Visit Provider Radiology Radiation Oncology
DX: Z51.0 Encounter for antineoplastic radiation therapy (principal); C18.7 Malignant neoplasm of sigmoid colon; C79.89 Secondary malignant neoplasm of other specified sites; R63.4 Abnormal weight loss; D50.0 Iron deficiency anemia secondary to blood loss (chronic); Z79.899 Other long term (current) drug therapy
CPT/HCPCS: 36591; 77336; 77386; 80053; 82378; 85025; 99214

== ENCOUNTER 2020-12-08 06:47 | Outpatient (CLI) | payer MEDICAID, SELFPAY ==
--- NOTE | 2020-12-08 07:15 | XR_ITS ---
WS: [id number] Exam: XR KUB [id number] Date/Time of Exam: 12/08/2020 6:52 AM Reason For Exam: N13.5 - Crossing vessel and stricture of ureter without h... Compared to the C-arm images performed 08/26/2020. A left-sided ureteral stent is noted appearing to be in appropriate location. No calcifications are s een in the region of the kidneys. Left lower quadrant colostomy. Moderate amount of stool in the colo n. No bowel obstruction or free air. Visualized organ margins appear normal. XR/XR KUB [id number] IMPRESSION: 1. No calcifications noted in the region of the kidneys. A left-sided ureteral stent is in place and appears to be in satisfactory position. 2. Left lower quadrant colostomy. Moderate amount stool in the right colon. No acute finding.
== END 2020-12-08 06:48 | disposition home or self-care (01) ==
PROVIDERS: PCP Internal Medicine; Visit Provider Urology
DX: N13.5 Crossing vessel and stricture of ureter without hydronephrosis (principal)
CPT/HCPCS: 74018; 81003

== ENCOUNTER → 2020-12-13 09:05 | Outpatient (BNVA) | payer MEDICAID, SELFPAY | PROVIDERS: PCP Internal Medicine; Visit Provider Urology | DX: N13.5 Crossing vessel and stricture of ureter without hydronephrosis (principal); Z20.822 Contact with and (suspected) exposure to COVID-19 | CPT/HCPCS: 87635 ==

== ENCOUNTER 2020-12-16 10:26 | Day surgery (SDC) | payer MEDICAID, SELFPAY ==
[2020-12-15 16:57] VITALS: BMI 21.6
--- NOTE | 2020-12-16 | SCC_ITS ---
Procedure Done: 1. Cystoscopy exchange left ureteral stent 8.9 seconds of fluoroscopic guidance, for a cumulative dose of 1.68 mGy, was provided to Dr. Gaffney by the radiology department. C-arm images of the abdomen were saved for the patient's permanent record. [facility]
--- NOTE | 2020-12-16 10:28 | SC_ITS ---
WS: [id number] C-arm Fluoroscopy of left renal stent exchange, 12/16/2020 Clinical Data: Left ureteral stent exchange Comparison: None. Findings: The left ureteral stent appears to end in the left renal pelvis. SC/C-arm FL for Urology Impression: Replacement of left ureteral stent.
[2020-12-16 10:39] VITALS: BP 123/77; PULSE 63; RESP 16; TEMP 36.1; O2SAT 98
[2020-12-16] MEDS: sodium chloride 0.9% 1,000 ML 30 ML IV (10:51)
--- NOTE | 2020-12-16 10:56 | ANES.PREANE2 ---
Pre-Anesthetic Assessment Pre-Anesthetic Assessment: Height/Weight: Height 1.7 m Weight 62.596 kg Temp Pulse Resp BP Pulse Ox 96.9 F L 63 16 123/77 98 12/16/20 10:39 12/16/20 10:39 12/16/20 10:39 12/16/20 10:39 12/16/20 10:39 Preop Diagnosis: Left ureteral obstruction secondary to colon cancer Proposed Procedure: Operation Date: 12/16/20 12:00 Proposed Procedures p Cystoscopy 13269 n13.5(Not Applicable) - Jose Miguel Gaffney MD s left Ureteral Stent Exchange(Left) - Jose Miguel Gaffney MD Familial anesthetic complications: none Was Beta Sabrina taken within 24 hours: N/A Was Clonidine taken within 24 hours: N/A Last intake: Intake Last Liquid Date 12/15/20 Last Liquid Time 23:59 Last Solid Date 12/15/20 Last Solid Time 23:59 Social: Social History: No alcohol and No tobacco Exam: Pre-Anes Outpt Exam: alert, oriented x 3, clear to auscultation bilaterally and regular rate & rhythm Airway: Cervical ROM: WNL MP: 2 Dentition: Other (two lower teeth ,plates up top) GI: Comments: colon cancer, Anesthetic Plan: ASA status: 3 Anesthesia: General Risk of > 500 ml blood loss (7ml/kg in children): No Meds/Allergies Current Medications: Current Medications Generic Name Dose Route Start Last Admin Trade Name Freq PRN Reason Stop Dose Admin Sodium Chloride 1,000 mls @ 30 ml s/hr 12/16/20 10:30 12/16/20 10:51 Sodium Chloride 0.9% IV 12/17/20 10:29 30 mls/hr .Q24H GORGE Administration PFSH Anesthesia PFSH: Medical History Anemia BPH loc w urin obs/LUTS Colon cancer Pyelonephritis Pyelonephritis Resolved Sepsis Resolved Urinary retention UTI (urinary tract infection) Resolved Surgical History History of colostomy Family History Father Cancer Grandfather Cancer Grandmother Cancer Social History Smoking and tobacco status: former smoker Alcohol intake: former Marital status: Single Current occupational status: disabled History of recent travel: No Data Anesthesia Cardiac Studies: No Data to Display
[2020-12-16 10:59] LABS: Basophils % 0.6 %; Eosinophils # 0.1 10^3/uL (0.0-0.8); Eosinophils % 2.8 %; Hematocrit 40.5 % (42.0-52.0); Hemoglobin 13.2 g/dL (11.7-16.6); Lymphocytes # 0.4 10^3/uL (0.8-4.8); Lymphocytes % 8.4 %; Mean Corpuscular HGB Conc 32.6 g/dL (30.0-36.0); Mean Corpuscular Hemoglobin 32.8 pg (28.0-34.0); Mean Corpuscular Volume 100.7 fL (80-94); Mean Platelet Volume 9.1 fL (7.4-10.4); Monocytes # 0.4 10^3/uL (0.2-0.9); Monocytes % 7.9 %; Neutrophils # 3.72 10^3/uL (1.8-7.7); Neutrophils % 79.9 %; Nucleated Red Blood Cells % 0 %; Platelet Count 178 10^3/cmm (130-400); Red Blood Count 4.02 10^6/uL (4.1-5.3); Red Cell Distribution Width 15.5 % (12.1-15.1); White Blood Count 4.7 10^3/uL (4.0-10.0)
[2020-12-16] MEDS: levofloxacin-dextrose 5 % 500 MG/100 ML PREMIX 100 MG IV (12:02)
--- NOTE | 2020-12-16 12:04 | W.PM.OPSUD ---
Surgery/Procedure H&P Update DATE OF PROCEDURE: December 16, 2020 DATE H&P PERFORMED: 12/08/20 H&P UPDATE INFORMATION: I have reviewed H&P completed within last 30 days, I have examined patient prior to procedure, No changes to prior documentation and H&P is in [facility] [place] on date indicated PREOP DIAGNOSIS: Left ureteral obstruction secondary to colon cancer PLANNED PROCEDURE: Operation Date: 12/16/20 12:00 Proposed Procedures p Cystoscopy 37858 n13.5(Not Applicable) - Jose Miguel Gaffney MD s left Ureteral Stent Exchange(Left) - Jose Miguel Gaffney MD
--- NOTE | 2020-12-16 12:07 | P.OP_ITS ---
Operative Report Date of procedure: December 16, 2020 Pre-op Diagnosis: Left ureteral obstruction secondary to colon cancer Post-op diagnosis: same Procedure Done: 1. Cystoscopy exchange left ureteral stent Pathology: none sent Surgeon: Jose Miguel Gaffney Anesthesia: General Estimated blood loss: Minimal Urine output: not measured Complications: none Condition: stable Disposition: PACU Brief History: Chronic left ureteral obstruction secondary to extrinsic compression via colon cancer. Chronic indwelling left ureteral stent: 7 Portuguese by 26 cm double-pigtail. Due for stent change. Procedure: After routine preoperative evaluation examination and obtaining of informed consent he was taken to the operating suite on 12/16/2020 where general anesthesia was administered without difficulty after appropriate timeout was performed, SCDs confirmed to be functioning, preoperative antibiotics administered, beta-humera protocol confirmed. Prepped and draped in the usual sterile fashion in dorsolithotomy position paying careful attention to avoiding pressure points. 21 Portuguese cystoscope with 30 degree lens was introduced into urethra meatus and advanced into the bladder to videoscopy. The bladder was systematically examined. Some mild inflammatory changes related to the stent but nothing else of concern. Flexible tip guidewire was then advanced up the left ureter next to the stent advancing into the renal pelvis and the stent was removed with grasping forceps without difficulty. There is no significant encrustation. Cystoscope was then backloaded over the guidewire and a 7 Portuguese by 26 cm double-pigtail stent was advanced over the guidewire through the cystoscope up to the kidney without difficulty. Position was confirmed via fluoroscopy and cystoscopy after the wire was removed. Bladder was drained and procedure was completed. PLANS: 1. Anticipate discharge from outpatient surgery today 2. Return to clinic in 4 months with KUB
[2020-12-16 12:09] LABS: Alanine Aminotransferase 7 U/L (0-41); Albumin Level 3.9 g/dL (3.5-5.2); Alkaline Phosphatase 82 IU/L (40-130); Anion Gap 10.6 (5-19); Aspartate Amino Transferase 16 U/L (0-40); Blood Urea Nitrogen 12 mg/dL (8-23); Calcium 8.9 mg/dL (8.5-10.5); Carbon Dioxide 28 mmol/L (22-29); Chloride 105 mmol/L (98-107); Globulin 2.6 g/dL (1.3-4.6); Glucose 93 mg/dL (65-115); Osmolality Calculated 287 mOsm/kg (285-295); Potassium 4.6 mmol/L (3.5-5.1); Sodium 139 mmol/L (136-145); Total Bilirubin 0.2 mg/dL (0.15-1.2); Total Protein 6.5 g/dL (6.6-8.7)
[2020-12-16 12:33] VITALS: BP 97/67; PULSE 78; RESP 16; TEMP 36.8; O2SAT 96
[2020-12-16 12:40] VITALS: BP 99/58; PULSE 72; RESP 12; O2SAT 95
[2020-12-16 12:45] VITALS: BP 100/62; PULSE 69; RESP 12; TEMP 36.8; O2SAT 96
[2020-12-16 12:52] VITALS: BP 98/48; PULSE 70; RESP 14; TEMP 36.6; O2SAT 96
[2020-12-16 13:07] VITALS: BP 110/75; PULSE 68; RESP 16; TEMP 36.6; O2SAT 95
--- NOTE | 2020-12-16 14:49 | ANE.PACU2 ---
Inpatient post-anesthesia follow up: Airway intact: Yes Vital signs: Temperature 97.9 F Pulse Rate 68 Respiratory Rate 16 Blood Pressure 110/75 Pulse Oximetry 95 Oxygen Delivery Me thod Room Air Oxygen Flow Rate Fraction of Inspir ed Oxygen Hydration adequate: Yes Nausea and vomiting: No Pain level: 2 Mental status: Baseline
== END 2020-12-16 13:30 | disposition home or self-care (01) ==
PROVIDERS: PCP Internal Medicine; Visit Provider Urology
PROC: 0TJB8ZZ Inspection of Bladder, Via Natural or Artificial Opening Endoscopic (ICD-10-PCS; CPT 52000; principal; 2020-12-16 12:00)
PROC: (CPT 52332; 2020-12-16 12:00)
DX: N13.5 Crossing vessel and stricture of ureter without hydronephrosis (principal); C18.9 Malignant neoplasm of colon, unspecified; N40.1 Benign prostatic hyperplasia with lower urinary tract symptoms; N13.8 Other obstructive and reflux uropathy; Z87.891 Personal history of nicotine dependence
CPT/HCPCS: 52332; 36415; 76000; 80053; 85025; 96365; C2625; J1956; J2704; J3010; J7030

== ENCOUNTER 2020-12-30 05:43 | Outpatient (RCR) | payer MEDICAID, SELFPAY ==
[2020-12-30 09:14] LABS: Basophils # 0.1 10^3/uL (0.0-0.1); Eosinophils # 0.2 10^3/uL (0.0-0.8); Eosinophils % 3.5 %; Hematocrit 41.2 % (42.0-52.0); Hemoglobin 13.4 g/dL (11.7-16.6); Lymphocytes # 0.7 10^3/uL (0.8-4.8); Lymphocytes % 13.6 %; Mean Corpuscular HGB Conc 32.5 g/dL (30.0-36.0); Mean Corpuscular Hemoglobin 32.8 pg (28.0-34.0); Mean Corpuscular Volume 100.7 fL (80-94); Mean Platelet Volume 8.6 fL (7.4-10.4); Monocytes # 0.5 10^3/uL (0.2-0.9); Monocytes % 10.9 %; Neutrophils # 3.41 10^3/uL (1.8-7.7); Neutrophils % 70.2 %; Nucleated Red Blood Cells % 0 %; Platelet Count 206 10^3/cmm (130-400); Red Blood Count 4.09 10^6/uL (4.1-5.3); Red Cell Distribution Width 13.7 % (12.1-15.1); White Blood Count 4.9 10^3/uL (4.0-10.0)
[2020-12-30 09:33] LABS: Alanine Aminotransferase 10 U/L (0-41); Albumin Level 4.1 g/dL (3.5-5.2); Alkaline Phosphatase 96 IU/L (40-130); Anion Gap 14.1 (5-19); Aspartate Amino Transferase 18 U/L (0-40); Blood Urea Nitrogen 10 mg/dL (8-23); Calcium 9.2 mg/dL (8.5-10.5); Carbon Dioxide 27 mmol/L (22-29); Chloride 103 mmol/L (98-107); Globulin 2.7 g/dL (1.3-4.6); Glomerular Filtration Rate 68.1 mL/min (90-130); Glucose 93 mg/dL (65-115); Osmolality Calculated 289 mOsm/kg (285-295); Potassium 4.1 mmol/L (3.5-5.1); Sodium 140 mmol/L (136-145); Total Bilirubin 0.3 mg/dL (0.15-1.2); Total Protein 6.8 g/dL (6.6-8.7)
--- NOTE | 2020-12-30 10:47 | ONCRAD EPV_ITS ---
Radiation Oncology Follow-Up Note Patient Name: Larry Louis Date of : 1960 Date of Service: 12/30/2020 Attending Physician: Genaro Pepe M.D. Larry Louis returned to my office this morning for a routinely scheduled follow-up appointment. He completed neoadjuvant pelvic radiotherapy for the management of a clinical stage IIIB (T3N2a) moderately differentiated adenocarcinoma of the rectum (normal expression of DNA MMR proteins). He was prescribed 5 cycles of FOLFOX (July 12 through October 09, 2020). Pelvic radiation therapy was delivered between the dates of November 02, 2020 through December 07, 2020. A prescribed dose of 50 Gy was delivered in 25 fractions encompassing 36 elapsed days. On review of systems, the patient denied any gastrointestinal complaints except for intermittent constipation and abdominal cramping. On physical examination, the patient weighed 151 pounds. The temperature is 97.3???F. His blood pressure was 118/72 mmHg. The pulse was 69 bpm and his respiratory rate was 18 breaths per minute. Rectal exam was deferred. In summary, Mr. Louis returned for a routine post-radiotherapy follow-up. He has been scheduled to be re-evaluated by colorectal surgery this month. Signed by: Dr. Genaro Pepe 12/30/2020 10:46:24 AM
--- NOTE | 2021-01-09 17:58 | ONC FU_ITS ---
Dr. Singleton follow up note Patient: Larry Louis Unit #: [id number]: 1960 Dicatated By: Goldy Singleton M.D.Date of Visit:Dec 30, 2020 Onc Med Follow-up/Prog Note History of Present Illness: Mr. Louis is a 60-year-old gentleman who presented to his primary care with a history of hematochezia, 45+ pound unintended weight loss over a period of 3 to 4 months, rectal incontinence for over a year, constipation, nausea vomiting, and bladder outlet obstruction requiring catheterization. He states he has had a chronic history of blood per rectum which began in childhood. He had not followed regularly with primary care. He was seen by Dr. Gonzalez at [facility]. He underwent colonoscopy on 04/26/2020. This revealed a completely obstructing, large size, fungating, friable, infiltrative, malignant appearing, circumferential rectal mass. The mass was biopsied and pathology revealed moderately differentiated invasive adenocarcinoma. His mismatch repair proteins???IHC were all intact to include MLH1, MSH2, MSH6, and PMS2. A CT of the chest abdomen pelvis from 04/26/2020 reported a 4 x 2.4 cm lesion in the sigmoid colon extending to the right and an additional lobulated soft tissue mass measuring 4.2 x 3.2 cm extending over a length of approximately 10 cm. Sigmoid thickening abuts the adjacent bladder with loss of fat plane in a few locations although no abnormal bladder wall thickening. There was an additional lobulated sigmoid outpouching with low attenuation measuring 1.7 cm. There were multiple enlarged perirectal lymph nodes; enlarged prostate measuring 4.7 cm; mild left hydronephrosis likely secondary to bladder outlet obstruction versus sequela from sigmoid neoplasm; a 9 mm nonspecific groundglass opacity in the right upper lobe of the lung and additional 3 mm noncalcified nodule in the right upper lobe and a few prominent pretracheal lymph nodes largest measuring 8 mm; small bilateral thyroid nodules. There was mild diffuse fatty infiltration of the liver but no enhancing hepatic lesions were noted. Mr. Louis was seen by Dr. Olsen in [place] because of the progressive intestinal obstruction. On April 29, 2020 he underwent lap loop sigmoid colonoscopy and Port-A-Cath placement. He then had follow-up MRI of the pelvis on 05/06/2020 which showed mild upper rectal tumor is noted in a circumferential appearance extending above the level of the peritoneal reflection with prominent extension through the muscularis into adjacent mesorectal fat. There was also a large soft tissue nodular component extending superiorly into the base of the sigmoid mesentery above the peritoneal reflection. These findings are associated with enlarged presacral lymph nodes as well as obstructive uropathy with a mild degree of left-sided hydronephrosis due to obstruction of the distal left ureter. Mr. Louis was admitted to [facility] on 06/17/2020 with sepsis secondary to UTI/polynephritis. Follow-up PET/CT from June 26, 2019 showed hypermetabolic rectal mass, perirectal nodes in fascial thickening consistent with local metastatic disease. There was no report of metastatic disease outside the pelvis. An 8 mm right middle lobe nodule consistent with granuloma. Mr. Louis was seen by medical and radiation oncology and offered treatment with neoadjuvant systemic chemotherapy rather than chemoradiation due to CT follow-up indicating bulky disease. He started on neoadjuvant chemotherapy with FOLFOX on July 12, 2020. PET scan done after 5 doses of FOLFOX on October 09, 2020 showed interval improvement in the rectal primary mass which has SUV 12.8 compared to 21.8 previously representing partial response to therapy. Left-sided soft tissue lesion has no SUV of 6.3 again partial response to therapy. Perirectal stranding and perirectal lymph nodes are unchanged and do not demonstrate significant FDG activity, no other abnormality seen. Mr Louis continued treatment with the FOLFOX with his 6th cycle completed on 10/19/2020. For the iron deficiency anemia, he was given Injectafer 750 mg IV x2 done on July 12, 2020 and July 19, 2020. His hemoglobin has corrected and was noted to be 12.4 on November 30, 2020. Mr. Louis began chemoradiation with chemo sensitizing agent capecitabine 825 mg/m2 on November 02, 2020. His Xeloda dosing is 1300 mg twice daily on the days of radiation only.Completed on December 07, 2020 Came for follow-up, denies any specific complaints, no fever chills, no nausea or vomiting, no diarrhea or constipation, tolerated combined chemoradiation with oral Xeloda well which she completed on December 07, 2020 now recovering well, patient said he is scheduled to see colorectal surgeon in [place] on January 19, 2021, Medications: Colace 1 Capsule Oral daily PRN, Daily Vitamin 1 Tablet Oral daily, HYDROcodone-Acetaminophen 1 Tablet (of 5-325 mg) Oral q 6 hours PRN, Nitrofurantoin Monohyd Macro 1 Capsule (of 100 mg) Oral daily, Tamsulosin HCl 1 Tablet (of 0.4 mg) Capsule Oral daily, Tylenol 2 Tablet (of 325 mg) Tablet Oral q 8 hours PRN Allergies: Iodine Review of Systems: Review of Systems is not available for this patient. Vital Signs: Performed on Dec 30, 2020 09:21 Height - 67.00 in Weight - 150.8 lbs (HIGH) BSA - 1.79 sq.m BMI - 23.62 Temperature - 97.7 F (LOW) Pulse - 71 /min Respiration - 18 /min BP - 144/78 mm(hg) (HIGH) O2 Sat - 99 % Pain - 0 Fatigue - 0 Performance Status: 0 - Fully active, able to carry on all predisease activities without restrictions. (ECOG) Physical Examination: ENMT - No mouth sores, no thrush, no jaundice, Respiratory - Lungs are clear to auscultation, Cardiovascular - Regular rate and rhythm of heart, Abdomen - Soft, bowel sounds present, Extremities - No visible edema. Lab/Imaging: Test performed on Oct 18, 2020 08:45 Sodium 142 mmol/L Potassium 3.9 mmol/L Chloride 103 mmol/L CO2 27 mmol/L Anion Gap 15.9 BUN 12 mg/dL Creatinine 0.9 mg/dL Cr Clearance (Est) 66.03 mL/min eGFR 85.8 mL/min Glucose 56 mg/dL Osmolality - Calculated 291 mOsm/kg Calcium 8.9 mg/dL Protein, Total 6.8 g/dL Albumin 3.7 g/dL Globulin 3.1 g/dL Bilirubin, Total 0.2 mg/dL ALT (SGPT) 11 Units/L AST (SGOT) 25 Units/L Alkaline Phosphatase 192 IU/L WBC 19.1 10^3/uL RBC 4.14 10^6/uL HGB 11.5 g/dL HCT 38.8 % MCV 93.7 fl MCH 27.8 pg MCHC 29.6 g/dL RDW 21.3 % Platelet Count 149 10^3/uL MPV 9.8 fl Neutrophils 12.14 10^3/uL Lymphocytes 2.9 10^3/uL Monocytes 1.3 10^3/uL Eosinophils 0.1 10^3/uL Basophils 0.2 10^3/uL Neutrophil % 76.7 % Lymphocyte % 15.4 % Monocyte % 7.0 % Eosinophil % 0.5 % Basophils % 1.3 % NRBC 0.1 /100 WBC NRBC % 0.3 % Test performed on Oct 04, 2020 08:20 CEA 53.9 ng/mL Test performed on Sep 29, 2020 12:25 CBC Slide Review Slide Review Perform SLIDE REVIEW AGREES WITH AUTOMATED RESULTS Test performed on Sep 20, 2020 11:16 Manual Lymphocytes 15.2 % Manual Monocytes 6.8 % Manual Eosinophils 0.4 % Manual Basophils 1.1 % Test performed on Aug 24, 2020 09:23 Ua Color Yellow Ua Appearance Clear Ua Glucose Norm Ua Bilirubin Neg Ua Ketones 1+ Ua Specific [place] 1.020 Ua Blood Neg Ua pH 5.0 Ua Protein Neg Ua Nitrites Negative Ua Leukocyte Esterase Negative Impression: Near obstructive colorectal mass per colonoscopy done on April 26, 2020, biopsy Confirmed invasive adenocarcinoma, moderately differentiated CT scan of chest abdomen pelvis done on April 26, 2020 showed diffuse circumferential thickening involving sigmoid colon extending to the rectosigmoid junction. Masslike polypoid thickening measuring approximately 4 x 2.4 cm eccentric to the right. Additional lobulated soft tissue mass measuring 4.2 x 3.2 cm. Multiple enlarged perirectal lymph nodes. No enhancing lesion seen in the liver. Sigmoid thickening abuts adjacent bladder with loss of fat plane in a few location although no abnormal bladder wall thickening. Hazy groundglass opacity in the right upper lobe nonspecific measuring 9 mm. Additional 3 mm calcified nodule right upper lobe. Small bilateral thyroid nodules. Status post lap loop sigmoid colostomy done on April 29, 2020 MRI scan of the pelvis done on May 06, 2020 showed mid-upper rectal tumor is noted with a circumferential appearance extending above the level of the peritoneal reflection with a prominent extension to the muscularis into adjacent mesorectal fat. There is also a large soft tissue nodular component extending superiorly into the base of the sigmoid mesentery above the peritoneal reflection. These findings are associated with enlarged presacral lymph nodes as well as obstructive uropathy with a moderate degree of left-sided hydronephrosis due to obstruction of distal left ureter CT PET scan done on June 26, 2020 showed 2.6 x 1.9 cm left rectal mass with SUV of 11.8 and multiple perirectal lymph nodes with a minimum FDG uptake thickening of perirectal fascia consistent with involvement with malignancy. No other abnormality seen and 8 mm right middle lobe lung nodule is FDG negative probably benign, granuloma. Clinical stage T3, N2a Started on neoadjuvant chemotherapy with FOLFOX on July 12, 2020 40+ pound weight loss due to nausea and abdominal discomfort with eating due to near obstructive colorectal mass. He has started to regain his weight after completing the FOLFOX chemotherapy regimen.Later on switched to combined chemoradiation therapy with oral Xeloda as a part of total neoadjuvant therapy for rectal cancer, which she completed on December 07, 2020 Microcytic hypochromic anemia due to iron deficiency anemia probably due to chronic GI bleeding. Status post Injectafer x2 in June 2020. As of August 2020 his iron studies have corrected. Plan: Discussed with patient regarding his labs white blood count 4.9 hemoglobin 13.4 hematocrit 41.2, platelets 206,000 CMP within normal limits Clinically, patient doing well, patient has completed total neoadjuvant therapy with FOLFOX initially followed by oral Xeloda/radiation therapy which she completed on December 07, 2020, now recovering well his follow-up lab work-up is within normal range, patient is scheduled see colorectal surgeon in [place] on November 19, 2020, we will see him back 2 weeks after surgery with CBC CMP Signed By: Goldy Singleton M.D. <<Signature on File>>
== END 2021-01-22 23:59 | disposition home or self-care (01) ==
LOC: ONCMED 05:43
PROVIDERS: Absent Provider Radiology Radiation Oncology; PCP Internal Medicine; Visit Provider Internal Medicine Hematology & Oncology
DX: C20 Malignant neoplasm of rectum (principal); D50.9 Iron deficiency anemia, unspecified; R91.1 Solitary pulmonary nodule; E04.2 Nontoxic multinodular goiter; R63.4 Abnormal weight loss; Z79.899 Other long term (current) drug therapy; Z92.21 Personal history of antineoplastic chemotherapy; Z92.3 Personal history of irradiation
CPT/HCPCS: 36415; 36591; 80053; 85025; 99024; 99214

== ENCOUNTER 2021-02-03 13:59 | Outpatient (CLI) | payer MEDICAID, SELFPAY ==
[2021-02-03 14:45] LABS: Basophils % 0.8 %; Eosinophils # 0.1 10^3/uL (0.0-0.8); Eosinophils % 2.5 %; Hematocrit 41.3 % (42.0-52.0); Hemoglobin 13.6 g/dL (11.7-16.6); Lymphocytes # 0.6 10^3/uL (0.8-4.8); Lymphocytes % 12.6 %; Mean Corpuscular HGB Conc 32.9 g/dL (30.0-36.0); Mean Corpuscular Hemoglobin 32.1 pg (28.0-34.0); Mean Corpuscular Volume 97.4 fL (80-94); Mean Platelet Volume 9.3 fL (7.4-10.4); Monocytes # 0.4 10^3/uL (0.2-0.9); Monocytes % 8.5 %; Neutrophils # 3.64 10^3/uL (1.8-7.7); Neutrophils % 75.2 %; Nucleated Red Blood Cells % 0 %; Platelet Count 214 10^3/cmm (130-400); Red Blood Count 4.24 10^6/uL (4.1-5.3); Red Cell Distribution Width 12.2 % (12.1-15.1); White Blood Count 4.8 10^3/uL (4.0-10.0)
[2021-02-03 15:14] LABS: Alanine Aminotransferase 10 U/L (0-41); Albumin Level 4.4 g/dL (3.5-5.2); Alkaline Phosphatase 106 IU/L (40-130); Anion Gap 14.8 (5-19); Aspartate Amino Transferase 19 U/L (0-40); Blood Urea Nitrogen 13 mg/dL (8-23); Calcium 8.9 mg/dL (8.5-10.5); Carbon Dioxide 24 mmol/L (22-29); Chloride 100 mmol/L (98-107); Glomerular Filtration Rate 68.1 mL/min (90-130); Glucose 126 mg/dL (65-115); Osmolality Calculated 282 mOsm/kg (285-295); Potassium 3.8 mmol/L (3.5-5.1); Sodium 135 mmol/L (136-145); Total Bilirubin 0.4 mg/dL (0.15-1.2); Total Protein 7.4 g/dL (6.6-8.7)
== END 2021-02-03 14:00 | disposition home or self-care (01) ==
PROVIDERS: PCP Internal Medicine; Visit Provider Internal Medicine Hematology & Oncology
DX: C80.1 Malignant (primary) neoplasm, unspecified (principal)
CPT/HCPCS: 80053; 85025

== ENCOUNTER 2021-02-04 08:11 | Outpatient (CLI) | payer MEDICAID, SELFPAY ==
--- NOTE | 2021-02-04 10:07 | ONC FU_ITS ---
Dr. Singleton follow up note Patient: Larry Louis Unit #: [id number]: 1960 Dicatated By: Goldy Singleton M.D.Date of Visit:Feb 04, 2021 Onc Med Follow-up/Prog Note History of Present Illness: Mr. Louis is a 60-year-old gentleman who presented to his primary care with a history of hematochezia, 45+ pound unintended weight loss over a period of 3 to 4 months, rectal incontinence for over a year, constipation, nausea vomiting, and bladder outlet obstruction requiring catheterization. He states he has had a chronic history of blood per rectum which began in childhood. He had not followed regularly with primary care. He was seen by Dr. Gonzalez at [facility]. He underwent colonoscopy on 04/26/2020. This revealed a completely obstructing, large size, fungating, friable, infiltrative, malignant appearing, circumferential rectal mass. The mass was biopsied and pathology revealed moderately differentiated invasive adenocarcinoma. His mismatch repair proteins???IHC were all intact to include MLH1, MSH2, MSH6, and PMS2. A CT of the chest abdomen pelvis from 04/26/2020 reported a 4 x 2.4 cm lesion in the sigmoid colon extending to the right and an additional lobulated soft tissue mass measuring 4.2 x 3.2 cm extending over a length of approximately 10 cm. Sigmoid thickening abuts the adjacent bladder with loss of fat plane in a few locations although no abnormal bladder wall thickening. There was an additional lobulated sigmoid outpouching with low attenuation measuring 1.7 cm. There were multiple enlarged perirectal lymph nodes; enlarged prostate measuring 4.7 cm; mild left hydronephrosis likely secondary to bladder outlet obstruction versus sequela from sigmoid neoplasm; a 9 mm nonspecific groundglass opacity in the right upper lobe of the lung and additional 3 mm noncalcified nodule in the right upper lobe and a few prominent pretracheal lymph nodes largest measuring 8 mm; small bilateral thyroid nodules. There was mild diffuse fatty infiltration of the liver but no enhancing hepatic lesions were noted. Mr. Louis was seen by Dr. Olsen in [place] because of the progressive intestinal obstruction. On April 29, 2020 he underwent lap loop sigmoid colonoscopy and Port-A-Cath placement. He then had follow-up MRI of the pelvis on 05/06/2020 which showed mild upper rectal tumor is noted in a circumferential appearance extending above the level of the peritoneal reflection with prominent extension through the muscularis into adjacent mesorectal fat. There was also a large soft tissue nodular component extending superiorly into the base of the sigmoid mesentery above the peritoneal reflection. These findings are associated with enlarged presacral lymph nodes as well as obstructive uropathy with a mild degree of left-sided hydronephrosis due to obstruction of the distal left ureter. Mr. Louis was admitted to [facility] on 06/17/2020 with sepsis secondary to UTI/polynephritis. Follow-up PET/CT from June 26, 2019 showed hypermetabolic rectal mass, perirectal nodes in fascial thickening consistent with local metastatic disease. There was no report of metastatic disease outside the pelvis. An 8 mm right middle lobe nodule consistent with granuloma. Mr. Louis was seen by medical and radiation oncology and offered treatment with neoadjuvant systemic chemotherapy rather than chemoradiation due to CT follow-up indicating bulky disease. He started on neoadjuvant chemotherapy with FOLFOX on July 12, 2020. PET scan done after 5 doses of FOLFOX on October 09, 2020 showed interval improvement in the rectal primary mass which has SUV 12.8 compared to 21.8 previously representing partial response to therapy. Left-sided soft tissue lesion has no SUV of 6.3 again partial response to therapy. Perirectal stranding and perirectal lymph nodes are unchanged and do not demonstrate significant FDG activity, no other abnormality seen. Mr Louis continued treatment with the FOLFOX with his 6th cycle completed on 10/19/2020. For the iron deficiency anemia, he was given Injectafer 750 mg IV x2 done on July 12, 2020 and July 19, 2020. His hemoglobin has corrected and was noted to be 12.4 on November 30, 2020. Mr. Louis began chemoradiation with chemo sensitizing agent capecitabine 825 mg/m2 on November 02, 2020. His Xeloda dosing is 1300 mg twice daily on the days of radiation only.Completed on December 07, 2020 Came for follow-up, complaining of off and on but persistent left flank/lower back pain, patient has history of left hydronephrosis for which he has stent placement, and he has also completed his combined chemoradiation for locally advanced rectal cancer now being evaluated for surgery, as per patient last Sunday he underwent MRI scan of the pelvis and now scheduled for CT scan of abdomen pelvis and colonoscopy next Sunday and possibly surgery and first week of February. Denies any melena or hematochezia denies any trauma to his lower back, as per patient his pain is more like pressure and he is taking his Percocet on regular basis. On the scale of 1-10 his pain is around 5-7 sometimes aggravated or relieved by change in position, denies any pain radiating to left leg denies any urine or stool incontinence but patient has divert colostomy Medications: Colace 1 Capsule Oral daily PRN, Daily Vitamin 1 Tablet Oral daily, HYDROcodone-Acetaminophen 1 Tablet (of 5-325 mg) Oral q 6 hours PRN, Nitrofurantoin Monohyd Macro 1 Capsule (of 100 mg) Oral daily, Tamsulosin HCl 1 Tablet (of 0.4 mg) Capsule Oral daily, Tylenol 2 Tablet (of 325 mg) Tablet Oral q 8 hours PRN Allergies: Iodine Review of Systems: Review of Systems is not available for this patient. Vital Signs: Performed on Feb 04, 2021 08:43 Height - 67.00 in Weight - 158.6 lbs (HIGH) BSA - 1.83 sq.m BMI - 24.84 Temperature - 97.8 F (LOW) Pulse - 78 /min Respiration - 18 /min BP - 138/78 mm(hg) O2 Sat - 99 % Pain - 0 Fatigue - 0 Performance Status: 0 - Fully active, able to carry on all predisease activities without restrictions. (ECOG) Physical Examination: ENMT - No mouth sores, no thrush, no jaundice, Respiratory - Lungs are clear to auscultation, Cardiovascular - Regular rate and rhythm of heart, Abdomen - Soft, bowel sounds present colostomy bag functioning fine, Extremities - No visible edema. Lab/Imaging: Test performed on Feb 03, 2021 12:45 Sodium 135 mmol/L Potassium 3.8 mmol/L Chloride 100 mmol/L CO2 24 mmol/L Anion Gap 14.8 BUN 13 mg/dL Creatinine 1.1 mg/dL Cr Clearance (Est) 71.7600 mL/min eGFR 68.1 mL/min Glucose 126 mg/dL Osmolality - Calculated 282 mOsm/kg Calcium 8.9 mg/dL Protein, Total 7.4 g/dL Albumin 4.4 g/dL Globulin 3.0 g/dL Bilirubin, Total 0.4 mg/dL ALT (SGPT) 10 Units/L AST (SGOT) 19 Units/L Alkaline Phosphatase 106 IU/L WBC 4.8 10^3/uL RBC 4.24 10^6/uL HGB 13.6 g/dL HCT 41.3 % MCV 97.4 fl MCH 32.1 pg MCHC 32.9 g/dL RDW 12.2 % Platelet Count 214 10^3/uL MPV 9.3 fl Neutrophils 3.64 10^3/uL Lymphocytes 0.6 10^3/uL Monocytes 0.4 10^3/uL Eosinophils 0.1 10^3/uL Basophils 0.0 10^3/uL Neutrophil % 75.2 % Lymphocyte % 12.6 % Monocyte % 8.5 % Eosinophil % 2.5 % Basophils % 0.8 % NRBC 0.0 /100 WBC NRBC % 0 % Test performed on Oct 04, 2020 08:20 CEA 53.9 ng/mL Test performed on Sep 29, 2020 12:25 CBC Slide Review Slide Review Perform SLIDE REVIEW AGREES WITH AUTOMATED RESULTS Test performed on Sep 20, 2020 11:16 Manual Lymphocytes 15.2 % Manual Monocytes 6.8 % Manual Eosinophils 0.4 % Manual Basophils 1.1 % Test performed on Aug 24, 2020 09:23 Ua Color Yellow Ua Appearance Clear Ua Glucose Norm Ua Bilirubin Neg Ua Ketones 1+ Ua Specific [place] 1.020 Ua Blood Neg Ua pH 5.0 Ua Protein Neg Ua Nitrites Negative Ua Leukocyte Esterase Negative Impression: Near obstructive colorectal mass per colonoscopy done on April 26, 2020, biopsy Confirmed invasive adenocarcinoma, moderately differentiated CT scan of chest abdomen pelvis done on April 26, 2020 showed diffuse circumferential thickening involving sigmoid colon extending to the rectosigmoid junction. Masslike polypoid thickening measuring approximately 4 x 2.4 cm eccentric to the right. Additional lobulated soft tissue mass measuring 4.2 x 3.2 cm. Multiple enlarged perirectal lymph nodes. No enhancing lesion seen in the liver. Sigmoid thickening abuts adjacent bladder with loss of fat plane in a few location although no abnormal bladder wall thickening. Hazy groundglass opacity in the right upper lobe nonspecific measuring 9 mm. Additional 3 mm calcified nodule right upper lobe. Small bilateral thyroid nodules. Status post lap loop sigmoid colostomy done on April 29, 2020 MRI scan of the pelvis done on May 06, 2020 showed mid-upper rectal tumor is noted with a circumferential appearance extending above the level of the peritoneal reflection with a prominent extension to the muscularis into adjacent mesorectal fat. There is also a large soft tissue nodular component extending superiorly into the base of the sigmoid mesentery above the peritoneal reflection. These findings are associated with enlarged presacral lymph nodes as well as obstructive uropathy with a moderate degree of left-sided hydronephrosis due to obstruction of distal left ureter CT PET scan done on June 26, 2020 showed 2.6 x 1.9 cm left rectal mass with SUV of 11.8 and multiple perirectal lymph nodes with a minimum FDG uptake thickening of perirectal fascia consistent with involvement with malignancy. No other abnormality seen and 8 mm right middle lobe lung nodule is FDG negative probably benign, granuloma. Clinical stage T3, N2a Started on neoadjuvant chemotherapy with FOLFOX on July 12, 2020 40+ pound weight loss due to nausea and abdominal discomfort with eating due to near obstructive colorectal mass. He has started to regain his weight after completing the FOLFOX chemotherapy regimen.Later on switched to combined chemoradiation therapy with oral Xeloda as a part of total neoadjuvant therapy for rectal cancer, which she completed on December 07, 2020 Microcytic hypochromic anemia due to iron deficiency anemia probably due to chronic GI bleeding. Status post Injectafer x2 in June 2020. As of August 2020 his iron studies have corrected. Plan: Discussed with patient regarding his labs white blood count 4.8 hemoglobin 13.6 hematocrit 41.3 platelets 214,000 CMP within normal limits Clinically, patient is doing reasonably well Mild to moderate distress because of chronic left flank/pelvic pain but not radiating to left leg, no urine incontinence patient has divergent colostomy patient has already completed his combined chemoradiation for locally advanced rectal cancer now being evaluated for surgery in [place], recently underwent MRI scan of the pelvis report is pending and now scheduled for CT scan of abdomen pelvis and colonoscopy next Sunday and as per patient possible surgery in first week of February 2021 As far as his left flank pain is concerned, patient is taking Percocet anywhere from 4 to 6 tablets a day, as per patient sometimes he takes 1 or 2, also complaining of chronic right knee pain/discomfort, patient was advised that at this point we will discontinue his Percocet because of concern about acetaminophen overdose rather use oxycodone while being evaluated if his MRI scan of pelvis shows disease progression or worsening of left hydronephrosis, then will consider urology evaluation on the other hand if CT scan of pelvis shows pelvic bone involvement then we may consider radiation therapy on the other hand if his pain is not due to malignant process then we may consider referring him to pain clinic for chronic pain management. Return to clinic 2 weeks after the surgery with CBC CMP Signed By: Goldy Singleton M.D. <<Signature on File>>
== END 2021-02-04 08:12 | disposition home or self-care (01) ==
LOC: ONCMED 08:14
PROVIDERS: PCP Internal Medicine; Visit Provider Internal Medicine Hematology & Oncology
DX: C19 Malignant neoplasm of rectosigmoid junction (principal); C77.8 Secondary and unspecified malignant neoplasm of lymph nodes of multiple regions; C78.7 Secondary malignant neoplasm of liver and intrahepatic bile duct; R91.1 Solitary pulmonary nodule; E04.2 Nontoxic multinodular goiter; N13.1 Hydronephrosis with ureteral stricture, not elsewhere classified; R63.4 Abnormal weight loss; D50.0 Iron deficiency anemia secondary to blood loss (chronic); Z79.899 Other long term (current) drug therapy; Z92.21 Personal history of antineoplastic chemotherapy; Z92.3 Personal history of irradiation
CPT/HCPCS: 99214

== ENCOUNTER → 2021-04-08 08:15 | Outpatient (BNVA) | payer MEDICAID, SELFPAY | PROVIDERS: PCP Internal Medicine; Visit Provider Nurse Practitioner | DX: Z01.812 Encounter for preprocedural laboratory examination (principal); Z20.822 Contact with and (suspected) exposure to COVID-19 | CPT/HCPCS: 87635 ==

== ENCOUNTER 2025-05-19 10:43 | Emergency (ER) | payer MEDICARE, MEDICAID, SELFPAY ==
[2025-05-19] VITALS (15 sets, daily range): BP systolic 144–200; BP diastolic 95–145; PULSE 110–159; RESP 14–18; TEMP 36.9; O2SAT 89–97
--- NOTE | 2025-05-19 11:09 | CTR_ITS ---
PROCEDURE INFORMATION: Exam: CT Abdomen And Pelvis Without Contrast Exam date and time: 05/19/2025 11:45 AM Age: 64 years old Clinical indication: Abdominal pain; Other: Less colostomy output; Prior surgery; Surgery date: 6+ months; Surgery type: Ostomy surgeries; Additional info: Abd pain/ less colostomy output TECHNIQUE: Imaging protocol: Computed tomography of the abdomen and pelvis without contrast. Radiation optimization: All CT scans at this facility use at least one of these dose optimization techniques: automated exposure control; mA and/or kV adjustment per patient size (includes targeted exams where dose is matched to clinical indication); or iterative reconstruction. COMPARISON: CT abdomen pelvis w con* [id number] 06/17/2020 1:21 PM RADIATION DOSE METRICS: Total DLP (mGy-cm): 685.2 FINDINGS: Lungs: Stable 10 mm soft tissue nodule, right middle lobe, series 5, image 7. Heart: The heart is unremarkable. No cardiomegaly. No pericardial effusion. Esophagus: The visible esophagus is unremarkable. Liver: Liver is unremarkable. Gallbladder and biliary ducts: There are multiple radiopaque stones in the gallbladder lumen. The biliary tree is unremarkable, accounting for age. Pancreas: There is mild diffuse fatty infiltration of the pancreas. Spleen: There are calcified splenic granulomas. Adrenal glands: The adrenal glands are unremarkable. Kidneys and ureters: There has been interval removal of the left ureteral stent. Right kidney is unremarkable. Of the right ureter is nondistended. There is an obstructing 8 mm stone in the distal left ureter, series 5, image 71 with moderate left hydronephrosis. There is left perinephric fat stranding. Stomach and bowel: There is new postoperative change of an abdominal peroneal resection with left ventral end colostomy. There is a peristomal hernia containing multiple nondistended, non edematous loops of small bowel measuring 9 x 10 x 14 cm, series 5 and image 71. The remaining bowel is unremarkable. Appendix: Status post appendectomy. Intraperitoneal space: No intraperitoneal free fluid or fluid collection. There is no free air. Vasculature: The vasculature is unremarkable accounting for age. No abdominal aortic aneurysm. Lymph nodes: No enlarged lymph nodes. Urinary bladder: Has been interval cystectomy with ileal conduit and right ventral ostomy, series 5, image 65. Reproductive: Unremarkable as visualized. Bones/joints: There is mild spondylosis. Soft tissues: The remaining soft tissue is unremarkable. CT/CT abdomen pelvis wo con [id number] IMPRESSION: 1. 8 mm obstructing stone in the distal left ureter, series 5, image 71 with moderate left hydronephrosis. 2. Status post cystectomy with ileal conduit and right ventral ostomy. 3. Status post abdominal peroneal resection with left ventral abdominal end colostomy and large peristomal hernia containing multiple non edematous loops of small bowel. The parastomal hernia measures 9 x 10 x 14 cm.
[2025-05-19 11:10] LABS: Hematocrit 47.4 % (37-53); Hemoglobin 16.10 g/dL (11.27-16.99); Mean Corpuscular HGB Conc 34.0 g/dL (30-55); Mean Corpuscular Hemoglobin 30.0 pg (27-33); Mean Corpuscular Volume 88.4 fl (82-101); Nucleated Red Blood Cells % 0 %; Platelet Count 284 10^3/cmm (157-399); Red Blood Count 5.36 10^6/uL (3.85-5.65); White Blood Count 19.90 10^3/uL (3.29-11.43)
--- NOTE | 2025-05-19 11:12 | ED_ITS ---
HPI - Abdominal Pain 2 General: Chief Complaint: Abdominal Pain Stated Complaint: Abd Pain Time Seen by Provider: 05/19/25 10:45 Source: patient and EMS Mode of arrival: EMS Limitations: no limitations History of Present Illness: 64-year-old male and had a history of ur ostomy and colostomy 5 years ago due to a mass. Patient states he has had issues with his colostomy in the past with a hernia that had to be repaired but it was years ago. Patient states he is concerned he may have another hernia as he states he has had decreased output from his ostomy for 3 days and some swelling and pain he rates a 5 out of 10. He denies any vomiting denies any fevers Related Data Home Medications ?Medication ?Instructions ?Recorded ?Confirmed acetaminophen 650 mg 650 - 1,300 mg PO PRN PAIN 1 03/29/22 tablet,extended release (Tylenol Arthritis Pain) magnesium hydroxide 400 mg/5 mL 5 ml PO DAILY@05/1803/29/22 oral suspension (Milk of Magnesia) multivitamin 1 tab PO DAILY@06/17/20 1 lorazepam 1 mg tablet 1 mg PO TID PRN 06/07/2111/13 Previous Rx's ?Medication ?Instructions ?Recorded tamsulosin 0.4 mg capsule 0.4 mg PO QDAY #30 caps 06/26 12/13 ondansetron HCl 8 mg tablet 8 mg PO Q8H PRN nausea and 06/07/21 vomiting #90 tabs COLOSTOMY BAG AND SUPPLIES #1 ea 09/01/21 acyclovir 800 mg tablet 800 mg PO QID #28 tabs 01/09 famciclovir 500 mg tablet 500 mg PO TID #21 tabs 01/09 gabapentin 300 mg capsule 300 mg PO BID #60 caps 01/16 lidocaine 5 % topical cream 1 applic topical TID PRN p ain #30 01/16/22 grams dronabinol 10 mg capsule (Marinol) 10 mg PO BID #60 ca ps 03/28/22 Allergies Allergy/AdvReac Type Severity Reaction Status Date / Time iodine Allergy Severe hives Verified 03/29/22 09:03 Shellfish Allergy Unknown Uncoded 03/29/22 09:03 [facility] ED 2 [facility]: Medical History (Updated 05/19/25 @ 14:25 by Marlo Bolivar MD) BPH loc w urin obs/LUTS Urinary retention Anemia Pyelonephritis Resolved UTI (urinary tract infection) Resolved Sepsis Resolved Colon cancer Pyelonephritis Surgical History History of colostomy Family History Father Cancer Grandfather Cancer Grandmother Cancer Social History Smoking and tobacco/nicotine status: former use of tobacco/nicotine Alcohol intake: former Substance/Drug Use: never Marital status: Single Current occupational status: disabled Physical Exam 2 Const: COMMON NORMALS: no acute distress, patient oriented x3 and healthy appearing HENMT: COMMON NORMALS: normocephalic and atraumatic HEAD & SCALP: n ormocephalic and atraumatic Neck/C-Spine: COMMON NORMALS: full ROM and supple Chest: COMMONS NORMALS: normal inspection of the chest Resp: COMMON NORMALS: normal respiratory effort Cardio: COMMON NORMALS: regular rate, regular rhythm and No murmurs present (Cardio) RATE: regular rate RHYTHM: regular rhythm GI: OTHER: Urostomy and colostomy in place no tenderness on exam does have distention around his colostomy Extremity: COMMON NORMALS: normal to inspection and full ROM Neuro: COMMON NORMALS: patient oriented x3, moves all extremities and no focal motor deficits Psych: COMMON NORMALS: mental status grossly normal, Normal thought process present and cooperative THOUGHT PROCESS: Normal thought process present Skin: COMMON NORMALS: no rashes or lesions noted and no wounds GENERAL SKIN EXAM: no rashes or lesions noted Course 2 Vital Signs: Vital signs: Vital Signs Temperature 98.5 F 05/19/25 10:53 Pulse Rate 130 H 05/19/25 14:00 Respiratory Rate 14 05/19/25 14:00 Blood Pressure 179/118 05/19/25 14:00 Pulse Oximetry 90 05/19/25 14:00 Oxygen Delivery Me thod Room Air 05/19/25 14:00 MDM - Abdominal Pain Medical Decision Making 64-year-old male presented here with abdominal pain has history of urostomy along with colostomy in the past. Differential includes small bowel obstruction, kidney stone, bowel perforation. On his lab work he does have a elevated white count at 19.9 lactate here was normal his vital signs here been normal urinalysis does shows a urinary tract infection. CT scan does show parastomal hernia that is old with no signs of obstruction or strangulation. He does have a kidney stone. I did speak to [facility] urologist who is excepted patient for infected kidney stone he has had no signs of sepsis here. Did give him IV antibiotics Rocephin along with pain medicine. Will transfer to [facility] for high-level care of urology Medical Records I reviewed the patient's medical records. Lab Data I reviewed the patient's lab results. 05/19/25 11:01 05/19/25 11:01 Labs/Radiology: Radiology Impressions Abdomen/Pelvis CT 05/19/25 11:09 IMPRESSION: 1. 8 mm obstructing stone in the distal left ureter, series 5, image 71 with moderate left hydronephrosis. 2. Status post cystectomy with ileal conduit and right ventral ostomy. 3. Status post abdominal peroneal resection with left ventral abdominal end colostomy and large peristomal hernia containing multiple non edematous loops of small bowel. The parastomal hernia measures 9 x 10 x 14 cm. Laboratory Results WBC 19.90 10^3/uL (3.29-11.43) H 05/19/25 11:01 RBC 5.36 10^6/uL (3.85-5.65) 05/19/25 11:01 Hgb 16.10 g/dL (11.27-16.99) 05/19/25 11:01 Hct 47.4 % (37-53) 05/19/25 11:01 MCV 88.4 fl (82-101) 05/19/25 11:01 MCH 30.0 pg (27-33) 05/19/25 11:01 MCHC 34.0 g/dL (30-55) 05/19/25 11:01 RDW 12.7 % (12.1-15.1) 05/19/25 11:01 Plt Count 284 10^3/cmm (157-399) 05/19/25 11:01 MPV 8.7 fL (7.4-10.4) 05/19/25 11:01 Neut % (Auto) 89.1 % 05/19/25 11:01 Lymph % (Auto) 5.7 % 05/19/25 11:01 [place] % (Auto) 4.4 % 05/19/25 11:01 Eos % (Auto) 0.1 % 05/19/25 11:01 Baso % (Auto) 0.3 % 05/19/25 11:01 Neut # (Auto) 17.74 10^3/uL (1.8-7.7) H 05/19/25 11:01 Lymph # (Auto) 1.1 10^3/uL (0.8-4.8) 05/19/25 11:01 [place] # (Auto) 0.9 10^3/uL (0.2-0.9) 05/19/25 11:01 Eos # (Auto) 0.0 10^3/uL (0.0-0.8) 05/19/25 11:01 Baso # (Auto) 0.1 10^3/uL (0.0-0.1) 05/19/25 11:01 Nucleated RBC % (auto) 0 % 05/19/25 11:01 Nucleated RBCs # 0.0 /100WBC 05/19/25 11:01 Sodium 136 mmol/L (136-145) 05/19/25 11:01 Potassium 3.9 mmol/L (3.5-5.1) 05/19/25 11:01 Chloride 97 mmol/L (98-107) L 05/19/25 11:01 Carbon Dioxide 25 mmol/L (22-29) 05/19/25 11:01 Anion Gap 17.9 (5-19) 05/19/25 11:01 BUN 18 mg/dL (8-23) 05/19/25 11:01 Creatinine 1.9 mg/dL (0.7-1.2) H 05/19/25 11:01 GFR Calculation 35.8 mL/min (90-130) L 05/19/25 11:01 Glucose 172 mg/dL (65-115) H 05/19/25 11:01 Calculated Osmolality 288 mOsm/kg (285-295) 05/19/25 11:01 Lactic Acid 2.1 mmol/L (0.5-2.2) 05/19/25 11:01 Calcium 9.2 mg/dL (8.5-10.5) 05/19/25 11: Total Bilirubin 0.7 mg/dL (0.15-1.2) 05/19/25 11:01 AST 18 U/L (0-40) 05/19/25 11:01 ALT 17 U/L (0-41) 05/19/25 11:01 Alkaline Phosphatase 100 U/L (40-130) 05/19/25 11:01 Total Protein 8.5 g/dL (6.6-8.7) 05/19/25 11:01 Albumin 4.5 g/dL (3.5-5.2) 05/19/25 11:01 Globulin 4.0 g/dL (1.3-4.6) 05/19/25 11:01 Lipase 68 U/L (13-60) H 05/19/25 11:01 Urine Color Yellow (Yellow) 05/19/25 12:39 Urine Appearance Cloudy (CLEAR) A 05/19/25 12:39 Urine pH 7.0 (5-7) 05/19/25 12:39 Ur Specific [place] 1.016 (1.005-1.030) 05/19/25 12:39 Urine Protein 2+ (Negative) A 05/19/25 12:39 Urine Glucose (UA) Negative (Normal) 05/19/25 12:39 Urine Ketones Negative (Negative) 05/19/25 12:39 Urine Blood 2+ (Negative) A 05/19/25 12:39 Urine Nitrate Positive (Negative) A 05/19/25 12:39 Urine Bilirubin Negative (Negative) 05/19/25 12:39 Urine Urobilinogen 1.0 mg/dL (Negative) 05/19/25 12:39 Ur Leukocyte Esterase 1+ (Negative) A 05/19/25 12:39 Urine RBC 11-20 /hpf (0-2) H 05/19/25 12:39 Urine WBC 21-50 /hpf (0-5) H 05/19/25 12:39 Ur Squamous Epith Cells 6-10 /hpf (0-5) 05/19/25 12:39 Amorphous Sediment Not Reportable 05/19/25 12:39 Urine Bacteria 4+ /hpf (NONE) H 05/19/25 12:39 Hyaline Casts 11.57 /lpf 05/19/25 12:39 Urine Mucus 3+ /hpf 05/19/25 12:39 All radiology interpretation(s) finalized by discharge Discharge Plan Discharge Patient Disposition: Xfer Short-Term Hosp Clinical Impression: Kidney stone on left side, Acute cystitis, Abdominal pain Condition: Stable Referrals: Jesus Gonzalez MD [Primary Care Provider, Internal Medicine] Patient Instructions: Abdominal Pain (ED) Print Language: Macanese Coding Level of Care Code ED Recycling Worker for Yuriy Campo
[2025-05-19 11:30] LABS: Alanine Aminotransferase 17 U/L (0-41); Albumin Level 4.5 g/dL (3.5-5.2); Alkaline Phosphatase 100 U/L (40-130); Anion Gap 17.9 (5-19); Aspartate Amino Transferase 18 U/L (0-40); Blood Urea Nitrogen 18 mg/dL (8-23); Calcium 9.2 mg/dL (8.5-10.5); Carbon Dioxide 25 mmol/L (22-29); Chloride 97 mmol/L (98-107); Globulin 4.0 g/dL (1.3-4.6); Glucose 172 mg/dL (65-115); Lipase 68 U/L (13-60); Osmolality Calculated 288 mOsm/kg (285-295); Potassium 3.9 mmol/L (3.5-5.1); Sodium 136 mmol/L (136-145); Total Protein 8.5 g/dL (6.6-8.7)
--- OUTSIDE RECORDS SUMMARY | 2025-05-19 11:41 | XMS_ITS | Encounter Summary ---
Author Organization [facility] Address [address] [place] [address] Care Team Providers Care Occupational Therapy Specialist Name Role Phone Unavailable Primary Care Provider Unavailabl e Encounter Details Date Type Department Care Team (Latest Contact Info) Description 08/09/2000 Outpatient Historical [facility] Stoney [place] [address] [place] [address], [place] [id number] Peripheral vascular disease, unspecified (Primary Dx) Social History Tobacco Use Types Packs/Day Years Used Date Smoking Tobacco: Never Assessed Sex and Gender Information Value Date Recorded Sex Assigned at Not on file 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
--- OUTSIDE RECORDS SUMMARY | 2025-05-19 11:41 | XMS_ITS | Encounter Summary ---
Author Organization [facility] Address [address] [place] [address] Care Team Providers Care Data Entry Processor Name Role Phone Unavailable Primary Care Provider Unavailabl e Encounter Details Date Type Department Care Team (Latest Contact Info) Description 03/29/2000 Outpatient Historical [facility] Stoney Frederick [address], [place] [id number] Peripheral vascular disease, unspecified (Primary Dx) Social History Tobacco Use Types Packs/Day Years Used Date Smoking Tobacco: Never Assessed Sex and Gender Information Value Date Recorded Sex Assigned at Not on file 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
--- OUTSIDE RECORDS SUMMARY | 2025-05-19 11:41 | XMS_ITS | Patient Health Record ---
Author Organization [facility] Address [address] [place] [address] [place] [address] Care Team Providers Care Grain Broker Name Role Phone Naga Gonzalez Primary Care Provider [phone] Allergies Allergen (clinical drug ingredient) Drug/Non Drug Allergy documented on EMR Reaction Allergy Type Onset Date Status Iodine Unknown Drug Allergy Active Results Component Value Reference Range Flag Notes Comprehensive Metabolic Pane l (CMP) 75760 (Not yet reviewed by provider) Interpretation: Performing Lab: Notes/Report: Diagnosis Description: Personal history of other malignant neoplasm of rectum, rectosigmoid junction, and anus Glucose Serum 127 71-110 MG/DL HI Testing p erformed at [facility], [address] [place] [address] [place] [address]. CLIA ID#: [id number] BUN 16 7-21 MG/DL Creat 1.62 .57-1.17 MG/DL HI Y-ysezba-d-benzoquinone imine (NAPQI) is a metabolite of acetaminophen, NAPQI concentrations of apparoximately 10 mg/L correlation to toxic levels of acetaminophen demonstrates a greater than or equil to 10% change in results. NAPQI concentrations greater than this may lead to falsely depressed results for patient samples. Use of this assay is not recommended for patients undergoing treatment with phenindione, due to the potential for falsely depressed results. GFR 46.8 NA Calculation pe rformed from GFR calculator provided by the [employer]. Glomerular Filtration rate(GRF) is the best overall index of kidney function. Normal GFR varies according to age,sex, body size, and declines with age. The National [employer] recommends using the CKD-EPI Creatinine Equation(2020) to estimate GFR. BUN/Creat Ratio 9.9 12.0-20.0 % LOW Total Protein 7.9 5.8-8.0 G/DL Albumin 4.7 3.2-4.8 G/DL Globulin 3.2 2.3-3.5 G/DL Alb/Glob 1.5 0.8-2.2 Calcium 9.6 8.7-10.4 MG/DL Sodium 138 136-145 MMOL/L Potassium 3.7 3.5-5.1 MMOL/L Chloride 103 98-107 MMOL/L CO2 24.1 20.0-31.0 MMOL/L Anion Gap 15 5-15 Alk Phos 102 46-116 Bili Total .4 .3-1.2 MG/DL Use of this assay is not recommended for patients undergoing treatment with eltrombopag due to the potential for falsely elevated results. AST/SGOT 37 15-37 UNIT/L ALT/SGPT 32 12-78 UNIT/L Osmo Serum,Calculated 289 280-300 MOSM/KG % Iron Saturation (Fe & TIBC )--12669,56489 (Not yet reviewed by provider) Interpretation: Performing Lab: Notes/Report: Diagnosis Description: Personal history of other malignant neoplasm of rectum, rectosigmoid junction, and anus Iron 66 65-175 MCG/DL Per Iron as say instruction for Use(IFU), patients treated with metal-binding drugs (e.g.deferoxamine) may have depressed iron values as chelated iron may not properly react in the iron assay. Testing was performed with this assay method. TIBC 294 250-450 NG/DL % Iron Saturation 22 20-50 % CBC w\ Auto Diff 15584 (Not yet reviewed by provider) Interpretation: Performing Lab: Notes/Report: Diagnosis Description: Personal history of other malignant neoplasm of rectum, rectosigmoid junction, and anus WBC 6.3 4.5-11.0 X10'3 RBC 5.10 4.50-5.90 X10'6 Hgb 15.2 13.5-17.5 G/DL Hct 46.3 41.0-53.0 % MCV 90.8 80.0-100.0 FL MCH 29.8 27.0-31.0 PG MCHC 32.8 31.0-37.0 G/DL Platelet 268 150-400 X10'3 RDW-SD 43.3 35.0-49.0 FL RDW-CV 12.8 12.2-15.6 % MPV 10.0 9.2-12.0 FL Neutro Auto% 66.3 40.0-70.0 % Lymph Auto% 22.8 22.0-44.0 % Mineral Auto% 7.2 3.0-7.0 % HI Eos Auto% 1.8 2.0-4.0 % LOW Baso Auto% 1.1 0.0-1.0 % HI Imm Gran% .8 .0-.4 % HI Neutro Abs 4.15 .80-7.70 Absolute Neutrophil Count 4150 NA Lymph Abs 1.43 .10-4.10 Mineral Abs .45 .20-1.00 Eos Abs .11 .00-.40 Baso Abs .07 .00-.20 Imm Gran Abs .05 .00-.10 NRBC# .00 .00-.20 NRBC% .00 .00-.20 /100 int act WBC's [place] n [address] (Not yet reviewed by provider) Interpretation: Performing Lab: Notes/Report: Diagnosis Description: Personal history of other malignant neoplasm of rectum, rectosigmoid junction, and anus CEA 7.0 .0-3.8 NG/ML HI Performed on the [employer] Sp[employer] Atell[employer] Solution IM Reason For Referral No Information Medications Medication SIG (Take, Route, Frequency, Duration) Notes Start Date End Date Status PARoxetine HCl 40 MG Tablet 1 Orally Once a day; Duration: 90 days Active Immunizations Vaccine Route Administration Date Status Comme nts Flucelvax Trivalent, Syringe 0.5 mL, PF Unknown 08/01/2024 Administered Social History Tobacco Use: Social History Observation Description Date Details (start date - stop date) Never Smoker NA - NA Social History Depression Screening Social Info Question Answer Notes depression screening findings Findings Positive (5+ without suicidality) 03/16/25 PHQ-9 Little interest or pleasure in doing things Several days Feeling down, depressed, or hopeless Several day s Trouble falling or staying asleep, or sleeping t oo much Several days Feeling tired or having little energy Several da ys Poor appetite or overeating Several days Feeling bad about yourself, or that you are a failure, or have let yourself or your family down Several days Trouble concentrating on thi ngs, such as reading the newspaper or watching television More than half the days Moving or speaking so slowly that other people could have noticed. Or the opposite ? being so fidgety or restless that you have been moving around a lot more than usual Not at all Thoughts that you would be b stuart off , or of hurting yourself in some way Not at all Total Score 8 Interpretation Mild Depression Drugs/Alcohol: Social Info Question Answer Notes Alcohol Screen (Audit-C) Did you have a drink containing alcohol in the past year? No Points 0 Interpretation Negative Drugs Have you used drugs other than those for medical reasons in the past 12 months? No Comprehensive Health Assessm ent Social Info Question Answer Notes *Social Determinants of Health Has lack of transportation kept you from medical appointments, meetings, work or from getting things needed for daily living? No Recently, have you worried t hat your food would run out before you got money to buy more? No Do you feel physically and emotionally safe wher e you currently live? Yes Are you worried about losing your housing? No Have you recently been fidel rned that your utilities would be turned off (electricity, gas, or water)? No Tobacco Use: Social Info Question Answer Notes Tobacco Control (Standard) Tobacco use: Nonsmoker Section Notes: Dep/tob - 07/31/24 Dep/tob - 07/31/24 Dep/tob - 07/31/24 CIME Dep/tob - 03/16/25 Problems Problem Type SNOMED Code ICD Code Onset Dates Problem Status W/U Status Risk Notes Problem Moderate recurrent major depression (69695312) Moderate episode of recurrent major depressive disorder (F33.1) Active confirmed Problem History of malignant neoplasm of rectum (850500675) History of rectal cancer (Z85.048) Active confirmed Problem Urostomy care (regime/therapy ) (439236057) Attention to urostomy (Z43.6) Active confirmed Vital Signs Heart Rate 108 /min 03/16/2025 Temperature 98.2 degrees Fahrenheit 03/16/2025 Blood pressure diastolic 100 mm Hg 03/16/2025 Oximetry 96 % 03/16/2025 Height-cm 195.58 cm 03/16/2025 Weight-kg 87.09 kg 03/16/2025 Height 77 in 03/16/2025 Blood pressure systolic 180 mm Hg 03/16/2025 Weight 192 lbs 03/16/2025 BMI 22.77 kg/m2 03/16/2025 Encounters Encounter Location Date Provider Diagnosis [facility] [address] [address] 03/16/2025 Naga Gonzalez Encounter for Medicare annual wellness exam Z00.00 ; History of rectal cancer Z85.048 ; Attention to urostomy Z43.6 ; Moderate episode of recurrent major depressive disorder F33.1 ; ACP (advance care planning) Z71.89 and Depression screen Z13.31 [facility] [address] [address] 01/27/2025 Naga Gonzalez Moderate episode of recurrent major depressive disorder F33.1 ; Attention to urostomy Z43.6 and History of rectal cancer Z85.048 [facility] [address] [address] 07/31/2024 Naga Gonzalez Moderate episode of recurrent major depressive disorder F33.1 ; History of rectal cancer Z85.048 ; Immunization not carried out because of patient refusal Z28.21 ; Positive depression screening Z13.31 ; Depression screen Z13.31 and Encounter for immunization Z23 [facility] [address] [address] 02/16/2025 Naga Gonzalez Assessments Encounter Date Diagnosis (ICD Code) Assessment Notes Treatment Notes Treatment Clinical Notes Section Notes 07/31/2024 Moderate episode of recurrent major depressive disorder (ICD-10 - F33.1) He needs to divide his dose. Depression screening performed using PHQ-9 depression scale. Score greater than 5 indicating possible moderate depression. Plan of care discussed with patient and implemented accordingly, including any medications, referrals, education tools, and follow-up evaluations as deemed appropriate. 01/27/2025 Attention to urostomy (ICD-10 - Z43.6) 03/16/2025 Encounter for Medicare annual wellness exam (ICD-10 - Z00.00) Return in one year for your annual wellness visit. 07/31/2024 History of rectal cancer (ICD-10 - Z85.048) I will take a cue from his oncologist on when he needs his scope. Depression screening performed using PHQ-9 depression scale. Score greater than 5 indicating possible moderate depression. Plan of care discussed with patient and implemented accordingly, including any medications, referrals, education tools, and follow-up evaluations as deemed appropriate. 01/27/2025 Moderate episode of recurrent major depressive disorder (ICD-10 - F33.1) 03/16/2025 History of rectal cancer (ICD-10 - Z85.048) 01/27/2025 History of rectal cancer (ICD-10 - Z85.048) 03/16/2025 Attention to urostomy (ICD-10 - Z43.6) He is using his ostomy supplies. 07/31/2024 Immunization not carried out because of patient refusal (ICD-10 - Z28.21) Depression screening performed using PHQ-9 depression scale. Score greater than 5 indicating possible moderate depression. Plan of care discussed with patient and implemented accordingly, including any medications, referrals, education tools, and follow-up evaluations as deemed appropriate. 07/31/2024 Positive depression screening (ICD-10 - Z13.31) Depression screening performed using PHQ-9 depression scale. Score greater than 5 indicating possible moderate depression. Plan of care discussed with patient and implemented accordingly, including any medications, referrals, education tools, and follow-up evaluations as deemed appropriate. 03/16/2025 Moderate episode of recurrent major depressive disorder (ICD-10 - F33.1) 03/16/2025 ACP (advance care planning) (ICD-10 - Z71.89) 07/31/2024 Depression screen (ICD-10 - Z13.31) Depression screening performed using PHQ-9 depression scale. Score greater than 5 indicating possible moderate depression. Plan of care discussed with patient and implemented accordingly, including any medications, referrals, education tools, and follow-up evaluations as deemed appropriate. 07/31/2024 Encounter for immunization (ICD-10 - Z23) Depression screening performed using PHQ-9 depression scale. Score greater than 5 indicating possible moderate depression. Plan of care discussed with patient and implemented accordingly, including any medications, referrals, education tools, and follow-up evaluations as deemed appropriate. 03/16/2025 Depression screen (ICD-10 - Z13.31) 03/16/2025 Other Spent 16 mins discussing ACP DX: Z71.89 Discussed Advance Care Planning. Patient does not have an advance care plan or surrogate decision maker in place. Encouraged patient to consider options, provided with resources to help make decisions regarding advance care options. 1124F Spent 16 mins discussing ACP DX: Z71.89 Discussed Advance Care Planning. Patient has an advance care plan or surrogate decision maker in place. A copy of pertinent documents have been requested or exist in the chart currently. 1123F Venipuncture performed by Haylee Monae. Left arm/hand. One attempt. Pt tolerated well, bleeding controlled with light dressing. Lab sent to [facility] via early childhood services coordinator. Plan Of Treatment Pending Test Test Name Order Date Carcinogenicembryonic Antigen 19171 02/24 CBC w\ Auto Diff 57753 03/16/2025 Comprehensive Metabolic Panel (CMP) 8005 3 03/16/2025 % Iron Saturation (Fe & TIBC)--33934,835 50 03/16/2025 Next Appt Details Provider Name:Naga Gonzalez, 07/28/2025 09:20:00 AM, [address] [place] [address], [phone], Insurance Providers Payer Name Payer Address Payer Phone Subscriber Number Group Number Insured Name Patient Relationship to Insured Coverage Start Date Coverage End Date [place] [address] [address] [place] [address] [id number] Larry Louis Self - patient is the insured [place] Medicaid [address] [place] [address] [phone] [id number] Larry Louis Self - patient is the insured Medical (General) History Medical History History ICD Code cancer of colon bladder cancer prostate cancer Surgical History Surgery Date(Month/Year) colon and bladder colostomy prostate Hospitalization History Reason Date(Month/Year) see surgical hx
--- OUTSIDE RECORDS SUMMARY | 2025-05-19 11:41 | XMS_ITS | Encounter Summary ---
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
--- OUTSIDE RECORDS SUMMARY | 2025-05-19 11:41 | XMS_ITS | Encounter Summary ---
Author Organization [employer] [facility] Address [address] [place] [address] Care Team Providers Care Pinked Edge Sewing Machine Operator Name Role Phone Unavailable Primary Care Provider Unavailabl e Encounter Details Date Type Department Care Team (Late st Contact Info) Description 09/07/2000 Outpatient Historical [facility] [address] [place], [place] [address] Peripheral vascular disease, unspecified (Primary Dx) Social History Tobacco Use Types Packs/Day Years Used Date Smoking Tobacco: Never Assessed Sex and Gender Information Value Date Recorded Sex Assigned at Not on file 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
--- OUTSIDE RECORDS SUMMARY | 2025-05-19 11:41 | XMS_ITS | Encounter Summary ---
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
--- OUTSIDE RECORDS SUMMARY | 2025-05-19 11:41 | XMS_ITS | Encounter Summary ---
Author Organization [employer] [facility] Address [address] [place] [address] Care Team Providers Care Clinical Nurse Occupational Medicine Name Role Phone Unavailable Primary Care Provider Unavailabl e Encounter Details Date Type Department Care Team (Latest Contact Info) Description 10/09/2000 Outpatient Historical [facility] [address] [place], [place] [address] Peripheral vascular disease, unspecified (Primary Dx) Social History Tobacco Use Types Packs/Day Years Used Date Smoking Tobacco: Never Assessed Sex and Gender Information Value Date Recorded Sex Assigned at Not on file 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
--- OUTSIDE RECORDS SUMMARY | 2025-05-19 11:41 | XMS_ITS | Encounter Summary ---
Author Organization [employer] [facility] Address [address] [place] [address] Care Team Providers Care Oil Dispatcher Name Role Phone Unavailable Primary Care Provider Unavailabl e Encounter Details Date Type Department Care Team (Latest Contact Info) Description 02/14/2000 Outpatient Historical [facility] [address] [place], [place] [id number] Pain in limb (Primary Dx) Social History Tobacco Use Types Packs/Day Years Used Date Smoking Tobacco: Never Assessed Sex and Gender Information Value Date Recorded Sex Assigned at Not on file 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
--- OUTSIDE RECORDS SUMMARY | 2025-05-19 11:41 | XMS_ITS | Encounter Summary ---
Author Organization [employer] [facility] Address [address] [place] [address] Care Team Providers Care Critical Power Technician Name Role Phone Unavailable Primary Care Provider Unavailabl e Encounter Details Date Type Department Care Team (Latest Contact Info) Description 05/07/2000 Outpatient Historical [facility] [address] [place], [place] [id number] Peripheral vascular disease, unspecified (Primary Dx) Social History Tobacco Use Types Packs/Day Years Used Date Smoking Tobacco: Never Assessed Sex and Gender Information Value Date Recorded Sex Assigned at Not on file Legal Sex Male 2:44 AM VACUUM TESTER CANS Gender Identity Not on file Sexual Orientation Not on file documented as of this encounter Plan of Treatment Not on file documented as of this encounter Visit Diagnoses Diagnosis Peripheral vascular disease, unspecified- Primary documented in this encounter
--- OUTSIDE RECORDS SUMMARY | 2025-05-19 11:41 | XMS_ITS | Encounter Summary ---
Author Organization [facility] Address [address] [place] [address] Care Team Providers Care Automotive Parts Manager Name Role Phone Unavailable Primary Care Provider Unavailabl e Encounter Details Date Type Department Care Team (Latest Contact Info) Description 02/29/2000 Outpatient Historical [facility] [place] [address] [place] [address] aTj Armas MD NO ADDRESS ON FILE Gangrene (CMS/HCC) (Primary Dx) Social History Tobacco Use Types Packs/Day Years Used Date Smoking Tobacco: Never Assessed Sex and Gender Information Value Date Recorded Sex Assigned at Not on file Legal 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
--- OUTSIDE RECORDS SUMMARY | 2025-05-19 11:41 | XMS_ITS | Encounter Summary ---
Author Organization [employer] [facility] Address [address] [place] [address] Care Team Providers Care Offshore Wind Turbine Technician Name Role Phone Unavailable Primary Care Provider Unavailabl e Encounter Details Date Type Department Care Team (Late st Contact Info) Description 04/19/2001 Outpatient Historical HIS [facility] Kailash Pringle MD NO ADDRESS ON FILE Peripheral vascular disease, unspecified (Primary Dx) Social History Tobacco Use Types Packs/Day Years Used Date Smoking Tobacco: Never Assessed Sex and Gender Information Value Date Recorded Sex Assigned at Not on file Legal 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
--- OUTSIDE RECORDS SUMMARY | 2025-05-19 11:41 | XMS_ITS | Encounter Summary ---
Author Organization [employer] [facility] Address [address] [place] [address] Care Team Providers Care Paper Hanger Name Role Phone Unavailable Primary Care Provider Unavailabl e Encounter Details Date Type Department Care Team (Latest Contact Info) Description 03/15/2000 Outpatient Historical [facility] [address] [place], [place] [address] Peripheral vascular disease, unspecified (Primary Dx) Social History Tobacco Use Types Packs/Day Years Used Date Smoking Tobacco: Never Assessed Sex and Gender Information Value Date Recorded Sex Assigned at Not on file Legal Sex Male 2:44 AM ENROLLMENT CONSULTANT Gender Identity Not on file Sexual Orientation Not on file documented as of this encounter Plan of Treatment Not on file documented as of this encounter Visit Diagnoses Diagnosis Peripheral vascular disease, unspecified- Primary documented in this encounter
--- OUTSIDE RECORDS SUMMARY | 2025-05-19 11:41 | XMS_ITS | Encounter Summary ---
Author Organization [employer] [facility] Address [address] [place] [address] Care Team Providers Care Stump Shooter Name Role Phone Unavailable Primary Care Provider Unavailabl e Encounter Details Date Type Department Care Team (Latest Contact Info) Description 06/26/2000 Outpatient Historical HIS [facility] [address] [place], [place] [address] Peripheral vascular disease, unspecified (Primary Dx) Social History Tobacco Use Types Packs/Day Years Used Date Smoking Tobacco: Never Assessed Sex and Gender Information Value Date Recorded Sex Assigned at Not on file Legal 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
--- OUTSIDE RECORDS SUMMARY | 2025-05-19 11:41 | XMS_ITS | Encounter Summary ---
Author Organization [email or web address] [facility] Address [address] [place] [address] Care Team Providers Care Electron Tube Assembler Name Role Phone Unavailable Primary Care Provider Unavailabl e Encounter Details Date Type Department Care Team (Latest Contact Info) Description 04/23/2000 Outpatient Historical HIS [facility] Stoney Frederick [address], [place] [address] Peripheral vascular disease, unspecified (Primary Dx) Social History Tobacco Use Types Packs/Day Years Used Date Smoking Tobacco: Never Assessed Sex and Gender Information Value Date Recorded Sex Assigned at Not on file Legal Sex Male 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
--- OUTSIDE RECORDS SUMMARY | 2025-05-19 11:41 | XMS_ITS | Encounter Summary ---
Author Organization [facility] Address [address] [place] [address] Care Team Providers Care Edge Trimmer Mechanic Name Role Phone Unavailable Primary Care Provider Unavailabl e Encounter Details Date Type Department Care Team (Latest Contact Info) Description 02/29/2000 Outpatient Historical HIS [facility] Stoney Frederick [address], [place] [id number] Pain in limb (Primary Dx) Social History Tobacco Use Types Packs/Day Years Used Date Smoking Tobacco: Never Assessed Sex and Gender Information Value Date Recorded Sex Assigned at Not on file Legal Sex Male 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
--- OUTSIDE RECORDS SUMMARY | 2025-05-19 11:41 | XMS_ITS | Encounter Summary ---
Author Organization [employer] [facility] Address [address] [place] [address] Care Team Providers Care Secondary History Teacher Name Role Phone Unavailable Primary Care Provider Unavailabl e Encounter Details Date Type Department Care Team (Latest Contact Info) Description 09/07/2000 Outpatient Historical HIS [facility] Stoney Frederick [address] [place] [address] Phlebitis and thrombophlebitis of lower extremities, unspecified (Primary Dx) Social History Tobacco Use Types Packs/Day Years Used Date Smoking Tobacco: Never Assessed Sex and Gender Information Value Date Recorded Sex Assigned at Not on file 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
--- OUTSIDE RECORDS SUMMARY | 2025-05-19 11:41 | XMS_ITS | Encounter Summary ---
Author Organization 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
--- OUTSIDE RECORDS SUMMARY | 2025-05-19 11:41 | XMS_ITS | Encounter Summary ---
Author Organization [employer] [facility] Address [address] [place] [address] Care Team Providers Care Tube Builder Airplane Name Role Phone Unavailable Primary Care Provider Unavailabl e Encounter Details Date Type Department Care Team (Latest Contact Info) Description 05/29/2000 Outpatient Historical HIS [facility] Stoney Frederick [address], [place] [address] Peripheral vascular disease, unspecified (Primary Dx) Social History Tobacco Use Types Packs/Day Years Used Date Smoking Tobacco: Never Assessed Sex and Gender Information Value Date Recorded Sex Assigned at Not on file 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
--- OUTSIDE RECORDS SUMMARY | 2025-05-19 11:41 | XMS_ITS | Clinical Summary ---
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
[2025-05-19 11:53] LABS: Lactic Sepsis W/Reflex 2.1 mmol/L (0.5-2.2)
[2025-05-19] MEDS: ondansetron 2 mg/ML SDV 2 mL 4 MG IVP (11:55)
[2025-05-19] MEDS: morphine 4 mg/mL SDV 1 mL IVP ×2 (11:55→19:50)
[2025-05-19] MEDS: hyDRALAzine 20 mg/mL INJ 1 mL 10 MG IVP (12:27)
[2025-05-19 12:45] LABS: Glucose Urine UA Negative (Normal); Nitrate Urine Positive (Negative); Specific Gravity, Urine 1.016 (1.005-1.030)
[2025-05-19 12:48] LABS: Add Urine Microscopic? YES; Universal Test for UA Present (0)
[2025-05-19 13:06] LABS: UA Slide Review UA Slide Review Perf
[2025-05-19 13:07] LABS: Reflex Lactate Order REFLEX LACTIC ORDERD
[2025-05-19] MEDS: HYDROmorphone 0.5 MG/0.5 ML INJ IVP (14:12)
[2025-05-19] MEDS: cefTRIAXone 1,000 mg SDV 1000 MG IVP (14:13)
[2025-05-19 14:21] LABS: Lactic Acid level (Lactate) 2.2 mmol/L (0.5-2.2)
--- NOTE | 2025-05-19 15:53 | ECG_ITS ---
[facility] Test Date: 2025-05-19 Pat Name: Larry Louis Department: Room: Gender: Male Food Chemist: : 1960 Requested By: Marlo Bolivar Order Number: [id number] Kiana MD: Seven Norton M.D. Measurements Intervals [place] Rate: 131 P: 27 [place]: 128 QRS: 12 QRSD: 85 T: 59 QT: 333 QTc: 493 Interpretive Statements SINUS TACHYCARDIA ABNORMAL RHYTHM ECG No previous ECG available for comparison Electronically Signed On 05-23-2025 17:59:25 SENIOR QUALITY TECHNICIAN by Seven Norton M.D. [id number]
[2025-05-19] MEDS: labetalol 5 mg/mL SDV 20mL 10 MG IVP (16:13)
--- NOTE | 2025-05-19 16:22 | PC.NURSE ---
This RN gave report with Seema TANG at about pt. at 1618. no bed available at this time.
--- NOTE | 2025-05-19 21:37 | ECG_ITS ---
[facility] 2025-05-19 Pat Name: Larry Louis Department: Room: Gender: Male Ice Cream Freezer Assistant: : 1960 Requested By: Marlo Bolivar Order Number: [id number] Kiana MD: Kenroy Huggins M.D. Measurements Intervals [place] Rate: 157 P: 44 ID: 125 QRS: 41 QRSD: 85 T: 51 QT: 306 QTc: 496 Interpretive Statements SINUS TACHYCARDIA, POSSIBLE ATRIAL FLUTTER NONSPECIFIC ST & T-WAVE ABNORMALITY Compared to ECG 05/19/2025 15:53:26 No significant changes Electronically Signed On 05-21-2025 18:06:19 CLINCHING MACHINE OPERATOR by Kenroy Huggins M.D. [email or web address] [id number]
--- NOTE | 2025-05-19 23:13 | PC.NURSE ---
pt. placed on 4L from 3L o2
[2025-05-20] VITALS (23 sets, daily range): BP systolic 97–172; BP diastolic 64–113; PULSE 101–142; RESP 14–20; O2SAT 91–97
[2025-05-20] MEDS: ondansetron 2 mg/ML SDV 2 mL 4 MG IVP (07:10)
[2025-05-20] MEDS: morphine 4 mg/mL SDV 1 mL IVP ×4 (07:10→20:09)
[2025-05-20] MEDS: cefTRIAXone 1,000 mg SDV 1000 MG IVP (11:23)
[2025-05-20 11:29] LABS: Hematocrit 44.2 % (37-53); Hemoglobin 14.40 g/dL (11.27-16.99); Mean Corpuscular HGB Conc 32.6 g/dL (30-55); Mean Corpuscular Hemoglobin 29.9 pg (27-33); Mean Corpuscular Volume 91.9 fl (82-101); Nucleated Red Blood Cells % 0 %; Platelet Count 232 10^3/cmm (157-399); Red Blood Count 4.81 10^6/uL (3.85-5.65); White Blood Count 17.16 10^3/uL (3.29-11.43)
--- NOTE | 2025-05-20 11:47 | CTR_ITS ---
PROCEDURE INFORMATION: Exam: CTA Chest With Contrast Exam date and time: 05/20/2025 1:08 PM Age: 64 years old Clinical indication: Dyspnea TECHNIQUE: Imaging protocol: Computed tomographic angiography of the chest with contrast. Exam focused on the arteries. 3D rendering (Not supervised by radiologist): MIP and/or 3D reconstructed images were created by the technologist. Radiation optimization: All CT scans at this facility use at least one of these dose optimization techniques: automated exposure control; mA and/or kV adjustment per patient size (includes targeted exams where dose is matched to clinical indication); or iterative reconstruction. Contrast material: [id number]; Contrast volume: 100 ml; Contrast route: INTRAVENOUS (IV); COMPARISON: 1. CT chest abdpel w/*[id number] 04/26/2020 12:[address] abdomen pelvis wo con [id number] 05/19/2025 11:45 AM RADIATION DOSE METRICS: Total DLP (mGy-cm): 451.03 FINDINGS: Tubes, catheters and devices: MediPort catheter in place via a right internal jugular approach. Distal tip of the catheter terminates within the mid to distal superior vena cava. Pulmonary arteries: Main pulmonary artery is normal in caliber. Aorta: Normal caliber of the ascending and descending thoracic aorta. No evidence for dissection. Origins of the great vessels are patent. Thyroid: Thyroid gland appears nodular. Appearance is unchanged. Lungs: 3 mm focal filling defect is present within a left lower lobe segmental pulmonary artery (image 276 of series 11). There is no large central or segmental pulmonary embolism. 6 mm calcified nodule of the left lung apex. Dependent atelectatic changes are present within the right and left lower lobe. Patchy atelectatic changes present within the lingula. Oval 12 mm nodule within the right middle lobe (image 258 of series 11). This was present on prior CT scan of the chest dated April 26, 2020 and appears relatively similar. Atelectatic changes are present within the anteromedial aspect of the right middle lobe. Changes extend to the pleural surface. Areas of paraseptal emphysematous change or bullous emphysematous changes present within the posterior aspect of the right upper lobe. Associated atelectatic changes present. Areas of slight architectural distortion is present along the margin of the minor fissure within the posteroinferior right middle lobe. This abuts the pleural surface and more likely corresponds to an area of atelectatic change or scarring. Calcified granuloma of the posterior right lung base. This is benign. Small 2 mm subpleural nodule within the superior segment of the left lower lobe (image 221 of series 11). No airspace consolidation suspicious for pneumonia. No large mass. Pleural spaces: Trace posterior left pleural effusion. No large pleural effusion. Heart: See Coronary arteries finding. Heart RV/LV ratio: 0.83 Coronary arteries: Moderate dense coronary artery calcifications are present. No pericardial effusion. Heart size within normal limits. Mediastinal space: No mediastinal mass or fluid collection. No enlarged or suspicious mediastinal lymph nodes. No hilar mass Lymph nodes: No suspicious axillary lymphadenopathy or mass. Calcified pretracheal, precarinal and subcarinal lymph nodes are present. Findings appear unchanged. No suspicious lymphadenopathy within the upper abdomen. Diaphragm: No hiatal hernia. Liver: The liver is diffusely decreased in density, compatible with hepatic steatosis. Liver appears mildly enlarged. No suspicious mass or lesion within the liver. Early timing of the contrast bolus limits evaluation. Gallbladder and biliary ducts: Multiple gallstones are present. No pericholecystic inflammatory changes to suggest cholecystitis. Pancreas: Visualized portion of the pancreas appears unremarkable for a noncontrast evaluation. Small calcifications are present at the head of the pancreas which can be seen in the setting of prior pancreatitis. Spleen: Small calcified granulomas are scattered within the spleen. Adrenal glands: 1.8 cm right adrenal nodule is unchanged. Nodular fullness of the left adrenal gland is unchanged. Kidneys: Partial visualization of persistent left hydronephrosis. Degree of perinephric stranding of the left has decreased. Stomach: Stomach is distended with fluid. Intestine: Visualized small bowel loops appear unremarkable. Visualized portion of the colon appears unremarkable. Intraperitoneal space: Slight increase in stranding within the peritoneal fat along the medial margin of the right lobe of the liver. No significant free fluid within the visualized portion of the abdomen. Bones/joints: Moderately advanced degenerative changes are present within the visualized portion of the lower cervical spine. No suspicious lytic or sclerotic bone lesion. No acute fracture. Moderate spinal canal narrowing is present at C6-C7. Soft tissues: Unremarkable. CT/CT angio chest PE protcl [id number] IMPRESSION: 1. Small 3 mm segmental pulmonary embolism within a left lower lobe pulmonary artery. No other evidence of pulmonary embolism. 2. No CT evidence of elevated right heart pressure (right ventricle to left ventricle diameter ratio is less than 1). 3. Cholelithiasis without evidence of acute cholecystitis. 4. Previously seen nodule within the right middle lobe likely is unchanged. Slice thickness on prior CT scan limits direct comparison. 5. Partial visualization of persistent left hydronephrosis. 6. Trace left pleural effusion. 7. Atelectatic changes are present within the right and left lung as described. No discrete new pulmonary nodule or mass. No airspace consolidation suspicious for pneumonia. 8. Low-density right adrenal nodule is unchanged. Nodular fullness of the left adrenal gland appears unchanged. 9. Fatty liver. Liver is mildly enlarged. 10. Additional findings as described. COMMENTS: 1. THIS REPORT CONTAINS FINDINGS THAT MAY BE CRITICAL TO PATIENT CARE. The exam findings were verbally communicated by me to LATASHA CALHOUN via telephone conference at 1:58 PM HYDROBLASTER on 05/20/2025. The findings were acknowledged and understood. 2. The presence of pulmonary emphysema on CT is an independent risk factor for lung cancer. In the absence of a history or active diagnosis of lung cancer, it is recommended that this patient with emphysema be evaluated for enrollment in a low dose CT lung cancer screening program.
[2025-05-20 11:54] LABS: Alanine Aminotransferase 12 U/L (0-41); Albumin Level 3.5 g/dL (3.5-5.2); Alkaline Phosphatase 82 U/L (40-130); Anion Gap 18.3 (5-19); Aspartate Amino Transferase 15 U/L (0-40); Blood Urea Nitrogen 22 mg/dL (8-23); Calcium 8.7 mg/dL (8.5-10.5); Carbon Dioxide 22 mmol/L (22-29); Chloride 102 mmol/L (98-107); Globulin 3.7 g/dL (1.3-4.6); Glucose 129 mg/dL (65-115); Osmolality Calculated 291 mOsm/kg (285-295); Potassium 4.3 mmol/L (3.5-5.1); Sodium 138 mmol/L (136-145); Total Protein 7.2 g/dL (6.6-8.7)
[2025-05-20] MEDS: methylPREDNISolone sod succ 40 mg/mL INJ IVP (12:22)
[2025-05-20] MEDS: diphenhydrAMINE 50 mg/mL SDV 1mL IVP (12:22)
--- NOTE | 2025-05-20 12:56 | P.CONIM_ITS ---
Providers/Reason For Consult 2 Consulting Physician/Specialty*: Emergency medicine Reason for Consult*: Medical management Requesting Physician: Dr. Marlo Bolivar Attending Physician: Angelic Gilmore NP Primary Care Provider: Jesus Gonzalez MD History of Present Illness History of Present Illness Larry Louis is a 64 year old male Patient presented with abdominal pain with prior history of urostomy and colostomy in the past. Pain is left-sided around colostomy site. Reports decreased output from his colostomy, however also has had minimal intake over the past 3 days. ED workup with CT of abdomen/pelvis showed an 8 mm obstructing stone in the distal left ureter with moderate left hydronephrosis. ED Work-Up Labs 05/20/25 1125 Infection/Inflammation LA 2.2 Hemogram WBC 17.16 RBC 4.81 PLT 232 Hgb 14.4 HCT 44.2 Chemistry Na 138 K 4.3 Cl 102 Ca 8.7 Glu 129 CO2 22 AG 18.3 BUN 22 Cr 2.0 eGFR 33.7 Liver AST 15 ALT 12 ALP 82 T.Bili 0.9 Alb [address] Abdomen/Pelvis, 05/19/25 * 8 mm obstructing stone in the distal left ureter, series 5, image 71 with moderate left hydronephrosis. * Status post cystectomy with ileal conduit and right ventral ostomy. * Status post abdominal peroneal resection with left ventral abdominal end colostomy and large peristomal hernia containing multiple non edematous loops of small bowel. The parastomal hernia measures 9 x 10 x 14 cm. In ED received... 0659 Zofran 4 mg IV 05/19 1313 ceftriaxone 1 g IV 05/19 1409 hydromorphone 0.5 mg IV 05/19 1556 NS 1L bolus 05/19 1556 labetalol 10 mg IV 05/19 sepsis IV fluid bolus 30 mL/kg, 2680 05/20 0659 Zofran 4 mg IV 05/20 1037 ceftriaxone 1 g IV 05/20 1212 methylprednisolone 40 mg IVP 05/20 1212 diphenhydramine 50 mg IV Review of Systems 2 General: Reports: 10 or more systems reviewed and unremarkable except in HPI and below Medications/Allergies Home Medications ?Medication ?Instructions ?Recorded ?Confirmed ?Last Taken ?Type COLOSTOMY BAG AND SUPPLIES #1 ea 09/01/21 05/19/25 Unk nown Rx bisacodyl 5 mg tablet,delayed 5 mg PO DAILY PRN Consti pation 05/19/25 05/19/25 05/19/25 History release (Dulcolax (bisacodyl)) paroxetine HCl 40 mg tablet 40 mg PO DAILY 05/19/2505/19/25 History Allergies Allergy/AdvReac Type Severity Reaction Status Date / Time iodine Allergy Severe hives Verified 03/29/22 09:03 Shellfish Allergy Unknown Uncoded 03/29/22 09:03 Current Medications Generic Name Dose Route Start Last Admin Trade Name Freq PRN Reason Stop Dose Admin Morphine Sulfate 4 mg 05/19/25 18:51 05/20/25 11:23 Morphine 4 Mg/Ml Sdv 1 Ml IVP 4 mg Q2H PRN Administration pain PFSH Acute 2 PFSH: Medical History BPH loc w urin obs/LUTS Urinary retention Anemia Pyelonephritis Resolved UTI (urinary tract infection) Resolved Sepsis Resolved Colon cancer Pyelonephritis Surgical History History of colostomy Family History Father Cancer Grandfather Cancer Grandmother Cancer Social History Smoking and tobacco/nicotine status: former use of tobacco/nicotine Alcohol intake: former Substance/Drug Use: never Marital status: Single Current occupational status: disabled Vitals/I&O/Wt Last Vital Signs Temp 98.5 F 05/19/25 10:53 Pulse 138 H 05/20/25 12:03 Resp 16 05/20/25 12:03 BP 126/80 05/20/25 12:03 Pulse Ox 91 05/20/25 12:03 O2 Del Method Room Air 05/20/25 12:03 O2 Flow Rate 4 05/20/25 00:11 05/19/25 05/20/25 05/20/25 22:59 06:59 14:59 Intake Total 2680.74 / 2680.74 Balance 2680.74 / 2680.74 Weight last 48 hrs Weight 89.358 kg Physical Exam 2 Narrative: Constitutional: NAD Psychiatric: Mildly anxious Head: NC/AT Eyes: PERRLA, EOMI Ears: Normal external ears. Hearing intact to normal voice. Nose: Normal external nose. No epistaxis. Throat: Dry MM Respiratory: CTAB. No accessory muscle use. On 2L O2. Cardiovascular: Tachycardic, rate on monitor 137. No murmur. Extremities: No edema bilaterally Gastrointestinal: Soft. + BS RLQ draining urostomy present LLQ colostomy with bulging / distention (chronic per patient) Mild TTP at LLQ Genitourinary: No moeller catheter Musculoskeletal: Moves all extremities. No obvious unilateral weakness. Strength 5/5 Skin: No open lesions or ecchymosis noted. Data 05/20/25 11:25 05/20/25 11:25 Other Labs: Labs 05/20/25 1125 reviewed Infection/Inflammation LA 2.2 Hemogram WBC 17.16 RBC 4.81 PLT 232 Hgb 14.4 HCT 44.2 Chemistry Na 138 K 4.3 Cl 102 Ca 8.7 Glu 129 CO2 22 AG 18.3 BUN 22 Cr 2.0 eGFR 33.7 Liver AST 15 ALT 12 ALP 82 T.Bili 0.9 Alb 3.5 T.Protein 7.2 Micro: Microbiology 05/19/25 12:39 Urine Culture - Preliminary Urine,Clean Catch Gram Negative Rods A&P Assessment and plan 1. Hydronephrosis with obstructing calculus: 2. Ureterolithiasis: Plan: # Ureterolithiasis with hydronephrosis # Obstructive uropathy CT abdomen/pelvis with an 8 mm obstructing stone in the distal left ureter with moderate left hydronephrosis. - Pending transfer to [facility] for urologic intervention - Urine culture pending - Ceftriaxone 2 gm daily - Start mIVF LR at 125 ml/hr - Pain control: morphine 4 mg IV Q2H prn - Anti-emetics: zofran 4 mg IV Q6H prn - May have clear liquid diet # Hx of rectal cancer s/p left lower quadrant lap-loop sigmoid colostomy # Anxiety - MARKETING INFORMATION ANALYST on paroxetine, not continued, re: non-formulary for hospital - Added hydroxyzine 25 mg Q8H prn VTE PPx with SCDs and lovenox PDMP PDMP Reviewed: Not Reviewed Consult Attestations 2 Medical Necessity Statement: Consultation was medically necessary. Referring provider requested assessment due to the complexity of the patient's condition, and need for management of patient's ongoing and comorbid conditions Coding Level of Care Code 93902 Diagnoses Hydronephrosis with obstructing calculus N13.2 Ureterolithiasis N20.1
--- NOTE | 2025-05-20 13:02 | PC.NURSE ---
Assumed Pt. care at this time. pt. denies pain at this time.
[2025-05-20] MEDS: iohexol 350 mg/mL 500 mL Btl (per mL) IV (13:12)
[2025-05-20] MEDS: LORazepam 2 mg/mL INJ 1 mL 1 MG IVP (15:44)
[2025-05-20] MEDS: labetalol 5 mg/mL SDV 20mL 10 MG IVP (15:45)
--- NOTE | 2025-05-20 15:50 | PC.NURSE ---
Provider notified by this RN of pts BP, HR and pt shaking in bed, Provider ordered ativan and labetalol.
--- NOTE | 2025-05-20 18:03 | PC.NURSE ---
Pt. given a meal tray.
== END 2025-05-20 20:32 | disposition short-term general hospital (02) ==
PROVIDERS: Emergency Provider Emergency Medicine; PCP Internal Medicine
DX: N20.0 Calculus of kidney (principal); N30.00 Acute cystitis without hematuria; Z87.891 Personal history of nicotine dependence; Z85.038 Personal history of other malignant neoplasm of large intestine
CPT/HCPCS: 36415; 71275; 74176; 80053; 81001; 83605; 83690; 85025; 87077; 87086; 87186; 93005; 96361; 96372; 96374; 96375; 96376; 99291; J0360; J0696; J1171; J1200; J1650; J2060; J2270; J2405; J2919; J3490; J7030; J7120